=== PATIENT | male | born 1955 | race Caucasian/White ===

== ENCOUNTER → 2020-05-11 09:11 | Outpatient (POV) | payer MEDICARE, SELFPAY | PROVIDERS: PCP Family Medicine; Visit Provider Audiologist | DX: Z00.00 Encounter for general adult medical examination without abnormal findings (principal) ==

== ENCOUNTER → 2020-07-18 10:38 | Outpatient (CLI) | payer MEDICARE, OTHER, SELFPAY ==
--- NOTE | 2020-07-18 10:51 | XR_ITS ---
PROCEDURE: XR SHOULDER LT MIN 2V CLINICAL INDICATION: INJURY OF LT ROTATOR CUFF,TENDONITIS OF LT BICEPS COMPARISON: No exams were available for comparison FINDINGS: No fracture or dislocation. No lytic or blastic change. There is normal mineralization. Moderate osteoarthritic changes of the glenohumeral joint with high-riding humeral head and severe subacromial stenosis suggesting rotator cuff tear which could be confirmed with MRI if clinically warranted. The AC joint is unremarkable. No acute fracture or dislocation. Other findings:None. IMPRESSION: Osteoarthritis with severe subacromial stenosis suggesting rotator cuff tear Dictated by: Estevan Lyons MD 07/18/2020 18:32 Estevan Lyons MD in [facility] 07/18/2020 18:32
== END ==
PROVIDERS: PCP Family Medicine; Visit Provider Family Medicine
DX: S46.002A Unspecified injury of muscle(s) and tendon(s) of the rotator cuff of left shoulder, initial encounter (principal); M75.22 Bicipital tendinitis, left shoulder
CPT/HCPCS: 73030

== ENCOUNTER → 2020-08-11 14:42 | Outpatient (CLI) | payer MEDICARE, OTHER, SELFPAY ==
--- NOTE | 2020-08-11 14:42 | MR_ITS ---
PROCEDURE: MR SHOULDER LT WO CON CLINICAL INDICATION: evaluate for a rotator cuff tear Severe left shoulder pain with subacromial stenosis, abnormal radiograph COMPARISON: CR XR SHOULDER LT MIN 2V from 07/18/2020 TECHNIQUE: Routine multiplanar multi echo sequences are performed without gadolinium enhancement. FINDINGS: The exam is very limited technically due to patient's inability to properly fit inside the MRI unit. There is thickening of the infraspinatus tendon with increased T2 signal of the infraspinatus tendon consistent with tendinopathy/tendinosis. There does appear to be complete tear of the supraspinatus tendon with mild retraction of the musculotendinous fibers. The subscapularis tendon also is thickened with increased T2 signal distally suggesting tear of the subscapularis tendon. The tendon does appear to be retracted. The teres minor tendon is intact. No obvious labral tear. Bicipital tendon is in place. There is increased T2 signal involving the humeral head anteriorly and may be due to subarticular cystic changes. IMPRESSION: Limited study secondary to patient's inability to be properly positioned. Complete tear of the supraspinatus tendon with mild retraction of the musculotendinous fibers with subacromial stenosis and osteoarthritis Complete tear of the subscapularis tendon with retraction of the musculotendinous fibers Dictated by: Estevan Lyons MD 08/13/2020 10:10 Estevan Lyons MD in [facility] 08/13/2020 10:10
== END ==
PROVIDERS: PCP Family Medicine; Visit Provider Orthopaedic Surgery
DX: M25.512 Pain in left shoulder (principal)
CPT/HCPCS: 73221

== ENCOUNTER 2020-09-27 08:00 | Outpatient (RCR) | payer MEDICARE, OTHER, SELFPAY ==
--- NOTE | 2020-08-29 10:43 | HMH.OTOPEV ---
OT Inpatient Evaluation Rehab OT Outpatient Eval Start: 08/29/20 10:32 Freq: Status: Active Protocol: Document 08/29/20 10:33 RMARSHALSuzi (Rec: 08/29/20 10:43 [facility] [id number] Electronically Signed By Ramin Shearer OT 08/29/20 10:33 Outpatient Therapy Subjective History Subjective History Pt is a 65 year old male who reports to therapy for initial evaluation to left shoulder. Pt reports ~May 27 he fell out of his bed and tried to catch himself with LUE resulting in injury. MRI completed and confirmed a complete tear of supraspinatus and subscapularis in L shoulder. Pt has a past medial history of Parkinson's, Diabetes Type 2, HTN, and back issues. Pt does demonstrate with decreased L shoulder AROM and strength. Pt will continue to be seen twice a week in order to address all left shoulder deficits. Chief Complaint Pain,Stiff,Weakness Symptom Type Ache,Throb,Sharp,Dull Symptoms Relieved By Nothing Symptoms Aggravated By Physical Activity,Lifting Prior Functional Limitations None Current Functional Limitations Reaching,Lifting,Housework, Sleeping,Recreation Activity Symptom Description Constant but Variable, Intermittent Level of pain today (0-10) 4 Pain scale - at its best (0-10) 4 Pain scale - at its worst (0-10) 7 Shoulder/Elbow Eval Shoulder Objective Measurements Shoulder ROM Left Shoulder Abduction Active Range of 65 degrees Motion (degrees) Shoulder Flexion Active Range of Motion 125 degrees (degrees) Query Text: Shoulder External Rotation Active Range 55 degrees of Motion (degrees) Shoulder Internal Rotation Active Range 45 degrees of Motion (degrees) pain with active ROM shoulder exam left standard pain with passive ROM shoulder exam left standard decreased ROM shoulder exam standard left Shoulder MMT Shoulder Abduction Strength Grade 3- Fair- Shoulder Extension Strength Grade 4- Good- Shoulder Flexion Strength Grade 4- Good- Shoulder External Rotation Strength 3- Fair- Grade Shoulder Internal Rotation
== END 2020-09-27 08:54 | disposition home or self-care (01) ==
LOC: OT 08:00
PROVIDERS: PCP Family Medicine; Visit Provider Orthopaedic Surgery
DX: M75.122 Complete rotator cuff tear or rupture of left shoulder, not specified as traumatic (principal); M25.512 Pain in left shoulder
CPT/HCPCS: 97014; 97110; 97166; G0283

== ENCOUNTER → 2021-01-23 15:39 | Outpatient (CLI) | payer MEDICARE, OTHER, SELFPAY ==
--- NOTE | 2021-01-23 15:45 | XR_ITS ---
PROCEDURE: XR CHEST 2V CLINICAL HISTORY: SOB COMPARISON: No exams were available for comparison FINDINGS: There is a focal ill-defined density noted in the left suprahilar region. Minor bibasal atelectasis. No lobar consolidation, pleural effusions or pneumothorax. Cardiac size and central pulmonary vasculature within normal limits. Minor degenerative changes of the visualized thoracic spine.. IMPRESSION: Focal ill-defined density in the left suprahilar region. This may represent a nodule versus prominent vasculature. CT scan of the thorax with contrast is recommended for further evaluation. Minor bibasal atelectasis. Dictated by: Alecia Graves 01/23/2021 15:59 Alecia Graves in [facility] 01/23/2021 15:59
== END ==
PROVIDERS: PCP Family Medicine; Visit Provider Family Medicine
DX: R06.02 Shortness of breath (principal)
CPT/HCPCS: 71046

== ENCOUNTER → 2021-07-02 17:08 | Outpatient (CLI) | payer MEDICARE, OTHER, SELFPAY | PROVIDERS: Visit Provider Nurse Practitioner Family | DX: U07.1 COVID-19 (principal) | CPT/HCPCS: U0003 ==

== ENCOUNTER 2021-07-02 17:44 | Emergency (ER) | payer MEDICARE, OTHER, SELFPAY ==
[2021-07-02 17:46] VITALS: BP 149/90; PULSE 115; RESP 42; TEMP 36.7; O2SAT 97; BMI 52.4
--- NOTE | 2021-07-02 17:55 | HMH.EDSOB ---
ED Disposition Clinical Impression: Bronchitis due to 2019 novel coronavirus Disposition: Home, Self-Care Condition on Discharge: Fair Additional Instructions: Please isolate yourself from others to avoid spreading your COVID-19 infection. This includes your . I recommend that your get tested as well. Return to the emergency department if you feel worse in any way and or if your oxygen levels drop and stay below 92% on room air. Referrals: Juan José Cervantes MD [Primary Care Provider] - 3 days - Critical Care Critical Care Time: No Attestation: On , the high probability of a clinically significant, sudden or life threatening deterioration of the following system(s) required my full and direct attention, intervention and personal management. The time I documented below is in addition to time spent performing reported procedures but includes the following listed in this critical care notation. Medical Decision Making - Medical Records Medical records reviewed: Yes: I reviewed the patient's medical records. - Alex Inquiry Pt receiving controlled substance: No Vital Signs: 07/02/21 17:46 Temperature 98.1 F Temperature Source Oral Pulse Rate [Radial] 115 H Respiratory Rate 42 H Blood Pressure [Right Arm] 149/90 H Blood Pressure Mean [Right Arm] 109 Blood Pressure Position [Right Arm] Sitting 02 Sat by Pulse Oximetry 97 Oxygen Delivery Method Room Air - Lab Data Lab results reviewed: Yes: I reviewed the patient's lab results. Lab Results 07/02/21 12:15: SARS-CoV-2 (PCR) Detected A, Influenza A Untype (PCR) Not detected, Influenza Type B (PCR) Not detected 07/02/21 18:10: WBC 6.7, RBC 5.03, Hgb 14.7, Hct 45.0, MCV 89.5, MCH 29.3, MCHC 32.7, RDW 14.5, Plt Count 270, MPV 7.4, Neut % (Auto) 58.2, Lymph % (Auto) 29.7, [place] % (Auto) 8.1, Eos % (Auto) 2.9, Baso % (Auto) 1.2, Neut # (Auto) 3.9, Lymph # (Auto) 2.0, [place] # (Auto) 0.5, Eos # (Auto) 0.2, Baso # (Auto) 0.1 07/02/21 18:10: Sodium 135 L, Potassium 4.2, Chloride 95 L, Carbon Dioxide 28, Anion Gap 16.2 H, BUN 19, Creatinine 1.50 H, Estimated Creat Clear 44, Estimated GFR 47 L, Est GFR ( Amer) 57 L, Glucose 205 H, Calcium 9.1, Total Bilirubin 0.3, AST 27, ALT 30, Alkaline Phosphatase 96, Troponin I < 0.01, NT-Pro-B Natriuret Pep 43.2, Total Protein 7.6, Albumin 3.9, Globulin 3.7 H, Albumin/Globulin Ratio 1.1 Result diagrams: 07/02/21 18:10 07/02/21 18:10 Orders (Tests/Meds): ORDERS Category Date Time Status Troponin I Q3H Lab 07/02/21 21:00 Ordered Troponin I Q3H Lab 07/03/21 00:00 Ordered ECG Request by /Teresa Stat Y 07/02/21 17:59 Ordered - Radiology Data #1 Image(s): Chest Image Reviewed: Yes I reviewed the patient's radiology image Preliminary Findings: Normal/NAD - ECG Data Tracing #1 I reviewed this ECG and interpreted as documented below: The patient's EKG was performed at 1836. It shows a sinus tachycardia with a rate of 112 bpm. Is some artifact present. There is no evidence of ischemia. There is no dysrhythmia. Normal Sinus Rhythm: Yes Arrhythmias present: sinus tach Medical Decision Narrative: Covid PCR test was positive. The patient's oxygen saturations are 100% on room air at this time. The patient does seem somewhat anxious. He is tachycardic. His blood pressure is stable. I reviewed the patient's chest x-ray and I do not see any acute infiltrates. At this point, the patient does not need to be admitted to the hospital for his COVID-19 infection. He will be discharged in stable condition. I advised him to inform his primary care physician of his diagnosis. I also advised him to isolate from other people including his within the house. Patient has expressed understanding. The patient also states that he has a home pulse oximeter. I advised him to use it and check his oxygen level at least 3 times a day. I advised him to return to the emergency department if his oxygen saturations are
--- NOTE | 2021-07-02 17:59 | XR_ITS ---
PROCEDURE INFORMATION: Exam: XR Chest Exam date and time: 07/02/2021 5:59 PM Age: 65 years old Clinical indication: Dyspnea TECHNIQUE: Imaging protocol: XR of the chest. Views: 1 view. COMPARISON: CR XR CHEST 2V 01/23/2021 3:48 PM FINDINGS: Lungs: Mild linear opacities over the left base. Pleural spaces: Unremarkable. No pleural effusion. No pneumothorax. Heart/Mediastinum: Unremarkable. No cardiomegaly. Bones/joints: Unremarkable. IMPRESSION: Mild linear opacities over the left base most compatible with atelectasis
--- NOTE | 2021-07-02 18:15 | PC.NURSE ---
reviewed pt's vital signs with md, no new orders noted
[2021-07-02 18:18] LABS: Basophils # 0.1 K/mm3 (0-0.2); Basophils % 1.2 % (0.1-2.0); Eosinophils # 0.2 K/mm3 (0.0-0.4); Eosinophils % 2.9 % (0.1-12.0); Hemoglobin 14.7 g/dL (14.1-18.0); Lymphocytes % 29.7 % (10-50); Mean Corpuscular HGB Conc 32.7 g/dL (31.8-35.4); Mean Corpuscular Hemoglobin 29.3 pg (27.0-31.2); Mean Corpuscular Volume 89.5 fl (80-94); Mean Platelet Volume 7.4 fl (7.4-10.4); Monocytes # 0.5 K/mm3 (0.1-1.0); Monocytes % 8.1 % (1.7-9.3); Neutrophils # 3.9 K/mm3 (1.8-7.8); Neutrophils % 58.2 % (37.0-80.0); Platelet Count 270 K/mm3 (142-424); Red Blood Count 5.03 M/mm3 (4.60-6.20); Red Cell Distribution Width 14.5 % (11.5-17.5); White Blood Count 6.7 K/mm3 (4.8-10.8)
[2021-07-02 18:23] LABS: Chloride 95 mmol/L (98-107); Potassium 4.2 mmoL/L (3.5-5.1); Sodium 135 mmol/L (136-145)
[2021-07-02 18:25] LABS: Alanine Aminotransferase 30 U/L (12-78); Aspartate Amino Transferase 27 U/L (17-59); Blood Urea Nitrogen 19 mg/dl (9-20); Creatinine Clearance Estimated 44 mL/min (50-200); Estimated Glomerular Filt Rate 47 ml/min (>60); GFR (African American) 57 ML/MIN (>60)
[2021-07-02 18:26] LABS: Albumin Level 3.9 g/dl (3.5-5.0); Albumin/Globulin Ratio 1.1 (1.1-1.8); Alkaline Phosphatase 96 U/L (38-126); Anion Gap 16.2 mEq/L (5-15); Bilirubin,Total 0.3 mg/dl (0.2-1.3); Calcium 9.1 mg/dl (8.4-10.2); Carbon Dioxide 28 mmol/L (22.0-30.0); Globulin 3.7 g/dL (1.3-3.2); Glucose 205 mg/dl (74-100); Total Protein,Serum 7.6 g/dl (6.3-8.2)
[2021-07-02 18:31] LABS: Influenza A, PCR Not Detected (NotDetected); Influenza B, PCR Not Detected (NotDetected)
[2021-07-02 18:32] LABS: Coronavirus 19, PCR Detected (NotDetected)
[2021-07-02 18:35] LABS: NT Pro Brain Natriuretic Pep. 43.2 pg/mL (0-125)
--- NOTE | 2021-07-02 18:36 | ECG_ITS ---
APPROVED REPORT Exam: Resting ECG HR:112 bpm ECG Measurements Heart Rate 112 AXES NC 140 P 23 QRSd 80 QRS 44 QT 334 T 13 QTc 455 Conclusion Sinus tachycardia Cannot rule out Anterior infarct, age undetermined Abnormal ECG Electronically signed by : Juan José Allred MD 07/03/2021 10:44:43
[2021-07-02 18:39] LABS: Troponin I < 0.01 ng/ml (0.00-0.034)
[2021-07-02 18:54] VITALS: BP 127/90; PULSE 114; RESP 40; TEMP 37.1; O2SAT 98
== END 2021-07-02 18:58 | disposition home or self-care (01) ==
PROVIDERS: Emergency Provider Emergency Medicine; PCP Family Medicine
DX: J20.9 Acute bronchitis, unspecified (principal); U07.1 COVID-19; E11.9 Type 2 diabetes mellitus without complications; E78.5 Hyperlipidemia, unspecified; I10 Essential (primary) hypertension; F41.9 Anxiety disorder, unspecified
CPT/HCPCS: 71045; 80053; 83880; 84484; 85025; 93005; 99283; U0003

== ENCOUNTER → 2021-11-14 10:27 | Outpatient (CLI) | payer MEDICARE, OTHER, SELFPAY ==
--- NOTE | 2021-11-14 10:28 | FL_ITS ---
FINAL REPORT CLINICAL HISTORY: dysphagia, prior dx Parkinson disease FINDINGS: MODIFIED BARIUM SWALLOW History: Dysphagia FINDINGS: Fluoroscopy was provided for the speech pathologist to evaluate the swallowing mechanism. The patient was given several different consistencies of barium while the swallow was visualized fluoroscopically. The report of the speech pathologist should be consulted prior to making dietary decisions. FLUOROSCOPY TIME: 1 minute IMPRESSION: Modified barium swallow under fluoroscopic guidance.Please see the report of the speech pathologist for Reviewed, Interpreted and Dictated by Urbano Hudson III, MD Transcribed by JULIUS Romero Authenticated by Urbano Hudson III, MD on 11/14/2021 11:53:08 AM [facility]
--- NOTE | 2021-11-14 12:08 | HMH.SLMBS2 ---
Speech & Language Evaluation Speech/Language Mod Barium Swallow Start: 11/14/21 11:51 Freq: once Status: Complete Protocol: Document 11/14/21 11:51 KODY (Rec: 11/14/21 12:08 KODY [id number]) General Information General Current Food Consistancy Regular,Thin Liquids Dentition Poor Dentition Oxygen Status Room Air Ability to Follow Directions Excellent Communication Ability No Impairment MBS Recommendations Diet Dietary Recommendations Regular,Thin Liquids Treatment/Strategies Strategy/Precaution Recommend Sitting Upright (90 deg),Small Bites and Sips,Alternate Liquids/Solids Referrals/Other Recommended Referrals Dietary Consult Mod Barium Swallow Impressions Summary and Impressions Oral Phase Impression Mild Impairment Oral Phase Summary Tongue pumping noted. Prolonged mastication of solids 2' missing & poor dentition. Pharyngeal Phase Impression Minimal Impairment Pharyngeal Phase Summary Penetration noted x1 with one trial of thin liquids via cup. Penetration was shallow and noted to occur during the swallow. All penetrated material cleared from the lanryngeal vestibule upon completion of the swallow. Speech/Language MBS Assessment/Goals/Plan Assessment Date of Evaluation: 11/14/21 Evaluation Type Initial Certification Assessment/Problems Parkinson's, difficulty swallowing. Does Patient Qualify for Service No Qualify/Failure Comment Based on the results of the modified barium swallow study, patient does not quality for skilled speech therapy services at this time. Recommendations PHYSICIAN CERTIFICATION: The specified therapy services are required, authorized, and reviewed every 30 days. Diet Recommendations Normal Liquid Type Recommendations Normal/Thin SL Swallow Guidelines Alt bite w/sip thru meal, Standard Aspiration Prec.,Eat at slow rate Dysphagia Swallow Precautions/Strategies Sitting Upright (90 deg),Small Bites and Sips,Alternate Liquids/Solids Place Food on Either side of Mouth Plan Pt/Guardian verbally ack understanding Yes of dx/prognosis/goals Pt/Guardian verbally ack understanding Yes of/consent to tx
[2021-11-14 13:11] LABS: Basophils # 0.1 K/mm3 (0-0.2); Basophils % 1.4 % (0.1-2.0); Eosinophils # 0.2 K/mm3 (0.0-0.4); Eosinophils % 2.6 % (0.1-12.0); Hematocrit 41.6 % (42.0-52.0); Hemoglobin 13.5 g/dL (14.1-18.0); Lymphocytes # 2.1 K/mm3 (0.7-4.5); Lymphocytes % 27.9 % (10-50); Mean Corpuscular HGB Conc 32.6 g/dL (31.8-35.4); Mean Corpuscular Hemoglobin 30.1 pg (27.0-31.2); Mean Corpuscular Volume 92.4 fl (80-94); Mean Platelet Volume 7.6 fl (7.4-10.4); Monocytes # 0.5 K/mm3 (0.1-1.0); Monocytes % 6.5 % (1.7-9.3); Neutrophils # 4.7 K/mm3 (1.8-7.8); Neutrophils % 61.6 % (37.0-80.0); Platelet Count 271 K/mm3 (142-424); Red Cell Distribution Width 15.1 % (11.5-17.5); White Blood Count 7.7 K/mm3 (4.8-10.8)
[2021-11-14 14:45] LABS: Alanine Aminotransferase 13 U/L (12-78); Albumin Level 3.6 g/dl (3.5-5.0); Albumin/Globulin Ratio 1.2 (1.1-1.8); Alkaline Phosphatase 76 U/L (38-126); Anion Gap 11.5 mEq/L (5-15); Aspartate Amino Transferase 27 U/L (17-59); Bilirubin,Total 0.3 mg/dl (0.2-1.3); Blood Urea Nitrogen 12 mg/dl (9-20); Carbon Dioxide 25 mmol/L (22.0-30.0); Chloride 106 mmol/L (98-107); Estimated Glomerular Filt Rate 60 ml/min (>60); GFR (African American) 73 ML/MIN (>60); Glucose 94 mg/dl (74-100); Potassium 4.5 mmoL/L (3.5-5.1); Sodium 138 mmol/L (136-145); Total Protein,Serum 6.6 g/dl (6.3-8.2)
[2021-11-14 15:19] LABS: Thyroid Stimulating Hormone 2.02 uIU/mL (0.465-4.68)
[2021-11-14 15:59] LABS: Folate 7.73 ng/mL; Vitamin B12 < 159 pg/mL (239-931)
== END ==
PROVIDERS: PCP Family Medicine; Visit Provider Nurse Practitioner Family
DX: M54.2 Cervicalgia (principal); R13.10 Dysphagia, unspecified; R26.9 Unspecified abnormalities of gait and mobility; R29.2 Abnormal reflex; Z86.69 Personal history of other diseases of the nervous system and sense organs; R51.9 Headache, unspecified; R93.7 Abnormal findings on diagnostic imaging of other parts of musculoskeletal system; E83.10 Disorder of iron metabolism, unspecified
CPT/HCPCS: 36415; 70371; 80053; 82607; 82728; 82746; 84443; 85025; 92611

== ENCOUNTER → 2021-11-15 13:25 | Outpatient (CLI) | payer MEDICARE, OTHER, SELFPAY ==
--- NOTE | 2021-11-15 13:38 | MR_ITS ---
FINAL REPORT CLINICAL HISTORY: gait disturbance, headache, tremor, abnormal reflexes, hx parkinsons FINDINGS: Multiplanar MR imaging of the brain was performed without contrast. There is mild age-appropriate atrophy. There are scattered foci of increased T2 signal in the cerebral white matter that have a nonspecific appearance but likely represent mild chronic ischemic/gliotic changes. There is no evidence of intracranial hemorrhage or mass. No abnormal ventricular dilatation is identified. No abnormal extra-axial fluid collection is seen. No abnormality is seen on the diffusion weighted images. The posterior fossa and brainstem are unremarkable. Normal major vessel vascular flow voids are seen. IMPRESSION: Age-appropriate atrophy and mild chronic ischemic/gliotic changes. No acute intracranial abnormality. Reviewed, Interpreted and Dictated by Urbano Hudson III, MD Transcribed by Roselyn Baker Authenticated by Urbano Hudson III, MD on 11/15/2021 03:17:11 PM [facility]
--- NOTE | 2021-11-15 13:38 | MR_ITS ---
FINAL REPORT CLINICAL HISTORY: brisk reflexes, abn prior cervial spine imaging. hx Parkinson's. gait imbalance. pt had a hard time staying still. sent over best images. FINDINGS: Multiplanar MR imaging of the cervical spine was performed without contrast. Motion artifact is identified on all of the images. On the sagittal T2-weighted images, disc degeneration is seen throughout. There is no evidence of fracture. The vertebral alignment is normal. The cervical spinal cord has an unremarkable appearance without evidence of mass, edema or syrinx. The cervicomedullary junction is normal. There is mild canal stenosis at C1-2 measuring 8 mm. C2-3: Uncovertebral osteophytes are present with mild right neural foraminal narrowing. C3-4: Uncovertebral osteophytes are present with moderate right neural foraminal narrowing. C4-5: An annular bulge is present. There is no significant canal stenosis or neural foraminal narrowing. C5-6: An annular bulge is present. There is a central disc protrusion which indents the thecal sac. There is mild left neural foraminal narrowing. C6-7: An annular bulge is present. There is no significant canal stenosis or neural foraminal narrowing. C7-T1: There is no significant canal stenosis or neural foraminal narrowing. IMPRESSION: Multilevel degenerative disc disease and spondylosis with mild central canal stenosis at C1-2. Central disc protrusion at C5-6 indents the thecal sac. Reviewed, Interpreted and Dictated by Urbano Hudson III, MD Transcribed by Roselyn Baker Authenticated by Urbano Hudson III, MD on 11/15/2021 04:25:12 PM [facility]
== END ==
PROVIDERS: PCP Family Medicine; Visit Provider Nurse Practitioner Family
DX: R26.9 Unspecified abnormalities of gait and mobility (principal); R29.2 Abnormal reflex; R51.9 Headache, unspecified; R93.7 Abnormal findings on diagnostic imaging of other parts of musculoskeletal system
CPT/HCPCS: 70551; 72141; 76376

== ENCOUNTER → 2022-01-17 10:55 | Outpatient (CLI) | payer MEDICARE, OTHER, SELFPAY ==
[2022-01-17 11:38] LABS: Basophils % 0.4 % (0.1-2.0); Eosinophils # 0.1 K/mm3 (0.0-0.4); Eosinophils % 1.7 % (0.1-12.0); Hematocrit 44.7 % (42.0-52.0); Hemoglobin 14.6 g/dL (14.1-18.0); Mean Corpuscular HGB Conc 32.6 g/dL (31.8-35.4); Mean Corpuscular Volume 89.2 fl (80-94); Mean Platelet Volume 7.4 fl (7.4-10.4); Monocytes # 0.6 K/mm3 (0.1-1.0); Monocytes % 7.1 % (1.7-9.3); Neutrophils # 5.3 K/mm3 (1.8-7.8); Neutrophils % 65.8 % (37.0-80.0); Platelet Count 237 K/mm3 (142-424); Red Blood Count 5.01 M/mm3 (4.60-6.20); Red Cell Distribution Width 14.8 % (11.5-17.5); White Blood Count 8.1 K/mm3 (4.8-10.8)
[2022-01-17 13:21] LABS: Erythrocyte Sedimentation Rate 21 mm/hr (0-20)
[2022-01-17 13:31] LABS: Chloride 102 mmol/L (98-107); Potassium 4.4 mmoL/L (3.5-5.1); Sodium 139 mmol/L (136-145)
[2022-01-17 13:34] LABS: Alanine Aminotransferase 12 U/L (12-78); Albumin Level 3.8 g/dl (3.5-5.0); Albumin/Globulin Ratio 1.3 (1.1-1.8); Alkaline Phosphatase 75 U/L (38-126); Anion Gap 12.4 mEq/L (5-15); Aspartate Amino Transferase 25 U/L (17-59); Bilirubin,Total 0.4 mg/dl (0.2-1.3); Blood Urea Nitrogen 19 mg/dl (9-20); Carbon Dioxide 29 mmol/L (22.0-30.0); Estimated Glomerular Filt Rate 60 ml/min (>60); GFR (African American) 73 ML/MIN (>60); Globulin 2.9 g/dL (1.3-3.2); Total Protein,Serum 6.7 g/dl (6.3-8.2)
[2022-01-17 13:35] LABS: Calcium 8.7 mg/dl (8.4-10.2); Glucose 161 mg/dl (74-100)
[2022-01-17 14:04] LABS: C-Reactive Protein 8.2 mg/L (0-4)
== END ==
PROVIDERS: Visit Provider Nurse Practitioner Family
DX: L03.039 Cellulitis of unspecified toe (principal)
CPT/HCPCS: 36415; 80053; 85025; 85651; 86140; 87070; 87077; 87186; 87205

== ENCOUNTER → 2022-02-21 09:08 | Outpatient (CLI) | payer MEDICARE, OTHER, SELFPAY ==
--- NOTE | 2022-02-21 09:08 | US_ITS ---
FINAL REPORT CLINICAL HISTORY: DECREASED SENESATION SIAT,CLAUDICATION,REST PAIN,DM,HTN FINDINGS: Complete ankle brachial indices were obtained. The right BHARGAVI is 1.7. The left BHARGAVI is 1.19. The ABIs are within normal limits bilaterally. IMPRESSION: ABIs within normal limits bilaterally. Reviewed, Interpreted and Dictated by Jose Howard MD Transcribed by Roselyn Baker Authenticated by Jose Howard MD on 02/21/2022 11:20:[address] [facility]
== END ==
PROVIDERS: PCP Family Medicine; Visit Provider Nurse Practitioner Family
DX: E11.42 Type 2 diabetes mellitus with diabetic polyneuropathy (principal); R09.89 Other specified symptoms and signs involving the circulatory and respiratory systems; R20.8 Other disturbances of skin sensation; Z79.4 Long term (current) use of insulin
CPT/HCPCS: 93923

== ENCOUNTER 2022-07-03 10:22 | Outpatient (CLI) | payer MEDICARE, OTHER, SELFPAY ==
[2022-07-03 10:28] VITALS: BP 135/78; PULSE 88; RESP 18; O2SAT 100
== END 2022-07-03 10:36 | disposition home or self-care (01) ==
LOC: INF 10:23
PROVIDERS: PCP Family Medicine; Visit Provider Family Medicine
DX: E53.8 Deficiency of other specified B group vitamins (principal)
CPT/HCPCS: 96372

== ENCOUNTER 2022-08-06 09:22 | Outpatient (CLI) | payer MEDICARE, OTHER, SELFPAY ==
[2022-08-06 09:48] VITALS: BP 124/79; PULSE 87; RESP 18; TEMP 36.4; O2SAT 97
== END 2022-08-06 10:00 | disposition home or self-care (01) ==
LOC: INF 09:25
PROVIDERS: PCP Family Medicine; Visit Provider Family Medicine
DX: E53.8 Deficiency of other specified B group vitamins (principal)
CPT/HCPCS: 96372

== ENCOUNTER → 2022-08-19 15:32 | Outpatient (CLI) | payer MEDICARE, OTHER, SELFPAY ==
[2022-08-19 18:40] LABS: Ferritin 28.8 ng/ml (17.9-464)
[2022-08-20 14:31] LABS: Vitamin B12 > 1000 pg/mL (239-931)
== END ==
PROVIDERS: PCP Family Medicine; Visit Provider Nurse Practitioner Family
DX: E11.9 Type 2 diabetes mellitus without complications (principal); Z79.4 Long term (current) use of insulin
CPT/HCPCS: 36415; 82607; 82728

== ENCOUNTER → 2022-08-20 13:26 | Outpatient (CLI) | payer MEDICARE, OTHER, SELFPAY ==
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
--- NOTE | 2022-08-20 13:30 | CT_ITS ---
FINAL REPORT CLINICAL HISTORY: headache COMPARISON: MRI 11/15/2021 FINDINGS: Axial images of the head were obtained without contrast. Coronal reformatted images were also obtained. This study was performed with techniques to keep radiation doses as low as reasonably achievable (ALARA). Individualized dose reduction techniques using automated exposure control or adjustment of mA and/or kV according to the patient''s size were employed. There is generalized age-appropriate atrophy. Periventricular low-attenuation areas are seen consistent with mild chronic ischemic changes. There is no evidence of hemorrhage. There is an extra-axial mass in the right occipital region measuring 16 mm, not significantly changed since prior and likely represents a meningioma. There is no evidence of acute infarct. There is no evidence of shift of the midline structures. No skull abnormality is seen on the bone window images. IMPRESSION: Atrophy and mild periventricular chronic ischemic changes. No acute intracranial abnormality identified. Stable mass in the right occipital region, likely represents a meningioma. Reviewed, Interpreted and Dictated by Urbano Hudson III, MD Transcribed by Roselyn Baker Authenticated and [facility]
== END ==
PROVIDERS: PCP Family Medicine; Visit Provider Nurse Practitioner Family
DX: M54.2 Cervicalgia (principal); R51.9 Headache, unspecified
CPT/HCPCS: 70450; 72052

== ENCOUNTER 2022-09-03 09:27 | Outpatient (CLI) | payer MEDICARE, OTHER, SELFPAY ==
[2022-09-03 09:38] VITALS: BP 102/62; PULSE 103; RESP 18; O2SAT 97
== END 2022-09-03 09:38 | disposition home or self-care (01) ==
PROVIDERS: PCP Family Medicine; Visit Provider Family Medicine
DX: E53.8 Deficiency of other specified B group vitamins (principal)
CPT/HCPCS: 96372

== ENCOUNTER 2022-10-01 09:25 | Outpatient (CLI) | payer MEDICARE, OTHER, SELFPAY ==
[2022-10-01 09:30] VITALS: BP 110/65; PULSE 100; RESP 20; TEMP 36.9; O2SAT 95
== END 2022-10-01 09:45 | disposition home or self-care (01) ==
LOC: INF 09:27
PROVIDERS: PCP Family Medicine; Visit Provider Family Medicine
DX: E53.8 Deficiency of other specified B group vitamins (principal)
CPT/HCPCS: 96372

== ENCOUNTER 2022-10-25 08:07 | Emergency (ER) | payer MEDICARE, OTHER, SELFPAY ==
[2022-10-25 08:23] VITALS: BP 123/73; PULSE 82; RESP 16; TEMP 36.6; O2SAT 97; BMI 45.8
--- NOTE | 2022-10-25 08:31 | EXP.UTC ---
Discharge Plan Disposition Patient Disposition: Home, Self-Care Condition: Good Prescriptions Prescriptions: New azithromycin [Zithromax Z-Joey] 250 mg tablet See Rx Instructions .ROUTE .COMPLEX 5 Days Qty: 6 0RF Rx Instructions: For 250 mg dose pack: take 500 mg today (day 1), then 250 mg for 4 days (days 2-5) benzonatate 100 mg capsule 100 mg PO TID PRN (Reason: cough) Qty: 30 0RF No Action Lantus Solostar U-100 Insulin 100 unit/mL (3 mL) insulin pen 50 unit SQ DAILY Label Comments: INJECT 50 UNITS SUBCUTANEOUSLY EVERY DAY NEEDED ciclopirox 8 % solution 1 applic TOPICAL HS 28 Days Qty: 6.6 11RF Rx Instructions: Apply to all nails for 7 days. At the end of the 7 day remove nail micronesian with micronesian remover and re- start application. Ozempic 0.25 mg or 0.5 mg(2 mg/1.5 mL) pen injector 0.5 mg SQ WEEKLY furosemide 40 mg tablet 40 mg PO DAILY Slow Release Iron 140 mg (45 mg iron) tablet extended release 280 mg PO DAILY mupirocin 2 % ointment 1 applic TOPICAL BID Qty: 22 0RF carbidopa-levodopa 25-100 mg tablet 1 tab PO TID metformin 1,000 mg tablet 1,000 mg PO DAILY pramipexole 1.5 mg tablet extended release 24 hr 1.5 mg PO DAILY isosorbide mononitrate 60 mg tablet extended release 24 hr 60 mg PO DAILY aspirin 81 mg tablet,delayed release (DR/EC) 81 mg PO DAILY gabapentin 600 mg tablet 600 mg PO TID hydrochlorothiazide 12.5 mg capsule 12.5 mg PO DAILY Label Comments: TAKE 1 CAPSULE BY MOUTH EVERY DAY IN THE MORNING vitamin B complex [B Complex-Vitamin B12] Tablet 1 tab PO DAILY enalapril maleate 5 mg tablet 5 mg PO DAILY cyanocobalamin (vitamin B-12) 1,000 mcg/mL Syringe 1,000 mcg IM MONTHLY Rx Instructions: b12 injection twice weekly Referrals Follow up/Referrals: Juan José Cervantes MD [Primary Care Provider] - See instructions Activity Restrictions/Add. Instructions Additional Instructions/Restrictions: *Monitor Temp, Over the counter Motrin or Tylenol as directed/as needed Tylenol every 4 hours and Motrin every 6 hours (as long as your family doctor has told you that you can take it) for fever or pain. and straight to ER if unable to lower temp less than 101.0 after medication given *Warm salt water gargles may help to soothe the throat *Throat Lozenges? *Warm fluids like tea with honey may help to soothe the throat? *Sleep elevated *Humidifier/Vaporizer *If you did not take Penicillin shot or was unable to, start taking antibiotic immediately and make sure that you take it for the FULL length of time although you should start to feel better in 24-48 hours *change toothbrush and toothpaste 24-48 hours after starting to take antibiotics so you do not reinfect yourself Monitor Temp. Tylenol and/or Ibuprofen as needed. ER if fever is no less than 101 despite alternating Tylenol and Ibuprofen * Encourage fluids, water, Gatorade, powerade, pedialyte if /toddler/or child *Cold fluids, popsicles and ice cream may feel good on his throat Follow up IMMEDIATELY for new or worsening symptoms or no Noticeable improvement over the next 48-72 hours. 911 for difficulty breathing or swallowing Clinical Impressions Clinical Impression: Strep throat Instructions Patient Instructions: Strep Throat, DI for Strep Throat Discharge ED Provider[place]ford [facility] [place] Stated complaint: Congestion,Cough Mode of Arrival: Ambulatory Source of Information: Patient Limitations: No Limitations Time Seen by Provider: 10/25/22 08:31 Description of Symptoms (Recalled from Triage Doc. by RN): pt comes in with c/o productive cough and congestion that began friday. HEENT Symptoms (Recalled from RN notes): Yes Resp Symptoms (Recalled from RN notes): Yes Skin Symptoms (Recalled from RN notes): No MS Symptoms (Recalled from RN notes): No Functional
[2022-10-25 08:36] LABS: UTC Strep Screen (Rapid) Positive (Negative)
[2022-10-25 08:45] VITALS: BP 123/73; PULSE 82; RESP 16; TEMP 36.6
== END 2022-10-25 08:50 | disposition home or self-care (01) ==
PROVIDERS: Emergency Provider Nurse Practitioner; PCP Family Medicine
DX: J02.0 Streptococcal pharyngitis (principal)
CPT/HCPCS: 87880; 99212; G0463

== ENCOUNTER 2022-10-29 09:13 | Outpatient (CLI) | payer MEDICARE, OTHER, SELFPAY ==
[2022-10-29 09:31] VITALS: BP 107/59; PULSE 91; RESP 20; TEMP 36.4; O2SAT 97
== END 2022-10-29 09:50 | disposition home or self-care (01) ==
LOC: INF 09:15
PROVIDERS: PCP Family Medicine; Visit Provider Family Medicine
DX: E53.8 Deficiency of other specified B group vitamins (principal)
CPT/HCPCS: 96372

== ENCOUNTER 2022-11-26 08:48 | Outpatient (CLI) | payer MEDICARE, OTHER, SELFPAY ==
[2022-11-26 08:54] VITALS: BP 123/74; PULSE 95; RESP 20; TEMP 36.4; O2SAT 99
== END 2022-11-26 09:13 | disposition home or self-care (01) ==
LOC: INF 08:49
PROVIDERS: PCP Family Medicine; Visit Provider Family Medicine
DX: R79.9 Abnormal finding of blood chemistry, unspecified (principal)
CPT/HCPCS: 96372

== ENCOUNTER 2022-12-24 08:47 | Outpatient (CLI) | payer MEDICARE, OTHER, SELFPAY ==
[2022-12-24 09:00] VITALS: BP 108/65; PULSE 83; RESP 18; TEMP 36.4; O2SAT 99
== END 2022-12-24 09:05 | disposition home or self-care (01) ==
LOC: INF 08:47
PROVIDERS: PCP Family Medicine; Visit Provider Family Medicine
DX: E53.8 Deficiency of other specified B group vitamins (principal)
CPT/HCPCS: 96372

== ENCOUNTER → 2022-12-26 12:29 | Outpatient (CLI) | payer MEDICARE, OTHER, SELFPAY | PROVIDERS: PCP Family Medicine; Visit Provider Nurse Practitioner Family | DX: G47.33 Obstructive sleep apnea (adult) (pediatric) (principal); G25.81 Restless legs syndrome; G20 Parkinson's disease; E11.42 Type 2 diabetes mellitus with diabetic polyneuropathy; I10 Essential (primary) hypertension; E66.01 Morbid (severe) obesity due to excess calories; Z68.41 Body mass index [BMI] 40.0-44.9, adult; Z79.4 Long term (current) use of insulin | CPT/HCPCS: G0399 ==

== ENCOUNTER → 2023-01-20 09:35 | Outpatient (CLI) | payer MEDICARE, OTHER, SELFPAY | PROVIDERS: PCP Family Medicine; Visit Provider Nurse Practitioner Family | DX: E11.42 Type 2 diabetes mellitus with diabetic polyneuropathy (principal); I10 Essential (primary) hypertension; I49.8 Other specified cardiac arrhythmias; R60.9 Edema, unspecified; R94.31 Abnormal electrocardiogram [ECG] [EKG] | CPT/HCPCS: 93270 ==

== ENCOUNTER 2023-01-21 08:33 | Outpatient (CLI) | payer MEDICARE, OTHER, SELFPAY ==
[2023-01-21 08:42] VITALS: BP 93/61; PULSE 98; RESP 18; TEMP 36.4; O2SAT 98
== END 2023-01-21 08:50 | disposition home or self-care (01) ==
PROVIDERS: PCP Family Medicine; Visit Provider Family Medicine
DX: E53.8 Deficiency of other specified B group vitamins (principal)
CPT/HCPCS: 96372

== ENCOUNTER → 2023-01-27 10:37 | Outpatient (CLI) | payer MEDICARE, OTHER, SELFPAY | PROVIDERS: PCP Family Medicine; Visit Provider Nurse Practitioner Family | DX: E11.42 Type 2 diabetes mellitus with diabetic polyneuropathy (principal); G47.33 Obstructive sleep apnea (adult) (pediatric); I10 Essential (primary) hypertension; I49.8 Other specified cardiac arrhythmias; R94.31 Abnormal electrocardiogram [ECG] [EKG]; Z99.89 Dependence on other enabling machines and devices; Z79.4 Long term (current) use of insulin | CPT/HCPCS: 93306 ==

== ENCOUNTER 2023-02-18 08:46 | Outpatient (CLI) | payer MEDICARE, OTHER, SELFPAY ==
[2023-02-18 08:53] VITALS: BP 108/62; PULSE 68; RESP 18; TEMP 36.7; O2SAT 98
== END 2023-02-18 09:15 | disposition home or self-care (01) ==
LOC: INF 08:47
PROVIDERS: PCP Family Medicine; Visit Provider Family Medicine
DX: E53.8 Deficiency of other specified B group vitamins (principal)
CPT/HCPCS: 96372

== ENCOUNTER 2023-03-18 08:42 | Outpatient (CLI) | payer MEDICARE, OTHER, SELFPAY ==
[2023-03-18 08:53] VITALS: BP 99/65; PULSE 89; RESP 18; TEMP 36.6; O2SAT 99
== END 2023-03-18 09:05 | disposition home or self-care (01) ==
LOC: INF 08:43
PROVIDERS: PCP Family Medicine; Visit Provider Family Medicine
DX: E53.8 Deficiency of other specified B group vitamins (principal)
CPT/HCPCS: 96372

== ENCOUNTER 2023-04-15 08:35 | Outpatient (CLI) | payer MEDICARE, OTHER, SELFPAY ==
[2023-04-15 08:52] VITALS: BP 114/63; PULSE 82; RESP 18; O2SAT 97
== END 2023-04-15 08:52 | disposition home or self-care (01) ==
LOC: INF 08:36
PROVIDERS: PCP Family Medicine; Visit Provider Family Medicine
DX: E53.8 Deficiency of other specified B group vitamins (principal)
CPT/HCPCS: 96372

== ENCOUNTER 2023-04-17 13:22 | Emergency (ER) | payer MEDICARE, OTHER, SELFPAY ==
[2023-04-17 13:25] VITALS: BP 112/70; PULSE 82; RESP 20; TEMP 36.6; O2SAT 96; BMI 45.1
--- NOTE | 2023-04-17 13:40 | EXP.UTC ---
Discharge Plan Disposition Patient Disposition: Home, Self-Care Condition: Good Prescriptions Prescriptions: New methylprednisolone 4 mg Tablets,Dose Pack 4 mg PO DIRECTED Qty: 21 0RF No Action furosemide 40 mg tablet 40 mg PO DAILY Slow Release Iron 140 mg (45 mg iron) tablet extended release 280 mg PO DAILY mupirocin 2 % ointment 1 applic TOPICAL BID Qty: 22 0RF Ozempic 2 mg/dose (8 mg/3 mL) pen injector 2 mg SQ WEEKLY Label Comments: INJECT 2MG UNDER THE SKIN INTO THE APPROPRIATE AREA DIRECTED ONE TIME PER WEEK carbidopa-levodopa 25-100 mg tablet 1 tab PO TID metformin 1,000 mg tablet 1,000 mg PO DAILY isosorbide mononitrate 60 mg tablet extended release 24 hr 60 mg PO DAILY aspirin 81 mg tablet,delayed release (DR/EC) 81 mg PO DAILY pramipexole 1.5 mg tablet extended release 24 hr 1.5 mg PO BID gabapentin 600 mg tablet 600 mg PO TID hydrochlorothiazide 12.5 mg capsule 12.5 mg PO DAILY Label Comments: TAKE 1 CAPSULE BY MOUTH EVERY DAY IN THE MORNING vitamin B complex [B Complex-Vitamin B12] Tablet 1 tab PO DAILY enalapril maleate 5 mg tablet 5 mg PO DAILY cyanocobalamin (vitamin B-12) 1,000 mcg/mL Syringe 1,000 mcg IM MONTHLY Rx Instructions: b12 injection twice weekly Referrals Follow up/Referrals: Juan José Cervantes MD [Primary Care Provider] - See instructions Activity Restrictions/Add. Instructions Additional Instructions/Restrictions: Rest the extremity, Elevate the extremity as tolerated while you are resting. Don't start the oral steroids until tomorrow. Take the medications as directed. Follow up with Dr. Desouza (orthopedics) if you continue to have symptoms. I put in a referral but you need to call his office and schedule an appointment. Follow up with your regular doctor. GO TO THE ER FOR ANY WORSENING SYMPTOMS Clinical Impressions Clinical Impression: Pain in right knee Instructions Patient Instructions: DI for Knee Pain Discharge ED Provider: Sy Warner [facility] General Stated complaint: RT knee pain no known accident Mode of Arrival: Ambulatory Source of Information: Patient Limitations: No Limitations Time Seen by Provider: 04/17/23 13:40 Description of Symptoms (Recalled from Triage Doc. by RN): PATIENT C/O RIGHT KNEE PAIN X 3 DAYS, NO KNOWN INJURY HEENT Symptoms (Recalled from RN notes): No Resp Symptoms (Recalled from RN notes): No Skin Symptoms (Recalled from RN notes): No MS Symptoms (Recalled from RN notes): Yes Functional Status (Recalled from RN notes): WNL History of Present Illness Provider Complaint: He c/o right knee pain for the past 3 days. He denies any injury. Related Data Home Medications Medication Instructions Recorded Confirmed aspirin 81 mg tablet,delayed 81 mg PO DAILY Blood thinner 08/08/20 04/07/23 release carbidopa 25 mg-levodopa 100 mg 1 tab PO TID parkinsons 08/08/20 04/07/23 tablet isosorbide mononitrate 60 mg 60 mg PO DAILY hypertension 08/08/20 04/07/23 tablet,extended release 24 hr metformin 1,000 mg tablet 1,000 mg PO DAILY Diabetes 08/08/20 04/07/23 gabapentin 600 mg tablet 600 mg PO TID pain 04/23/21 04/07/23 hydrochlorothiazide 12.5 mg capsule 12.5 mg PO DAILY High blood 11/26/21 04/07/23 pressure vitamin B complex (B 1 tab PO DAILY Supplement 11/26/21 04/07/23 Complex-Vitamin B12 tablet) enalapril maleate 5 mg tablet 5 mg PO DAILY High blood pressure 01/31/22 04/07/23 ferrous sulfate 140 mg (45 mg 280 mg PO DAILY supplement 02/19/22 04/07/23 iron) tablet,extended release (Slow Release Iron) furosemide 40 mg tablet 40 mg PO DAILY High blood pressure 02/19/22 04/07/23 cyanocobalamin (vitamin B-12) 1,000 mcg IM MONTHLY supplement 07/03/22 04/07/23 1,000 mcg/mL injection syringe pramipexole 1.5 mg tablet,extended 1.5 mg PO BID parkinsons 12/03/22 04/07/23 release 24 hr se
[2023-04-17 13:59] VITALS: BP 112/70; PULSE 82; RESP 20; TEMP 36.6; O2SAT 96
== END 2023-04-17 14:20 | disposition home or self-care (01) ==
PROVIDERS: Emergency Provider Nurse Practitioner Family; PCP Family Medicine
DX: M25.561 Pain in right knee (principal); G20 Parkinson's disease; E11.40 Type 2 diabetes mellitus with diabetic neuropathy, unspecified; I10 Essential (primary) hypertension; E78.5 Hyperlipidemia, unspecified; G47.33 Obstructive sleep apnea (adult) (pediatric); Z79.84 Long term (current) use of oral hypoglycemic drugs
CPT/HCPCS: 96372; 99212; 99214; G0463

== ENCOUNTER 2023-04-28 08:21 | Emergency (ER) | payer MEDICARE, OTHER, SELFPAY ==
[2023-04-28 08:25] VITALS: BP 123/72; PULSE 80; RESP 18; TEMP 36.8; O2SAT 99; BMI 43.5
--- NOTE | 2023-04-28 08:36 | EXP.UTC ---
Discharge Plan Disposition Patient Disposition: Home, Self-Care Condition: Good Prescriptions Prescriptions: New colchicine [Colcrys] 0.6 mg tablet 0.6 mg PO DIRECTED Qty: 3 0RF Rx Instructions: Take 2 tablets (1.2mg) now and wait one hour and take 1 tablet (0.6mg) cephalexin 500 mg tablet 500 mg PO QID 5 Days Qty: 20 0RF No Action furosemide 40 mg tablet 40 mg PO DAILY Slow Release Iron 140 mg (45 mg iron) tablet extended release 280 mg PO DAILY mupirocin 2 % ointment 1 applic TOPICAL BID Qty: 22 0RF Ozempic 2 mg/dose (8 mg/3 mL) pen injector 2 mg SQ WEEKLY Patient Comments: INJECT 2MG UNDER THE SKIN INTO THE APPROPRIATE AREA DIRECTED ONE TIME PER WEEK carbidopa-levodopa 25-100 mg tablet 1 tab PO TID metformin 1,000 mg tablet 1,000 mg PO DAILY isosorbide mononitrate 60 mg tablet extended release 24 hr 60 mg PO DAILY aspirin 81 mg tablet,delayed release (DR/EC) 81 mg PO DAILY pramipexole 1.5 mg tablet extended release 24 hr 1.5 mg PO BID gabapentin 600 mg tablet 600 mg PO TID hydrochlorothiazide 12.5 mg capsule 12.5 mg PO DAILY Patient Comments: TAKE 1 CAPSULE BY MOUTH EVERY DAY IN THE MORNING vitamin B complex [B Complex-Vitamin B12] Tablet 1 tab PO DAILY enalapril maleate 5 mg tablet 5 mg PO DAILY cyanocobalamin (vitamin B-12) 1,000 mcg/mL Syringe 1,000 mcg IM MONTHLY Rx Instructions: b12 injection twice weekly methylprednisolone 4 mg Tablets,Dose Pack 4 mg PO DIRECTED Qty: 21 0RF Referrals Follow up/Referrals: Juan José Cervantes MD [Primary Care Provider] - See instructions Activity Restrictions/Add. Instructions Additional Instructions/Restrictions: Take medication as prescribed Follow up with your Family Doctor if no improvement or any worsening of symptoms Return if needed Straight to ER if any life threatening symptoms Clinical Impressions Clinical Impression: Foot pain, left Instructions Patient Instructions: DI for Cellulitis -- Adult, DI for Pseudogout, Colchicine, Cephalexin Discharge ED Provider: Claudette Langford [facility] General Stated complaint: Foot pain, no known accident Mode of Arrival: Ambulatory Source of Information: Patient Limitations: No Limitations Time Seen by Provider: 04/28/23 08:36 Description of Symptoms (Recalled from Triage Doc. by RN): PATIENT C/O BILATERAL FOOT PAIN AND SWELLING X 2 DAYS HEENT Symptoms (Recalled from RN notes): No Resp Symptoms (Recalled from RN notes): No Skin Symptoms (Recalled from RN notes): No MS Symptoms (Recalled from RN notes): Yes Functional Status (Recalled from RN notes): WNL History of Present Illness Provider Complaint: Patient states that he has been having pain and redness in his left great toe that is painful when he moves, bends or walks States that today he noticed he was starting to have pain in his right little toe States that he thinks he may have gout Related Data Home Medications Medication Instructions Recorded Confirmed aspirin 81 mg tablet,delayed 81 mg PO DAILY Blood thinner 08/08/20 04/07/23 release carbidopa 25 mg-levodopa 100 mg 1 tab PO TID parkinsons 08/08/20 04/07/23 tablet isosorbide mononitrate 60 mg 60 mg PO DAILY hypertension 08/08/20 04/07/23 tablet,extended release 24 hr metformin 1,000 mg tablet 1,000 mg PO DAILY Diabetes 08/08/20 04/07/23 gabapentin 600 mg tablet 600 mg PO TID pain 04/23/21 04/07/23 hydrochlorothiazide 12.5 mg capsule 12.5 mg PO DAILY High blood 11/26/21 04/07/23 pressure vitamin B complex (B 1 tab PO DAILY Supplement 11/26/21 04/07/23 Complex-Vitamin B12 tablet) enalapril maleate 5 mg tablet 5 mg PO DAILY High blood pressure 01/31/22 04/07/23 ferrous sulfate 140 mg (45 mg 280 mg PO DAILY supplement 02/19/22 04/07/23 iron) tablet,extended release (Slow Release Iron) furosemide 40 mg tablet 40 mg PO DAILY High blood pre
[2023-04-28 09:05] LABS: Uric Acid 6.7 mg/dl (3.5-8.5)
--- NOTE | 2023-04-28 09:12 | XR_ITS ---
FINAL REPORT CLINICAL HISTORY: SWELLING/REDNESS FINDINGS: Left FOOT: Three views of the left foot were obtained. There is no acute fracture or dislocation. There is moderate degenerative change. There is chronic calcification adjacent to the proximal fifth metatarsal. There are calcaneal spurs. There is no soft tissue abnormality. IMPRESSION: No acute bony abnormality. Reviewed, Interpreted and Dictated by Urbano Hudson III, MD Transcribed by Sharon Oneal Authenticated and [facility]
[2023-04-28 10:53] VITALS: BP 123/72; PULSE 80; RESP 18; TEMP 36.8; O2SAT 99
== END 2023-04-28 11:01 | disposition home or self-care (01) ==
PROVIDERS: Emergency Provider Nurse Practitioner; PCP Family Medicine
DX: M79.672 Pain in left foot (principal); G20 Parkinson's disease; E11.42 Type 2 diabetes mellitus with diabetic polyneuropathy; I10 Essential (primary) hypertension; E78.5 Hyperlipidemia, unspecified; G47.33 Obstructive sleep apnea (adult) (pediatric); Z79.84 Long term (current) use of oral hypoglycemic drugs; Z79.85 Long-term (current) use of injectable non-insulin antidiabetic drugs
CPT/HCPCS: 73630; 84550; 99212; 99214; G0463

== ENCOUNTER 2023-05-13 08:10 | Outpatient (CLI) | payer MEDICARE, OTHER, SELFPAY ==
[2023-05-13 08:21] VITALS: BP 116/73; PULSE 75; RESP 18; O2SAT 100
== END 2023-05-13 08:21 | disposition home or self-care (01) ==
LOC: INF 08:11
PROVIDERS: PCP Family Medicine; Visit Provider Family Medicine
DX: E53.8 Deficiency of other specified B group vitamins (principal)
CPT/HCPCS: 96372

== ENCOUNTER 2023-06-10 08:09 | Outpatient (CLI) | payer MEDICARE, OTHER, SELFPAY ==
[2023-06-10 08:09] VITALS: BP 117/64; PULSE 68; RESP 18; O2SAT 99
== END 2023-06-10 08:25 | disposition home or self-care (01) ==
LOC: INF 08:10
PROVIDERS: PCP Family Medicine; Visit Provider Family Medicine
DX: R79.89 Other specified abnormal findings of blood chemistry (principal)
CPT/HCPCS: 96372

== ENCOUNTER → 2023-07-09 07:57 | Outpatient (CLI) | payer MEDICARE, OTHER, SELFPAY ==
[2023-07-09 08:11] VITALS: BP 126/77; PULSE 90; RESP 18; TEMP 36.9; O2SAT 98
== END | disposition home or self-care (01) ==
PROVIDERS: PCP Family Medicine; Visit Provider Family Medicine
DX: E53.8 Deficiency of other specified B group vitamins (principal)
CPT/HCPCS: 96372

== ENCOUNTER 2023-07-28 08:04 | Emergency (ER) | payer MEDICARE, OTHER, SELFPAY ==
[2023-07-28 08:05] VITALS: BP 127/80; PULSE 89; RESP 18; TEMP 36.7; O2SAT 95; BMI 45.0
--- NOTE | 2023-07-28 08:18 | EXP.UTC ---
Discharge Plan Disposition Patient Disposition: Home, Self-Care Condition: Good Prescriptions Prescriptions: New prednisone 10 mg tablet 10 mg PO DIRECTED 9 Days Qty: 21 0RF Rx Instructions: Take 4 tablets daily for 3 days, then take 2 tablets daily for 3 days, then take 1 tablet daily for 3 days, then stop. benzonatate [benzonatate] 100 mg capsule 100 mg PO TIDP PRN (Reason: Cough) Qty: 30 0RF polymyxin B sulf-trimethoprim [Polytrim] 10,000 unit- 1 mg/mL drops 1 drp Eye-Left Q3H 7 Days Qty: 10 0RF Rx Instructions: while awake; do not exceed 6 doses in 24 hours amoxicillin-pot clavulanate 875-125 mg Tablet 1 tab PO Q12H Qty: 20 0RF No Action furosemide 40 mg tablet 40 mg PO DAILY Slow Release Iron 140 mg (45 mg iron) tablet extended release 280 mg PO DAILY mupirocin 2 % ointment 1 applic TOPICAL BID Qty: 22 0RF Ozempic 2 mg/dose (8 mg/3 mL) pen injector 2 mg SQ WEEKLY Patient Comments: INJECT 2MG UNDER THE SKIN INTO THE APPROPRIATE AREA DIRECTED ONE TIME PER WEEK carbidopa-levodopa 25-100 mg tablet 1 tab PO TID metformin 1,000 mg tablet 1,000 mg PO DAILY isosorbide mononitrate 60 mg tablet extended release 24 hr 60 mg PO DAILY aspirin 81 mg tablet,delayed release (DR/EC) 81 mg PO DAILY pramipexole 1.5 mg tablet extended release 24 hr 1.5 mg PO BID gabapentin 600 mg tablet 600 mg PO TID hydrochlorothiazide 12.5 mg capsule 12.5 mg PO DAILY Patient Comments: TAKE 1 CAPSULE BY MOUTH EVERY DAY IN THE MORNING vitamin B complex [B Complex-Vitamin B12] Tablet 1 tab PO DAILY enalapril maleate 5 mg tablet 5 mg PO DAILY cyanocobalamin (vitamin B-12) 1,000 mcg/mL Syringe 1,000 mcg IM MONTHLY Rx Instructions: b12 injection twice weekly colchicine (gout) [Colcrys] 0.6 mg tablet 0.6 mg PO DIRECTED Qty: 3 0RF Rx Instructions: Take 2 tablets (1.2mg) now and wait one hour and take 1 tablet (0.6mg) cephalexin 500 mg tablet 500 mg PO QID 5 Days Qty: 20 0RF Referrals Follow up/Referrals: Juan José Cervantes MD [Primary Care Provider] - See instructions Activity Restrictions/Add. Instructions Additional Instructions/Restrictions: Drink plenty of fluids. Take tylenol or ibuprofen for pain or fever. Take the medications as directed. Follow up with your regular doctor. GO TO THE ER FOR ANY WORSENING SYMPTOMS Instill the eye drops as directed. Follow up with your eye doctor. Clinical Impressions Clinical Impression: Sinusitis, Conjunctivitis of left eye Instructions Patient Instructions: Sinusitis, DI for Sinusitis Discharge ED Provider: Sy Warner [facility] [place] HPI General Stated complaint: Lt eye swollen, irritation, sinus pressure Time Seen by Provider: 07/28/23 08:17 Related Data Home Medications Medication Instructions Recorded Confirmed aspirin 81 mg tablet,delayed 81 mg PO DAILY Blood thinner 08/08/20 06/11/23 release carbidopa 25 mg-levodopa 100 mg 1 tab PO TID parkinsons 08/08/20 06/11/23 tablet isosorbide mononitrate 60 mg 60 mg PO DAILY hypertension 08/08/20 06/11/23 tablet,extended release 24 hr metformin 1,000 mg tablet 1,000 mg PO DAILY Diabetes 08/08/20 06/11/23 gabapentin 600 mg tablet 600 mg PO TID pain 04/23/21 06/11/23 hydrochlorothiazide 12.5 mg capsule 12.5 mg PO DAILY High blood 11/26/21 06/11/23 pressure vitamin B complex (B 1 tab PO DAILY Supplement 11/26/21 06/11/23 Complex-Vitamin B12 tablet) enalapril maleate 5 mg tablet 5 mg PO DAILY High blood pressure 01/31/22 06/11/23 ferrous sulfate 140 mg (45 mg 280 mg PO DAILY supplement 02/19/22 06/11/23 iron) tablet,extended release (Slow Release Iron) furosemide 40 mg tablet 40 mg PO DAILY High blood pressure 02/19/22 06/11/23 cyanocobalamin (vitamin B-12) 1,000 mcg IM MONTHLY supplement 07/03/22 06/11/23 1,000 mcg/mL injection syringe
[2023-07-28 08:42] VITALS: BP 127/80; PULSE 89; RESP 20; TEMP 36.7; O2SAT 95
== END 2023-07-28 08:42 | disposition home or self-care (01) ==
PROVIDERS: Emergency Provider Nurse Practitioner Family; PCP Family Medicine
DX: H10.9 Unspecified conjunctivitis (principal); J01.90 Acute sinusitis, unspecified; E11.40 Type 2 diabetes mellitus with diabetic neuropathy, unspecified; G20.A1 Parkinson's disease without dyskinesia, without mention of fluctuations; E78.5 Hyperlipidemia, unspecified; I10 Essential (primary) hypertension; G47.33 Obstructive sleep apnea (adult) (pediatric); Z79.84 Long term (current) use of oral hypoglycemic drugs
CPT/HCPCS: 99212; 99214; G0463

== ENCOUNTER 2023-08-12 08:16 | Outpatient (CLI) | payer MEDICARE, OTHER, SELFPAY ==
[2023-08-12 08:31] VITALS: BP 101/68; PULSE 109; RESP 18; TEMP 36.4; O2SAT 98
== END 2023-08-12 08:49 | disposition home or self-care (01) ==
LOC: INF 08:17
PROVIDERS: PCP Family Medicine; Visit Provider Family Medicine
DX: E53.8 Deficiency of other specified B group vitamins (principal)
CPT/HCPCS: 96372

== ENCOUNTER 2023-09-10 08:12 | Outpatient (CLI) | payer MEDICARE, OTHER, SELFPAY ==
[2023-09-10 08:22] VITALS: BP 127/74; PULSE 106; RESP 18; O2SAT 96
== END 2023-09-10 08:22 | disposition home or self-care (01) ==
LOC: INF 08:13
PROVIDERS: PCP Family Medicine; Visit Provider Family Medicine
DX: E53.8 Deficiency of other specified B group vitamins (principal)
CPT/HCPCS: 96372

== ENCOUNTER 2024-02-09 08:07 | Outpatient (CLI) | payer MEDICARE, OTHER, SELFPAY ==
[2024-02-09 10:30] LABS: Vitamin B12 > 1000 pg/mL (239-931)
== END 2024-02-09 23:59 ==
LOC: LAB 08:08
PROVIDERS: PCP Family Medicine; Visit Provider Family Medicine
DX: E53.8 Deficiency of other specified B group vitamins (principal)
CPT/HCPCS: 36415; 82607

== ENCOUNTER 2024-05-20 11:57 | Emergency (ER) | payer MEDICARE, OTHER, SELFPAY ==
[2024-05-20] VITALS (10 sets, daily range): BP systolic 92–120; BP diastolic 55–76; PULSE 91–108; RESP 16–18; TEMP 36.5; O2SAT 94–97; BMI 48.6
--- NOTE | 2024-05-20 12:24 | CT_ITS ---
FINAL REPORT TECHNIQUE: Noncontrast exam This study was performed with techniques to keep radiation doses as low as reasonably achievable, (ALARA). Individualized dose reduction techniques using automated exposure control or adjustment of mA and/or kV according to the patient''s size were employed. CLINICAL HISTORY: fall, struck back of head COMPARISON: 08/20/2022 FINDINGS: Ventricles are normal. There is a small amount of subarachnoid hemorrhage in the left frontal vertex. There is no evidence of subdural hemorrhage. No significant mass effect is seen. There is a hyperdense mass along the right parafalcine/tentorial region measuring up to 20 mm which is unchanged and most consistent with a meningioma. Bone windows show no evidence of fracture. IMPRESSION: Small amount of subarachnoid hemorrhage left frontal vertex. No mass effect. Consider CT follow-up in 12-24 hours. Reviewed, Interpreted and Dictated by Dipak Rivas MD Transcribed by Isabella Burgess Authenticated and [facility]
--- NOTE | 2024-05-20 12:29 | ED_ITS ---
Discharge Plan Disposition Patient Disposition: Xfer Short-Term Hosp Chief Complaint: Head Injury Prescriptions Prescriptions: No Action furosemide 40 mg tablet 40 mg PO DAILY Slow Release Iron 140 mg (45 mg iron) tablet extended release 280 mg PO DAILY Ozempic 2 mg/dose (8 mg/3 mL) pen injector 2 mg SQ WEEKLY Patient Comments: INJECT 2MG UNDER THE SKIN INTO THE APPROPRIATE AREA DIRECTED ONE TIME PER WEEK carbidopa-levodopa 25-100 mg tablet 1 tab PO TID isosorbide mononitrate 60 mg tablet extended release 24 hr 60 mg PO DAILY aspirin 81 mg tablet,delayed release (DR/EC) 81 mg PO DAILY pramipexole 1.5 mg tablet extended release 24 hr 1.5 mg PO BID metformin 1,000 mg tablet 1,000 mg PO BID gabapentin 600 mg tablet 600 mg PO TID hydrochlorothiazide 12.5 mg capsule 12.5 mg PO DAILY Patient Comments: TAKE 1 CAPSULE BY MOUTH EVERY DAY IN THE MORNING vitamin B complex [B Complex-Vitamin B12] Tablet 1 tab PO DAILY enalapril maleate 5 mg tablet 20 mg PO DAILY terbinafine HCl 250 mg tablet 250 mg PO DAILY insulin glargine-yfgn [Semglee(insulin glarg-yfgn)Pen] 100 unit/mL (3 mL) insulin pen 60 unit SQ Patient Comments: INJECT 60 UNITS UNDER SKIN INTO APPROPRIATE AREA ONCE DAILY DIRECTED colchicine [Colcrys] 0.6 mg tablet 0.6 mg PO DIRECTED Qty: 3 0RF Rx Instructions: Take 2 tablets (1.2mg) now and wait one hour and take 1 tablet (0.6mg) polymyxin B sulf-trimethoprim [Polytrim] 10,000 unit- 1 mg/mL drops 1 drp Eye-Left Q3H 7 Days Qty: 10 0RF Rx Instructions: while awake; do not exceed 6 doses in 24 hours Referrals Follow up/Referrals: Juan José Cervantes MD [Primary Care Provider] - See instructions Clinical Impressions Clinical Impression: Traumatic subarachnoid hemorrhage Stand Alone Forms Stand Alone Forms: Transfer Record - ED Print Language Print Language: French Discharge ED Provider: Phillip Cheatham General Adult HPI General Chief complaint: Head Injury Stated complaint: AO fall at home hit head, memory loss Time Seen by Provider: 05/20/24 12:02 Mode of Arrival: Ambulatory Source of Information: Patient and Significant Other Limitations: No Limitations Description of Symptoms (Recalled from ER Triage Doc. by RN): patient was outside bringing groceries inside when he got dizzy and fell back and hit the back of his head. he states he is unknown if he lost consciuousness. patient has laceration to back of head and reports head and neck pain. History of Present Illness HPI narrative: Please note that above description of symptoms, in this electronic medical record under categorization of recalled from ER triage doctor by RN are reflective of an initial nursing assessment, however, is not reflective of my full history and physical exam that was personally taken and clarified. Consequentially, this preceding description of symptoms, which may include the patient's categorized chief complaint in the EMR, do not reflect my personal clinical impression, and the ultimate description of history of present illness and patient stated complaints should be deferred to this section of the note. Unless stated otherwise or congruent with this section of the note, additional signs, symptoms, or incongruence should be interpreted as inaccurate with my clinical impression. Related Data Home Medications ?Medication ?Instructions ?Recorded ?Confirmed aspirin 81 mg tablet,delayed 81 mg PO DAILY Blood thinner 08/08/20 05/20/24 release carbidopa 25 mg-levodopa 100 mg 1 tab PO TID parkinsons 08/08/20 05/20/24 tablet isosorbide mononitrate 60 mg 60 mg PO DAILY hypertension 08/08/20 05/20/24 tablet,extended release 24 hr gabapentin 600 mg tablet 600 mg PO TID pain 04/23/21 05/20/24 hydrochlorothiazide 12.5 mg capsule 12.5 mg PO DAILY High blood 11/26/21 05/20/24 pressure vitamin B complex (B 1 tab PO DAILY Supplement 11/26/21 05/20/24 Complex-Vitamin B12 tablet) ferrous sulfate 140 mg (45 mg 280 mg PO DAILY supplement 02/19/22 05/20/24 iron) tablet,extended release (Slow Release Iron) furosemide 40 mg tablet 40 mg PO DAILY High blood pressure 02/19/22 05/20/24 pramipexole 1.5 mg tablet,extended 1.5 mg PO BID parkinsons 12/03/22 05/20/24 release 24 hr semaglutide 2 mg/dose (8 mg/3 mL) 2 mg SQ WEEKLY Diabetes 12/03/22 05/20/24 subcutaneous pen injector (Ozempic) enalapril maleate 5 mg tablet 20 mg PO DAILY High blood pressure 02/25/24 05/20/24 insulin glargine-yfgn 100 unit/mL 60 unit SQ 04/12/24 05/20/24 (3 mL) subcutaneous pen (Semglee (insulin glargine-yfgn) Pen) metformin 1,000 mg tablet 1,000 mg PO BID Diabetes 05/20/24 05/20/24 terbinafine HCl 250 mg tablet 250 mg PO DAILY 05/20/24 05/20/24 Previous Rx's ?Medication ?Instructions ?Recorded colchicine 0.6 mg tablet (Colcrys) 0.6 mg PO DIRECTED #3 tabs 04/28/23 polymyxin B sulfate 10,000 1 drp Eye-Left Q3H 7 days #10 mL 07/28/23 unit-trimethoprim 1 mg/mL eye drops (Polytrim) Allergies Allergy/AdvReac Type Severity Reaction Status Date / Time No Known Allergies Allergy Verified 05/20/24 08:[address] [facility] Disclaimer: The information contained in this section may have been updated after the patient was seen, as this information can be updated by other users. Medical History (Updated 05/20/24 @ 14:34 by Phillip Cheatham MD) Meningioma Sleep apnea, obstructive Sleep apnea Hyperlipidemia Hypertension Onychomycosis Onychomycosis Onychodystrophy Hx of Parkinson's disease Neuropathy DM type 2 (diabetes mellitus, type 2) Surgical History (Updated 05/20/24 @ 08:29 by Claudette Long) History of colonoscopy History of corneal transplant Family History Other No significant family history Social History Smoking Status: Never smoker alcohol intake: never substance use type: denies use current occupational status: retired Travel in the last 8 weeks: None household members: spouse housing: house ROS Obtained: Yes All systems reviewed & no additional complaints except as documented Physical Exam General General appearance: alert, in no apparent distress and obese Head Head exam: normocephalic and other (Superficial abrasions) Eye Eye exam: Present normal appearance, PERRL and EOMI Neck Neck exam: Present normal inspection, full ROM and trachea midline Respiratory Respiratory exam: Absent respiratory distress, wheezes, stridor, accessory muscle use or prolonged expiratory phase Cardiovascular Cardiovascular exam: Present other (Pulses equal symmetric in upper and lower extremities) Abdominal Exam Abdominal exam: Present soft; Absent distention, tenderness or pulsatile mass Extremities Exam Extremities exam: Absent edema Neurological Exam Neurological exam: Present alert, oriented X3 and CN II-XII intact; Absent motor sensory deficit Skin Skin exam: Present warm and dry; Absent diaphoresis or erythema Medical Decision Making Medical Records Medical records reviewed: Yes I reviewed the patient's medical records. Alex Inquiry Pt receiving controlled substance: No Alex was queried for this patient: No Vital Signs: 05/20/24 12:04 05/20/24 12:18 05/20/24 12:19 Temperature 97.7 F Temperature Source Oral Pulse Rate 108 H 104 H Pulse Rate [Right Radial] 105 H Respiratory Rate 16 Blood Pressure 92/59 L 99/55 L Blood Pressure [Right Arm] 99/55 L Blood Pressure Mean Blood Pressure Mean [Right Arm] 69 Blood Pressure Source [Right Arm] Automatic Cuff Blood Pressure Position [Right Arm] Sitting 02 Sat by Pulse Oximetry 96 95 94 L Oxygen Delivery Method Room Air Room Air Room Air 05/20/24 12:30 05/20/24 13:01 05/20/24 13:31 Temperature Temperature Source Pulse Rate 102 H 103 H 96 H Pulse Rate [Right Radial] Respiratory Rate Blood Pressure 99/69 L 103/65 L 96/62 L Blood Pressure [Right Arm] Blood Pressure Mean 78 75 Blood Pressure Mean [Right Arm] Blood Pressure Source [Right Arm] Blood Pressure Position [Right Arm] 02 Sat by Pulse Oximetry 95 95 97 Oxygen Delivery Method Room Air Room Air Lab Data Lab Results 05/20/24 12:05: WBC 9.0, RBC 4.46 L, Hgb 13.8 L, Hct 41.9 L, MCV 93.9, MCH 30.9, MCHC 32.9, RDW 16.1, Plt Count 284, MPV 8.0, Neut % (Auto) 63.9, Lymph % (Auto) 25.4, [place] % (Auto) 7.7, Eos % (Auto) 2.3, Baso % (Auto) 0.8, Neut # (Auto) 5.7, Lymph # (Auto) 2.3, [place] # (Auto) 0.7, Eos # (Auto) 0.2, Baso # (Auto) 0.1, PT 10.6, INR 0.94, APTT 26.9 05/20/24 12:05 Orders (Tests/Meds): ORDERS Category Date Time Status CT head/brain wo con Stat Cat Scan 05/20/24 12:24 Completed CBC w/Auto Diff [Complete Blood Count Auto Diff] Stat Lab 05/20/24 12:05 Completed PT INR [Prothrombin Time INR] Stat Lab 05/20/24 12:05 Completed PTT [Activated Partial Thrombo Time] Stat Lab 05/20/24 12:05 Completed Medical Decision Narrative: 68-year-old male history of hypertension, hyperlipidemia, type 2 diabetes, parkinsonian tremor presenting with fall. Patient states that he fell about 45 minutes prior to this visit. Was getting something in his van, tripped, fell backward, struck his head. Loss of consciousness, does not know how long he was unconscious. States he has been having trouble with his shoulders recently, but Dexcom in the room rates in the 90s. Mild superficial headache and pain radiating down paraspinal muscles and lateral neck. No neurologic deficits, radiculopathy, midline neck or back pain. History was obtained via conversation with patient. On arrival, patient hemodynamically stable, alert, oriented x4, appropriate, GCS 15, moving all extremities spontaneously, pupils equal and reactive to light. Full physical exam performed and significant for superficial abrasions on posterior occiput. Neurologically intact and symmetric. No midline neck tenderness. TMs normal bilaterally, no evidence of basilar or depressed skull fracture. Differential includes intracranial hemorrhage, skull fracture, among others. CT head obtained and on independent rotation, patient does have small amount of subarachnoid hemorrhage. On reevaluation, patient still without neurologic deficit, having mild to moderate pain. Toradol acetaminophen given. Blood work was drawn, nonactionable CBC or coags. [facility] was contacted and case was discussed at length, they are agreeable and graciously excepted patient for transfer. Because patient high risk for clinical decompensation if discharged, deemed appropriate for transfer and inpatient admission. Results were relayed to patient who voiced understanding and patient was agreeable to transfer, inpatient admission, and management. Patient was graciously accepted and transferred to for further definitive management, under Dr Donald. Spray Mixer disclaimer Much of this encounter note is an electronic satellite manager spoken language to printed text. Electronic satellite manager of the spoken language may permit errors. Although I have reviewed the note, some errors may still exist. Critical Care Critical Care Time Critical Care Time: Yes (Neuro) Attestation: On 05/20/24, the high probability of a clinically significant, sudden or life threatening deterioration of the following system(s) required my full and direct attention, intervention and personal management. The time I documented below is in addition to time spent performing reported procedures but includes the following listed in this critical care notation. Total Time Total Critical Care Time: 45
--- NOTE | 2024-05-20 12:29 | PC.NURSE ---
nurses aware of pt bp
--- NOTE | 2024-05-20 12:39 | PC.NURSE ---
PT TO CT
--- NOTE | 2024-05-20 12:53 | PC.NURSE ---
PT RETURNED FROM CT
[2024-05-20 13:33] LABS: Basophils # 0.1 K/mm3 (0-0.2); Basophils % 0.8 % (0.1-2.0); Eosinophils # 0.2 K/mm3 (0.0-0.4); Eosinophils % 2.3 % (0.1-12.0); Hematocrit 41.9 % (42.0-52.0); Hemoglobin 13.8 g/dL (14.1-18.0); Lymphocytes # 2.3 K/mm3 (0.7-4.5); Lymphocytes % 25.4 % (10-50); Mean Corpuscular HGB Conc 32.9 g/dL (31.8-35.4); Mean Corpuscular Hemoglobin 30.9 pg (27.0-31.2); Mean Corpuscular Volume 93.9 fl (80-94); Monocytes # 0.7 K/mm3 (0.1-1.0); Monocytes % 7.7 % (1.7-9.3); Neutrophils # 5.7 K/mm3 (1.8-7.8); Neutrophils % 63.9 % (37.0-80.0); Platelet Count 284 K/mm3 (142-424); Red Blood Count 4.46 M/mm3 (4.60-6.20); Red Cell Distribution Width 16.1 % (11.5-17.5)
[2024-05-20 13:41] LABS: Activated Partial Thrombo Time 26.9 seconds (22.8-30.6); INR 0.94 (0.9-1.1); Prothrombin Time 10.6 seconds (10.1-12.5)
--- NOTE | 2024-05-20 13:44 | PC.NURSE ---
calling [facility] for pt transfer
--- NOTE | 2024-05-20 13:45 | PC.NURSE ---
speaking with [facility] stroke nurse practitioner
--- NOTE | 2024-05-20 14:20 | PC.NURSE ---
attempted to call report to [facility]. nurse stated they were unaware of bed assisgnment and stated they would call back.
--- NOTE | 2024-05-20 14:40 | PC.NURSE ---
CALLED EMS LET THEM KNOW PT IS READY TO BE TRANSFERRED TO [facility] ICU.. STEVE CASTELLON WALLBACK STATED ONE OTHER TRUCK RETURNED FROM [facility]F-WAY TRANSFER THEY WOULD BE UP TAKE PT
== END 2024-05-20 15:23 | disposition short-term general hospital (02) ==
PROVIDERS: Emergency Provider Emergency Medicine; PCP Family Medicine
DX: S06.6X1A Traumatic subarachnoid hemorrhage with loss of consciousness of 30 minutes or less, initial encounter (principal); E11.9 Type 2 diabetes mellitus without complications; I10 Essential (primary) hypertension; E78.5 Hyperlipidemia, unspecified; Z79.4 Long term (current) use of insulin; Z79.84 Long term (current) use of oral hypoglycemic drugs; Z79.85 Long-term (current) use of injectable non-insulin antidiabetic drugs; W18.39XA Other fall on same level, initial encounter
CPT/HCPCS: 70450; 85025; 85610; 85730; 99291

== ENCOUNTER 2024-07-19 10:32 | Outpatient (POV) | payer MEDICARE, OTHER, SELFPAY ==
[2024-07-19 10:39] VITALS: BP 104/69; PULSE 100; RESP 20; O2SAT 96; BMI 47.7
--- NOTE | 2024-07-19 11:13 | EXP.PAIN.OV ---
HPI Data of Consult Patient: new to practice Consult date: 07/19/24 Requesting Physician: Blanka Desouza APRN Primary Care Provider: Juan José Cervantes MD Consult Narrative Reason for consult: Bilateral feet neuropathy History of present illness: Mr. Maloney is a 68 year old male who presents today as a new patient. He is a referral from Dr. Cervantes's office. Today he rates his pain a 7 out of 10. Patient states that he has had diabetic neuropathy for years and progressively worsened over time. Patient does also state he has Parkinson's that does also affect his stability when walking. Patient states that he recently had a fall in the past and ended up having to be admitted into the hospital. Patient was taking gabapentin 600 mg 2 tablets 3 times a day and primary care question whether or not if this is partly to blame for the fall or whether or not it was just the combination of neuropathy and Parkinson's. Patient states that his primary care is trying to see other options and to have him come off gabapentin altogether if possible. Patient states he is now just taking it 1 tablet 3 times a day. Patient does describe his pain as a tingling, numbness that does interfere with his ability perform activities of daily living such as cooking and cleaning. He states he has tried conservative methods including heat and ice, topicals the oral medications. Patient states in the past he has had back issues and did get injection therapy back when he was in [place] and this did seem like it really helped. Patient is concerned however due to his diabetes that it would raise his sugar with these injections. His Alex has been reviewed and is appropriate. CC: Blanka Desouza APRN [facility] Disclaimer: The information contained in this section may have been updated after the patient was seen, as this information can be updated by other users. Medical History Meningioma Stable finding on head CT. According to prior neurologist records, similar since at least 2007. Sleep apnea, obstructive Sleep apnea Hyperlipidemia Hypertension Onychomycosis Onychomycosis Onychodystrophy Hx of Parkinson's disease Neuropathy DM type 2 (diabetes mellitus, type 2) Surgical History History of colonoscopy History of corneal transplant Family History Other No significant family history Social History (Updated 07/19/24 @ 11:02 by Rxoy Garibay RN) Smoking Status: Never smoker alcohol intake: never substance use type: denies use current occupational status: retired Travel in the last 8 weeks: None household members: spouse housing: house Review of Systems Review of Systems Review of systems:: pertinent systems reviewed and negative unless documented below Review of systems (narrative): Review of Systems: General: No recent weight changes, no fever, no sleep disturbances Respiratory: No cough, no shortness of air, no recurring pulmonary infections Cardiovascular/peripheral vascular: No chest pain, no palpitations, no edema, no shortness of breath Gastrointestinal: No new onset incontinence, normal bowel movements reported Genitourinary: No new onset incontinence Musculoskeletal: Bilateral feet pain Psychiatric: [Normal mood/affect] Neurological: [Denies weakness in extremities], [denies balance issues] Meds Home Medications and Allergies Home Medications ?Medication ?Instructions ?Recorded ?Confirmed ?Type aspirin 81 mg tablet,delayed 81 mg PO DAILY Blood thinner 08/08/20 07/19/24 History release carbidopa 25 mg-levodopa 100 mg 1 tab PO TID parkinsons 08/08/20 07/19/24 History tablet isosorbide mononitrate 60 mg 60 mg PO DAILY hypertension 08/08/20 07/19/24 History tablet,extended release 24 hr gabapentin 600 mg tablet 600 mg PO TID pain 04/23/21 07/19/24 History hydrochlorothiazide 12.5 mg capsule 12.5 mg PO DAILY High blood 11/26/21 07/19/24 History pressure vitamin B complex (B 1 tab PO DAILY Supplement 11/26/21 07/19/24 History Complex-Vitamin B12 tablet) ferrous sulfate 140 mg (45 mg 280 mg PO DAILY supplement 02/19/22 07/19/24 History iron) tablet,extended release (Slow Release Iron) furosemide 40 mg tablet 40 mg PO DAILY High blood pressure 02/19/22 07/19/24 History pramipexole 1.5 mg tablet,extended 1.5 mg PO BID parkinsons 12/03/22 07/19/24 History release 24 hr semaglutide 2 mg/dose (8 mg/3 mL) 2 mg SQ WEEKLY Diabetes 12/03/22 07/19/24 History subcutaneous pen injector (Ozempic) colchicine 0.6 mg tablet (Colcrys) 0.6 mg PO DIRECTED #3 tabs 04/28/23 07/19/24 Rx polymyxin B sulfate 10,000 1 drp Eye-Left Q3H 7 days #10 mL 07/28/23 07/19/24 Rx unit-trimethoprim 1 mg/mL eye drops (Polytrim) enalapril maleate 5 mg tablet 20 mg PO DAILY High blood pressure 02/25/24 07/19/24 History insulin glargine-yfgn 100 unit/mL 60 unit SQ DIRECTED Diabetes 04/12/24 07/19/24 History (3 mL) subcutaneous pen (Semglee (insulin glargine-yfgn) Pen) metformin 1,000 mg tablet 1,000 mg PO BID Diabetes 05/20/24 07/19/24 History terbinafine HCl 250 mg tablet 250 mg PO DAILY 05/20/24 07/19/24 History New Prescriptions to Start Prescriptions: Allergies Allergy/AdvReac Type Severity Reaction Status Date / Time No Known Allergies Allergy Verified 06/02/24 08:25 Objective Vital signs: Pulse Resp BP Pulse Ox O2 Del Method 100 H 20 104/69 L 96 Room Air 07/19/24 10:39 07/19/24 10:39 07/19/24 10:39 07/19/24 10:39 07/19/24 10:39 Narrative: Physical Exam: General: Alert and oriented x3, no acute distress, pleasant and cooperative Lungs: Respirations even and unlabored, symmetrical chest expansion Eyes: PERRL Musculoskeletal: Flexion and extension of bilateral feet somewhat guarded secondary to pain, [antalgic gait noted] Neurological: Speech clear, no gross sensory deficit Assessment and Plan *Assessment and plan (1) Diabetic peripheral neuropathy: Status: Acute Category: Medical Code(s): E11.42 - Type 2 diabetes mellitus with diabetic polyneuropathy Plan I did discuss with the patient in future that he may benefit from posterior tibial nerve blocks. Patient was counseled regarding his sugar that we would just have him check it on the day of the injection and make sure to take his medication as prescribed. He was counseled that if he is anywhere close to 300 he would be rescheduled. Patient states that he is well-managed and that his sugar is never that high. I also told him that if he ended up doing the injections we would just have him continue to monitor his sugar over the next few days to see how it was affected or elevated. I will order the patient a compounded cream first and see how he does with this and progress from there. Patient acknowledges understanding agrees with plan of care. Patient will be scheduled for 2-week follow-up. Patient has been instructed to contact the clinic with any concerns before the next appointment. Dr. Burk has reviewed this note and agrees with this plan of care. This note was dictated using voice recognition software and make contain errors or omissions. All injections are used with Lidocaine or Bupivacaine and Depo Medrol.
== END 2024-07-19 23:59 | disposition home or self-care (01) ==
LOC: SC.PAIN 10:34
PROVIDERS: PCP Family Medicine; Visit Provider Nurse Practitioner Family
DX: E11.42 Type 2 diabetes mellitus with diabetic polyneuropathy (principal); Z73.89 Other problems related to life management difficulty; Z79.4 Long term (current) use of insulin; Z79.85 Long-term (current) use of injectable non-insulin antidiabetic drugs
CPT/HCPCS: 99202; G0463

== ENCOUNTER 2024-07-20 13:04 | Emergency (ER) | payer MEDICARE, OTHER, SELFPAY ==
--- NOTE | 2024-07-20 13:12 | XR_ITS ---
FINAL REPORT CLINICAL HISTORY: Right knee pain, fall 1 week ago COMPARISON: None FINDINGS: Three views of the right knee were obtained. There is no acute fracture or dislocation. There is mild tricompartmental degenerative change. A small joint effusion is noted. There is no acute soft tissue abnormality. IMPRESSION: Small joint effusion without acute bony abnormality. Reviewed, Interpreted and Dictated by Dipak Rivas MD Transcribed by Isabella Burgess Authenticated and . [facility]
[2024-07-20 13:40] VITALS: BP 121/77; PULSE 112; RESP 16; TEMP 36.9; O2SAT 98; BMI 46.6
--- NOTE | 2024-07-20 14:14 | EXP.UTC ---
Discharge Plan Disposition Patient Disposition: Home, Self-Care Condition: Good Prescriptions Prescriptions: No Action furosemide 40 mg tablet 40 mg PO DAILY Slow Release Iron 140 mg (45 mg iron) tablet extended release 280 mg PO DAILY Ozempic 2 mg/dose (8 mg/3 mL) pen injector 2 mg SQ WEEKLY Patient Comments: INJECT 2MG UNDER THE SKIN INTO THE APPROPRIATE AREA DIRECTED ONE TIME PER WEEK carbidopa-levodopa 25-100 mg tablet 1 tab PO TID isosorbide mononitrate 60 mg tablet extended release 24 hr 60 mg PO DAILY aspirin 81 mg tablet,delayed release (DR/EC) 81 mg PO DAILY pramipexole 1.5 mg tablet extended release 24 hr 1.5 mg PO BID metformin 1,000 mg tablet 1,000 mg PO BID gabapentin 600 mg tablet 600 mg PO TID hydrochlorothiazide 12.5 mg capsule 12.5 mg PO DAILY Patient Comments: TAKE 1 CAPSULE BY MOUTH EVERY DAY IN THE MORNING vitamin B complex [B Complex-Vitamin B12] Tablet 1 tab PO DAILY enalapril maleate 5 mg tablet 20 mg PO DAILY terbinafine HCl 250 mg tablet 250 mg PO DAILY insulin glargine-yfgn [Semglee(insulin glarg-yfgn)Pen] 100 unit/mL (3 mL) insulin pen 60 unit SQ DIRECTED Patient Comments: INJECT 60 UNITS UNDER SKIN INTO APPROPRIATE AREA ONCE DAILY DIRECTED colchicine [Colcrys] 0.6 mg tablet 0.6 mg PO DIRECTED Qty: 3 0RF Rx Instructions: Take 2 tablets (1.2mg) now and wait one hour and take 1 tablet (0.6mg) polymyxin B sulf-trimethoprim [Polytrim] 10,000 unit- 1 mg/mL drops 1 drp Eye-Left Q3H 7 Days Qty: 10 0RF Rx Instructions: while awake; do not exceed 6 doses in 24 hours Referrals Follow up/Referrals: William Desouza DO [Staff Physician] - See instructions (Call office for appointment) Juan José Cervantes MD [Primary Care Provider] - See instructions Activity Restrictions/Add. Instructions Additional Instructions/Restrictions: *weight bearing as tolerated *RICE, Rest the extremity, Ice 15-20 minutes 3-4 times daily, Compress- wear the monique wrap as discussed as much as possible to help reduce swelling and pain, Elevate the extremity when at rest *Continue wearing knee brace is for support and help control swelling, use it except in the shower. Be sure that is not to tight but not to loose either *Elevate when resting? *Ibuprofen 600-800mg every 6-8 hours as needed for pain an inflammation. If need something more can take Tylenol in between doses of Ibuprofen to help Immediately follow up with your family doctor for new or worsening of symptoms, or no noticeable improvement over the next 3-5 days Clinical Impressions Clinical Impression: Effusion of knee joint Instructions Patient Instructions: DI for Knee Effusion, DI for Knee Pain Print Language Print Language: Japanese Discharge ED Provider: Claudette Langford [facility] [place] HPI General Stated complaint: right knee pain Mode of Arrival: Ambulatory Source of Information: Patient Limitations: No Limitations Time Seen by Provider: 07/20/24 13:50 Description of Symptoms (Recalled from Triage Doc. by RN): Reports falling and injuring his right knee. HEENT Symptoms (Recalled from RN notes): No Resp Symptoms (Recalled from RN notes): No Skin Symptoms (Recalled from RN notes): No MS Symptoms (Recalled from RN notes): Yes Functional Status (Recalled from RN notes): wnl History of Present Illness Provider Complaint: Patient states that he was squatted down last week and he slipped and fell onto his right knee States since then he has been having swelling and pain on and off States he has been wearing a knee brace and it has helped some Related Data Home Medications ?Medication ?Instructions ?Recorded ?Confirmed aspirin 81 mg tablet,delayed 81 mg PO DAILY Blood thinner 08/08/20 07/19/24 release carbidopa 25 mg-levodopa 100 mg 1 tab PO TID parkinsons 08/08/20 07/19/24 tablet isosorbide mononitrate 60 mg 60 mg PO DAILY hypertension 08/08/20 07/19/24 tablet,extended release 24 hr gabapentin 600 mg tablet 600 mg PO TID pain 04/23/21 07/19/24 hydrochlorothiazide 12.5 mg capsule 12.5 mg PO DAILY High blood 11/26/21 07/19/24 pressure vitamin B complex (B 1 tab PO DAILY Supplement 11/26/21 07/19/24 Complex-Vitamin B12 tablet) ferrous sulfate 140 mg (45 mg 280 mg PO DAILY supplement 02/19/22 07/19/24 iron) tablet,extended release (Slow Release Iron) furosemide 40 mg tablet 40 mg PO DAILY High blood pressure 02/19/22 07/19/24 pramipexole 1.5 mg tablet,extended 1.5 mg PO BID parkinsons 12/03/22 07/19/24 release 24 hr semaglutide 2 mg/dose (8 mg/3 mL) 2 mg SQ WEEKLY Diabetes 12/03/22 07/19/24 subcutaneous pen injector (Ozempic) enalapril maleate 5 mg tablet 20 mg PO DAILY High blood pressure 02/25/24 07/19/24 insulin glargine-yfgn 100 unit/mL 60 unit SQ DIRECTED Diabetes 04/12/24 07/19/24 (3 mL) subcutaneous pen (Semglee (insulin glargine-yfgn) Pen) metformin 1,000 mg tablet 1,000 mg PO BID Diabetes 05/20/24 07/19/24 terbinafine HCl 250 mg tablet 250 mg PO DAILY 05/20/24 07/19/24 Previous Rx's ?Medication ?Instructions ?Recorded colchicine 0.6 mg tablet (Colcrys) 0.6 mg PO DIRECTED #3 tabs 04/28/23 polymyxin B sulfate 10,000 1 drp Eye-Left Q3H 7 days #10 mL 07/28/23 unit-trimethoprim 1 mg/mL eye drops (Polytrim) Allergies Allergy/AdvReac Type Severity Reaction Status Date / Time No Known Allergies Allergy Verified 06/02/24 08:25 Worker's Comp Is this a Worker's Comp case?: No [facility] Disclaimer: The information contained in this section may have been updated after the patient was seen, as this information can be updated by other users. Medical History Meningioma Stable finding on head CT. According to prior neurologist records, similar since at least 2007. Sleep apnea, obstructive Sleep apnea Hyperlipidemia Hypertension Onychomycosis Onychomycosis Onychodystrophy Hx of Parkinson's disease Neuropathy DM type 2 (diabetes mellitus, type 2) Surgical History History of colonoscopy History of corneal transplant Family History Other No significant family history Social History (Updated 07/19/24 @ 11:02 by Roxy Garibya RN) Smoking Status: Never smoker alcohol intake: never substance use type: denies use current occupational status: retired Travel in the last 8 weeks: None household members: spouse housing: house ROS Obtained: Yes All systems reviewed & no additional complaints except as documented and Yes Systems reviewed as appropriate & no additional complaints except as documented Constitutional Constitutional: Reports system reviewed and no additional complaints, except as documented and Reports as per HPI Cardiovascular Cardiovascular: Reports system reviewed and no additional complaints, except as documented and Reports as per HPI Respiratory Respiratory: Reports system reviewed and no additional complaints, except as documented and Reports as per HPI Musculoskeletal Musculoskeletal: Reports system reviewed and no additional complaints, except as documented, Reports as per HPI and Reports other (pain and swelling in right knee) Physical Exam General General appearance: alert and in no apparent distress ENT ENT exam: Present mucous membranes moist Respiratory Respiratory exam: Present normal lung sounds bilaterally; Absent respiratory distress Cardiovascular Cardiovascular exam: Present regular rate, normal rhythm and normal heart sounds Expanded Lower Extremity Exam Right: Knee exam: Present tenderness and swelling (mild); Absent ecchymosis or erythema Lower leg exam: Present normal inspection Ankle exam: Present normal inspection Foot/toe exam: Present normal inspection Gait: observed and limited by pain (uses a cane) Neurological Exam Neurological exam: Present alert, oriented X3 and normal gait Medical Decision Making Medical Records Screening: Per USPSTF and CDC recommendations, given the prevalence of disease in our region, it is our hospital?s policy to screen for HIV and viral Hepatitis for all patients aged 18 and over and those with ongoing risk factors. Alex Inquiry Pt receiving controlled substance: No Alex was queried for this patient: No Vital Signs: 07/20/24 13:40 Temperature 98.4 F Temperature Source Oral Pulse Rate [Radial] 112 H Respiratory Rate 16 Blood Pressure [Right Arm] 121/77 Blood Pressure Mean [Right Arm] 91 Blood Pressure Source [Right Arm] Automatic Cuff Blood Pressure Position [Right Arm] Sitting 02 Sat by Pulse Oximetry 98 Oxygen Delivery Method Room Air Orders (Tests/Meds): ORDERS Category Date Time Status Knee XR right 3 views [XR knee RT 3V] Stat Exams 07/20/24 13:12 Completed Radiology Data #1: Image(s): Knee Image Reviewed: Yes I have reviewed radiologist's interpretation IMPRESSION: Small joint effusion without acute bony abnormality.
[2024-07-20 14:27] VITALS: BP 121/77; PULSE 112; RESP 16; TEMP 36.9; O2SAT 98
== END 2024-07-20 14:28 | disposition home or self-care (01) ==
PROVIDERS: Emergency Provider Nurse Practitioner; PCP Family Medicine
DX: M25.461 Effusion, right knee (principal); M25.561 Pain in right knee; W18.30XA Fall on same level, unspecified, initial encounter
CPT/HCPCS: 73562; 99212; 99213; G0463

== ENCOUNTER 2024-08-11 10:52 | Outpatient (POV) | payer MEDICARE, OTHER, SELFPAY ==
[2024-08-11 11:10] VITALS: BP 127/73; PULSE 91; RESP 18; O2SAT 98; BMI 48.4
--- NOTE | 2024-08-11 12:13 | A.OFFVIS_ITS ---
[facility] Disclaimer: The information contained in this section may have been updated after the patient was seen, as this information can be updated by other users. Medical History Meningioma Stable finding on head CT. According to prior neurologist records, similar since at least 2007. Sleep apnea, obstructive Sleep apnea Hyperlipidemia Hypertension Onychomycosis Onychomycosis Onychodystrophy Hx of Parkinson's disease Neuropathy DM type 2 (diabetes mellitus, type 2) Surgical History History of colonoscopy History of corneal transplant Family History Other No significant family history Social History (Updated 07/19/24 @ 11:02 by Roxy Garibay RN) Smoking Status: Never smoker alcohol intake: never substance use type: denies use current occupational status: retired Travel in the last 8 weeks: None household members: spouse housing: house PM Subjective & Objective Subjective Subjective:: Patient is a pleasant 69-year-old male who presents today for 1 month follow-up. Today he rates his pain a 4 out of 10. He does state that he ended up getting the compounded cream and states it is working really well. Patient does also state that he has now decreased himself down to gabapentin 600 mg at bedtime. Patient states that he did not notice any additional worsening of his pain as he came down off of the gabapentin and that he is planning on coming off of it completely. Patient denies any other changes. At her last visit we did discuss injection therapy such as the posterior tibial nerve blocks however at this time he would still like to wait. His Alex has been reviewed and is appropriate. Review of Systems: General: No recent weight changes, no fever, no sleep disturbances Respiratory: No cough, no shortness of air, no recurring pulmonary infections Cardiovascular/peripheral vascular: No chest pain, no palpitations, no edema, no shortness of breath Gastrointestinal: No new onset incontinence, normal bowel movements reported Genitourinary: No new onset incontinence Musculoskeletal: Low back pain, bilateral feet pain Psychiatric: [Normal mood/affect] Neurological: [Denies weakness in extremities], [denies balance issues] Pain at rest (0-10 scale): 4 Objective Objective:: Physical Exam: General: Alert and oriented x3, no acute distress, pleasant and cooperative Lungs: Respirations even and unlabored, symmetrical chest expansion Eyes: PERRL Musculoskeletal: Flexion and extension of lumbar [spine] somewhat guarded secondary to pain, [antalgic gait noted] Neurological: Speech clear, no gross sensory deficit Has patient had previous pain injection?: No Conservative treatment options previously tried: Home exercise plan Length of treatment: Longer than 6 weeks Meds Home Medications and Allergies Home Medications ?Medication ?Instructions ?Recorded ?Confirmed ?Type aspirin 81 mg tablet,delayed 81 mg PO DAILY Blood thinner 08/08/20 08/11/24 History release carbidopa 25 mg-levodopa 100 mg 1 tab PO TID parkinsons 08/08/20 08/11/24 Histo ry tablet isosorbide mononitrate 60 mg 60 mg PO DAILY hypertension 08/08/20 08/11/24 History tablet,extended release 24 hr gabapentin 600 mg tablet 600 mg PO TID pain 04/23/21 08/11/24 History hydrochlorothiazide 12.5 mg capsule 12.5 mg PO DAILY High blood 11/26/21 08/11/24 History pressure vitamin B complex (B 1 tab PO DAILY Supplement 11/26/21 08/11/24 History Complex-Vitamin B12 tablet) ferrous sulfate 140 mg (45 mg 280 mg PO DAILY supplement 02/19/22 08/11/24 History iron) tablet,extended release (Slow Release Iron) furosemide 40 mg tablet 40 mg PO DAILY High blood pressure 02/19/22 08/11/24 History pramipexole 1.5 mg tablet,extended 1.5 mg PO BID parkinsons 12/03/22 08/11/24 History release 24 hr semaglutide 2 mg/dose (8 mg/3 mL) 2 mg SQ WEEKLY Diabetes 12/03/22 08/11/24 History subcutaneous pen injector (Ozempic) colchicine 0.6 mg tablet (Colcrys) 0.6 mg PO DIRECTED #3 tabs 04/28/23 08/11/24 Rx polymyxin B sulfate 10,000 1 drp Eye-Left Q3H 7 days #10 mL 07/28/23 08/11/24 Rx unit-trimethoprim 1 mg/mL eye drops (Polytrim) enalapril maleate 5 mg tablet 20 mg PO DAILY High blood pressure 02/25/24 08/11/24 History insulin glargine-yfgn 100 unit/mL 60 unit SQ DIRECTED Diabetes 04/12/24 08/11/24 History (3 mL) subcutaneous pen (Semglee (insulin glargine-yfgn) Pen) metformin 1,000 mg tablet 1,000 mg PO BID Diabetes 05/20/24 08/11/24 History terbinafine HCl 250 mg tablet 250 mg PO DAILY 05/20/24 08/11/24 History New Prescriptions to Start Prescriptions: Allergies Allergy/AdvReac Type Severity Reaction Status Date / Time No Known Allergies Allergy Verified 06/02/24 08:25 Assessment and Plan *Assessment and plan (1) Diabetic peripheral neuropathy: Status: Acute Category: Medical Code(s): E11.42 - Type 2 diabetes mellitus with diabetic polyneuropathy
== END 2024-08-11 23:59 | disposition home or self-care (01) ==
LOC: SC.PAIN 10:52
PROVIDERS: PCP Family Medicine; Visit Provider Nurse Practitioner Family
DX: E11.42 Type 2 diabetes mellitus with diabetic polyneuropathy (principal); Z79.899 Other long term (current) drug therapy
CPT/HCPCS: 99212; G0463

== ENCOUNTER 2024-10-15 08:27 | Emergency (ER) | payer MEDICARE, OTHER, SELFPAY ==
[2024-10-15 08:35] VITALS: BP 109/81; PULSE 109; RESP 19; TEMP 36.7; O2SAT 100; BMI 47.2
[2024-10-15 08:54] LABS: UTC Strep Screen (Rapid) Negative (Negative)
--- NOTE | 2024-10-15 08:55 | EXP.UTC ---
Discharge Plan Disposition Patient Disposition: Home, Self-Care Condition: Good Prescriptions Prescriptions: No Action furosemide 40 mg tablet 40 mg PO DAILY enalapril maleate 10 mg tablet 10 mg PO DAILY Patient Comments: TAKE 1 TABLET BY MOUTH DAILY isosorbide mononitrate 60 mg tablet extended release 24 hr 60 mg PO DAILY Patient Comments: TAKE 1 TABLET BY MOUTH EVERY MORNING metformin 1,000 mg tablet 1,000 mg PO DAILY allopurinol 300 mg tablet 300 mg PO DAILY Patient Comments: TAKE 1 TABLET BY MOUTH DAILY colchicine 0.6 mg tablet 0.6 mg PO DAILY Patient Comments: TAKE 1 TABLET BY MOUTH DAILY carbidopa-levodopa 25-100 mg tablet 1 tab PO TID Patient Comments: TAKE 1 TABLET BY MOUTH THREE TIMES DAILY pramipexole 1.5 mg tablet extended release 24 hr 1.5 mg PO DAILY Patient Comments: TAKE 1 TABLET BY MOUTH TWICE DAILY insulin glargine-yfgn [Semglee(insulin glarg-yfgn)Pen] 100 unit/mL (3 mL) insulin pen 60 unit SQ DAILY Patient Comments: ADMINISTER 60 UNITS UNDER THE SKIN DAILY DIRECTED Ozempic 2 mg/dose (8 mg/3 mL) pen injector 2 mg SQ WEEKLY Patient Comments: ADMINISTER 2MG UNDER THE SKIN INTO THE APPROPRIATE AREA DIRECTED ONCE WEEKLY Referrals Follow up/Referrals: Juan José Cervantes MD [Primary Care Provider] - See instructions Activity Restrictions/Add. Instructions Additional Instructions/Restrictions: *Monitor Temp, Over the counter Motrin or Tylenol as directed/as needed Tylenol every 4 hours and Motrin every 6 hours (as long as your family doctor has told you that you can take it) for fever or pain. and straight to ER if unable to lower temp less than 101.0 after medication given *Warm salt water gargles may help to soothe the throat *Throat Lozenges? *Warm fluids like tea with honey may help to soothe the throat? *Sleep elevated *Humidifier/Vaporizer Your throat swab was sent for culture. Those results are typically sent to your primary care. Be sure to follow up in 2-3 days with your family doctor/primary care physician if no improvement so they can review those result and treat if necessary. If you don?t have a primary care doctor, I recommend you get one but in the mean time, you will have to return to a walk in clinic Follow up IMMEDIATELY for new or worsening symptoms or no Noticeable improvement over the next 48-72 hours. 911 for difficulty breathing or swallowing Clinical Impressions Clinical Impression: Sore throat Instructions Patient Instructions: Sore Throat Print Language Print Language: Uzbek Discharge ED Provider: Claudette Langford [facility] [place] HPI General Stated complaint: sore throat, congestion Mode of Arrival: Ambulatory Source of Information: Patient Limitations: No Limitations Time Seen by Provider: 10/15/24 08:55 Description of Symptoms (Recalled from Triage Doc. by RN): PATIENT C/O SORE THROAT THAT STARTED TODAY HEENT Symptoms (Recalled from RN notes): Yes Resp Symptoms (Recalled from RN notes): No Skin Symptoms (Recalled from RN notes): No MS Symptoms (Recalled from RN notes): No Functional Status (Recalled from RN notes): WNL History of Present Illness Provider Complaint: Patient states that he has been having sore throat for the last couple of days States that he uses a CPAP at home and not sure if he may have strep throat or just throat irritation from the CPAP Related Data Home Medications ?Medication ?Instructions ?Recorded ?Confirmed allopurinol 300 mg tablet 300 mg PO DAILY 10/15/24 10/15/24 carbidopa 25 mg-levodopa 100 mg 1 tab PO TID 10/15/24 10/15/24 tablet colchicine 0.6 mg tablet 0.6 mg PO DAILY 10/15/24 10/15/24 enalapril maleate 10 mg tablet 10 mg PO DAILY 10/15/24 10/15/24 furosemide 40 mg tablet 40 mg PO DAILY 10/15/24 10/15/24 insulin glargine-yfgn 100 unit/mL 60 unit SQ DAILY 10/15/24 10/15/24 (3 mL) subcutaneous pen (Semglee (insulin glargine-yfgn) Pen) isosorbide mononitrate 60 mg 60 mg PO DAILY 10/15/24 10/15/24 tablet,extended release 24 hr metformin 1,000 mg tablet 1,000 mg PO DAILY 10/15/24 10/15/24 pramipexole 1.5 mg tablet,extended 1.5 mg PO DAILY 10/15/24 10/15/24 release 24 hr semaglutide 2 mg/dose (8 mg/3 mL) 2 mg SQ WEEKLY 10/15/24 10/15/24 subcutaneous pen injector (Ozempic) Allergies Allergy/AdvReac Type Severity Reaction Status Date / Time No Known Allergies Allergy Verified 09/02/24 08:34 Worker's Comp Is this a Worker's Comp case?: No [facility] Disclaimer: The information contained in this section may have been updated after the patient was seen, as this information can be updated by other users. Medical History Meningioma Stable finding on head CT. According to prior neurologist records, similar since at least 2007. Sleep apnea, obstructive Sleep apnea Hyperlipidemia Hypertension Onychomycosis Onychomycosis Onychodystrophy Hx of Parkinson's disease Neuropathy DM type 2 (diabetes mellitus, type 2) Surgical History History of colonoscopy History of corneal transplant Family History Other No significant family history Social History Smoking Status: Never smoker alcohol intake: never substance use type: denies use current occupational status: retired Travel in the last 8 weeks: None household members: spouse housing: house Have you lived/traveled outside [place] in past 30 days?: No Contact w/someone who lives/traveled outside [place] past 30 days?: No Exposure to someone with infectious disease in past 14 days?: No Do you have a fever (greater than 100.4 F or 38 C)?: No Have you tested positive for COVID-19: No Exposed to someone with COVID-19 in past 14 days?: No Do you have a sore throat?: Yes Do you have a cough?: Yes Do you have any weakness?: No Do you have any diarrhea?: No Are you experiencing any unusual bleeding?: No Do you have any muscle aches/pain?: No Do you have any abdominal pain?: No Are you experiencing loss of taste or smell?: No ROS Obtained: Yes All systems reviewed & no additional complaints except as documented and Yes Systems reviewed as appropriate & no additional complaints except as documented Constitutional Constitutional: Reports system reviewed and no additional complaints, except as documented and Reports as per HPI ENT Ears, Nose, Mouth, and Throat: Reports system reviewed and no additional complaints, except as documented, Reports as per HPI, Reports nasal congestion, Reports nasal discharge and Reports sore throat Cardiovascular Cardiovascular: Reports system reviewed and no additional complaints, except as documented and Reports as per HPI Respiratory Respiratory: Reports system reviewed and no additional complaints, except as documented and Reports as per HPI Gastrointestinal Gastrointestingal: Reports system reviewed and no additional complaints, except as documented and as per HPI Physical Exam General General appearance: alert and in no apparent distress ENT ENT exam: Present mucous membranes moist Expanded ENT Exam Nose exam: Absent sinus tenderness Throat exam: Present other (Pharyngeal erythema noted with PND) Respiratory Respiratory exam: Present normal lung sounds bilaterally; Absent respiratory distress or wheezes Cardiovascular Cardiovascular exam: Present regular rate, normal rhythm and normal heart sounds Abdominal Exam Abdominal exam: Present soft and normal bowel sounds; Absent distention or tenderness Neurological Exam Neurological exam: Present alert, oriented X3 and normal gait Medical Decision Making Medical Records Screening: Per USPSTF and CDC recommendations, given the prevalence of disease in our region, it is our hospital?s policy to screen for HIV and viral Hepatitis for all patients aged 18 and over and those with ongoing risk factors. Alex Inquiry Pt receiving controlled substance: No Alex was queried for this patient: No Vital Signs: 10/15/24 08:35 Temperature 98.0 F Temperature Source Oral Pulse Rate [Left Brachial] 109 H Respiratory Rate 19 Blood Pressure [Left Arm] 109/81 L Blood Pressure Mean [Left Arm] 90 Blood Pressure Source [Left Arm] Automatic Cuff Blood Pressure Position [Left Arm] Sitting 02 Sat by Pulse Oximetry 100 Oxygen Delivery Method Room Air Lab Data Lab results reviewed: Yes I reviewed the patient's lab results. Lab Results 10/15/24 08:40: Strep Scn Rapid Clinic Negative Orders (Tests/Meds): ORDERS Category Date Time Status Strep Screen Confirmation Stat Micro 10/15/24 08:40 Received
[2024-10-15 09:10] VITALS: BP 109/81; PULSE 109; RESP 19; TEMP 36.7; O2SAT 100
== END 2024-10-15 09:12 | disposition home or self-care (01) ==
PROVIDERS: Emergency Provider Nurse Practitioner; PCP Family Medicine
DX: J02.9 Acute pharyngitis, unspecified (principal); R09.81 Nasal congestion
CPT/HCPCS: 87880; 99212; G0381

== ENCOUNTER 2024-10-29 09:37 | Outpatient (CLI) | payer MEDICARE, OTHER, SELFPAY ==
[2024-10-29 11:35] LABS: Vitamin B12 794 pg/mL (239-931)
== END 2024-10-29 23:59 | disposition home or self-care (01) ==
LOC: LAB 09:38
PROVIDERS: PCP Family Medicine; Visit Provider Family Medicine
DX: E53.8 Deficiency of other specified B group vitamins (principal)
CPT/HCPCS: 36415; 82607

== ENCOUNTER 2024-11-08 08:40 | Outpatient (POV) | payer MEDICARE, OTHER, SELFPAY ==
--- NOTE | 2024-11-08 08:46 | A.OFFVIS_ITS ---
[facility] Disclaimer: The information contained in this section may have been updated after the patient was seen, as this information can be updated by other users. Medical History Meningioma Stable finding on head CT. According to prior neurologist records, similar since at least 2007. Sleep apnea, obstructive Sleep apnea Hyperlipidemia Hypertension Onychomycosis Onychomycosis Onychodystrophy Hx of Parkinson's disease Neuropathy DM type 2 (diabetes mellitus, type 2) Surgical History History of colonoscopy History of corneal transplant Family History Other No significant family history Social History Smoking Status: Never smoker alcohol intake: never substance use type: denies use current occupational status: retired Travel in the last 8 weeks: None household members: spouse housing: house Have you lived/traveled outside US in past 30 days?: No Contact w/someone who lives/traveled outside US past 30 days?: No Exposure to someone with infectious disease in past 14 days?: No Do you have a fever (greater than 100.4 F or 38 C)?: No Have you tested positive for COVID-19: No Exposed to someone with COVID-19 in past 14 days?: No Do you have a sore throat?: No Do you have a cough?: No Do you have any weakness?: No Do you have any diarrhea?: No Are you experiencing any unusual bleeding?: No Do you have any muscle aches/pain?: No Do you have any abdominal pain?: No Are you experiencing loss of taste or smell?: No PM Subjective & Objective Subjective Subjective:: Patient is a pleasant 69-year-old male who presents today for 3 month follow-up. Today he rates his pain a 2 out of 10. He states he is still doing really well with the compounded cream and feels like this is working for his diabetic neuropathy. He was on gabapentin from an outside provider however is now no longer taking this medication. His Alex has been reviewed and is appropriate. Review of Systems: General: No recent weight changes, no fever, no sleep disturbances Respiratory: No cough, no shortness of air, no recurring pulmonary infections Cardiovascular/peripheral vascular: No chest pain, no palpitations, no edema, no shortness of breath Gastrointestinal: No new onset incontinence, normal bowel movements reported Genitourinary: No new onset incontinence Musculoskeletal: Low back pain, bilateral feet pain Psychiatric: [Normal mood/affect] Neurological: [Denies weakness in extremities], [denies balance issues] Pain at rest (0-10 scale): 2 Objective Objective:: Physical Exam: General: Alert and oriented x3, no acute distress, pleasant and cooperative Lungs: Respirations even and unlabored, symmetrical chest expansion Eyes: PERRL Musculoskeletal: Flexion and extension of lumbar [spine] somewhat guarded secondary to pain, [antalgic gait noted] Neurological: Speech clear, no gross sensory deficit Has patient had previous pain injection?: No Conservative treatment options previously tried: Home exercise plan Length of treatment: Longer than 12 weeks Meds Home Medications and Allergies Home Medications ?Medication ?Instructions ?Recorded ?Confirmed ?Type allopurinol 300 mg tablet 300 mg PO DAILY 10/15/24 10/15/24 History carbidopa 25 mg-levodopa 100 mg 1 tab PO TID 10/15/24 10/15/24 History tablet colchicine 0.6 mg tablet 0.6 mg PO DAILY 10/15/24 10/15/24 History enalapril maleate 10 mg tablet 10 mg PO DAILY 10/15/24 10/15/24 History furosemide 40 mg tablet 40 mg PO DAILY 10/15/24 10/15/24 History insulin glargine-yfgn 100 unit/mL 60 unit SQ DAILY 10/15/24 10/15/24 History (3 mL) subcutaneous pen (Semglee (insulin glargine-yfgn) Pen) isosorbide mononitrate 60 mg 60 mg PO DAILY 10/15/24 10/15/24 History tablet,extended release 24 hr metformin 1,000 mg tablet 1,000 mg PO DAILY 10/15/24 10/15/24 History pramipexole 1.5 mg tablet,extended 1.5 mg PO DAILY 10/15/24 10/15/24 History release 24 hr semaglutide 2 mg/dose (8 mg/3 mL) 2 mg SQ WEEKLY 10/15/24 10/15/24 History subcutaneous pen injector (Ozempic) New Prescriptions to Start Prescriptions: Allergies Allergy/AdvReac Type Severity Reaction Status Date / Time No Known Allergies Allergy Verified 09/02/24 08:34 Assessment and Plan *Assessment and plan (1) Diabetic peripheral neuropathy: Status: Acute Category: Medical Code(s): E11.42 - Type 2 diabetes mellitus with diabetic polyneuropathy Plan Patient continues to do well with the compounded cream and does not require any additional interventions at this time. Patient will return to clinic in 6 months for reevaluation of symptoms and plan of care. Patient has been instructed to contact the clinic with any concerns before the next appointment. Dr. Burk has reviewed this note and agrees with this plan of care. This note was dictated using voice recognition software and make contain errors or omissions. All injections are used with Lidocaine, Bupivacaine and Depo Medrol. Occasionally urine drug screen is needed to verify patient's compliance with our office pain contract. This is ordered based off specific treatments related to chronic pain with the potential to abuse certain medications.
[2024-11-08 09:05] VITALS: BP 146/81; PULSE 106; RESP 16; O2SAT 97; BMI 46.5
== END 2024-11-08 23:59 | disposition home or self-care (01) ==
LOC: SC.PAIN 08:41
PROVIDERS: PCP Family Medicine; Visit Provider Nurse Practitioner Family
DX: E11.42 Type 2 diabetes mellitus with diabetic polyneuropathy (principal); Z79.85 Long-term (current) use of injectable non-insulin antidiabetic drugs
CPT/HCPCS: 99212; G0463

== ENCOUNTER 2024-11-12 08:08 | Outpatient (CLI) | payer MEDICARE, OTHER, SELFPAY ==
[2024-11-12 08:19] VITALS: BP 117/72; PULSE 108; RESP 20; TEMP 36.9; O2SAT 96
[2024-11-12] MEDS: VITAMIN B-12 1,000 MCG 1ML VIAL 1000 MCG IM (08:19)
== END 2024-11-12 08:42 | disposition home or self-care (01) ==
LOC: INF 08:09
PROVIDERS: PCP Family Medicine; Visit Provider Family Medicine
DX: D51.9 Vitamin B12 deficiency anemia, unspecified (principal)
CPT/HCPCS: 96372; J3420

== ENCOUNTER 2024-12-09 08:16 | Outpatient (CLI) | payer MEDICARE, OTHER, SELFPAY ==
[2024-12-09 08:25] VITALS: BP 138/72; PULSE 99; RESP 20; TEMP 36.9; O2SAT 99
[2024-12-09] MEDS: VITAMIN B-12 1,000 MCG 1ML VIAL 1000 MCG IM (08:25)
== END 2024-12-09 08:36 | disposition home or self-care (01) ==
LOC: INF 08:17
PROVIDERS: PCP Family Medicine; Visit Provider Family Medicine
DX: D51.9 Vitamin B12 deficiency anemia, unspecified (principal)
CPT/HCPCS: 96372; J3420

== ENCOUNTER 2025-01-06 08:01 | Outpatient (CLI) | payer MEDICARE, OTHER, SELFPAY ==
[2025-01-06] MEDS: VITAMIN B-12 1,000 MCG 1ML VIAL 1000 MCG (08:15)
[2025-01-06 08:20] VITALS: BP 120/71; PULSE 98; RESP 18; TEMP 37.2; O2SAT 97
== END 2025-01-06 08:20 | disposition home or self-care (01) ==
LOC: INF 08:04
PROVIDERS: PCP Family Medicine; Visit Provider Family Medicine
DX: G62.9 Polyneuropathy, unspecified (principal)
CPT/HCPCS: 96372; J3420

== ENCOUNTER 2025-02-03 08:09 | Outpatient (CLI) | payer MEDICARE, OTHER, SELFPAY ==
[2025-02-03 08:17] VITALS: BP 131/74; PULSE 92; RESP 18; TEMP 36.6; O2SAT 98
[2025-02-03] MEDS: VITAMIN B-12 1,000 MCG 1ML VIAL 1000 MCG IM (08:17)
== END 2025-02-03 08:33 | disposition home or self-care (01) ==
LOC: INF 08:09
PROVIDERS: PCP Family Medicine; Visit Provider Family Medicine
DX: E11.40 Type 2 diabetes mellitus with diabetic neuropathy, unspecified (principal)
CPT/HCPCS: 96372; J3420

== ENCOUNTER 2025-02-09 11:03 | Outpatient (CLI) | payer MEDICARE, OTHER, SELFPAY ==
--- NOTE | 2025-02-09 11:05 | CT_ITS ---
FINAL REPORT TECHNIQUE: Thin section axial images are obtained through the abdomen and pelvis after intravenous contrast. Reconstruction images were obtained from the axial data. Exam was performed using dose reduction techniques. This study was performed with techniques to keep radiation doses as low as reasonably achievable (ALARA). Individualized dose reduction techniques using automated exposure control or adjustment of mA and/or kV according to the patient's size were employed. CLINICAL HISTORY: LT LATERAL ABD PAIN COMPARISON: None FINDINGS: LUNG BASES: Lung bases are clear. Heart size is normal. LIVER: There is fatty infiltration of the liver, as well as mild hepatic enlargement. No focal lesion. GALLBLADDER/BILIARY SYSTEM: Gallbladder is present. Gallstones are present in the gallbladder. No biliary dilatation. SPLEEN: Unremarkable. PANCREAS: Unremarkable. ADRENALS: The right adrenal gland is unremarkable. There is a small left adrenal nodule, nonspecific. KIDNEYS/URETERS/BLADDER: No hydronephrosis, renal mass, or renal stone. Unremarkable urinary bladder. GI TRACT: No small bowel obstruction or dilatation. Normal appendix. Diverticulosis of the colon is present without diverticulitis. PELVIC ORGANS: Unremarkable for age. LYMPH NODES/RETROPERITONEUM/MESENTERY: No lymphadenopathy. No abdominal aortic aneurysm. ABDOMINAL WALL: The abdominal wall is intact. FREE FLUID: No ascites. BONES: No acute osseous abnormality. IMPRESSION: No acute abnormality of the abdomen and pelvis. Fatty liver, mildly enlarged. Gallstones are present in the gallbladder without evidence of biliary ductal dilatation. Reviewed, Interpreted and Dictated by Radha Villa MD Transcribed by Janae Tee Authenticated and . [facility]
[2025-02-09 11:26] LABS: Blood Urea Nitrogen 18 mg/dl (9-20); Estimated Glomerular Filt Rate 43 ml/min (>60); GFR (African American) 52 ML/MIN (>60)
[2025-02-09] MEDS: SODIUM CHLORIDE 0.9% 10ML SYR (RAD ONLY) 10 ML IV (12:04)
[2025-02-09] MEDS: IOPAMIDOL-370 (76%);100ML BOTTLE 75 ML IV (12:04)
== END 2025-02-09 23:59 | disposition home or self-care (01) ==
LOC: RAD 11:04
PROVIDERS: PCP Family Medicine; Visit Provider Family Medicine
DX: R10.9 Unspecified abdominal pain (principal); Z87.19 Personal history of other diseases of the digestive system
CPT/HCPCS: 36415; 74177; 82565; 84520; Q9967

== ENCOUNTER 2025-03-03 08:20 | Outpatient (CLI) | payer MEDICARE, OTHER, SELFPAY ==
[2025-03-03 08:25] VITALS: BP 112/58; PULSE 98; RESP 20; TEMP 36.2; O2SAT 98
[2025-03-03] MEDS: VITAMIN B-12 1,000 MCG 1ML VIAL 1000 MCG IM (08:25)
== END 2025-03-03 08:34 | disposition home or self-care (01) ==
LOC: INF 08:21
PROVIDERS: PCP Family Medicine; Visit Provider Family Medicine
DX: D51.0 Vitamin B12 deficiency anemia due to intrinsic factor deficiency (principal)
CPT/HCPCS: 96372; J3420

== ENCOUNTER 2025-03-27 17:58 | Emergency (ER) | payer MEDICARE, OTHER, SELFPAY ==
--- NOTE | 2025-03-27 18:04 | ED_ITS ---
<Statement entered by Agustín Campos MD - 03/27/25 23:24> I was consulted by the NOE, and we discussed the complexity of the problems being addressed. I approved the treatment and management plan for this patient's care in the emergency department, thus performing a substantive portion of the medical decision making. Agustín Campos MD, DYAN, FACEP Discharge Plan Disposition Patient Disposition: Home, Self-Care Condition: Good Prescriptions Prescriptions: No Action furosemide 40 mg tablet 40 mg PO DAILY enalapril maleate 10 mg tablet 10 mg PO DAILY Patient Comments: TAKE 1 TABLET BY MOUTH DAILY isosorbide mononitrate 60 mg tablet extended release 24 hr 60 mg PO DAILY Patient Comments: TAKE 1 TABLET BY MOUTH EVERY MORNING metformin 1,000 mg tablet 1,000 mg PO DAILY allopurinol 300 mg tablet 300 mg PO DAILY Patient Comments: TAKE 1 TABLET BY MOUTH DAILY colchicine 0.6 mg tablet 0.6 mg PO DAILY Patient Comments: TAKE 1 TABLET BY MOUTH DAILY carbidopa-levodopa 25-100 mg tablet 1 tab PO TID Patient Comments: TAKE 1 TABLET BY MOUTH THREE TIMES DAILY pramipexole 1.5 mg tablet extended release 24 hr 1.5 mg PO DAILY Patient Comments: TAKE 1 TABLET BY MOUTH TWICE DAILY insulin glargine-yfgn [Semglee(insulin glarg-yfgn)Pen] 100 unit/mL (3 mL) insulin pen 60 unit SQ DAILY Patient Comments: ADMINISTER 60 UNITS UNDER THE SKIN DAILY DIRECTED Ozempic 2 mg/dose (8 mg/3 mL) pen injector 2 mg SQ WEEKLY Patient Comments: ADMINISTER 2MG UNDER THE SKIN INTO THE APPROPRIATE AREA DIRECTED ONCE WEEKLY Referrals Follow up/Referrals: Provider,Referral, [Referring, Medical] - See instructions Activity Restrictions/Add. Instructions Additional Instructions/Restrictions: As we discussed I recommend having your vision checked as soon as possible. Please follow-up with your PCP as scheduled this week. If you have any persistent new or worsening signs or symptoms please follow-up sooner with your PCP return to the ER as needed. Clinical Impressions Clinical Impression: Blurred vision, bilateral, Weakness Print Language Print Language: Kyrgyz Discharge ED Provider: Agustín Campos General Adult HPI General Chief complaint: Shortness of Breath/Dyspnea Stated complaint: low blood pressure 70/44 weakness Time Seen by Provider: 03/27/25 18:04 History of Present Illness HPI narrative: Patient presents for evaluation of multiple complaints. Patient states that he took his blood pressure at home with a wrist cuff that he and his share and his blood pressure was 70/44. Patient reports that he is been dealing with this for a while with his primary care doctor with multiple medication changes etc. In addition patient reports that he has had about 4 months of intermittent infrequent blurred vision. Patient does have a history of a corneal transplant many years ago in his right eye. Patient has not seen an eye doctor nor had an eye exam in more than a year. Patient also reports that he feels significantly weak but denies chest pain fever chills hemoptysis hematochezia melena nausea vomiting diarrhea. Patient does state that he occasionally gets short of breath when he is trying to do even light activity but goes away with rest. Related Data Home Medications ?Medication ?Instructions ?Recorded ?Confirmed allopurinol 300 mg tablet 300 mg PO DAILY 10/15/2406/20 carbidopa 25 mg-levodopa 100 mg 1 tab PO TID 10/15/24 03/03/25 tablet colchicine 0.6 mg tablet 0.6 mg PO DAILY 10/15/2406/20 enalapril maleate 10 mg tablet 10 mg PO DAILY 10/15/24 03/03/25 furosemide 40 mg tablet 40 mg PO DAILY 10/15/2406/20 insulin glargine-yfgn 100 unit/mL 60 unit SQ DAILY 03/03/25 (3 mL) subcutaneous pen (Semglee (insulin glargine-yfgn) Pen) isosorbide mononitrate 60 mg 60 mg PO DAILY 10/15/24 0 03/03/25 tablet,extended release 24 hr metformin 1,000 mg tablet 1,000 mg PO DAILY 10/15/24 0 03/03/25 pramipexole 1.5 mg tablet,extended 1.5 mg PO DAILY 03/03/25 release 24 hr semaglutide 2 mg/dose (8 mg/3 mL) 2 mg SQ WEEKLY 10/1503/03/25 subcutaneous pen injector (Ozempic) Allergies Allergy/AdvReac Type Severity Reaction Status Date / Time No Known Allergies Allergy Verified 03/03/25 08:33 [facility] Disclaimer: The information contained in this section may have been updated after the patient was seen, as this information can be updated by other users. Medical History Meningioma Stable finding on head CT. According to prior neurologist records, similar since at least 2007. Sleep apnea, obstructive Sleep apnea Hyperlipidemia Hypertension Onychomycosis Onychomycosis Onychodystrophy Hx of Parkinson's disease Neuropathy DM type 2 (diabetes mellitus, type 2) Surgical History History of colonoscopy History of corneal transplant Family History Other No significant family history Social History (Updated 03/03/25 @ 08:32 by Adriel Bob RN) Smoking Status: Smoker, status unknown alcohol intake: never substance use type: denies use current occupational status: other Travel in the last 8 weeks?: None household members: spouse housing: house Have you lived/traveled outside US in past 30 days?: No Contact w/someone who lives/traveled outside US past 30 days?: No Exposure to someone with infectious disease in past 14 days?: No Do you have a fever (greater than 100.4 F or 38 C)?: No Have you tested positive for COVID-19?: No Exposed to someone with COVID-19 in past 14 days?: No Do you have a sore throat?: No Do you have a cough?: No Do you have any weakness?: No Do you have any diarrhea?: No Are you experiencing any unusual bleeding?: No Do you have any muscle aches/pain?: No Do you have any abdominal pain?: No Are you experiencing loss of taste or smell?: No Other Medical History Have you received the Flu Vaccine for this season: Yes Have you received the Pneumonia Vaccine: Yes ROS Obtained: Yes Systems reviewed as appropriate & no additional complaints except as documented Physical Exam General General appearance: alert and in no apparent distress Respiratory Respiratory exam: Present normal lung sounds bilaterally Cardiovascular Cardiovascular exam: Present regular rate; Absent normal heart sounds Extremities Exam Extremities exam: Present normal inspection Neurological Exam Neurological exam: Present alert, oriented X3 and CN II-XII intact Medical Decision Making Medical Records Medical records reviewed: Yes I reviewed the patient's medical records. Screening: Per USPSTF and CDC recommendations, given the prevalence of disease in our region, it is our hospital?s policy to screen for HIV and viral Hepatitis for all patients aged 18 and over and those with ongoing risk factors. Alex Inquiry Pt receiving controlled substance: No Vital Signs: 03/27/25 18:07 03/27/25 18:20 03/27/25 18:30 Temperature 98.2 F 98.7 F Temperature Source Oral Pulse Rate 106 H 104 H Pulse Rate [Left] 103 H Respiratory Rate 14 14 16 Blood Pressure 126/77 115/73 Blood Pressure [Right Arm] 130/73 Blood Pressure Mean 86 83 Blood Pressure Mean [Right Arm] 92 Blood Pressure Source Blood Pressure Source [Right Arm] Automatic Cuff Blood Pressure Position 02 Sat by Pulse Oximetry 97 98 98 Oxygen Delivery Method Room Air 03/27/25 19:00 03/27/25 19:30 03/27/25 19:40 Temperature 98.7 F Temperature Source Oral Pulse Rate 101 H 95 H 98 H Pulse Rate [Left] Respiratory Rate 22 24 20 Blood Pressure 120/71 104/64 L 104/64 L Blood Pressure [Right Arm] Blood Pressure Mean Blood Pressure Mean [Right Arm] Blood Pressure Source Automatic Cuff Blood Pressure Source [Right Arm] Blood Pressure Position Sitting 02 Sat by Pulse Oximetry 94 L 95 Oxygen Delivery Method Lab Data Lab results reviewed: Yes I reviewed the patient's lab results. Lab Results 03/27/25 18:12: WBC 8.6, RBC 4.39 L, Hgb 13.1 L, Hct 38.5 L, MCV 87.7, MCH 29.8, MCHC 34.0, RDW 14.7, Plt Count 233, MPV 9.4, Neut % (Auto) 50.6, Lymph % (Auto) 36.0, [place] % (Auto) 10.8 H, Eos % (Auto) 2.1, Baso % (Auto) 0.3, Neut # (Auto) 4.4, Lymph # (Auto) 3.1, [place] # (Auto) 0.9, Eos # (Auto) 0.2, Baso # (Auto) 0.0, ESR 20, Sodium 137, Potassium 3.5, Chloride 102, Carbon Dioxide 26, Anion Gap 12.5, BUN 27 H, Creatinine 1.60 H, Estimated Creat Clear 39, Estimated GFR 43 L, Est GFR ( Amer) 52 L, Glucose 198 H, Hemoglobin A1c 6.7 H, Calcium 9.2, Magnesium 1.6, Total Bilirubin 0.5, AST 44, ALT 20, Alkaline Phosphatase 70, Troponin I < 0.01 03/27/25 18:12: Troponin I Cancelled, C-Reactive Protein 7.4 H, Total Protein 6.6, Albumin 3.9, Globulin 2.7, Albumin/Globulin Ratio 1.4, TSH 2.15, Free T4 Index 2.6 L, Thyroxine (T4) 5.8, T3 Uptake 45 H 03/27/25 18:43: Urine Color Yellow, Urine Appearance Clear, Urine pH 5.5, Ur Specific [place] 1.020, Urine Protein Negative, Urine Glucose (UA) Negative, Urine Ketones Trace, Urine Blood Negative, Urine Nitrate Negative, Urine Bilirubin Negative, Urine Urobilinogen 0.2, Ur Leukocyte Esterase Negative, Urine RBC 3-5, Urine WBC Occasional, Ur Squamous Epith Cells 10-20, Urine Bacteria 1+, Urine Mucus 3+ 03/27/25 18:12 03/27/25 18:12 Orders (Tests/Meds): ED MEDICATIONS Discontinued Medications Generic Name Dose Route Start Last Admin Trade Name Freq PRN Reason Stop Dose Admin Sodium Chloride 1,000 mls @ 999 mls/hr 03/27/25 18:25 03/27/25 19:06 Sod Chlor 0.9% 1000ml Bag IV 03/27/25 19:25 Not Given .Q1H1M ONE ORDERS Category Date Time Status CT head/brain wo con Stat Cat Scan 03/27/25 18:25 Completed CBC w/Auto Diff [Complete Blood Count Auto Diff] Stat Lab 03/27/25 18:12 Completed CMP [Comprehensive Metabolic Panel] Stat Lab 03/27/25 18:12 Completed CRP [C-Reactive Protein] Stat Lab 03/27/25 18:12 Completed ESR [Erythrocyte Sedimentation Rate] Stat Lab 03/27/25 18:12 Completed Hemoglobin A1C Stat Lab 03/27/25 18:12 Completed Magnesium Stat Lab 03/27/25 18:12 Completed Thyroid Panel Stat Lab 03/27/25 18:12 Completed Trop I [Troponin I] Stat Lab 03/27/25 18:12 Completed UA [Urinalysis and Microscopic] Stat Lab 03/27/25 18:43 Completed Medical Decision Narrative: In summary patient is a 69-year-old male who presents to the emergency department for evaluation of multiple complaints including low home blood pressure reading, weakness and blurred vision. Patient is hemodynamically stable on arrival with a blood pressure of 130/73 pulse 103 with normal sinus rhythm on the bedside monitor breathing 14 times a minute satting at 97% on room air upon arrival, afebrile at 90.2. Physical exam is remarkable for well- nourished well-developed morbidly obese, with a BMI of 49.4, 69-year-old male who otherwise is in no acute distress. Physical exam reveals cranial nerves II through XII are intact grossly to exam pupils equal round reactive to light without icterus. There is no nystagmus. He has no nuchal rigidity or meningeal signs. He has no focal neurologic deficits is awake alert and oriented person place and circumstance and moves all 4 extremities and is amatory in the ER. Breath sounds clear and equal bilaterally to the bases without adventitious sounds abdomen is obese but soft nontender no rebound or guarding or rigidity.. Differential diagnosis includes intracranial lesion or stroke, as patient had a subarachnoid hemorrhage traumatic last summer. Patient also has a known history of a meningioma for many many years. Additional differentials include acute kidney injury electrolyte disturbances infection etc. Initial workup will be conducted with hematologic labs urinalysis CT scan of the head without contrast. Initial interventions include crystalloid bolus For now as patient has no pain or fever or nausea. Initial workup reviewed by me shows that his hematologic labs are nonactionable his hemoglobin A1c is actually 6.7 which is excellent in my informal interpretation of his CT scan of the head without contrast shows no acute intracranial abnormalities and his right sided angioma is stable in comparison to previous imaging. Please see radiology read for formal interpretation.. Upon repeat evaluation patient remains hemodynamically stable with a blood pressure 104/64 heart rate of 98. Given this patient is appropriate for discharge with close follow-up as scheduled with his PCP and strict return precautions. Patient also advised to schedule an eye exam soon as possible. I did have a shared decision-making discussion with the patient that if his blood sugar control is improved since his last eye exam is quite possible that his prescription is changed and may be the cause of his blurred vision. While we have identified no serious or life-threatening condition and there remains diagnostic uncertainty patient is stable for discharge with strict return precautions and close follow-up with his PCP.. Critical Care Critical Care Time Critical Care Time: No
[2025-03-27 18:07] VITALS: BP 130/73; PULSE 103; RESP 14; TEMP 36.8; O2SAT 97; BMI 49.4
--- NOTE | 2025-03-27 18:15 | ECG_ITS ---
APPROVED REPORT Exam: Resting ECG HR:108 bpm ECG Measurements Heart Rate 108 AXES WI 177 P 60 QRSd 102 QRS 51 QT 345 T 63 QTc 408 Conclusion SINUS TACHYCARDIA LOW QRS VOLTAGE IN EXTREMITY LEADS [QRS DEFLECTION < 0.5 mV IN LIMB LEADS] PATTERN CONSISTENT WITH PULMONARY DISEASE ABNORMAL ECG UNCONFIRMED REPORT Electronically signed by : Sy Campos, 03/29/2025 23:14:36
[2025-03-27 18:20] VITALS: BP 126/77; PULSE 106; RESP 14; TEMP 37.1; O2SAT 98
--- NOTE | 2025-03-27 18:25 | CT_ITS ---
PROCEDURE INFORMATION: Exam: CT Head Without Contrast Exam date and time: 03/27/2025 6:42 PM Age: 69 years old Clinical indication: Visual disturbance; Additional info: Intermittent recurrent blurred vision TECHNIQUE: Imaging protocol: Computed tomography of the head without contrast. Radiation optimization: All CT scans at this facility use at least one of these dose optimization techniques: automated exposure control; mA and/or kV adjustment per patient size (includes targeted exams where dose is matched to clinical indication); or iterative reconstruction. COMPARISON: CT HEAD/BRAIN WO CON 05/20/2024 12:38 PM FINDINGS: Brain: There is re-demonstration of a 2 cm hyperdense circumscribed rounded mass situated just above the right tentorial surface near the midline and adjacent to the inferior margin of the right occipital lobe unchanged likely representing a meningioma, unchanged. No other space-occupying masses appear no evidence of intracranial hemorrhage. Cortical sulci are otherwise unremarkable for age. Cerebral ventricles: Unremarkable for age. Paranasal sinuses: Mild mucosal thickening involving a portion of the ethmoid sinus in maxillary sinuses bilaterally. No masses or fluid levels. Mastoid air cells: Visualized mastoid air cells are well aerated. Bones: Unremarkable. No acute fracture. Soft tissues: Unremarkable. IMPRESSION: 1. No acute intracranial abnormalities. 2. Stable 2 cm meningioma situated just above the right tentorial surface.
[2025-03-27 18:30] VITALS: BP 115/73; PULSE 104; RESP 16; O2SAT 98
[2025-03-27 18:32] LABS: Basophils % 0.3 % (0.1-2.0); Eosinophils # 0.2 Kmm3 (0.0-0.4); Eosinophils % 2.1 % (0.1-12.0); Hematocrit 38.5 % (42.0-52.0); Hemoglobin 13.1 g/dL (14.1-18.0); Immature Granulocytes # 0.02 10^3uL; Immature Granulocytes % 0.2 %; Lymphocytes # 3.1 K/mm3 (0.7-4.5); Mean Corpuscular Hemoglobin 29.8 pg (27.0-31.2); Mean Corpuscular Volume 87.7 fl (80-94); Mean Platelet Volume 9.4 fl (7.4-10.4); Monocytes # 0.9 K/mm3 (0.1-1.0); Monocytes % 10.8 % (1.7-9.3); Neutrophils # 4.4 K/mm3 (1.8-7.8); Neutrophils % 50.6 % (37.0-80.0); Nucleated Red Blood Cells # 0 10^3/uL; Nucleated Red Blood Cells % 0 %; Platelet Count 233 K/mm3 (142-424); Red Blood Count 4.39 M/mm3 (4.60-6.20); Red Cell Distribution Width 14.7 % (11.5-17.5); Red Cell Distribution Width-SD 47.7 fL; White Blood Count 8.6 K/mm3 (4.8-10.8)
[2025-03-27 18:36] LABS: Albumin Level 3.9 g/dl (3.5-5.0); Chloride 102 mmol/L (98-107); Potassium 3.5 mmoL/L (3.5-5.1); Sodium 137 mmol/L (136-145)
[2025-03-27 18:38] LABS: Blood Urea Nitrogen 27 mg/dl (9-20)
[2025-03-27 18:39] LABS: Alanine Aminotransferase 20 U/L (12-78); Albumin/Globulin Ratio 1.4 (1.1-1.8); Alkaline Phosphatase 70 U/L (38-126); Anion Gap 12.5 mEq/L (5-15); Aspartate Amino Transferase 44 U/L (17-59); Bilirubin,Total 0.5 mg/dl (0.2-1.3); Calcium 9.2 mg/dl (8.4-10.2); Carbon Dioxide 26 mmol/L (22.0-30.0); Creatinine Clearance Estimated 39 mL/min (50-200); Estimated Glomerular Filt Rate 43 ml/min (>60); GFR (African American) 52 ML/MIN (>60); Globulin 2.7 g/dL (1.3-3.2); Glucose 198 mg/dl (74-100); Total Protein,Serum 6.6 g/dl (6.3-8.2)
[2025-03-27 18:40] LABS: Magnesium 1.6 mg/dl (1.6-2.3)
[2025-03-27 18:44] LABS: C-Reactive Protein 7.4 mg/L (0-4)
[2025-03-27 18:47] LABS: Microscopic, Urine URINE MICROSCOPIC (MICROSCOPIC)
[2025-03-27 18:48] LABS: Appearance,Urine CLEAR (Clear); Bilirubin,Urine Negative (Negative); Blood, Urine Negative (Negative); Color,Urine YELLOW (Yellow); Glucose,Urine (UA) Negative (Negative); Ketones,Urine TRACE (Negative); Leukocyte Esterase,Urine Negative (Negative); Nitrate,Urine Negative (Negative); PH,Urine 5.5 (5.0-8.5); Protein,Urine Negative (Negative); Urobilinogen,Urine 0.2 EU/dl (0.2)
[2025-03-27 18:53] LABS: Troponin I < 0.01 ng/ml (0.00-0.034)
[2025-03-27 18:56] LABS: Triiodothryronine (T3) Uptake 45 % (23.5-40.5)
[2025-03-27 18:57] LABS: Free Thyroxine Index 2.6 ug/dL (5.93-13.13); T4 (Thyroxine) 5.8 ug/dl (5.53-11.0)
[2025-03-27 19:00] VITALS: BP 120/71; PULSE 101; RESP 22; O2SAT 94
[2025-03-27 19:02] LABS: Erythrocyte Sedimentation Rate 20 mm/hr (0-20)
[2025-03-27 19:08] LABS: Bacteria,Urine 1+ /lpf; Mucus,Urine 3+ /lpf; WBC,Urine Occasional #/hpf (0-3)
[2025-03-27 19:11] LABS: Thyroid Stimulating Hormone 2.15 uIU/mL (0.465-4.68)
[2025-03-27 19:14] LABS: Hemoglobin A1C 6.7 % (4.0-6.0)
[2025-03-27 19:30] VITALS: BP 104/64; PULSE 95; RESP 24; O2SAT 95
[2025-03-27 19:40] VITALS: BP 104/64; PULSE 98; RESP 20; TEMP 37.1; O2SAT 96
== END 2025-03-27 19:41 | disposition home or self-care (01) ==
PROVIDERS: Physician Assistant; Emergency Provider Student in an Organized Health Care Education/Training Program; PCP Family Medicine
DX: H53.8 Other visual disturbances (principal); R53.1 Weakness; I10 Essential (primary) hypertension; E78.5 Hyperlipidemia, unspecified; F17.290 Nicotine dependence, other tobacco product, uncomplicated; E11.65 Type 2 diabetes mellitus with hyperglycemia
CPT/HCPCS: 70450; 80053; 81001; 83036; 83735; 84436; 84443; 84479; 84484; 85025; 85651; 86140; 93005; 99284

== ENCOUNTER 2025-04-28 08:12 | Outpatient (CLI) | payer MEDICARE, OTHER, SELFPAY ==
--- OUTSIDE RECORDS SUMMARY | 2012-02-06 13:25 | XMS_ITS | Continuity of Care Document ---
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 [address] [facility], [address], [facility] [address], [place], [id number], [place]. tel:[phone] [facility], [address] [place] [address], [address], [place] [facility] No Information 2 Abdoul Foster. [address] [place] [address], [address], [place], [address], [place]. tel:[phone] Referring Provider: Shakeel Bradley MD S, [address], [place], [address]. tel:[phone] ing Provider: Wing Goff, [address] [place] [address] [address], [place], [address]. 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 [address] [place] [address], Suite [facility], [address], [id number], [place]. tel:[phone] Referring Provider: Shakeel Bradley MD S, [address] , [place], [address]. tel:[phone] [facility], [address] [place] [address], [address], [place] [facility] [place] No Information 1 Kevin Crow. [address] [place] [address], [place] [address], [facility] [address], [place], [id number], [place]. 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 [address] [place] [address], Suite [facility], [facility] [address], [place], [id number], [place]. tel:[phone] Referring Provider: Shakeel Bradley MD S, [address], [place], [address]. 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 [address] [place] [address], [place] [address], [address], [id number], . tel:[phone] Referring Provider: Shakeel Miguel, [address], [place], [address]. tel:[phone] [facility], [address] [place] [address], [facility], [place] CVA Precious Buck No Information Apr-2 1-200 9 Jerrell Nephtali. [address] [place] [address], [place] [address], [address], [facility], . tel:[phone] Referring Provider: Shakeel Miguel, [address], [place], [address]. tel:[phone] Offic/outpt E&m 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 [address] [place] [address], [place] [address], [address], [id number], . tel:[phone] Referring Provider: Shakeel Bradley MD S, [address], [place], [address]. tel:[phone] Offic/outpt E&m 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 [address] [place] [address], Suite [facility], [address], [id number], . tel:[phone] Referring Provider: Shakeel Miguel, [address], [place], [address]. 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 [address] [place] [address], [address], [place] [address], [place], [place], [id number], [place]. tel:[phone] Referring Provider: Shakeel Bradley MD S, [address], [place], [address]. tel:[phone] Offic/outpt E&m [facility], [address] [place] [address], [address], [place] CVA Precious Buck DyspneaCAD - [place] May- 3200 8 Kevin Crow. [address] [place] [address], Suite [facility], [address], [id number], [place]. tel:[phone] Referring Provider: Shakeel Bradley MD S, [address], [place], [address]. tel:[phone] [facility], [address] [place] [address], [address], [place] [facility] Precious Buck No Information Apr-2 9200 8 Abdoul Foster. [address] [place] [address], [address], [place], [address], [place]. tel:[phone] Referring Provider: Shakeel Bradley MD S, [address], [place], [address]. tel:[phone] ing Provider: Tristin Brown, [address] [place] [address] [address], [place] [address], [place], [address]. 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 [facility], [address], [facility] [address], [place], [id number], . tel:[phone] Referring Provider: Shakeel Bradley MD S, [address] [facility], [place], [address]. tel:[phone] [facility], [address] [place] [address], [address], [facility]. No Information No Information Referring Provider: Jon Cornejo MD, [address], [address]. tel:[phone] Subsqt [facility]- E&m Sig [facility], [address] [place] [address], [facility], [facility]. No Information 7 Samantha TRIPATHI Shaquille. [address] , [address], [address], [place]. tel:[phone] Referring Provider: Jon Cornejo MD, [address], [address]. tel:[phone] Init Inpt Cons New/est Mod-md [facility], [address] [place] [address], [address], [facility]. No Information 7 Kevin Crow. [address] [place] [address], [address], [address], [id number], [place]. tel:[phone] Referring Provider: Jon Cornejo MD, [address] [place] [address], [place], [address]. tel:[phone] [facility], [address] [place] [address], [address], [facility]. No Information 7 Jerrell Chand. [address] [place] [address], [address], [facility] [address], [address], . tel:[phone] Referring Provider: Jon Cornejo MD, 15 [facility] [address], [address]. tel:[phone] Family History Family Member Type Diagnosis Age At Onset Father Problem (finding) Brother Problem (finding) Myocardial infarction 5 5 Father Problem (finding) congestive hea rt failure (Cause Of ) Sister Problem (finding) Undefined Heart Disease 56 Payers Payer name Insurance type Covered alliance party ID [id number] Social History Type Description Quantity Date Captured [...]
--- OUTSIDE RECORDS SUMMARY | 2025-04-28 08:17 | XMS_ITS | Clinical Summary ---
Author Organization [facility] Address [address] [place] [address] Care Team Providers Care In Home Sales Consultant Name Role Phone Juan José Cervantes MD Primary Care Provider [phone] Allergies No known active allergies Medications metFORMIN (Glucophage) 1000 MG tablet Take 1 tablet by mouth in the morning and 1 tablet in the evening. Take with meals. Active Allopurinol 200 MG tablet Take 2 tablets by mouth daily. Active rosuvastatin (Crestor) 10 MG tablet Take 1 tablet by mouth 1 (one) time each day. 025 Active BD ULTRA-FINE PEN NEEDLES 29G X 12.7MM daily. use as directed Active insulin glargine-yfgn 100 UNIT/ML injection pen ADMINISTER 60 UNITS UNDER THE SKIN DAILY DIRECTED Active enalapril (Vasotec) 10 MG tablet Take 1 tablet by mouth 1 (one) time each day. Active colchicine (Colcrys) 0.6 MG tablet Take 1 tablet by mouth daily. Active Continuous Glucose Sensor (FreeStyle Amanda 2 Sensor) [facility] USE DIRECTED EVERY 14 DAYS 025 Active isosorbide mononitrate ER (Imdur) 30 MG 24 hr tablet Take 1 tablet by mouth 1 (one) time each day. 024 Active Ozempic, 2 MG/DOSE, 8 MG/3ML solution pen-injector INJECT 2MG UNDER THE SKIN INTO THE APPROPRIATE AREA DIRECTED ONCE A WEEK Active furosemide (Lasix) 40 MG tablet Take 1 tablet by mouth daily. Active cyanocobalamin (Vitamin B-12) 1,000 mcg/mL oral liquid 1 (one) time. Active sildenafil (Viagra) 100 MG tablet Take 1 tablet by mouth daily as needed for erectile dysfunction. Active fexofenadine (Eva) 180 MG tablet Take 1 tablet by mouth daily. Active clotrimazole (Lotrimin) 1 % cream Apply 1 Application topically in the morning and 1 Application before bedtime. Active Ferrous Sulfate Dried ER (Slow Release Iron) 45 MG tablet controlled-release Take 140 mg by mouth. Active b complex vitamins capsule Take 1 capsule by mouth daily. Active NON FORMULARY Apply topically as needed in the morning and as needed at noon and as needed in the evening and as needed before bedtime. Ketamine/gabap entin/ibuprofe n/lidocaine/ba clofen /10/3/4/2%. Active carbidopa-levodopa (Sinemet) 25-100 MG tablet Take 2 tablets by mouth 3 (three) times a day. 180 tablet 5 025 2024 Active Pramipexole Dihydrochloride ER 1.5 MG tablet sustained-release 24 hour Take 1 tablet by mouth daily. 30 tablet 025 2024 Active Pramipexole Dihydrochloride ER 0.75 MG tablet sustained-release 24 hour Take 1 tablet by mouth in the morning and 1 tablet before bedtime. Do all this for 7 days. 14 tablet 025 2024 Discontinued Pramipexole Dihydrochloride ER 0.375 MG tablet sustained-release 24 hour Take 1 tablet by mouth 2 (two) times a day for 7 days, THEN 1 tablet daily for 7 days. 21 tablet 025 2024 Discontinued Encounters Date Type Department Care Team Description 04/11/2025 Orders Only [facility] [address] [place] [address] Dixon Gongora MD 02/22/2025 Telephone [facility] [address] [facility], [address] [place] [address] Jacque Dan, RN from Last 3 Months Immunizations Immunization Administration Dates Next Due Influenza, High-dose, Split Virus, Trivalent, Injectable, preservative free 09/21/2024 Influenza, high-dose, quadrivalent 09/09/2023, PPD Skin Test (TB Skin Test) 08/27/2017 Pneumococcal 20-rianna Conj Vaccine 05/25/2024 Tdap 05/25/2024 Family History Medical History Relation Name Comments Parkinson Disease Father Relation Name Status Comments Father Social History Tobacco Use Types Packs/Day Years Used Date Smoking Tobacco: Never Smokeless Tobacco: Never Tobacco Cessation:Counseling Given: Not Answered Alcohol Use Standard Drinks/Week Comments Never 0 (1 standard drink = 0.6 oz pur e alcohol) Sex and Gender Information Value Date Recorded Sex Assigned at Not on file Legal Sex Male 12:35 PM EDT Gender Identity Not on file Sexual Orientation Not on file Last Filed Vital Signs Vital Sign Reading Time Taken Comments Blood Pressure 109/63 01/20/2025 8:06 AM EDT Pulse 100 01/20/2025 8:06 AM EDT Temperature - - Respiratory Rate - - Oxygen Saturation 95% 01/20/2025 8:06 AM EDT Inhaled Oxygen Concentration - - Weight 132 kg (290 lb 9.1 oz) 01/20/2025 8:06 AM EDT Height 167.6 cm (5' 6 ) 01/20/2025 8:06 AM EDT Body Mass Index 46.9 01/20/2025 8:06 AM EDT Plan of Treatment Health Maintenance Due Date Last Done Comments [facility]-Depression Screening 1954 [facility]-/Child/Adol SDOH Screenings 1954 [facility]- SDOH Screenings 1972 [facility]-Adult SDOH Screenings 1972 CT Colonography 1999 Colonoscopy 1999 FIT 1999 FOBT 1999 Sigmoidoscopy 1999 [facility]-Zoster Vaccines (1 of 2) 2004 [id number] Vaccine ( season) 2024 11/21/2021, 01/24/2021, 12/27/2020 FIT-DNA 06/12/2025 06/12/2022 [facility]-Colorectal Cancer Screening 06/12/2025 [facility]-Influenza Vaccine (#1) 06/27/202509/21, 09/09/2023, 08/22/2022 [facility]-RSV Vaccine: 60+ Years o r (1 - 1-dose 75+ series) 2029 [facility]-DTaP,Tdap,and Td Vaccine s (2 - Td or Tdap) 05/25/2034 05/25/2024 [facility]-Pneumococcal Vaccine: 50 + Years Completed 05/25/2024 [facility]-Diabetes: Hemoglobin A1C Discontinued 01/2025, 05/20/2024 HPV Vaccines Aged Out No longer eligi ble based on patient's age to complete this topic [facility]-HIB Vaccines Aged Out No longer e ligible based on patient's age to complete this topic [facility]-Hepatitis A Vaccines Aged Out No longer eligible based on patient's age to complete this topic [facility]-IPV Vaccines Aged Out No longer e ligible based on patient's age to complete this topic [facility]-Rotavirus Vaccines Aged Out No lo nger eligible based on patient's age to complete this topic Insurance MEDICARE Member Subscriber Plan / Payer (Ef fective 2020-Present) Name:Jon Maloney Member ID:[id number] Relation to Subscriber:Self Name:Jon Maloney Subscriber ID:[id number] Payer ID:MEDICARE Group ID:Not on file Type:Medicare Address: [place] [phone] Care Teams In Home Sales Consultant Relationship Specialty Start Date End Date Juan José Cervantes MD PCP - General 01/20/25
--- OUTSIDE RECORDS SUMMARY | 2025-04-28 08:17 | XMS_ITS | Encounter Summary ---
Author Organization Healthcare Address [address] [place] [address] Care Team Providers Care Design Eng Name Role Phone Juan José Cervantes MD Primary Care Provider [phone] Encounter Details Date Type Department Care Team (Late st Contact Info) Description 04/11/2025 Orders Only [place] [facility] [address], [address] [place] [address] Dixon Gongora MD [address] [place] [address] Social History Tobacco Use Types Packs/Day Years Used Date Smoking Tobacco: Never Smokeless Tobacco: Never Alcohol Use Standard Drinks/Week Comments Never 0 (1 standard drink = 0.6 oz pur e alcohol) Sex and Gender Information Value Date Recorded Sex Assigned at Not on file Legal Sex Male 12:35 PM EDT Gender Identity Not on file Sexual Orientation Not on file documented as of this encounter Plan of Treatment Not on file documented as of this encounter Visit Diagnoses Not on filedocumented in this encounter Additional Health Concerns Assessment Noted Time A fall risk assessment has been complete d for the patient 01/20/2025 8:06 AM EDT A Body Mass Index follow-up plan has been documented for the patient 01/20/2025 10:04 AM EDT documented as of this encounter Care Teams Design Eng Relationship Specialty Start Date End Date Juan José Cervantes MD PCP - General 01/20/25 documented as of this encounter
[2025-04-28 08:18] VITALS: BP 102/63; PULSE 98; RESP 16; O2SAT 95
[2025-04-28] MEDS: VITAMIN B-12 1,000 MCG 1ML VIAL 1000 MCG (08:18)
== END 2025-04-28 08:30 | disposition home or self-care (01) ==
LOC: INF 08:13
PROVIDERS: PCP Family Medicine; Visit Provider Family Medicine
DX: E53.8 Deficiency of other specified B group vitamins (principal)
CPT/HCPCS: 96372; J3420

== ENCOUNTER 2025-05-18 08:38 | Outpatient (POV) | payer MEDICARE, OTHER, SELFPAY ==
--- OUTSIDE RECORDS SUMMARY | 2025-03-31 08:45 | XMS_ITS | Encounter Summary ---
Author Organization [facility] Address [address] [place] [address] Care Team Providers Care Chaplain Name Role Phone Juan José Cervantes MD Primary Care Provider + Reason for Referral * Consultation (Routine) - Authorized Specialty Diagnoses / Procedures Referred By Contac t Referred To Contact Sleep Medicine Diagnoses FABIO on CPAP Procedures AR OFFICE/OUTPATIENT NEW MODERATE MDM 45 MINUTES Juan José Cervantes MD [address] [place] [address] Phone: tel: fax: [facility] SLEEP MEDICINE [address] [address] Phone: tel: fax: Referral ID Status Reason Start Date Expiration Date V isits Requested Visits Authorized [id number] Authorized 03/31/2025 06/30/2026 1 1 Reason for Visit * Reason Comments Follow-up Pt is NOT fasting to day Diabetes Encounter Details Date Type Department Care Team (Late st Contact Info) Description 03/31/2025 8:45 AM EDT Office Visit [facility] FAMILY MEDICINE [address] [facility] [place] [address] Juan José Cervantes MD [address] [facility] [place] [address] Type 2 diabetes mellitus with [...] drink = 0.6 oz pur e alcohol) [facility] [employer] Answer Date Recorded In the past 12 months has th e [employer], gas, oil, or water [employer] threatened to shut off services in your [...] or training? Not on file Preferred Language Cook Islander 05/21/2024 PHQ-2 Answer Date Recorded Patient Health [...] 90 days. He has follow-up with an check out cashier for his visual disturbance. He tells me [...] and would like to begin following with [facility] sleep medicine. The following portions of the [...] 8. FABIO on CPAP Comments: For to [facility] Sleep medicine Orders: - Ambulatory Referral [...] Description 06/30/2025 10:00 AM EDT Office Visit [facility] SLEEP MEDICINE [address] [phone] Tank Dudley MD [facility] [place] [address] 07/19/2025 10:15 AM EDT Office Visit [facility] FAMILY MEDICINE [address] [place] [address] Juan José Cervantes MD [address] [place] [address] Scheduled Referrals Name Type Priority [...] - 04/01/2025 8:11 AM EDT Performed at: [address] [place] [id number] Sewer System Supervisor: Christiano Hoyt MD, Phone: [phone] Patient Fasting: Y us Juan José Cervantes MD LAB BLOOD ORDERABLES Fin al Result [facility] ([facility]BULAT[facility]) [address] [place] [address], [facility] [address] [place] [address], * (ABNORMAL) CBC (No Diff) (03/31/2025 9:32 [...] - 04/01/2025 8:11 AM EDT Performed at: [address] [place] [id number] Sewer System Supervisor: Christiano Hoyt MD, Phone: [phone] Patient Fasting: Y Juan José Cervantes MD LAB BLOOD ORDERABLES Fin al Result Performing Organization Address [facility] Co de Phone Number [facility] ([facility]UL[facility]ORY) [address] [place] [address], [facility] [address] [place] [address], * (ABNORMAL) Cystatin C (03/31/2025 9:32 AM EDT) [facility] Cystatin C 1.81(H) 0.72 - 1.16 mg/L [facility] Blood 03/31/2025 9:32 AM EDT 03/31/2025 Narrative [facility] ([facility]) - 04/01/2025 8:11 AM EDT Performed at: [address] [facility] [address] [place], [place] [id number] Sewer System Supervisor: Enmanuel Akbar PhD, Phone: [phone] Patient Fasting: Y Juan José Cervantes MD LAB BLOOD ORDERABLES Fin al Result Performing Organization Address City/[facility]/ZIP Co de Phone Number [facility] (AMBULATORY) [address] [place] [address], [facility] [address] [place] [address], * (ABNORMAL) Renal Function Panel (03/31/2025 9:32 AM EDT) [facility] Glucose 107(H) 65 - 99 mg/dL [facility] [...] - 04/01/2025 8:11 AM EDT Performed at: [address] [place] [id number] Sewer System Supervisor: Christiano Hoyt MD, Phone: [phone] Patient Fasting: Y Juan José Cervantes MD LAB BLOOD ORDERABLES Fin al Result [facility] (AMBULATORY) [address] [place] [address], [facility] [address] [place] [address], * (ABNORMAL) Lipid Panel (03/31/2025 9:32 AM EDT) [facility] Total Cholesterol 96 0 - 200 mg/dL [...] - 04/01/2025 8:11 AM EDT Performed at: [address] [place] [id number] Sewer System Supervisor: Christiano Hoyt MD, Phone: [phone] Patient Fasting: Y Juan José Cervantes MD LAB BLOOD ORDERABLES Fin al Result [facility] (AMBULATORY) [address] [place] [address], [place] [phone] [facility] [address] [place] [address], [place] [phone] documented in this encounter Visit Diagnoses Diagnosis [...] CPAP documented in this encounter Care Teams Chaplain Relationship Specialty Start Date End Date Juan José Cervantes MD [address] [facility] [place] [address] PCP - General Family Medicine 02/20/22 documented as of this encounter
--- OUTSIDE RECORDS SUMMARY | 2025-04-11 10:00 | XMS_ITS | Encounter Summary ---
Author Organization [facility] Address [address] [place] [address] Care Team Providers Care Litigation Secretary Name Role Phone Juan José Cervantes MD Primary Care Provider + Reason for Visit * Reason Comments Fatigue Fatigue ,irritabilit y, forgetfulness, for a few months and getting worse. Encounter Details Date Type Department Care Team (Late st Contact Info) Description 04/11/2025 10:00 AM EDT Office Visit [facility] FAMILY [facility] [address] [facility] [place] [address] Franklin Conklin PA [address] [place] [address] Vitamin B12 deficiency (Primary Dx); [...] drink = 0.6 oz pur e alcohol) [facility] Utilities Answer Date Recorded In the past 12 months has [employer] electric, gas, oil, or water company threatened [...] or training? Not on file Preferred Language Eritrean 05/21/2024 PHQ-2 Answer Date Recorded Patient Health [...] irritability, and irrational anger, particularly towards his [id number]. He has been under significant stress due [...] a history of Parkinson's disease, diagnosed in [place], and currently experiences a tremor in his [...] sleep apnea. He visited the ER at [facility] 2 weeks ago [address] a CT scan [...] Magnesium - Written Authorization Patient or patient representative phlebotomy services verbalized consent for the use of Ambient Listening during the visit with JULIUS Hernández for chart documentation. 04/24/2025 15:09 EDT documented in this encounter Plan of Treatment Upcoming Encounters Date Type Department Care Team (Late st Contact Info) Description 06/30/2025 10:00 AM EDT Office Visit [facility] SLEEP [facility]ICINE [address] [facility] [address] [place] [address] Tank Dudley MD [address] [place] [address] 07/19/2025 10:15 AM EDT Office Visit [facility] [address] [place], [place] [address] Juan José Cervantes MD [address] [place] [address] documented as of this encounter Procedures [...] 8:11 AM EDT Performed at: 01 - [address] [id number] Teaseler: Enmanuel Akbar PhD, Phone: [phone] Patient Fasting: Y Franklin [facility] BLOOD ORDERABLES Final Res ult Performing Organization Address [facility]/ZIP Co de Phone Number [facility] ([facility]) [address] [place] [address], [place] [phone] [facility] [address] [place] [address], [place] [phone] * Magnesium (04/11/2025 10:55 AM EDT) Magnesium 1.9 1.6 - 2.3 mg/dL [facility] 04/11/2025 10:5 5 AM EDT 04/11/2025 Narrative [facility] ([facility]) - 04/13/2025 8:11 AM EDT Performed at: 01 - [address] [id number] Teaseler: Enmanuel Akbar PhD, Phone: [phone] Patient Fasting: Y Franklin M[facility] LAB BLOOD ORDERABLES Final Res ult Performing Organization Address City/[facility]/ZIP Co de Phone Number [facility] ([facility]) [address] [place] [address], [place] [phone] [facility] [address] [place] [address], [place] [phone] * Vitamin B12 (04/11/2025 10:55 AM EDT) Vitamin B-12 974 232 - 1,245 pg/mL [facility] 04/11/2025 10:5 5 AM EDT 04/11/2025 Narrative [facility] ([facility]) - 04/13/2025 8:11 AM EDT [facility]formed at: - [facility] [address] [place], [place] [id number] Teaseler: Enmanuel Akbar PhD, Phone: [phone] Patient Fasting: Y us Franklin M[facility] BLOOD ORDERABLES Final Res ult Performing Organization Address City/[facility]/ZIP Co de Phone Number [facility] (AMBULATORY) [address] [place] [address], [place] [phone] [facility] [address] [place] [address], [place] [phone] * Ferritin (04/11/2025 10:55 AM EDT) Pathologist [facility] Ferritin 178 30 - 400 ng/mL [facility] 04/11/2025 10:5 5 AM EDT 04/11/2025 Narrative [facility] ([facility]) - 04/13/2025 8:11 AM EDT Performed at: - [facility] [address] [place], [place] [id number] Teaseler: Enmanuel Akbar PhD, Phone: [phone] Patient Fasting: Y us Franklin [facility] BLOOD ORDERABLES Final Res ult [facility] (AMBULATORY) [address] [place] [address], [place] [phone] [facility] [address] [place] [address], * PSA Screen (04/11/2025 10:55 AM EDT) PSA 1.5 0.0 - 4.0 ng/mL [facility] Comment: Jesús ECLIA methodology. According to the [employer] [place] [employer] Association, Serum PSA should decrease and [...] disease. 04/11/2025 10:5 5 AM EDT 04/11/2025 [facility] - 04/13/2025 8:11 AM EDT Performed at: [address] [id number] Teaseler: Enmanuel Akbar PhD, Phone: [phone] Patient Fasting: Y Franklin MADRID LAB BLOOD ORDERABLES Final Res ult [facility] (AMBULATORY) [address] [place] [address], [facility] [address] [place] [address], * Hepatitis C Antibody (04/11/2025 10:55 AM EDT) Pathologist [facility] Hep C Virus Ab Non Reactive Non Reactive [facility] Comment: HCV antibody alone does not differentiate between previously resolved infection and active infection. Equivocal and Reactive HCV antibody results should be followed up with an HCV RNA test to support the diagnosis of active HCV infection. 04/11/2025 10:5 5 AM EDT 04/11/2025 [facility] - 04/13/2025 8:11 AM EDT Performed at: [address] [id number] Teaseler: Enmanuel Akbar PhD, Phone: [phone] Patient Fasting: Y Franklin [facility] LAB BLOOD ORDERABLES Final Res ult Performing Organization Address City/[facility]/ZIP Co de Phone Number [facility] [address] [place] [address], [facility] [address] [place] [address], * Vitamin D,25-Hydroxy (04/11/2025 10:55 AM EDT) [facility] 25 Hydroxy, Vitamin D 36.4 30.0 - 100.0 ng/mL [facility] Comment: Vitamin D deficiency has been defined by the [place] of Medicine and an Endocrine Society practice guideline as a level of serum 25-OH vitamin D less than 20 ng/mL (1,2). The Endocrine Society went on to further define vitamin D insufficiency as a level between 21 and 29 ng/mL (2). 1. IOM ([place] of Medicine). 2010. Dietary reference intakes for calcium and D. [place]: The National Academies Press. 2. Ousmane MF, Celso NC, Mc RONDON, et al. Evaluation, treatment, and prevention of vitamin D deficiency: an Endocrine Society clinical practice guideline. JCEM. 2011 Apr; 96(7):1911-30. 04/11/2025 10:5 5 AM EDT 04/11/2025 Narrative [facility] (AMBULATORY) - 04/13/2025 8:11 AM EDT Performed at: 01 - [facility] [address] [place] [id number] Teaseler: Enmanuel Akbar PhD, Phone: [phone] Patient Fasting: Y Franklin MADRID LAB BLOOD ORDERABLES Final Res ult Performing Organization Address [facility]/ZIP Co de Phone Number [facility] (AMBULATORY) [address] [place] [address], [facility] [address] [place] [address], * Folate (04/11/2025 10:55 AM EDT) Pathologist [facility] Folate >20.0 >3.0 ng/mL [facility] Comment: A serum folate concentration of less than 3.1 ng/mL is considered to represent clinical deficiency. 04/11/2025 10:5 5 AM EDT 04/11/2025 Narrative [facility] ([facility]) - 04/13/2025 8:11 AM EDT Performed at: - [address] [id number] Teaseler: Enmanuel Akbar PhD, Phone: [phone] Patient Fasting: Y Franklin MADR[facility] BLOOD ORDERABLES Final Res ult Performing Organization Address [facility] Co de Phone Number [facility] [address] [place] [address], [facility] [address] [place] [address], [place] [phone] * Iron Profile w/o Ferritin (04/11/2025 10:55 AM EDT) Pathologist [facility] TIBC 279 250 - 450 ug/dL [facility] UIBC 210 111 - 343 ug/dL [facility] Iron 69 38 - 169 ug/dL [facility] Iron Saturation 25 15 - 55 % [facility] 04/11/2025 10:5 5 AM EDT 04/11/2025 Narrative [facility] ([facility]) - 04/13/2025 8:11 AM EDT Performed at: - [facility] [address] [place] [id number] Teaseler: Enmanuel Akbar PhD, Phone: [phone] Patient Fasting: Y Franklin MADRID LAB BLOOD ORDERABLES Final Res ult Performing Organization Address [facility]/ZIP Co de Phone Number [facility] [address] [place] [address], [facility] [address] [place] [address], * (ABNORMAL) Basic Metabolic Panel (04/11/2025 10:55 AM EDT) [facility] Glucose 110(H) 70 - 99 mg/dL [facility] [...] 8:11 AM EDT Performed at: 01 - [address] [id number] Teaseler: Enmanuel Akbar PhD, Phone: [phone] Patient Fasting: Y Franklin MADRID LAB BLOOD ORDERABLES Final Res ult [facility] [address] [place] [address], [facility] [address] [place] [address], * (ABNORMAL) CBC & Differential (04/11/2025 10:55 AM EDT) [facility] WBC 10.0 3.4 - 10.8 x10E3/uL [facility] [...] - 04/13/2025 8:11 AM EDT Performed at: [address] [place] [id number] Teaseler: Enmanuel Akbar PhD, Phone: [phone] Patient Fasting: Y Franklin MADRID LAB BLOOD ORDERABLES Final Res ult [facility] (AMBULATORY) [address] [place] [address], [facility] [address] [place] [address], * Vitamin B1, Whole Blood (04/11/2025 10:55 AM EDT) [facility] Vitamin B1, Whole Blood 189.4 66.5 - 200.0 nmol/L [facility] Blood 04/11/2025 10:5 5 AM EDT 04/11/2025 [facility] - 04/14/2025 2:10 PM EDT Test(s) 348850-Eef. B1, Whole Blood was developed and its performance characteristics determined by [facility]. It has not been cleared or approved by the Food and Drug Administration. Performed at: - [address] [id number] Teaseler: Elgin Sinclair MD, Phone: [phone] Patient Fasting: Y Franklin M[facility] BLOOD ORDERABLES Final Res ult Performing Organization Address [facility] Co de Phone Number [facility]) [address] [place] [address], [facility] [address] [place] [address], * T4, free (04/11/2025 10:55 AM EDT) Pathologist [facility] Free T4 1.24 0.82 - 1.77 ng/dL [facility] Blood 04/11/2025 10:5 5 AM EDT 04/11/2025 [facility] (AMBULATORY) - 04/14/2025 2:10 PM EDT Performed at: - [address] [id number] Teaseler: Enmanuel Akbar PhD, Phone: [phone] Patient Fasting: Y Franklin M[facility] BLOOD ORDERABLES Final Res ult Performing Organization Address [facility]/ZIP Co de Phone Number [facility] (AMBULATORY) [address] [place] [address], [place] [phone] [facility] [address] [place] [address], * TSH (04/11/2025 10:55 AM EDT) TSH 2.190 0.450 - 4.500 uIU/mL [facility] Blood 04/11/2025 10:5 5 AM EDT 04/11/2025 Narrative [facility] ([facility]) - 04/14/2025 2:10 PM EDT Performed at: 01 - [facility] [address] [place] [id number] Teaseler: Enmanuel Akbar PhD, Phone: [phone] Patient Fasting: Y us Franklin MAD[facility] BLOOD ORDERABLES Final Res ult [facility] ([facility]UL[facility]) [address] [place] [address], [place] [phone] [facility] [address] [place] [address], [place] [phone] documented in this encounter Visit Diagnoses Diagnosis [...] prostate documented in this encounter Care Teams Litigation Secretary Relationship Specialty Start Date End Date Juan José Cervantes MD [address] [place] [address] PCP - General Family Medicine 02/20/22 documented as of this encounter
--- OUTSIDE RECORDS SUMMARY | 2025-05-18 08:42 | XMS_ITS | Encounter Summary ---
Author Organization [facility] Address [address] [place] [address] Care Team Providers Care Wood Repatcher Name Role Phone Juan José Cervantes MD Primary Care Provider + Encounter Details Date Type Department Care Team (Latest Contact Info) Description 04/11/2025 Travel Social History Tobacco Use Types Packs/Day Years Used Date Smoking Tobacco: Former Cigarettes 0.3 2 0 10/27/1968 - 10/27/1970 Passive Smoke Exposure: Never Smokeless Tobacco: Never Comments:Only smoked in high school Alcohol Use Standard Drinks/Week Comments Never 0 (1 standard drink = 0.6 oz pur e alcohol) [facility] Utilities Answer Date Recorded In the past 12 months has [employer], gas, oil, or water [employer] threatened to shut off services in your [...] or training? Not on file Preferred Language Senegalese 05/21/2024 PHQ-2 Answer Date Recorded Patient Health Questionnaire-2 Score 0 12/28/2024 Sex and Gender Information Value Date Recorded Sex Assigned at Male 12/28/2024 7:44 AM EST Legal Sex Male 11:15 AM EDT Gender Identity Not on file Sexual Orientation Not on file documented as of this encounter Plan of Treatment Upcoming Encounters Date Type Department Care Team (Late st Contact Info) Description 06/30/2025 10:00 AM EDT Office Visit [facility] SLEEP [facility] [address] [facility] [address] [place] [address] Tank Dudley MD [address] [place] [phone] 07/19/2025 10:15 AM EDT Office Visit [facility] FAMILY MEDICINE [address] [place] [address] Juan José Cervantes MD [address] [place] [address] documented as of this encounter Visit Diagnoses Not on filedocumented in this encounter Care Teams Wood Repatcher Relationship Specialty Start Date End Date Juan José Cervantes MD [address] [place] [address] PCP - General Family Medicine 02/20/22 documented as of this encounter
--- OUTSIDE RECORDS SUMMARY | 2025-05-18 08:42 | XMS_ITS | Encounter Summary ---
Author Organization [facility] Address [address] [place] [id number] Care Team Providers Care Tile Professional Name Role Phone Juan José Cervantes MD Primary Care Provider + Encounter Details Date Type Department Care Team (Late st Contact Info) Description 04/04/2025 Results Follow-Up [facility] FAMILY MEDICINE [address] [facility] [address] Juan José Cervantes MD [address] [facility] [place] [address] Social History Tobacco Use Types Packs/Day Years Used Date Smoking Tobacco: Former Cigarettes 0.3 2 0 10/27/1968 - 10/27/1970 Passive Smoke Exposure: Never Smokeless Tobacco: Never Comments:Only smoked in high school Alcohol Use Standard Drinks/Week Comments Never 0 (1 standard drink = 0.6 oz pur e alcohol) [facility] Utilities Answer Date Recorded In the past 12 months has [employer], gas, oil, or water [employer] threatened to shut off services in your [...] or training? Not on file Preferred Language Moldovan 05/21/2024 PHQ-2 Answer Date Recorded Patient Health [...] Description 06/30/2025 10:00 AM EDT Office Visit [facility] [address] [facility] [address] [place] [address] Tank Dudley MD [address] [place] [address] 07/19/2025 10:15 AM EDT Office Visit [facility] [address] [place] [phone] Juan José Cervantes MD [address] [place] [address] documented as of this encounter Visit Diagnoses Not on filedocumented in this encounter Care Teams Tile Professional Relationship Specialty Start Date End Date Juan José Cervantes MD [address] [place] [address] PCP - General Family Medicine 02/20/22 documented as of this encounter
--- OUTSIDE RECORDS SUMMARY | 2025-05-18 08:42 | XMS_ITS | Encounter Summary ---
Author Organization [facility] Address [address] [place] [id number] Care Team Providers Care Blending Machine Feeder Name Role Phone Juan José Cervantes MD Primary Care Provider + Reason for Visit * Reason Comments Med Refill Encounter Details Date Type Department Care Team (Late st Contact Info) Description 10/26/2024 Refill [facility] [address] [facility] [place] [address] Juan José Cervantes MD [address] [place] [address] Type 2 diabetes mellitus with diabetic neuropathy, with long-term current use of insulin; Long-term insulin use Social History Tobacco Use Types Packs/Day Years Used Date Smoking Tobacco: Former Cigarettes 0.3 2 0 10/27/1968 - 10/27/1970 Passive Smoke Exposure: Never Smokeless Tobacco: Never Comments:Only smoked in high school Alcohol Use Standard Drinks/Week Comments Never 0 (1 standard drink = 0.6 oz pur e alcohol) [facility] Utilities Answer Date Recorded In the past 12 months has [employer] electric, gas, oil, or water company threatened [...] or training? Not on file Preferred Language Cypriot 05/21/2024 PHQ-2 Answer Date Recorded Retired PHQ-9: Brief Depression Severity Measure Score 0 06/21/2024 Sex and Gender Information Value Date Recorded Sex Assigned at Male 12/28/2024 7:44 AM EST Legal Sex Male 11:15 AM EDT Gender Identity Not on file Sexual Orientation Not on file documented as of this encounter Plan of Treatment Upcoming Encounters Date Type Department Care Team (Late st Contact Info) Description 06/30/2025 10:00 AM EDT Office Visit [facility] [address] [facility] [address] [place] [phone] Tank Dudley MD [address] [place] [address] 07/19/2025 10:15 AM EDT Office Visit [facility] [address] [place] [phone] Juan José Cervantes MD [address] [place] [address] documented as of this encounter Visit Diagnoses Diagnosis Type 2 diabetes mellitus with diabetic neuropathy, with long-term current use of insulin Long-term insulin use documented in this encounter Care Teams Blending Machine Feeder Relationship Specialty Start Date End Date Juan José Cervantes MD [address] [place] [address] PCP - General Family Medicine 02/20/22 documented as of this encounter
--- OUTSIDE RECORDS SUMMARY | 2025-05-18 08:42 | XMS_ITS | Encounter Summary ---
Author Organization [facility] Address [address] [place] [id number] Care Team Providers Care Polymer Scientist Name Role Phone Juan José Cervantes MD Primary Care Provider + Encounter Details Date Type Department Care Team (Late st Contact Info) Description 05/06/2025 Telephone [facility] [address] [facility] [place] [address] Juan José Cervantes MD [address] [place] [address] Social History Tobacco Use Types Packs/Day Years Used Date Smoking Tobacco: Former Cigarettes 0.3 2 0 10/27/1968 - 10/27/1970 Passive Smoke Exposure: Never Smokeless Tobacco: Never Comments:Only smoked in high school Alcohol Use Standard Drinks/Week Comments Never 0 (1 standard drink = 0.6 oz pur e alcohol) [facility] Utilities Answer Date Recorded In the past 12 months has [employer], gas, oil, or water [employer] threatened to shut off services in your [...] or training? Not on file Preferred Language Slovenian 05/21/2024 PHQ-2 Answer Date Recorded Patient Health Questionnaire-2 Score 0 12/28/2024 Sex and Gender Information Value Date Recorded Sex Assigned at Male 12/28/2024 7:44 AM EST Legal Sex Male 11:15 AM EDT Gender Identity Not on file Sexual Orientation Not on file documented as of this encounter Miscellaneous Notes * Telephone Encounter - Janae Mcdonough MA - 05/12/2025 12:20 PM EDT Printed note, he signed it and it was faxed today. * Telephone Encounter - Janae Mcdonough MA - 05/06/2025 5:01 PM EDT They have received the note before but it must have a wet signature and refaxed. * Telephone Encounter - Vera Bloom RegSched Rep - 05/06/2025 3:58 PM EDT Caller: Clinic Pharmacy [facility] [address] - [phone] [facility] [phone] FX Relationship: Pharmacy Best call back number: [phone] What is the best time to reach you: ANYTIME Who are you requesting to speak with (clinical staff, provider, specific staff member): CLINICAL STAFF What was the call regarding: CLINIC PHARMACY IS CALLING TO SEE IF THEY CAN GET THE DIABETES MANAGEMENT EXAM NOTE. THEY SAYS THAT THEY DID NOT RECEIVE THIS. Is it okay if the provider responds through MyChart: documented in this encounter Plan of Treatment Upcoming Encounters Date Type Department Care Team (Late st Contact Info) Description 06/30/2025 10:00 AM EDT Office Visit [facility] [address] [facility] 240 [place] [phone] Tank Dudley MD [address] [place] [address] 07/19/2025 10:15 AM EDT Office Visit [facility] [address] [facility] [place] [phone] Juan José Cervantes MD [address] [facility] [place] [address] documented as of this encounter Visit Diagnoses Not on filedocumented in this encounter Care Teams Polymer Scientist Relationship Specialty Start Date End Date Juan José Cervantes MD [address] [place] [address] PCP - General Family Medicine 02/20/22 documented as of this encounter
--- OUTSIDE RECORDS SUMMARY | 2025-05-18 08:42 | XMS_ITS | Encounter Summary ---
Author Organization [facility] Address [address] [place] [address] Care Team Providers Care Switchbox Assembler Name Role Phone Juan José Cervantes MD Primary Care Provider + Reason for Visit * Reason Onset Date Comments Med Management 04/13/2025 Encounter Details Date Type Department Care Team (Late st Contact Info) Description 04/13/2025 Telephone [facility] [address] [place] [address] Franklin Conklin PA 210 [place] [address] Med Management Social History Tobacco Use Types Packs/Day Years Used Date Smoking Tobacco: Former Cigarettes 0.3 2 0 10/27/1968 - 10/27/1970 Passive Smoke Exposure: Never Smokeless Tobacco: Never Comments:Only smoked in high school Alcohol Use Standard Drinks/Week Comments Never 0 (1 standard drink = 0.6 oz pur e alcohol) [facility] Utilities Answer Date Recorded In the past 12 months has [employer] electric, gas, oil, or water company threatened [...] or training? Not on file Preferred Language Hebrew 05/21/2024 PHQ-2 Answer Date Recorded Patient Health Questionnaire-2 Score 0 12/28/2024 Sex and Gender Information Value Date Recorded Sex Assigned at Male 12/28/2024 7:44 AM EST Legal Sex Male 11:15 AM EDT Gender Identity Not on file Sexual Orientation Not on file documented as of this encounter Miscellaneous Notes * Telephone Encounter - Jeanne Banerjee MA - 04/13/2025 8:55 AM EDT Per my chart message After sharing this situation and the fact that had already increased my levodopa I got the following response. Dixon Gongora MD 2:57 PM Ah, got it, thank you for clarifying. 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 This is distinct from the motor and non- motor worsening of Parkinson symptoms you might expect from reduced dopaminergic stimulation related to dose reduction. If this was due to a reduction in dopaminergic stimulation, then it would have responded to the higher dose of Levodopa that my colleague sent in for you. I was really hoping to avoid something like this happening altogether by getting you off this classof medication. The longer you're on it, or the higher the dose, the greater the likelihood of developing DAWS when you try to come off it. As this class of drug has several side effects, with a greater likelihood of them manifesting as the disease progresses, I try to get people off of them as early as I can so we can avoid them. Most of the symptoms you have described are fairly classic. This is something that can persist for a long time (weeks/months/rarely years). Prevention is really the bojorquez treatment. We'll likely haveto reintroduce the Pramipexole. I would suggest a lower dose than you were on previously with the goal of trying to slowly taper the drug over extended periods of time (months). Would you be ok with me sending in a 1mg dose of the Pramipexole. documented in this encounter Plan of Treatment Upcoming Encounters Date Type Department Care Team (Late st Contact Info) Description 06/30/2025 10:00 AM EDT Office Visit [facility] [address] [facility] [address] [place] [address] Tank Dudley MD [address] [place] [address] 07/19/2025 10:15 AM EDT Office Visit [facility] [address] [facility] [place] [address] Juan José Cervantes MD [address] [place] [address] documented as of this encounter Visit Diagnoses Not on filedocumented in this encounter Care Teams Switchbox Assembler Relationship Specialty Start Date End Date Juan José Cervantes MD [address] [place] [address] PCP - General Family Medicine 02/20/22 documented as of this encounter
--- OUTSIDE RECORDS SUMMARY | 2025-05-18 08:42 | XMS_ITS | Encounter Summary ---
Author Organization [facility] Address [address] [place] [address] Care Team Providers Care Cloth Tearer Name Role Phone Juan José Cervantes MD Primary Care Provider + Encounter Details Date Type Department Care Team (Latest Contact Info) Description 03/31/2025 Travel Social History Tobacco Use Types Packs/Day Years Used Date Smoking Tobacco: Former Cigarettes 0.3 2 0 10/27/1968 - 10/27/1970 Passive Smoke Exposure: Never Smokeless Tobacco: Never Comments:Only smoked in high school Alcohol Use Standard Drinks/Week Comments Never 0 (1 standard drink = 0.6 oz pur e alcohol) [facility] Utilities Answer Date Recorded In the past 12 months has [employer], gas, oil, or water [employer] threatened to shut off services in your [...] or training? Not on file Preferred Language Icelandic 05/21/2024 PHQ-2 Answer Date Recorded Patient Health [...] Description 06/30/2025 10:00 AM EDT Office Visit [facility] [address] [facility] [address] [place] [address] Tank Dudley MD [address] [place] [id number] 07/19/2025 10:15 AM EDT Office Visit [facility] [address] [place] [address] Juan José Cervantes MD [address] [place] [address] documented as of this encounter Visit Diagnoses Not on filedocumented in this encounter Care Teams Cloth Tearer Relationship Specialty Start Date End Date Juan José Cervantes MD [address] [place] [address] PCP - General Family Medicine 02/20/22 documented as of this encounter
--- OUTSIDE RECORDS SUMMARY | 2025-05-18 08:42 | XMS_ITS | Encounter Summary ---
Author Organization [facility] Address [address] [place] [address] Care Team Providers Care Specialty Person Name Role Phone Juan José Cervantes MD Primary Care Provider + Encounter Details Date Type Department Care Team (Late st Contact Info) Description 04/13/2025 Results Follow-Up [facility] [address] [facility] [place] [address] Franklin Conklin PA 210 [facility] [place] [address] Social History Tobacco Use Types Packs/Day Years Used Date Smoking Tobacco: Former Cigarettes 0.3 2 0 10/27/1968 - 10/27/1970 Passive Smoke Exposure: Never Smokeless Tobacco: Never Comments:Only smoked in high school Alcohol Use Standard Drinks/Week Comments Never 0 (1 standard drink = 0.6 oz pur e alcohol) [facility] Utilities Answer Date Recorded In the past 12 months has [employer], gas, oil, or water [employer] threatened to shut off services in your [...] or training? Not on file Preferred Language Bahraini 05/21/2024 PHQ-2 Answer Date Recorded Patient Health [...] Description 06/30/2025 10:00 AM EDT Office Visit [facility] [address] [facility] [address] [place] [address] Tank Dudley MD [address] [place] [address] 07/19/2025 10:15 AM EDT Office Visit [facility] 210 [place] [phone] Juan José Cervantes MD [address] [place] [address] documented as of this encounter Visit Diagnoses Not on filedocumented in this encounter Care Teams Specialty Person Relationship Specialty Start Date End Date Juan José Cervantes MD [address] [place] [address] PCP - General Family Medicine 02/20/22 documented as of this encounter
--- OUTSIDE RECORDS SUMMARY | 2025-05-18 08:42 | XMS_ITS | Clinical Summary ---
Author Organization [facility] Address [address] [place] [address] Care Team Providers Care Operating Theatre Technician Name Role Phone Juan José Cervantes MD Primary Care Provider + Allergies No known active allergies Medications ferrous fulfate dried ER (Slow Release Iron) 45 MG tablet controlled-release tablet Take 140 mg by mouth Daily. Active B Complex Vitamins (B COMPLEX 1 PO) Take by mouth 2 (Two) Times a Day. Active clotrimazole (LOTRIMIN) 1 % cream APPLY TOPICALLY TO THE AFFECTED AREA TWICE DAILY FOR 14 DAYS 04/22/20 22 Active fexofenadine (KRISTYN) 180 MG tablet Take 1 tablet by mouth Daily. 90 tablet 3 12/12/19 23 Active sildenafil (Viagra) 100 MG tabletIndications:D rug-induced erectile dysfunction Take 1 tablet by mouth Daily As Needed for Erectile Dysfunction. 6 tablet 11 06/11/20 23 Active cyanocobalamin 1000 MCG/ML injectionIndication s:Vitamin B12 deficiency Inject once monthly at [facility] 1 mL 11 07/07/20 23 Active Ozempic, 2 MG/DOSE, 8 MG/3ML solution pen-injectorIndicat ions:Type 2 diabetes mellitus with diabetic neuropathy, with long-term current use of insulin INJECT 2MG UNDER THE SKIN INTO THE APPROPRIATE AREA DIRECTED ONCE A WEEK 9 mL 3 05/06/20 24 Active Additional Information Patient taking differently: 2 mg Subcutaneous Weekly, friday, Reported on 04/11/2025 Continuous Glucose Sensor (FreeStyle Amanda 2 Sensor) miscIndications:Typ e 2 diabetes mellitus with diabetic neuropathy, with long-term current use of insulin USE DIRECTED EVERY 14 DAYS 6 each 4 08/02/20 24 Active Continuous Glucose Sensor (FreeStyle Amanda 2 Sensor) miscIndications:Typ e 2 diabetes mellitus with diabetic neuropathy, with long-term current use of insulin 1 Units by Subdermal route Every 14 (Fourteen) Days. 6 each 4 08/02/20 24 Active colchicine 0.6 MG tabletIndications:P odagra Take 1 tablet by mouth Daily. 90 tablet 1 09/02/20 24 Active enalapril (VASOTEC) 10 MG tabletIndications:P rimary hypertension Take 1 tablet by mouth Daily. 90 tablet 2 09/08/20 24 Active BD ULTRA-FINE PEN NEEDLES 29G X 12.7MM miscIndications:Typ e 2 diabetes mellitus with diabetic neuropathy, with long-term current use of insulin,Long-term insulin use Use 1 each Daily. 100 each 3 10/26/20 24 Active allopurinol 200 MG tabletIndications:H yperuricemia Take 400 mg by mouth Daily. 180 tablet 12/30/19 25 Active rosuvastatin (Crestor) 10 MG tabletIndications:T ype 2 diabetes mellitus with hyperglycemia, with long-term current use of insulin,Mixed hyperlipidemia Take 1 tablet by mouth Daily. 90 tablet 3 12/30/19 25 Active metFORMIN (GLUCOPHAGE) 1000 MG tablet TAKE 1 TABLET BY MOUTH TWICE DAILY WITH MEALS 180 tablet 3 01/20/20 25 Active HYDROcodone-acetami nophen (NORCO) 5-325 MG per tabletIndications:L eft lateral abdominal pain,History of colonic diverticulitis Take 1 tablet by mouth Every 8 (Eight) Hours As Needed for Severe Pain. 12 tablet 02/09/20 25 Active isosorbide mononitrate (IMDUR) 30 MG 24 hr tabletIndications:P rimary hypertension Take 1 tablet by mouth Every Morning. 30 tablet 3 02/10/20 25 Active carbidopa-levodopa (SINEMET) 25-100 MG per tablet TAKE 1 TABLET BY MOUTH THREE TIMES DAILY 270 tablet 1 02/15/20 25 Active Insulin Glargine, 2 Unit Dial, (TOUJEO) 300 UNIT/ML solution pen-injector injectionIndication s:Type 2 diabetes mellitus with hyperglycemia, with long-term current use of insulin Inject 60 Units under the skin into the appropriate area as directed Daily. 15 mL 11 03/11/20 25 Active empagliflozin (Jardiance) 10 MG tablet tabletIndications:T ype 2 diabetes mellitus with hyperglycemia, with long-term current use of insulin,Stage 3a chronic kidney disease (CKD) Take 1 tablet by mouth Daily. 30 tablet 2 04/04/20 Active NON FORMULARY Apply topically to the appropriate area as directed. Active Pramipexole Dihydrochloride ER 0.75 MG tablet sustained-release 24 hour TAKE 1 TABLET BY MOUTH IN THE MORNING AND 1 TABLET BEFORE BEDTIME FOR 7 DAYS. DISCARD REMAINDER Active furosemide (LASIX) 40 MG tabletIndications:P edal edema TAKE 1 TABLET BY MOUTH DAILY 90 tablet 3 04/13/20 Active Hospital, Clinic, or Other Facility Administered Medication Ordered Dose Route Frequency Start Date End Date Status cyanocobalamin injection 1,000 mcgIndications:Vitamin B12 deficiency 1000 mcg IM Every 28 Days 02/22/2022 Active cyanocobalamin injection 1,000 mcgIndications:Vitamin B12 deficiency 1000 mcg IM Every 28 Days 03/01/2022 Active Active Problems Problem Noted Date Diagnosed Date Type 2 diabetes mellitus wit h hyperglycemia, with long-term current use of insulin 12/28/2024 Assessment & Plan (12/28/2024 8:24 AM EST): Diabetes is stable. A1c today. Continue metformin, glargine, Ozempic. Type 2 diabetes mellitus wit h diabetic microalbuminuria, with long-term current use of insulin 12/28/2024 Subarachnoid hemorrhage 05/20/2024 Parkinson's disease without dyskinesia or fluctuating manifestations 03/11/2024 Primary hypertension 12/11/2023 Assessment & Plan (12/28/2024 8:25 AM EST): Hypertension is stable and controlled Continue current treatment regimen. Blood pressure will be reassessed in 6 months. Assessment & Plan (05/25/2024 1:23 PM EDT): Blood pressure is well-controlled but possibly too tightly. Patient will resume enalapril at dosing of 10 mg daily. Isosorbide mononitrate will be decreased to 30 mg daily. Patient will continue daily blood pressure monitoring and repeat blood pressure monitoring throughout the day should he experience lightheadedness Hyperuricemia 12/11/2023 Assessment & Plan (12/28/2024 8:25 AM EST): Not under ideal control. Assess uric acid. Continue allopurinol and colchicine FABIO on CPAP 09/09/2023 Assessment & Plan (12/28/2024 8:25 AM EST): Stable. Patient continues to benefit from use of CPAP nightly. Benign neoplasm of meningioma (cerebral) 022 Type 2 diabetes mellitus wit h diabetic neuropathy, with long-term current use of insulin 02/21/2022 Assessment & Plan (12/28/2024 8:24 AM EST): Neuropathy is stable. Continue topical ointment and vitamin B12 replacement as needed Assessment & Plan (12/11/2023 2:00 PM EST): Diabetes is improving with treatment. Continue current treatment regimen. Recommended an ADA diet. Regular aerobic exercise. Diabetes will be reassessed in 3 months Patient's focus to improve glycemic control over the next 3 months will be diet and exercise Assessment & Plan (05/09/2023 2:26 PM EDT): Diabetes is well controlled that he is experiencing side effects of treatment with hypoglycemia. Metformin will be reduced to 500 mg twice daily with food. Assessment & Plan (12/12/2022 10:38 AM EST): Diabetes is improving with treatment. Continue current treatment regimen. Diabetes will be reassessed in 3 months. Discussed changing gabapentin to Horizant. I do not think patient would get much benefit due to his higher dose of gabapentin. Patient was okay with this. Regarding his neuropathy we have received documentation of his foot exam from his corporation secretary and a new prescription for diabetic shoes will be faxed to the patient's supplier. Assessment & Plan (05/22/2022 11:41 AM EDT): Diabetes is improving with treatment. Reminded to get yearly retinal exam. Medication changes per orders. Diabetes will be reassessed in 3 months. Stage 3a chronic kidney disease (CKD) 02/21/2022 Assessment & Plan (12/28/2024 8:25 AM EST): Condition is likely stable. Assess UACR and GFR Assessment & Plan (12/12/2022 10:40 AM EST): Renal condition is unchanged. Continue current treatment regimen. Fluid restriction. Weight loss. Continue current medications. Renal condition will be reassessed in 3 months. If GFR remains below 60 patient will be started on Kerendia Restless leg syndrome 02/21/2022 Class 3 severe obesity due t o excess calories with serious comorbidity and body mass index (BMI) of 50.0 to 59.9 in adult 02/20/2022 Assessment & Plan (12/12/2022 10:39 AM EST): Patient's (Body mass index is 45.57 kg/m .) indicates that they are morbidly/severely obese (BMI > 40 or > 35 with obesity - related health condition) with health conditions that include diabetes mellitus . Weight is improving with treatment. BMI is above average; BMI management plan is completed. We discussed portion control, increasing exercise and pharmacologic options including Ozempic. Assessment & Plan (05/22/2022 11:40 AM EDT): Patient's (Body mass index is 51.13 kg/m .) indicates that they are morbidly obese (BMI > 40 or > 35 with obesity - related health condition) with health conditions that include diabetes mellitus . Weight is unchanged. BMI is is above average; BMI management plan is completed. We discussed portion control, increasing exercise and pharmacologic options including Ozempic. Encounters Date Type Department Care Team Description 05/06/2025 Telephone [facility] [address] [place] [address] Juan José Cervantes MD 04/13/2025 Refill [facility] [address] [place] [address] Juan José Cervantes MD Pedal edema 04/13/2025 Telephone [facility] [address] [place], [place] [address] Franklin Conklin PA Med Management 04/13/2025 Results Follow-Up [facility] [address] [place], [place] [address] Franklin Conklin PA 04/11/2025 10:00 AM EDT Office Visit [facility] [address] [place] [address] Franklin Conklin PA Vitamin B12 deficiency (Primary Dx); Iron deficiency; Medication monitoring encounter; Fatigue, unspecified type; Vitamin D insufficiency; FABIO (obstructive sleep apnea); Need for hepatitis C screening test; Forgetfulness; Screening for malignant neoplasm of prostate 04/11/2025 Travel 04/05/2025 Telephone [facility] [address] [place] [address] Juan José Cervantes MD PAPERWORK 04/04/2025 Results Follow-Up [facility] [address] [place] [address] Juan José Cervantes MD 03/31/2025 8:45 AM EDT Office Visit [facility] [address] [place] [address] Juan José Cervantes MD Type 2 diabetes mellitus with hyperglycemia, with long-term current use of insulin (Primary Dx); Stage 3a chronic kidney disease (CKD); Class 3 severe obesity due to excess calories with serious comorbidity and body mass index (BMI) of 50.0 to 59.9 in adult; Primary hypertension; Mixed hyperlipidemia; Hyperuricemia; Allergic sinusitis; FABIO on CPAP 03/31/2025 Travel from Last 3 Months Immunizations Immunization Administration Dates Next Due COVID-19 (MODERNA) 1st,2nd,3rd Dose Monovalent 0 01/24/2021,12/27/2020 COVID-19 (MODERNA) Monovalent Original Booster 0 11/21/2021 Fluzone High-Dose 65+YRS 09/21/2024 Fluzone High-Dose 65+yrs 09/09/2023,08/22/2022 PPD Test 08/27/2017 Pneumococcal Conjugate 20-Valent (PCV20) 024 Tdap 05/25/2024 Family History Medical History Relation Name Comments Diabetes Father Michael Maloney Diabetes Mother Michael Maloney Relation Name Status Comments Father Michael Maloney Alive Mother Michael Maloney Alive Social History Tobacco Use Types Packs/Day Years Used Date Smoking Tobacco: Former Cigarettes 0.3 2 0 10/27/1968 - 10/27/1970 Passive Smoke Exposure: Never Smokeless Tobacco: Never Tobacco Cessation:Counseling Given: Not Answered Comments:Only smoked in highschool Alcohol Use Standard Drinks/Week Comments Never 0 (1 standard drink = 0.6 oz pur e alcohol) [facility] [employer] Answer Date Recorded In the past 12 months has th e [employer], gas, oil, or water company threatened to [...] or training? Not on file Preferred Language Mohawk 05/21/2024 PHQ-2 Answer Date Recorded Patient Health [...] F) 04/11/2025 10:16 AM EDT Respiratory Rate 20 03/31/2025 8:46 AM EDT Oxygen Saturation 96% 04/11/2025 10:16 AM EDT Inhaled Oxygen Concentration - - Weight 124 kg (273 lb) 04/11/2025 10:16 AM EDT Height 165.1 cm (5' 5 ) 04/11/2025 10:16 AM EDT Body Mass Index 45.43 04/11/2025 10:16 AM EDT Plan of Treatment Upcoming Encounters Date Type Department Care Team (Late st Contact Info) Description 06/30/2025 10:00 AM EDT Office Visit [facility] [address] [facility] [address] [place] [address] Tank Dudley MD [address] [place], [place] [id number] 07/19/2025 10:15 AM EDT Office Visit [facility] [address] [place], [place] [address] Juan José Cervantes MD [address] [place] [address] Health Maintenance Due Date Last Done Comments COLON CANCER SCREENING 5 YEA R SIGMOIDOSCOPY [address] COLONOGRAPHY 1999 FECAL OCCULT BLOOD TEST 1999 FIT Testing (1 year) 1999 ZOSTER VACCINE (1 of 2) 2004 COVID-19 Vaccine (2023-2 5 season) 2024 11/21/2021, 01/24/2021, 12/27/2020 COLOGUARD 06/12/2025 06/12/2022 COLORECTAL CANCER SCREENING 06/12/2025 ANNUAL WELLNESS VISIT 06/21/2025 06/21/2024 , 06/21/2024, 06/13/2023, Additional history exists INFLUENZA VACCINE 07/27/2025 09/21/2024, , 08/22/2022, Additional history exists HEMOGLOBIN A1C 10/01/2025 04/01/2025, 03/0 01/2025, 09/21/2024, Additional history exists URINE MICROALBUMIN-CREATININ E RATIO (uACR) 12/28/2025 12/28/2024 DIABETIC EYE EXAM 01/26/2026 01/26/2025, , 03/30/2024, Additional history exists LIPID PANEL 03/31/2026 03/31/2025, 03/0 01/2025, 12/12/2022 DIABETIC FOOT EXAM 04/05/2026 04/05/2025, 0 01/26/2025, 11/25/2024, Additional history exists TDAP/TD VACCINES (2 - Td or Tdap) 05/25/2034 024 Pneumococcal Vaccine 50+ Completed 05/25/2024 AAA SCREEN ONCE Completed 02/09/2025 HEPATITIS C SCREENING Completed 04/11/2025 Procedures Procedure Name Priority Date/Time Associated Diagnosis Comments CBC AND DIFFERENTIAL Routine 04/11/2025 10:55 AM EDT CONV WRITTEN AUTHORIZATION Routine 04/11/2025 10:55 AM EDT MAGNESIUM Routine 04/11/2025 10:55 AM EDT VITAMIN B12 Routine 04/11/2025 10:55 AM EDT FERRITIN Routine 04/11/2025 10:55 AM EDT PSA SCREEN Routine 04/11/2025 10:55 AM EDT HEPATITIS C ANTIBODY Routine 04/11/2025 10:55 AM EDT VITAMIN D,25-HYDROXY Routine 04/11/2025 10:55 AM EDT FOLATE Routine 04/11/2025 10:55 AM EDT IRON PROFILE Routine 04/11/2025 10:55 AM EDT BASIC METABOLIC PANEL Routine 04/11/2025 10:55 AM EDT VITAMIN B1, WHOLE BLOOD Routine 04/11/2025 10:55 AM EDT Vitamin B12 deficiency Forgetfulness T4, FREE Routine 04/11/2025 10:55 AM EDT Forgetfulness TSH Routine 04/11/2025 10:55 AM EDT Forgetfulness SCANNED - FOOT EXAM 04/05/2025 URIC ACID Routine 03/31/2025 9:32 AM EDT Hyperuricemia CBC (NO DIFF) Routine 03/31/2025 9:32 AM EDT Stage 3a chronic kidney disease (CKD) Primary hypertension CYSTATIN C Routine 03/31/2025 9:32 AM EDT Stage 3a chronic kidney disease (CKD) RENAL FUNCTION PANEL Routine 03/31/2025 9:32 AM EDT Stage 3a chronic kidney disease (CKD) LIPID PANEL Routine 03/31/2025 9:32 AM EDT Mixed hyperlipidemia SCANNED EKG 03/27/2025 SCANNED - IMAGING 03/27/2025 CT ABDOMEN PELVIS W CONTRAST STAT 02/09/2025 Left lateral abdominal pain History of colonic diverticulitis SCANNED - EYE EXAM 01/26/2025 POC ALBUMIN/CREATININE RATIO Routine 12/28/2024 8:29 AM EST Type 2 diabetes mellitus with diabetic neuropathy, with long-term current use of insulin Stage 3a chronic kidney disease (CKD) HEMOGLOBIN A1C Routine 12/28/2024 8:27 AM EST Type 2 diabetes mellitus with diabetic neuropathy, with long-term current use of insulin COLOGUARD Routine 06/12/2022 3:00 PM EDT Screen for colon cancer from Last 3 Months or Most Recently Relevant to Health Maintenance Results * PSA Screen (04/11/2025 10:55 AM EDT) PSA 1.5 0.0 - 4.0 ng/mL [facility] Comment: Jesús ECLIA methodology. According to the [place] [employer], Serum PSA should decrease and [...] disease. 04/11/2025 10:5 5 AM EDT 04/11/2025 Narrative [facility] ([facility]) - 04/13/2025 8:11 AM EDT Performed at: [address] [place] [address] [place] [id number] District Wire Chief: Enmanuel Akbar PhD, Phone: [phone] Patient Fasting: Y Franklin [facility] BLOOD ORDERABLES Final Res ult Performing Organization Address [facility] de Phone Number [facility] [address] [place] [address], [facility] [address] [place] [address], [place] [phone] * Written Authorization (04/11/2025 10:55 AM EDT) Written Authorization Comment [facility] Comment: Written Authorization Received. Authorization received from Original Requisition 04-12-2025 Logged by Mirian Riddle 04/11/2025 10:5 5 AM EDT 04/11/2025 [facility] (AM[facility]AT[facility]) - 04/13/2025 8:11 AM EDT Performed at: [address] [id number] District Wire Chief: Enmanuel Akbar PhD, Phone: [phone] Patient Fasting: Y Franklin MADRID [facility] BLOOD ORDERABLES Final Res ult Performing Organization Address [facility] de Phone Number [facility] [address] [place] [address], [place] [phone] [facility] [address] [place] [address], [place] [phone] * Hepatitis C Antibody (04/11/2025 10:55 AM EDT) Hep C Virus Ab Non Reactive Non Reactive [facility] Comment: HCV antibody alone does not differentiate between previously resolved infection and active infection. Equivocal and Reactive HCV antibody results should be followed up with an HCV RNA test to support the diagnosis of active HCV infection. 04/11/2025 10:5 5 AM EDT 04/11/2025 Narrative [facility] ([facility]) - 04/13/2025 8:11 AM EDT Performed at: - [address] [id number] District Wire Chief: Enmanuel Akbar PhD, Phone: [phone] Patient Fasting: Y Franklin MADRID [facility] BLOOD ORDERABLES Final Res ult [facility] ([facility]) [address] [place] [address], [facility] [address] [place] [address], [place] [phone] * Iron Profile w/o Ferritin (04/11/2025 10:55 AM EDT) TIBC 279 250 - 450 ug/dL [facility] UIBC 210 111 - 343 ug/dL [facility] Iron 69 38 - 169 ug/dL [facility] Iron Saturation 25 15 - 55 % [facility] 04/11/2025 10:5 5 AM EDT 04/11/2025 Narrative [facility] ([facility]) - 04/13/2025 8:11 AM EDT Performed at: - [address] [id number] District Wire Chief: Enmanuel Akbar PhD, Phone: [phone] Patient Fasting: Y Franklin MADRID [facility] BLOOD ORDERABLES Final Res ult [facility] (AMBULATORY) [address] [place] [address], [place] [phone] [facility] [address] [place] [address], [place] [phone] * Vitamin B1, Whole Blood (04/11/2025 10:55 AM EDT) Vitamin B1, Whole Blood 189.4 66.5 - 200.0 nmol/L [facility] Blood 04/11/2025 10:5 5 AM EDT 04/11/2025 Narrative [facility] - 04/14/2025 2:10 PM EDT Test(s) [id number]. B1, Whole Blood was developed and its performance characteristics determined by [facility]. It has not been cleared or approved by the Food and Drug Administration. Performed at: 02 - [address] [id number] District Wire Chief: Elgin Sinclair MD, Phone: [phone] Patient Fasting: Y Franklin MADRID [facility] BLOOD ORDERABLES Final Res ult [facility] (AMBULATORY) [address] [place] [address], [facility] [address] [place] [address], * Vitamin D,25-Hydroxy (04/11/2025 10:55 AM EDT) 25 Hydroxy, Vitamin D 36.4 30.0 - 100.0 ng/mL [facility] Comment: Vitamin D deficiency has been defined by the [place] of Medicine and an Endocrine Society practice guideline as a level of serum 25-OH vitamin D less than 20 ng/mL (1,2). The Endocrine Society went on to further define vitamin D insufficiency as a level between 21 and 29 ng/mL (2). 1. IOM ([place] of Medicine). 2010. Dietary reference intakes for calcium and D. [place]: The National Academies Press. 2. Ousmane MF, Celso NC, Mc RONDON, et al. Evaluation, treatment, and prevention of vitamin D deficiency: an Endocrine Society clinical practice guideline. JCEM. 2011 Apr; 96(7):1911-30. 04/11/2025 10:5 5 AM EDT 04/11/2025 [facility] - 04/13/2025 8:11 AM EDT Performed at: 01 - [address], [place], [place] [id number] District Wire Chief: Enmanuel Akbar PhD, Phone: [phone] Patient Fasting: Y Franklin MADRID LAB BLOOD ORDERABLES Final Res ult [facility] ([facility]) [address] [place] [address], [facility] [address] [place] [address], * (ABNORMAL) CBC & Differential (04/11/2025 10:55 AM EDT) WBC 10.0 3.4 - 10.8 x10E3/uL [facility] [...] - 04/13/2025 8:11 AM EDT Performed at: [address] [place] [address] [place] [id number] District Wire Chief: Enmanuel Akbar PhD, Phone: [phone] Patient Fasting: Y Franklin MADRID [facility] BLOOD ORDERABLES Final Res ult Performing Organization Address [facility]/ZIP Co de Phone Number [facility] (AMBULATORY) [address] [place] [address], [facility] [address] [place] [address], * TSH (04/11/2025 10:55 AM EDT) TSH 2.190 0.450 - 4.500 uIU/mL [facility] Blood 04/11/2025 10:5 5 AM EDT 04/11/2025 Narrative [facility]) - 04/14/2025 2:10 PM EDT Performed at: [address] [place] [id number] District Wire Chief: Enmanuel Akbar PhD, Phone: [phone] Patient Fasting: Y Franklin [facility] BLOOD ORDERABLES Final Res ult Performing Organization Address [facility]/ZIP Co de Phone Number [facility] (AMBULATORY) [address] [place] [address], [facility] [address] [place] [address], * T4, free (04/11/2025 10:55 AM EDT) Free T4 1.24 0.82 - 1.77 ng/dL [facility] Blood 04/11/2025 10:5 5 AM EDT 04/11/2025 Narrative [facility] (AMBULATORY) - 04/14/2025 2:10 PM EDT Performed at: - [address] [id number] District Wire Chief: Enmanuel Akbar PhD, Phone: [phone] Patient Fasting: Y Franklin MADR[facility] BLOOD ORDERABLES Final Res ult Performing Organization Address [facility] Co de Phone Number [facility] (AMBULATORY) [address] [place] [address], [facility] [address] [place] [address], * Magnesium (04/11/2025 10:55 AM EDT) Pathologist [facility] Magnesium 1.9 1.6 - 2.3 mg/dL [facility] 04/11/2025 10:5 5 AM EDT 04/11/2025 [facility] (AMBULAT[facility]) - 04/13/2025 8:11 AM EDT Performed at: [address] [id number] District Wire Chief: Enmanuel Akbar PhD, Phone: [phone] Patient Fasting: Y us Franklin [facility] BLOOD ORDERABLES Final Res ult Performing Organization Address [facility] de Phone Number [facility] (AMBULATORY) [address] [place] [address], [facility] [address] [place] [address], * Folate (04/11/2025 10:55 AM EDT) Folate >20.0 >3.0 ng/mL [facility] Comment: A serum folate concentration of less than 3.1 ng/mL is considered to represent clinical deficiency. 04/11/2025 10:5 5 AM EDT 04/11/2025 Narrative [facility] ([facility]) - 04/13/2025 8:11 AM EDT [facility]formed at: - [facility] [address] [place], [place] [id number] District Wire Chief: Enmanuel Akbar PhD, Phone: [phone] Patient Fasting: Y Franklin MADR[facility] BLOOD ORDERABLES Final Res ult Performing Organization Address City/[facility]/ZIP Co de Phone Number [facility] (AMBULATORY) [address] [place] [address], [place] [phone] [facility] [address] [place] [address], * Ferritin (04/11/2025 10:55 AM EDT) Ferritin 178 30 - 400 ng/mL [facility] 04/11/2025 10:5 5 AM EDT 04/11/2025 Narrative [facility] ([facility]) - 04/13/2025 8:11 AM EDT Performed at: - [address] [id number] District Wire Chief: Enmanuel Akbar PhD, Phone: [phone] Patient Fasting: Y Franklin [facility] BLOOD ORDERABLES Final Res ult Performing Organization Address [facility] Co de Phone Number [facility]) [address] [place] [address], [place] [phone] [facility] [address] [place] [address], * Vitamin B12 (04/11/2025 10:55 AM EDT) Vitamin B-12 974 232 - 1,245 pg/mL [facility] 04/11/2025 10:5 5 AM EDT 04/11/2025 Narrative [facility] ([facility]) - 04/13/2025 8:11 AM EDT Performed at: - [facility] [address] [place], [place] [id number] District Wire Chief: Enmanuel Akbar PhD, Phone: [phone] Patient Fasting: Y us Franklin [facility] BLOOD ORDERABLES Final Res ult [facility] ([facility]) [address] [place] [address], [place] [phone] [facility] [address] [place] [address], [place] [phone] * (ABNORMAL) Basic Metabolic Panel (04/11/2025 10:55 AM EDT) [facility] Glucose 110(H) 70 - 99 [...] 8:11 AM EDT Performed at: 01 - [facility] [address] [place], [place] [id number] District Wire Chief: Enmanuel Akbar PhD, Phone: [phone] Patient Fasting: Y us Franklni [facility] LAB BLOOD ORDERABLES Final Res ult [facility] [address] [place] [address], [place] [phone] [facility] [address] [place] [address], [place] [phone] * FOOT EXAM SCANNED (04/05/2025) Juan José Cervantes MD CHART REVIEW TABS Fin al Result * (ABNORMAL) Cystatin C (03/31/2025 9:32 AM EDT) Pathologist [facility] Cystatin C 1.81(H) 0.72 - 1.16 mg/L [facility] Blood 03/31/2025 9:32 AM EDT 03/31/2025 Narrative [facility]) - 04/01/2025 8:11 AM EDT Performed at: 02 - [address] [id number] District Wire Chief: Enmanuel Akbar PhD, Phone: [phone] Patient Fasting: Y Juan José Cervantes MD [facility] BLOOD ORDERABLES Fin al Result [facility] ([facility]) [address] [place] [id number], [facility] [address] [place] [address], * (ABNORMAL) CBC (No Diff) (03/31/2025 9:32 AM EDT) Pathologist [facility] WBC 10.99(H) 3.40 - 10.80 10*3/mm3 [facility] [...] - 04/01/2025 8:11 AM EDT Performed at: [address] [place] [address] [address] [place], [place] [id number] District Wire Chief: [place] Hoyt MD, Phone: [phone] Patient Fasting: Y Juan José Cervantes MD LAB BLOOD ORDERABLES Fin al Result Performing Organization Address [facility] de Phone Number [facility] (AMBULATORY) [address] [place] [address], [facility] [address] [place] [address], * Uric Acid (03/31/2025 9:32 AM EDT) Pathologist [facility] Uric Acid 7.0 3.4 - 7.0 mg/dL [facility] Blood 03/31/2025 9:32 AM EDT 03/31/2025 Narrative [facility]) - 04/01/2025 8:11 AM EDT Performed at: [address] [place] [id number] District Wire Chief: [place] Hoyt MD, Phone: [phone] Patient Fasting: Y Juan José Cervantes MD LAB BLOOD ORDERABLES Fin al Result Performing Organization Address [facility] de Phone Number [facility] (AMBULATORY) [address] [place] [address], [facility] [address] [place] [id number], * (ABNORMAL) Renal Function Panel (03/31/2025 9:32 AM EDT) Glucose 107(H) 65 - 99 mg/dL [facility] [...] - 04/01/2025 8:11 AM EDT Performed at: [address] [place] [id number] District Wire Chief: [place] Hoyt MD, Phone: [phone] Patient Fasting: Y us Juan José Cervantes MD LAB BLOOD ORDERABLES Fin al Result [facility] ([facility]) [address] [place] [address], [facility] [address] [place] [address], * (ABNORMAL) Lipid Panel (03/31/2025 9:32 AM EDT) [facility] Total Cholesterol 96 0 - 200 mg/dL [...] 03/31/2025 9:32 AM EDT 03/31/2025 Narrative [facility] (AMBULATORY) - 04/01/2025 8:11 AM EDT Performed at: [address] [place] [id number] District Wire Chief: [place] Hoyt MD, Phone: [phone] Patient Fasting: Y us Juan José Cervantes MD LAB BLOOD ORDERABLES Fin al Result [facility] ([facility]) [address] [place] [address], [place] [phone] [facility] [address] [place] [address], [place] [phone] * ECG Scan (03/27/2025) us Juan José Cervantes MD ECG ORDERABLES Final Re sult * IMAGING SCANNED (03/27/2025) Anatomical Region Laterality Modality Radiographic Olivia ging us Juan José Cervantes MD IMG DIAGNOSTIC IMAGING O RDERABLES Final Result * CT Abdomen Pelvis With Contrast (02/09/2025) Anatomical Region Laterality Modality Abdomen, Pelvis N/A Computed Tomogra phy Osman Lagos MD IMG CT ORDERABLES Final Result * EYE EXAM SCANNED (01/26/2025) Anatomical Region Laterality Modality Other Juan José Cervantes MD CHART REVIEW TABS Fin al Result * (ABNORMAL) POC Albumin/Creatinine Ratio Urine (12/28/2024 8:29 AM EST) POC ALBUMIN, URINE 80 mg/L POC CREATININE, URINE 300 mg/dL POC Urine Albumin Creatinine Ratio 30-300 <30 mg/g Lot Number [id number] Expiration Date 09/25/2025 Urine 12/28/2024 8:29 AM EST Juan José Cervantes MD POINT OF CARE TEST ORDER BRIANNA Final Result * (ABNORMAL) Hemoglobin A1c (12/28/2024 8:27 AM EST) Hemoglobin A1C 7.40(H) 4.80 - 5.60 % [facility] Comment: Hemoglobin A1C Ranges: Increased Risk for Diabetes 5.7% to 6.4% Diabetes >= 6.5% Diabetic Goal < 7.0% Blood 12/28/2024 8:27 AM EST 12/28/2024 Narrative [facility]) - 12/29/2024 3:07 AM EST Performed at: [address] [place] [id number] District Wire Chief: [place] Hoyt MD, Phone: [phone] Patient Fasting: Y Result [facility] Juan José Cervantes MD LAB BLOOD ORDERABLES Fin al Result [facility]) [address] [place] [address], [place] [phone] [facility] [address] [place] [address], * Cologuard - Stool, Per Rectum (06/12/2022 3:00 PM EDT) Cologuard Negative Negative 06/20/2022 2:02 AM EDT [facility] (CLIA #:[id number]) Comment: NEGATIVE TEST RESULT. A negative Cologuard result indicates a low likelihood that a colorectal cancer (CRC) or advanced adenoma (adenomatous polyps with more advanced pre-malignant features) is present. The chance that a person with a negative Cologuard test has a colorectal cancer is less than 1 in 1500 (negative predictive value >99.9%) or has an advanced adenoma is less than 5.3% (negative predictive value 94.7%). These data are based on a prospective cross-sectional study of 10,000 individuals at average risk for colorectal cancer who were screened with both Cologuard and colonoscopy. (Elyse Koenig al, N Engl J Med 2014;370(14):1956-8566) The normal value (reference range) for this assay is negative. COLOGUARD RE-SCREENING RECOMMENDATION: Periodic colorectal cancer screening is an important part of preventive healthcare for asymptomatic individuals at average risk for colorectal cancer. Following a negative Cologuard result, the [place] Cancer Society and U.S. Multi-Society Task Force screening guidelines recommend a Cologuard re-screening interval of 3 years. References: [place] [employer] Society Guideline for Colorectal Cancer Screening: https://www.cancer.org/cancer/ahruc-mnthpn-plwmtb/xjhaidfbd-zgacnvrwo-ipbutsz/ac s-rec ommendations.html.; Evan DK, Ting CR, Nicholas RandolphK, Colorectal Cancer Screening: Recommendations for Physicians and Patients from the U.S. Multi-Society Task Force on Colorectal Cancer Screening , Am J Gastroenterology 2017; 112:3384-8086. TEST DESCRIPTION: Composite algorithmic analysis of stool DNA-biomarkers with hemoglobin immunoassay. Quantitative values of individual biomarkers are not reportable and are not associated with individual biomarker result reference ranges. Cologuard is intended for colorectal cancer screening of adults of either sex, 45 years or older, who are at average-risk for colorectal cancer (CRC). Cologuard has been approved for use by the U.S. FDA. The performance of Cologuard was established in a cross sectional study of average-risk adults aged 50-84. Cologuard performance in patients ages 45 to 49 years was estimated by sub-group analysis of near-age groups. Colonoscopies performed for a positive result may find as the most clinically significant lesion: colorectal cancer [4.0%], advanced adenoma (including sessile serrated polyps greater than or equal to 1cm diameter) [20%] or non- advanced adenoma [31%]; or no colorectal neoplasia [45%]. These estimates are derived from a prospective cross-sectional screening study of 10,000 individuals at average risk for colorectal cancer who were screened with both Cologuard and colonoscopy. (Elyse Koenig al, N Engl J Med 2014;370(14):9579-2452.) Cologuard may produce a false negative or false positive result (no colorectal cancer or precancerous polyp present at colonoscopy follow up). A negative Cologuard test result does not guarantee the absence of CRC or advanced adenoma (pre-cancer). The current Cologuard screening interval is every 3 years. ([place] [employer] Society and U.S. Multi-Society Task Force). Cologuard performance data in a 10,000 patient pivotal study using colonoscopy as the reference method can be accessed at the following location: www.[employer]/results. Additional description of the Cologuard test process, warnings and precautions can be found at www.[employer].com. Stool specimen (specimen) Specimen from rectum / Unknown 06/12/2022 3:00 PM EDT 06/13/2022 5:26 PM EDT us Juan José Cervantes MD BODY FLUIDS AND STOOLS O RDERABLES Final Result [facility] (CLIA #:[id number]) [address] [place] [address], [place] [phone] from Last 3 Months or Most Recently Relevant to Health Maintenance Insurance MEDICARE A & B [facility] [place] [facility] [place] Directives Documents on File Type Date Recorded Patient Nurse Leader Expl anation LIVING WILL - SCAN 12/16/2023 12:21 PM SEB GAGAN SAWANT, 11/25/2023 * CPR (Attempt to Resuscitate) (Latest Code Status on File) Date Activated Date Inactivated Comments 05/20/2024 6:32 PM 05/22/2024 3:06 PM Question Answer Comments Code Status (Patient has no pulse and is not breathing): CPR (Attempt to Resuscitate) Medical Interventions (Patie nt has pulse or is breathing): Full Support Care Teams Operating Theatre Technician Relationship Specialty Start Date End Date Juan José Cervantes MD [address] [place] [address] [place] [address] PCP - General Family Medicine 02/20/22
--- OUTSIDE RECORDS SUMMARY | 2025-05-18 08:42 | XMS_ITS | Encounter Summary ---
Author Organization [facility] Address [address] [place] [id number] Care Team Providers Care Production Operations Manager Name Role Phone Juan José Bender MD Primary Care Provider + Reason for Visit * Reason Onset Date Comments PAPERWORK 04/05/2025 Encounter Details Date Type Department Care Team (Late st Contact Info) Description 04/05/2025 Telephone [facility] FAMILY MEDICINE [address] [place] [address] Juan José Bender MD [address] [place] [address] PAPERWORK Social History Tobacco Use Types Packs/Day Years Used Date Smoking Tobacco: Former Cigarettes 0.3 2 0 10/27/1968 - 10/27/1970 Passive Smoke Exposure: Never Smokeless Tobacco: Never Comments:Only smoked in high school Alcohol Use Standard Drinks/Week Comments Never 0 (1 standard drink = 0.6 oz pur e alcohol) [facility] Utilities Answer Date Recorded In the past 12 months has [employer] electric, gas, oil, or water company threatened [...] or training? Not on file Preferred Language North Korean 05/21/2024 PHQ-2 Answer Date Recorded Patient Health Questionnaire-2 Score 0 12/28/2024 Sex and Gender Information Value Date Recorded Sex Assigned at Male 12/28/2024 7:44 AM EST Legal Sex Male 11:15 AM EDT Gender Identity Not on file Sexual Orientation Not on file documented as of this encounter Miscellaneous Notes * Telephone Encounter - Aly Talamantes MA - 04/05/2025 11:54 AM EDT Document re-faxed on 04/05/2025 * Telephone Encounter - Jorge Luis Anderson RegSched Rep - 04/05/2025 10:49 AM EDT Caller: [facility] [address] - [phone] PH - [phone] FX Relationship: Pharmacy Best call back number: [phone] What was the call regarding: [facility] IS CALLING AND WOULD LIKE TO CHECK ON THE STATUS OF SOME PAPERWORK FOR DIABETIC SHOES. THE PATIENT STATES DR. BENDER HAS FAXED THIS TO THEM BUT THEY HAVE NOT RECEIVED ANYTHING YET. IF IT NEEDS TO BE RE FAXED PLEASE FAX TO [phone]. documented in this encounter Plan of Treatment Upcoming Encounters Date Type Department Care Team (Late st Contact Info) Description 06/30/2025 10:00 AM EDT Office Visit [facility] [address] [facility] [address] [place] [address] Tank Dudley MD [address] [place] [address] 07/19/2025 10:15 AM EDT Office Visit [facility] [address] [place] [address] Juan José Bender MD [address] [place] [address] documented as of this encounter Visit Diagnoses Not on filedocumented in this encounter Care Teams Production Operations Manager Relationship Specialty Start Date End Date Juan José Bender MD [address] [place] [address] PCP - General Family Medicine 02/20/22 documented as of this encounter
--- OUTSIDE RECORDS SUMMARY | 2025-05-18 08:42 | XMS_ITS | Encounter Summary ---
[facility] Organization [facility] Address [address] [place] [phone] Care Team Providers Care Transformation Consultant Name Role Phone Juan José Cervantes MD Primary Care Provider + Reason for Visit * Reason Comments Med Refill Encounter Details Date Type Department Care Team (Late st Contact Info) Description 04/13/2025 Refill [facility] FAMILY MEDICINE [address] [facility] [place] [address] Juan José Cervantes MD [address] [place] [address] Pedal edema Social History Tobacco Use Types Packs/Day Years Used Date Smoking Tobacco: Former Cigarettes 0.3 2 0 10/27/1968 - 10/27/1970 Passive Smoke Exposure: Never Smokeless Tobacco: Never Comments:Only smoked in high school Alcohol Use Standard Drinks/Week Comments Never 0 (1 standard drink = 0.6 oz pur e alcohol) [facility] Utilities Answer Date Recorded In the past 12 months has [employer], gas, oil, or water [employer] threatened to shut off services in your [...] or training? Not on file Preferred Language Ecuadorean 05/21/2024 PHQ-2 Answer Date Recorded Patient Health [...] 10:00 AM EDT Office Visit [facility] SLEEP [facility]INE [address] [facility] [address] [place] [address] Tank Dudley MD [address] [place] [address] 07/19/2025 10:15 AM EDT Office Visit [facility] FAM[facility] [address] [facility] [place] [phone] Juan José Cervantes MD [address] [place] [address] documented as of this encounter Visit Diagnoses Diagnosis Pedal edema Edema documented in this encounter Care Teams Transformation Consultant Relationship Specialty Start Date End Date Juan José Cervantes MD [address] [place] [address] PCP - General Family Medicine 02/20/22 documented as of this encounter
--- OUTSIDE RECORDS SUMMARY | 2025-05-18 08:42 | XMS_ITS | Encounter Summary ---
Author Organization Healthcare Address [address] [place] [address] Care Team Providers Care Reservoir Engineering Advisor Name Role Phone Juan José Cervantes MD Primary Care Provider [phone] Encounter Details Date Type Department Care Team (Late st Contact Info) Description 04/11/2025 Orders Only [facility] [address] [place] [address] Dixon Gongora MD [address] [place] [address] Social History Tobacco Use Types [...] documented as of this encounter Care Teams Reservoir Engineering Advisor Relationship Specialty Start Date End Date Juan José Cervantes MD PCP - General 01/20/25 documented as of this encounter
--- OUTSIDE RECORDS SUMMARY | 2025-05-18 08:42 | XMS_ITS | Clinical Summary ---
Author Organization [facility] Address [address] [place] [address] Care Team Providers Care Merchant Mariner Name Role Phone Juan José Cervantes MD Primary Care Provider [phone] Allergies No known active allergies Medications metFORMIN (Glucophage) 1000 MG tablet Take 1 tablet by mouth in the morning and 1 tablet in the evening. Take with meals. 01/20/20 25 Active Allopurinol 200 MG tablet Take 2 tablets by mouth daily. Active rosuvastatin (Crestor) 10 MG tablet Take 1 tablet by mouth 1 (one) time each day. 12/30/19 25 Active BD ULTRA-FINE PEN NEEDLES 29G X 12.7MM daily. use as directed 10/26/20 24 Active insulin glargine-yfgn 100 UNIT/ML injection pen ADMINISTER 60 UNITS UNDER THE SKIN DAILY DIRECTED Active enalapril (Vasotec) 10 MG tablet Take 1 tablet by mouth 1 (one) time each day. 09/08/20 24 Active colchicine (Colcrys) 0.6 MG tablet Take 1 tablet by mouth daily. Active Continuous Glucose Sensor (FreeStyle Amanda [address]) [facility] [place] DIRECTED EVERY 14 DAYS 01/04/20 25 Active isosorbide mononitrate ER (Imdur) 30 MG 24 hr tablet Take 1 tablet by mouth 1 (one) time each day. 05/25/20 24 Active Ozempic, 2 MG/DOSE, 8 MG/3ML solution [...] needed before bedtime. Ketamine/gabap entin/ibuprofe n/lidocaine/ba clofen 4/10/3/4/2%. Active carbidopa-levodopa (Sinemet) 25-100 MG tablet Take 2 tablets by mouth 3 (three) times a day. 180 tablet 5 02/15/20 25 025 Active pramipexole (Mirapex) 0.5 MG tablet Take 1 tablet by mouth 2 times a day. 60 tablet 04/29/20 25 025 Active Pramipexole Dihydrochloride ER 1.5 MG tablet sustained-release 24 hour Take 1 tablet by mouth daily. 30 tablet 04/11/20 25 025 Discontin ued(Dose adjustmen t) Encounters Date Type Department Care Team Description 04/29/2025 Telephone [facility] [address]st [place] [address] Dixon Gongora MD 04/11/2025 Orders Only [facility] [address], [address] [place] [address] Dixon Gongora MD 02/22/2025 Telephone [facility] [address] [facility], [address] [place] [address] Jacque Dan RN from Last 3 Months Immunizations Immunization [...] 1999 UKY-Zoster Vaccines (1 of 2) 2004 [id number] Vaccine ( season) 2024 11/21/2021, 01/24/2021, 12/27/2020 [...] age to complete this topic Insurance MEDICARE Care Teams Merchant Mariner Relationship Specialty Start Date End Date Juan José Cervantes MD PCP - General 01/20/25
--- OUTSIDE RECORDS SUMMARY | 2025-05-18 08:42 | XMS_ITS | Encounter Summary ---
Author Organization Healthcare Address [address] [place] [address] Care Team Providers Care Surgical Instrument Maker Name Role Phone Juan José Cervantes MD Primary Care Provider [phone] Encounter Details Date Type Department Care Team (Late st Contact Info) Description 04/29/2025 Telephone [facility] [address] [place] [address] Dixon Gongora MD [address] [place] [address] Social History Tobacco Use Types [...] documented as of this encounter Care Teams Surgical Instrument Maker Relationship Specialty Start Date End Date Juan José Cervantes MD PCP - General 01/20/25 documented as of this encounter
--- OUTSIDE RECORDS SUMMARY | 2025-05-18 08:42 | XMS_ITS | Encounter Summary ---
[facility] Address [address] [place] [address] Care Team Providers Care Box Printing Machine Operator Name Role Phone Juan José Cervantes MD Primary Care Provider + Encounter Details Date Type Department Care Team (Late st Contact Info) Description 02/10/2025 Results Follow-Up [facility] FAMILY MEDICINE [address] [facility] [place] [address] Osman Lagos MD [address] [facility] [place] [address] Social History Tobacco Use Types Packs/Day Years Used Date Smoking Tobacco: Former Cigarettes 0.3 2 0 10/27/1968 - 10/27/1970 Passive Smoke Exposure: Never Smokeless Tobacco: Never Comments:Only smoked in high school Alcohol Use Standard Drinks/Week Comments Never 0 (1 standard drink = 0.6 oz pur e alcohol) [facility] Utilities Answer Date Recorded In the past 12 months has [employer], gas, oil, or water [employer] threatened to shut off services in your [...] or training? Not on file Preferred Language Kinyarwanda 05/21/2024 PHQ-2 Answer Date Recorded Patient Health [...] Description 06/30/2025 10:00 AM EDT Office Visit [facility] SLEEP [facility] [address] [facility] [address] [place] [address] Tank Dudley MD [address] [place] [address] 07/19/2025 10:15 AM EDT Office Visit [facility] FAMILY MEDICINE [address] [place] [phone] Juan José Cervantes MD [address] [place] [address] documented as of this encounter Visit Diagnoses Not on filedocumented in this encounter Care Teams Box Printing Machine Operator Relationship Specialty Start Date End Date Juan José Cervantes MD [address] [place] [address] PCP - General Family Medicine 02/20/22 documented as of this encounter
--- OUTSIDE RECORDS SUMMARY | 2025-05-18 08:43 | XMS_ITS | Encounter Summary ---
Author [facility] Address [address] [place] [phone] Care Team Providers Care [employer]ique Automobiles Repairer Name Role Phone Juan José Cervantes MD Primary Care Provider + Reason for Visit * Reason Onset Date Comments Med Refill 07/30/2023 Encounter Details Date Type Department Care Team (Late st Contact Info) Description 07/30/[address] [facility] FAMILY MEDICINE [address] [place] [address] Juan José Cervantes MD [address] [place] [address] Diabetic peripheral neuropathy Social History Tobacco Use Types Packs/Day Years Used Date Smoking Tobacco: Former Cigarettes 0.3 2 0 10/27/1968 - 10/27/1970 Smokeless Tobacco: Never Comments:Only smoked in high school PHQ-2 Answer Date Recorded Retired PHQ-9: Brief Depression Severity Measure Score 0 06/13/2023 PHQ-2 Answer Date Recorded Retired PHQ-9: Brief Depression Severity Measure Score 0 06/13/2023 Sex and Gender Information Value Date Recorded Sex Assigned at Male 12/28/2024 7:44 AM EST Legal Sex Male 11:15 AM EDT Gender Identity Not on file Sexual Orientation Not on file documented as of this encounter Plan of Treatment Upcoming Encounters Date Type Department Care Team (Late st Contact Info) Description 06/30/2025 10:00 AM EDT Office Visit [facility] SLEEP [facility]INE [address] [facility] 240 [place] [address] Tank Dudley MD [address] [place] [address] 07/19/2025 10:15 AM EDT Office Visit [facility] FAMILY [facility]INE [address] [place] [phone] Juan José Cervantes MD [address] [place] [address] documented as of this encounter Visit Diagnoses Diagnosis Diabetic peripheral neuropathy Type II or unspecified type diabetes mellitus with neurological manifestations, not stated as uncontrolled documented in this encounter Care Teams [employer] Repairer Relationship Specialty Start Date End Date Juan José Cervantes MD [address] [place] [address] PCP - General Family Medicine 02/20/22 documented as of this encounter
--- OUTSIDE RECORDS SUMMARY | 2025-05-18 08:43 | XMS_ITS | Encounter Summary ---
Author Organization [facility] Address [address] [id number] Care Team Providers Care Headrig Sawyer Name Role Phone Juan José Cervantes MD Primary Care Provider + Reason for Visit * Reason Onset Date Comments Med Refill 03/14/2023 Encounter Details Date Type Department Care Team (Late st Contact Info) Description 03/14/2023 Refill [facility]INE [address] [place] [address] Juan José Cervantes MD [address] [place] [address] Social History Tobacco Use Types Packs/Day Years Used Date Smoking Tobacco: Former Cigarettes 0.3 2 1 969 - 1971 Smokeless Tobacco: Never Comments:Only smoked in high school PHQ-2 Answer Date Recorded Retired PHQ-9: Brief Depression Severity Measure Score 0 12/12/2022 Sex and Gender Information Value Date Recorded [...] [facility]EP [facility] [address] [facility] [address] [place] [address] Tank Dudley MD [facility] [place] [address] 07/19/2025 10:15 AM EDT Office Visit [facility] [address] [place] [id number] Juan José Cervantes MD [address] [place] [address] documented as of this encounter Visit Diagnoses Not on filedocumented in this encounter Care Teams Headrig Sawyer Relationship Specialty Start Date End Date Juan José Cervantes MD [address] [place] [address] PCP - General Family Medicine 02/20/22 documented as of this encounter
--- OUTSIDE RECORDS SUMMARY | 2025-05-18 08:43 | XMS_ITS | Encounter Summary ---
Author Organization [facility] Address [address] [place] [id number] Care Team Providers Care Weapons Engineer Name Role Phone Juan José Cervantes MD Primary Care Provider + Reason for Visit * Reason Onset Date Comments Med Refill 03/29/2024 Encounter Details Date Type Department Care Team (Late st Contact Info) Description 03/29/2024 Refill [facility] FAMILY MEDICINE [address] [place] [address] Juan José Cervantes MD [address] [place] [address] Diabetic peripheral neuropathy Social History Tobacco Use Types Packs/Day Years Used Date Smoking Tobacco: Former Cigarettes 0.3 2 0 10/27/1968 - 10/27/1970 Smokeless Tobacco: Never Comments:Only smoked in high school Alcohol Use Standard Drinks/Week Comments Never 0 (1 standard drink = 0.6 oz pur e alcohol) PHQ-2 Answer Date Recorded Retired PHQ-9: Brief Depression Severity Measure Score 0 06/13/2023 Abuse Screen Answer Date Recorded Unsafe at Home or Work/School Not on file Feels Threatened by Someone? Not on file 06/2023 Does Anyone Keep You from Co ntacting Others or Doint Things Outside the Home? Not on file 08/04/2023 Physical Sign of Abuse Present Not on file 1 Housing Stability Answer Date Recorded Current Living Arrangements Not on file 06/2023 Potentially Unsafe Housing Conditions Not on joi e 08/04/2023 Disabilities Answer Date Recorded Concentrating, Remembering, or Making Decisions Difficulty Not on file 08/04/2023 Doing Errands Independently Difficulty Not on fi le 08/04/2023 Education Answer Date Recorded Help with school or training? Not on file Preferred Language Not on file 08/04/2023 PHQ-2 Answer Date Recorded Retired PHQ-9: Brief Depression Severity Measure Score 0 12/11/2023 Sex and Gender Information Value Date Recorded Sex Assigned at Male 12/28/2024 7:44 AM EST Legal Sex Male 11:15 AM EDT Gender Identity Not on file Sexual Orientation Not on file documented as of this encounter Plan of Treatment Upcoming Encounters Date Type Department Care Team (Late st Contact Info) Description 06/30/2025 10:00 AM EDT Office Visit [facility] SLEEP MEDICINE [address] [facility] [address] [place] [address] Tank Dudley MD [facility] [place] [id number] 07/19/2025 10:15 AM EDT Office Visit [facility] FAM[facility]INE [address] [place] [address] Juan José Cervantes MD [address] [place] [address] documented as of this encounter Visit Diagnoses Diagnosis Diabetic peripheral neuropathy Type II or unspecified type diabetes mellitus with neurological manifestations, not stated as uncontrolled documented in this encounter Care Teams Weapons Engineer Relationship Specialty Start Date End Date Juan José Cervantes MD [address] [place] [place] [address] PCP - General Family Medicine 02/20/22 documented as of this encounter
--- NOTE | 2025-05-18 08:55 | EXP.PAIN.SOA ---
[facility] Disclaimer: The information contained in this section may have been updated after the patient was seen, as this information can be updated by other users. Medical History Meningioma Stable finding on head CT. According to prior neurologist records, similar since at least 2007. Sleep apnea, obstructive Sleep apnea Hyperlipidemia Hypertension Onychomycosis Onychomycosis Onychodystrophy Hx of Parkinson's disease Neuropathy DM type 2 (diabetes mellitus, type 2) Surgical History History of colonoscopy History of corneal transplant Family History Other No significant family history Social History Smoking Status: Smoker, status unknown alcohol intake: never substance use type: denies use current occupational status: other Travel in the last 8 weeks?: None household members: spouse housing: house PM Subjective & Objective Subjective Subjective:: Patient is a pleasant 69-year-old male who presents today for 6-month follow-up. Today he rates his pain a 3 out of 10. He denies any new falls or injuries. Patient does state overall he has done really well with just the combination of the compounded cream. His Alex has been reviewed and is appropriate. Review of Systems: General: No recent weight changes, no fever, no sleep disturbances Respiratory: No cough, no shortness of air, no recurring pulmonary infections Cardiovascular/peripheral vascular: No chest pain, no palpitations, no edema, no shortness of breath Gastrointestinal: No new onset incontinence, normal bowel movements reported Genitourinary: No new onset incontinence Musculoskeletal: Bilateral feet pain Psychiatric: [Normal mood/affect] Neurological: [Denies weakness in extremities], [denies balance issues] Pain at rest (0-10 scale): 3 Objective Objective:: Physical Exam: General: Alert and oriented x3, no acute distress, pleasant and cooperative Lungs: Respirations even and unlabored, symmetrical chest expansion Eyes: PERRL Musculoskeletal: Flexion and extension of lumbar [spine] somewhat guarded secondary to pain, [antalgic gait noted] Neurological: Speech clear, no gross sensory deficit Has patient had previous pain injection?: No Conservative treatment options previously tried: Home exercise plan Length of treatment: Longer than 12 weeks Meds Home Medications and Allergies Home Medications ?Medication ?Instructions ?Recorded ?Confirmed ?Type allopurinol 300 mg tablet 300 mg PO DAILY 10/15/24 04/28/25 History carbidopa 25 mg-levodopa 100 mg 1 tab PO TID 10/15/24 04/28/25 History tablet colchicine 0.6 mg tablet 0.6 mg PO DAILY 10/15/24 04/28/25 History enalapril maleate 10 mg tablet 10 mg PO DAILY 10/15/24 04/28/25 History furosemide 40 mg tablet 40 mg PO DAILY 10/15/24 04/28/25 History insulin glargine-yfgn 100 unit/mL 60 unit SQ DAILY 10/15/24 04/28/25 History (3 mL) subcutaneous pen (Semglee (insulin glargine-yfgn) Pen) isosorbide mononitrate 60 mg 60 mg PO DAILY 10/15/24 04/28/25 History tablet,extended release 24 hr metformin 1,000 mg tablet 1,000 mg PO DAILY 10/15/24 04/28/25 History pramipexole 1.5 mg tablet,extended 1.5 mg PO DAILY 10/15/24 04/28/25 History release 24 hr semaglutide 2 mg/dose (8 mg/3 mL) 2 mg SQ WEEKLY 10/15/24 04/28/25 History subcutaneous pen injector (Ozempic) New Prescriptions to Start Prescriptions: Allergies Allergy/AdvReac Type Severity Reaction Status Date / Time No Known Allergies Allergy Verified 04/05/25 10:52 Assessment and Plan *Assessment and plan (1) Diabetic peripheral neuropathy: Status: Acute Category: Medical Code(s): E11.42 - Type 2 diabetes mellitus with diabetic polyneuropathy Plan I did discuss with the patient that I will send refills on his compounded cream and we will follow-up with him in 1 year for reevaluation of symptoms and plan of care. Patient agrees with this. Patient has been instructed to contact the clinic with any concerns before the next appointment. Dr. Burk has reviewed this note and agrees with this plan of care. This note was dictated using voice recognition software and make contain errors or omissions. All injections are used with Lidocaine, Bupivacaine and dexamethasone. Occasionally urine drug screen is needed to verify patient's compliance with our office pain contract. This is ordered based off specific treatments related to chronic pain with the potential to abuse certain medications.
[2025-05-18 09:28] VITALS: BP 89/59; PULSE 103; RESP 18; O2SAT 96; BMI 47.4
== END 2025-05-18 23:59 | disposition home or self-care (01) ==
LOC: SC.PAIN 08:39
PROVIDERS: PCP Family Medicine; Visit Provider Nurse Practitioner Family
DX: E11.42 Type 2 diabetes mellitus with diabetic polyneuropathy (principal)
CPT/HCPCS: 99212; G0463

== ENCOUNTER 2025-05-26 08:10 | Outpatient (CLI) | payer MEDICARE, OTHER, SELFPAY ==
--- OUTSIDE RECORDS SUMMARY | 2012-02-06 13:25 | XMS_ITS | Continuity of Care Document ---
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 [address] [facility], [address], [facility] [address], [place], [id number], [place]. tel:[phone] [facility], [address] [place] [address], [address], [place] [facility] No Information 2 Abdoul Foster. [address] [place] [address], [address], [place], [address], [place]. tel:[phone] Referring Provider: Shakeel Bradley MD S, [address], [place], [address]. tel:[phone] ing Provider: Wing Goff, [address] [place] [address] [address], [place], [address]. tel:[phone] Offic/outpt E&m [facility], [address] [place] [address], [address], [place] [facility] DyspneaCAD - [place] Dilated Constrictive/ Restrictive Cardiomyopath yDyspneaCAD - [place] Dilated Constrictive/ Restrictive Cardiomyopath y Dec-2 3201 2 Kevin Crow. [address] [place] [address], Suite [facility], [address], [id number], [place]. tel:[phone] Referring Provider: Shakeel Bradley MD S, [address] , [place], [address]. tel:[phone] [facility], [address] [place] [address], [address], [place] [facility] [place] No Information 1 Kevin Crow. [address] [place] [address], [place] [address], [facility] [address], [id number], [place]. tel:[phone] Offic/outpt [facility]m [facility], [address] [place] [address], [address], [place] [facility] DyspneaCAD - [place] Dilated Constrictive/ Restrictive Cardiomyopath yDyspneaCAD - [place] Dilated Constrictive/ Restrictive Cardiomyopath y Aug-0 201 0 Kevin Crow. [address] [place] [address], Suite [facility], [facility] [address], [id number], [place]. tel:[phone] Referring Provider: Shakeel Bradley MD S, [address], [place], [address]. tel:[phone] Offic/outpt [facility], [address] [place] [address], [address], [place] [facility] DyspneaCAD - [place] Dilated Constrictive/ Restrictive Cardiomyopath y February- 9-200 9 Tomsergio Crow. [address] [place] [address], [place] [address], [address], [id number], . tel:[phone] Referring Provider: Shakeel Miguel, [address], [place], [address]. tel:[phone] [facility], [address] [place] [address], [facility], [place] [facility]A Prec[facility] No Information Apr-2 1-200 9 Jerrell Nephtali. [address] [place] [address], [place] [address], [address], [facility], . tel:[phone] Referring Provider: Shakeel Miguel, [address], [place], [address]. tel:[phone] Offic/outpt E&m [facility], [address] [place] [address], [facility], CVA Precious Buck DyspneaCAD - [place] Dilated Constrictive/ Restrictive Cardiomyopath y Dec-2 4-200 9 Kevin Crow. [address] [place] [address], [place] [address], [address], [id number], . tel:[phone] Referring Provider: Shakeel Bradley MD S, [address], [place], [address]. tel:[phone] Offic/outpt E&m [facility], [address] [place] [address], [address], [place] [facility] Prec[facility] Buck DyspneaCAD - [place] Dilated Constrictive/ Restrictive Cardiomyopath y Sep-0 2-200 8 Kevin Crow. [address] [place] [address], Suite [facility], [address], [id number], . tel:[phone] Referring Provider: Shakeel Miguel, [address], [place], [address]. tel:[phone] Offic/outpt E&m [facility], [address] [place] [address], [address], [place] [facility] [place] DyspneaCAD - [place] Dilated Constrictive/ Restrictive Cardiomyopath yDyspneaCAD - [place] Dilated Constrictive/ Restrictive Cardiomyopath y Finn- 0-200 8 Kevin Crow. [address] [place] [address], [address], [place] [address], [place], [place], [id number], [place]. tel:[phone] Referring Provider: Shakeel Bradley MD S, [address], [place], [address]. tel:[phone] Offic/outpt E&m [facility], [address] [place] [address], [address], [place] CVA Precious Buck DyspneaCAD - [place] May- 3200 8 Kevin Crow. [address] [place] [address], Suite [facility], [address], [id number], [place]. tel:[phone] Referring Provider: Shakeel Bradley MD S, [address], [place], [address]. tel:[phone] [facility], [address] [place] [address], [address], [place] CVA Prec[facility] No Information Apr-2 9200 8 Abdoul Foster. [address] [place] [address], [address], [place], [address], [place]. tel:[phone] Referring Provider: Shakeel Bradley MD S, [address], [place], [address]. tel:[phone] ing Provider: Tristin Brown, [address] [place] [address] [address], [place] [address], [place], [address]. tel:[phone] Offic/outpt E&m [facility], [address] [place] [address], [address], [place] [facility] Precious Buck DyspneaCAD - [place] Dilated Constrictive/ Restrictive Cardiomyopath yDyspneaCAD - [place] Dilated Constrictive/ Restrictive Cardiomyopath y Apr- 8 Kevin Crow. [facility] [facility], [address], [facility] [address], [place], [id number], . tel:[phone] Referring Provider: Shakeel Bradley MD S, [address] [facility], [place], [address]. tel:[phone] [facility], [address] [place] [address], [address], [facility]. No Information No Information Referring Provider: Jon Cornejo MD, [address], [address]. tel:[phone] [facility], [address] [place] [address], [facility], [facility]. No Information 7 Samantha TRIPATHI Shaquille. [address] [facility], [address], [address], [place]. tel:[phone] Referring Provider: Jon Cornejo MD, [address], [address]. tel:[phone] Init Inpt Cons New/est Mod-nd [facility], [address] [place] [address], [address], [facility]. No Information 7 Kevin Crow. [address] [place] [address], [address], [address], [id number], [place]. tel:[phone] Referring Provider: Jon Cornejo MD, [address] [place] [address], [place], [address]. tel:[phone] [facility], [address] [place] [address], [address], [facility]. No Information 7 Jerrell Chand. [address] [place] [address], [address], [facility] [address], [address], . tel:[phone] Referring Provider: Jon Cornejo MD, [address] [facility] [address], [place], [address]. tel:[phone] Family History Family Member Type Diagnosis Age At Onset Father Problem (finding) Brother Problem (finding) Myocardial infarction 5 5 Father Problem (finding) congestive hea rt failure (Cause Of ) Sister Problem (finding) Undefined Heart Disease 56 Payers Payer name Insurance type Covered constitution party ID [facility]iza [id number] Social History Type Description Quantity Date Captured [...]
--- OUTSIDE RECORDS SUMMARY | 2025-03-31 08:45 | XMS_ITS | Encounter Summary ---
Author Organization [facility] Address [address] [place] [address] Care Team Providers Care Hotel Services Sales Representative Name Role Phone Juan José Cervantes MD Primary Care Provider + Reason for Referral * Consultation (Routine) - Authorized Specialty Diagnoses / Procedures Referred By Contac t Referred To Contact Sleep Medicine Diagnoses FABIO on CPAP Procedures AR OFFICE/OUTPATIENT NEW MODERATE MDM 45 MINUTES Juan José Cervantes MD [address] [place] [address] Phone: tel: fax: [facility] SLEEP MEDICINE [address] [address] Phone: tel: fax: Referral ID Status Reason Start Date Expiration Date V isits Requested Visits Authorized [id number] Authorized 03/31/2025 06/30/2026 1 1 Reason for Visit * Reason Comments Follow-up Pt is NOT fasting to day Diabetes Encounter Details Date Type Department Care Team (Late st Contact Info) Description 03/31/2025 8:45 AM EDT Office Visit [facility] FAMILY [facility] [address] [facility] [place] [address] Juan José Cervantes MD [address] [facility] [address] Type 2 diabetes mellitus with hyperglycemia, with long-term current use of insulin (Primary Dx); Stage 3a chronic kidney disease (CKD); Class 3 severe obesity due to excess calories with serious comorbidity and body mass index (BMI) of 50.0 to 59.9 in adult; Primary hypertension; Mixed hyperlipidemia; Hyperuricemia; Allergic sinusitis; FABIO on CPAP Social History Tobacco Use Types Packs/Day Years Used Date Smoking Tobacco: Former Cigarettes 0.3 2 0 10/27/1968 - 10/27/1970 Passive Smoke Exposure: Never Smokeless Tobacco: Never Tobacco Cessation:Counseling Given: Not Answered Comments:Only smoked in highschool Alcohol Use Standard Drinks/Week Comments Never 0 (1 standard drink = 0.6 oz pur e alcohol) [facility] [employer] Answer Date Recorded In the past 12 months has th e [employer], gas, oil, or water [employer] threatened to shut off services in your home? No 05/21/2024 AUDIT-C Answer Date Recorded Q1: How often do you have a drink containing alcohol? Never 05/20/2024 Q2: How many drinks containi ng alcohol do you have on a typical day when you are drinking? Patient does not drink Q3: How often do you have si x or more drinks on one occasion? Never 05/20/2024 PHQ-2 Answer Date Recorded Retired PHQ-9: Brief Depression Severity Measure Score 0 06/13/2023 Exercise Vital Sign Answer Date Recorde d On average, how many days pe r week do you engage in moderate to strenuous exercise (like a brisk walk)? 0 days 05/21/2024 On average, how many minutes do you engage in exercise at this level? 0 min 05/21/2024 Hunger Vital Sign Answer Date Recorded Within the past 12 months, y ou worried that your food would run out before you got the money to buy more. Never true 05/21/20 24 Within the past 12 months, t he food you bought just didn't last and you didn't have money to get more. Never true 05/21/2024 PRAPARE - Transportation Answer Date Re corded In the past 12 months, has l ack of transportation kept you from medical appointments or from getting medications? No 04/27 In the past 12 months, has l ack of transportation kept you from meetings, work, or from getting things needed for daily living? No 05/21/2024 Abuse Screen Answer Date Recorded Feels Unsafe at Home or Work/School no 05/20/2024 Feels Threatened by Someone no 04/27 Does Anyone Try to Keep You From Having Contact with Others or Doing Things Outside Your Home? no 05/20/2024 Physical Signs of Abuse Present no 05/20/2024 Housing Stability Answer Date Recorded Current Living Arrangements home 04/27 Potentially Unsafe Housing Conditions unable to assess 05/21/2024 Disabilities Answer Date Recorded Difficulty Concentrating, Remembering or Making Decisions no 05/20/2024 Difficulty Managing Errands Independently no 05/20/2024 Education Answer Date Recorded Help with school or training? Not on file Preferred Language Mozambican 05/21/2024 PHQ-2 Answer Date Recorded Patient Health Questionnaire-2 Score 0 12/28/2024 Sex and Gender Information Value Date Recorded Sex Assigned at Male 12/28/2024 7:44 AM EST Legal Sex Male 11:15 AM EDT Gender Identity Not on file Sexual Orientation Not on file documented as of this encounter Last Filed Vital Signs Vital Sign Reading Time Taken Comments Blood Pressure 118/70 03/31/2025 8:46 AM EDT Pulse 104 03/31/2025 8:46 AM EDT Temperature 36.3 C (97.3 F) 03/31/2025 8:46 AM EDT Respiratory Rate 20 03/31/2025 8:46 AM EDT Oxygen Saturation 98% 03/31/2025 8:46 AM EDT Inhaled Oxygen Concentration - - Weight 125 kg (275 lb 3.2 oz) 03/31/2025 8:46 AM EDT Height 167.6 cm (5' 5.98 ) 03/31/2025 8:46 AM ED T Body Mass Index 44.44 03/31/2025 8:46 AM EDT documented in this encounter Progress Notes * Juan José Cervantes MD - 03/31/2025 8:45 AM EDT Chief Complaint Patient presents with Follow-up Pt is NOT fasting today Diabetes Subjective Chetanjaci Archer Nahedderiandorys is a 69 y.o. who presents for chronic care follow-up. Regarding his diabetes blood sugars have been better controlled with majority of numbers less than 180. He feels like the change to [place] seems to have improved his blood sugars. Recent visit to the ER for visual disturbance.A1c was 6% he has had 1 hypoglycemic event in the last 90 days. He has follow-up with an pest control service sales agent for his visual disturbance. He tells me the ER physician theorized that it was due to a decrease in blood sugars and the impact that can have on vision. Weight is noted to be down 25 pounds over thelast 6 months. Patient has also been seen by neurology for his tremors and has been diagnosed with parkinsonism. He was taken off Mirapex. Patient has obstructive sleep apnea and would like to begin following with [facility] sleep medicine. The following portions of the patient's history were reviewed and updated as appropriate: allergies, current medications, past family history, past medical history, past social history, past surgicalhistory, and problem list. Review of Systems Objective Vital Signs: BP 118/70 Pulse 104 Temp 97.3 ??F (36.3 ??C) Resp 20 Ht 167.6 cm (65.98 ) Wt 125 kg (275lb 3.2 oz) SpO2 98% BMI 44.44 kg/m?? Physical Exam Constitutional: Appearance: Normal appearance. HENT: Head: Normocephalic and atraumatic. Right Ear: Tympanic membrane and ear canal normal. Left Ear: Tympanic membrane and ear canal normal. Nose: Nose normal. Mouth/Throat: Mouth: Mucous membranes are moist. Pharynx: Oropharynx is clear. Eyes: Conjunctiva/sclera: Conjunctivae normal. Cardiovascular: Rate and Rhythm: Normal rate and regular rhythm. Heart sounds: Normal heart sounds. No murmur heard. Pulmonary: Effort: Pulmonary effort is normal. No respiratory distress. Breath sounds: Normal breath sounds. Musculoskeletal: Cervical back: Normal range of motion and neck supple. No tenderness. Lymphadenopathy: Cervical: No cervical adenopathy. Skin: General: Skin is warm and dry. Neurological: Mental Status: He is alert. Psychiatric: Mood and Affect: Mood normal. Result Review Assessment and Plan Diagnoses and all orders for this visit: 1. Type 2 diabetes mellitus with hyperglycemia, with long-term current use of insulin (Primary) Comments: Control has improved. Continue current medicines and reassess in 3 months 2. Stage 3a chronic kidney disease (CKD) Comments: Valence labs ordered today. Continue GILMAR inhibitor and GLP-1 agonist Orders: - Renal Function Panel - Cystatin C - CBC (No Diff) 3. Class 3 severe obesity due to excess calories with serious comorbidity and body mass index (BMI)of 50.0 to 59.9 in adult 4. Primary hypertension Comments: Blood pressure is controlled. Continue current medications. Orders: - CBC (No Diff) 5. Mixed hyperlipidemia - Lipid Panel 6. Hyperuricemia Comments: Valence uric acid today. Continue allopurinol 400 mg daily. Monitor renal function. No gout flares in 3 months Orders: - Uric Acid 7. Allergic sinusitis 8. FABIO on CPAP Comments: For to [facility] Sleep medicine Orders: - Ambulatory Referral to Sleep Medicine Follow Up Return in about 3 months (around 07/01/2025) for Medicare Wellness. Patient was given instructions and counseling regarding his condition or for health maintenance advice. Please see specific information pulled into the AVS if appropriate. documented in this encounter Plan of Treatment Upcoming Encounters Date Type Department Care Team (Late st Contact Info) Description 06/30/2025 10:00 AM EDT Office Visit [facility] SLEEP [facility] [address] [phone] Tnak Dudley MD [facility] [place] [address] 07/19/2025 10:15 AM EDT Office Visit [facility] [address] [place] [address] Juan José Cervantes MD [address] [place] [address] Scheduled Referrals Name Type Priority Associated Diagnoses Order Schedule Ambulatory Referral to Sleep Medicine Outpatient Referral Routine FABIO on CPAP Ordered: 03/31/2025 documented as of this encounter Procedures Procedure Name Priority Date/Time Associated Diagnosis Comments CYSTATIN C Routine 03/31/2025 9:32 AM EDT Stage 3a chronic kidney disease (CKD) CBC (NO DIFF) Routine 03/31/2025 9:32 AM EDT Stage 3a chronic kidney disease (CKD) Primary hypertension URIC ACID Routine 03/31/2025 9:32 AM EDT Hyperuricemia RENAL FUNCTION PANEL Routine 03/31/2025 9:32 AM EDT Stage 3a chronic kidney disease (CKD) LIPID PANEL Routine 03/31/2025 9:32 AM EDT Mixed hyperlipidemia documented in this encounter Results * Uric Acid (03/31/2025 9:32 AM EDT) Uric Acid 7.0 3.4 - 7.0 mg/dL [facility] Blood 03/31/2025 9:32 AM EDT 03/31/2025 Narrative [facility] ([facility]) - 04/01/2025 8:11 AM EDT Performed at: [address] [place] [address] [id number] Joint Supervisor: Christiano Hoyt MD, Phone: [phone] Patient Fasting: Y us Juan José Cervantes MD LAB BLOOD ORDERABLES Fin al Result [facility] ([facility]BULATORY) [address] [place] [address], [facility] [address] [place] [address], * (ABNORMAL) CBC (No Diff) (03/31/2025 9:32 AM EDT) WBC 10.99(H) 3.40 - 10.80 10*3/mm3 [facility] RBC 4.58 4.14 - 5.80 10*6/mm3 [facility] Hemoglobin 13.6 13.0 - 17.7 g/dL [facility] Hematocrit 40.9 37.5 - 51.0 % [facility] MCV 89.3 79.0 - 97.0 fL [facility] MCH 29.7 26.6 - 33.0 pg [facility] MCHC 33.3 31.5 - 35.7 g/dL [facility] RDW 14.4 12.3 - 15.4 % [facility] Platelets 251 140 - 450 10*3/mm3 [facility] Blood 03/31/2025 9:32 AM EDT 03/31/2025 Narrative [facility] ([facility]) - 04/01/2025 8:11 AM EDT Performed at: [address] [place] [id number] Joint Supervisor: Christiano Hoyt MD, Phone: [phone] Patient Fasting: Y Juan José Cervantes MD LAB BLOOD ORDERABLES Fin al Result Performing Organization Address [facility] Co de Phone Number [facility] ([facility]UL[facility]) [address] [place] [address], [facility] [address] [place] [address], * (ABNORMAL) Cystatin C (03/31/2025 9:32 AM EDT) [facility] Cystatin C 1.81(H) 0.72 - 1.16 mg/L [facility] Blood 03/31/2025 9:32 AM EDT 03/31/2025 Narrative [facility] ([facility]) - 04/01/2025 8:11 AM EDT Performed at: [address] [facility] [address] [place], [place] [id number] Joint Supervisor: Enmanuel Akbar PhD, Phone: [phone] Patient Fasting: Y Juan José Cervantes MD LAB BLOOD ORDERABLES Fin al Result Performing Organization Address City/[facility]/ZIP Co de Phone Number [facility] (AMBULATORY) [address] [place] [address], [facility] [address] [place] [address], * (ABNORMAL) Renal Function Panel (03/31/2025 9:32 AM EDT) [facility] Glucose 107(H) 65 - 99 mg/dL [facility] BUN 27.0(H) 8.0 - 23.0 mg/dL [facility] Creatinine 1.55(H) 0.76 - 1.27 mg/dL [facility] EGFR Result 47.9(L) >60.0 mL/min/1.7 3 [facility] Comment: GFR Categories in Chronic Kidney Disease (CKD) GFR Category GFR (mL/min/1.73) Interpretation G1 90 or greater Normal or high (1) G2 60-89 Mild decrease (1) G3a 45-59 Mild to moderate decrease G3b 30-44 Moderate to severe decrease G4 15-29 Severe decrease G5 14 or less Kidney failure (1)In the absence of evidence of kidney disease, neither GFR category G1 or G2 fulfill the criteria for CKD. eGFR calculation 2020 CKD-EPI creatinine equation, which does not include race as a factor BUN/Creatinine Ratio 17.4 7.0 - 25.0 [facility] Sodium 141 136 - 145 mmol/L [facility] Potassium 4.0 3.5 - 5.2 mmol/L [facility] Chloride 99 98 - 107 mmol/L [facility] Total CO2 23.2 22.0 - 29.0 mmol/L [facility] Calcium 9.9 8.6 - 10.5 mg/dL [facility] Phosphorus 3.7 2.5 - 4.5 mg/dL [facility] Albumin 4.1 3.5 - 5.2 g/dL [facility] Blood 03/31/2025 9:32 AM EDT 03/31/2025 Narrative [facility] ([facility]) - 04/01/2025 8:11 AM EDT Performed at: [address] [place] [id number] Joint Supervisor: Christiano Hoyt MD, Phone: [phone] Patient Fasting: Y Juan José Cervantes MD LAB BLOOD ORDERABLES Fin al Result [facility] ([facility]) [address] [place] [address], [facility] [address] [place] [address], * (ABNORMAL) Lipid Panel (03/31/2025 9:32 AM EDT) [facility] Total Cholesterol 96 0 - 200 mg/dL [facility] Comment: Cholesterol Reference Ranges (U.S. Department of Health and Human Services ATP III Classifications) Desirable <200 mg/dL Borderline High 200-239 mg/dL High Risk >240 mg/dL Triglyceride Reference Ranges (U.S. Department of Health and Human Services ATP III Classifications) Normal <150 mg/dL Borderline High 150-199 mg/dL High 200-499 mg/dL Very High >500 mg/dL HDL Reference Ranges (U.S. Department of Health and Human Services ATP III Classifications) Low <40 mg/dl (major risk factor for CHD) High >60 mg/dl ('negative' risk factor for CHD) LDL Reference Ranges (U.S. Department of Health and Human Services ATP III Classifications) Optimal <100 mg/dL Near Optimal 100-129 mg/dL Borderline High 130-159 mg/dL High 160-189 mg/dL Very High >189 mg/dL LDL is calculated using the NIH LDL-C calculation. Triglycerides 148 0 - 150 mg/dL [facility] HDL Cholesterol 36(L) 40 - 60 mg/dL [facility] VLDL Cholesterol Charles 25 5 - 40 mg/dL [facility] LDL Chol Calc (NIH) 35 0 - 100 mg/dL [facility] Blood 03/31/2025 9:32 AM EDT 03/31/2025 Narrative [facility] ([facility]) - 04/01/2025 8:11 AM EDT Performed at: [address] [place] [id number] Joint Supervisor: Christiano Hoyt MD, Phone: [phone] Patient Fasting: Y Juan José Cervantes MD LAB BLOOD ORDERABLES Fin al Result [facility] ([facility]) [address] [place] [address], [place] [phone] [facility] [address] [place] [address], [place] [phone] documented in this encounter Visit Diagnoses Diagnosis Type 2 diabetes mellitus with hyperglycemia, with long-term current use of insulin- Primary Stage 3a chronic kidney disease (CKD) Class 3 severe obesity due to excess calories with serious comorbidity and body mass index (BMI) of 50.0 to 59.9 in adult Primary hypertension Unspecified essential hypertension Mixed hyperlipidemia Hyperuricemia Other abnormal blood chemistry Allergic sinusitis FABIO on CPAP documented in this encounter Care Teams Hotel Services Sales Representative Relationship Specialty Start Date End Date Juan José Cervantes MD [address] [facility] [place] [address] PCP - General Family Medicine 02/20/22 documented as of this encounter
--- OUTSIDE RECORDS SUMMARY | 2025-04-11 10:00 | XMS_ITS | Encounter Summary ---
Author Organization [facility] Address [address] [place] [address] Care Team Providers Care Reading Coach Name Role Phone Juan José Cervantes MD Primary Care Provider + Reason for Visit * Reason Comments Fatigue Fatigue ,irritabilit y, forgetfulness, for a few months and getting worse. Encounter Details Date Type Department Care Team (Late st Contact Info) Description 04/11/2025 10:00 AM EDT Office Visit [facility] [address] [facility] [place] [address] Franklin Conklin PA [address] [place] [address] Vitamin B12 deficiency (Primary Dx); Iron deficiency; Medication monitoring encounter; Fatigue, unspecified type; Vitamin D insufficiency; FABIO (obstructive sleep apnea); Need for hepatitis C screening test; Forgetfulness; Screening for malignant neoplasm of prostate Social History Tobacco Use Types Packs/Day Years Used Date Smoking Tobacco: Former Cigarettes 0.3 2 0 10/27/1968 - 10/27/1970 Passive Smoke Exposure: Never Smokeless Tobacco: Never Comments:Only smoked in high school Alcohol Use Standard Drinks/Week Comments Never 0 (1 standard drink = 0.6 oz pur e alcohol) [facility] Utilities Answer Date Recorded In the past 12 months has [employer] electric, gas, oil, or water company threatened to shut off services in your [...] or training? Not on file Preferred Language Citizen Of [place] 05/21/2024 PHQ-2 Answer Date Recorded Patient Health Questionnaire-2 Score 0 12/28/2024 Sex and Gender Information Value Date Recorded Sex Assigned at Male 12/28/2024 7:44 AM EST Legal Sex Male 11:15 AM EDT Gender Identity Not on file Sexual Orientation Not on file documented as of this encounter Last Filed Vital Signs Vital Sign Reading Time Taken Comments Blood Pressure 126/72 04/11/2025 10:16 AM EDT Pulse 76 04/11/2025 10:16 AM EDT Temperature 36.3 C (97.3 F) 04/11/2025 10:16 AM EDT Respiratory Rate - - Oxygen Saturation 96% 04/11/2025 10:16 AM EDT Inhaled Oxygen Concentration - - Weight 124 kg (273 lb) 04/11/2025 10:16 AM EDT Height 165.1 cm (5' 5 ) 04/11/2025 10:16 AM EDT Body Mass Index 45.43 04/11/2025 10:16 AM EDT documented in this encounter Progress Notes * Franklin Conklin PA - 04/11/2025 10:00 AM EDT Subjective Jon Maloney is a 69 y.o. male. Fatigue Symptoms: fatigue History of Present Illness The patient presents for evaluation of fatigue, weight loss, parkinsonian tremor, depression and anxiety, iron deficiency, diabetes mellitus, low blood pressure, forgetfulness, and possible seizure disorder. He reports experiencing extreme fatigue, irritability, and irrational anger, particularly towards his [id number]-bnp. He has been under significant stress due to family issues, which he believes may be contributing to his symptoms. He has also been dealing with recent depression and anxiety since discontinuing pramipexole. He has lost approximately 32 pounds over the past 4 months, a change he attributes to stress-induced reduced appetite. He has struggled with weight issues throughout his life and finds it challengingto consume full meals. He has been on Ozempic for an extended period and believes that the discontinuation of pramipexole may be contributing to his weight loss and other symptoms. He has a history of Parkinson's disease, diagnosed in [place], and currently experiences a tremor in his right hand. He consulted Dr. Gongora at regarding his Parkinson's disease, who confirmed that it is not full-blown Parkinson's but a parkinsonian tremor. He was previously on pramipexole for over10 years, but it was discontinued on 01/25/2025. He underwent a DaTscan 10 to 15 years ago, which revealed low dopamine levels, leading to a diagnosis of Parkinson's disease. However, the disease hasnot progressed. An MRI showed a stable spot in the back of his head, likely from a childhood injury. He was prescribed carbidopa- levodopa and pramipexole but has since discontinued pramipexole. He has been on B12 injections monthly and oral iron supplements due to chronic low iron levels. 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 He is also taking vitaminD supplements. He has had to reduce his nighttime insulin dosage to prevent hypoglycemia. He is also on Jardiance. He has been undergoing physical therapy twice a week since January 2025 for balance issues but was unable to complete his last session due to exhaustion. He is currently on CPAP therapy, which he has been using for 3 to 5 years without any issues. He has an appointment with a local sleep medicine specialist in the fall of 2024. He has been monitoring his blood pressure and blood sugar levels and suspects that his low blood pressure readings may be due to an improperly fitting wrist cuff. He recently switched to an arm cuff and has noticed more consistent readings above 100 systolic. His lowest reading was 84/45 on Friday,04/08/2025, but he did not experience any lightheadedness or dizziness. His blood pressure was checked during therapy and was recorded as 116/60. He frequently experiences forgetfulness and wonders if it could be related to his dopamine levels. He has a history of ADHD and was previously prescribed Ritalin, which he discontinued due to side effects. He has a history of possible seizures, with one episode occurring during childhood. He did not undergo an EEG at that time. There is speculation that his seizures could be related to a previous injury or early-onset sleep apnea. He visited the ER at [facility] 2 weeks ago where a CT scan was performed, which showed no abnormalities. His heart was also evaluated and found to be normal. Dr. Cervantes reviewed these results.He had to get new glasses due to vision changes, which improved his driving ability. He was informed that cataracts could be the cause of the change in vision. He was without glasses for about 3 weeks. SOCIAL HISTORY He does not drink alcohol. FAMILY HISTORY He is not aware of any family history of thyroid disorders. The following portions of the patient's history were reviewed and updated as appropriate: allergies, current medications, past family history, past medical history, past social history, past surgicalhistory, and problem list. Review of Systems Constitutional: Positive for fatigue. As noted per HPI Objective Blood pressure 126/72, pulse 76, temperature 97.3 ??F (36.3 ??C), height 165.1 cm (65 ), weight 124kg (273 lb), SpO2 96%. Body mass index is 45.43 kg/m??. Physical Exam Vitals reviewed. Constitutional: Appearance: Normal appearance. Cardiovascular: Rate and Rhythm: Normal rate and regular rhythm. Pulmonary: Effort: Pulmonary effort is normal. Breath sounds: Normal breath sounds. Neurological: Mental Status: He is alert and oriented to person, place, and time. Comments: Resting tremor of face and hands Results Imaging - MRI of the head: Stable spot in the back of the head from previous injury Diagnostic Testing - DaTscan: Low dopamine levels Assessment & Plan Assessment & Plan 1. Fatigue. - Increased fatigue potentially linked to discontinuation of pramipexole. - CPAP machine is functioning well and has been used consistently. - Comprehensive lab workup ordered to assess overall health status. - Scheduled appointment with sleep medicine specialist in fall 2024. 2. Weight loss. - Significant weight loss of 32 pounds over the last 4 months. - Weight loss potentially related to discontinuation of pramipexole. - Close monitoring of weight and further evaluation based on lab results. - Discussion with neurologist regarding medication adjustments. 3. Parkinsonian tremor. - Presence of tremor in the right hand and face. - Previously on pramipexole, now discontinued by Dr. Gongora. - Evaluation of symptoms post-discontinuation of pramipexole. - Advised to discuss resuming a lower dose of pramipexole with neurologist. 4. Depression and anxiety. - Recent onset of depression and anxiety since discontinuing pramipexole. - Potential link between symptoms and medication change. - Immediate medical attention advised if experiencing suicidal ideations or plans. - Referral to mental health specialist considered if necessary. 5. Iron deficiency. - Currently taking B12 supplements and oral iron. - Monitoring of iron levels and adjustments to supplementation based on lab results. - History of low iron potentially affecting neuropathy in feet. 6. Diabetes mellitus. - Blood sugar levels improving but not yet at goal. - Currently on Jardiance and adjusted insulin dosage to prevent hypoglycemia. - Continued monitoring of blood sugar levels advised. - Recent addition of Jardiance noted. 7. Low blood pressure. - Episodes of low blood pressure, with readings as low as 84/45. - Switched to upper arm cuff for more accurate readings. - Close monitoring of blood pressure and potential adjustment of enalapril dosage. - Significant weight loss noted, which may impact blood pressure readings. 8. Forgetfulness. - Frequent forgetfulness potentially related to dopamine levels. - Further evaluation based on lab results. - Potential treatment options to be discussed with neurologist. 9. Possible seizure disorder. - History of possible seizures complicates use of certain medications. - Further evaluation based on lab results. - Potential treatment options to be discussed with neurologist. Diagnoses and all orders for this visit: 1. Vitamin B12 deficiency (Primary) - CBC w AUTO Differential - Vitamin B12 - Folate - Vitamin B1, Whole Blood 2. Iron deficiency - CBC w AUTO Differential - Iron Profile w/o Ferritin - Ferritin 3. Medication monitoring encounter - Magnesium 4. Fatigue, unspecified type - CBC w AUTO Differential - Iron Profile w/o Ferritin - Ferritin - Vitamin B12 5. Vitamin D insufficiency - Vitamin D 25 hydroxy 6. FABIO (obstructive sleep apnea) 7. Need for hepatitis C screening test - Hepatitis C antibody 8. Forgetfulness - CBC w AUTO Differential - Iron Profile w/o Ferritin - Ferritin - Vitamin B12 - Folate - Magnesium - Basic metabolic panel - TSH - T4, free - Vitamin B1, Whole Blood 9. Screening for malignant neoplasm of prostate - PSA SCREENING Other orders - CBC & Differential - Basic Metabolic Panel - Iron Profile w/o Ferritin - Folate - Vitamin D,25-Hydroxy - Hepatitis C Antibody - PSA Screen - Ferritin - Vitamin B12 - Magnesium - Written Authorization Patient or patient independent sales representative verbalized consent for the use of Ambient Listening during the visit with JULIUS Hernández for chart documentation. 04/24/2025 15:09 EDT documented in this encounter Plan of Treatment Upcoming Encounters Date Type Department Care Team (Late st Contact Info) Description 06/30/2025 10:00 AM EDT Office Visit [facility] [address] [facility] [address] [place] [address] Tank Dudley MD [address] [place] [address] 07/19/2025 10:15 AM EDT Office Visit [facility] [address] [place], [place] [address] Juan José Cervantes MD [address] [place] [address] documented as of this encounter Procedures Procedure Name Priority Date/Time Associated Diagnosis Comments PSA SCREEN Routine 04/11/2025 10:55 AM EDT CONV WRITTEN AUTHORIZATION Routine 04/11/2025 10:55 AM EDT HEPATITIS C ANTIBODY Routine 04/11/2025 10:55 AM EDT IRON PROFILE Routine 04/11/2025 10:55 AM EDT VITAMIN B1, WHOLE BLOOD Routine 04/11/2025 10:55 AM EDT Vitamin B12 deficiency Forgetfulness VITAMIN D,25-HYDROXY Routine 04/11/2025 10:55 AM EDT CBC AND DIFFERENTIAL Routine 04/11/2025 10:55 AM EDT TSH Routine 04/11/2025 10:55 AM EDT Forgetfulness T4, FREE Routine 04/11/2025 10:55 AM EDT Forgetfulness MAGNESIUM Routine 04/11/2025 10:55 AM EDT FOLATE Routine 04/11/2025 10:55 AM EDT FERRITIN Routine 04/11/2025 10:55 AM EDT VITAMIN B12 Routine 04/11/2025 10:55 AM EDT BASIC METABOLIC PANEL Routine 04/11/2025 10:55 AM EDT documented in this encounter Results * Written Authorization (04/11/2025 10:55 AM EDT) Written Authorization Comment [facility] Comment: Written Authorization Received. Authorization received from Original Requisition 04-12-2025 Logged by Mirian Riddle 04/11/2025 10:5 5 AM EDT 04/11/2025 Narrative [facility]) - 04/13/2025 8:11 AM EDT Performed at: 01 - [address] [id number] Town Administrator: Enmanuel Akbar PhD, Phone: [phone] Patient Fasting: Y Franklin [facility] BLOOD ORDERABLES Final Res ult Performing Organization Address [facility]/ZIP Co de Phone Number [facility]) [address] [place] [address], [place] [phone] [facility] [address] [place] [address], [place] [phone] * Magnesium (04/11/2025 10:55 AM EDT) Magnesium 1.9 1.6 - 2.3 mg/dL [facility] 04/11/2025 10:5 5 AM EDT 04/11/2025 Narrative [facility] ([facility]) - 04/13/2025 8:11 AM EDT Performed at: 01 - [address] [id number] Town Administrator: Enmanuel Akbar PhD, Phone: [phone] Patient Fasting: Y Franklin [facility] BLOOD ORDERABLES Final Res ult Performing Organization Address City/[facility]/ZIP Co de Phone Number [facility]) [address] [place] [address], [place] [phone] [facility] [address] [place] [address], [place] [phone] * Vitamin B12 (04/11/2025 10:55 AM EDT) Vitamin B-12 974 232 - 1,245 pg/mL [facility] 04/11/2025 10:5 5 AM EDT 04/11/2025 Narrative [facility]) - 04/13/2025 8:11 AM EDT [facility]formed at: - [facility] [address] [place], [place] [id number] Town Administrator: Enmanuel Akbar PhD, Phone: [phone] Patient Fasting: Y us Franklin [facility] BLOOD ORDERABLES Final Res ult Performing Organization Address City/[facility]/ZIP Co de Phone Number [facility] (AMBULATORY) [address] [place] [address], [place] [phone] [facility] [address] [place] [address], [place] [phone] * Ferritin (04/11/2025 10:55 AM EDT) Pathologist [facility] Ferritin 178 30 - 400 ng/mL [facility] 04/11/2025 10:5 5 AM EDT 04/11/2025 Narrative [facility]) - 04/13/2025 8:11 AM EDT Performed at: - [facility] [address] [place], [place] [id number] Town Administrator: Enmanuel Akbar PhD, Phone: [phone] Patient Fasting: Y us Franklin M[facility] BLOOD ORDERABLES Final Res ult [facility] (AMBULATORY) [address] [place] [address], [place] [phone] [facility] [address] [place] [address], * PSA Screen (04/11/2025 10:55 AM EDT) PSA 1.5 0.0 - 4.0 ng/mL [facility] Comment: Jesús ECLIA methodology. According to the [place] [employer] Association, Serum PSA should decrease and remain at undetectable levels after radical prostatectomy. The AUA defines biochemical recurrence as an initial PSA value 0.2 ng/mL or greater followed by a subsequent confirmatory PSA value 0.2 ng/mL or greater. Values obtained with different assay methods or kits cannot be used interchangeably. Results cannot be interpreted as absolute evidence of the presence or absence of malignant disease. 04/11/2025 10:5 5 AM EDT 04/11/2025 [facility] - 04/13/2025 8:11 AM EDT Performed at: [address] [id number] Town Administrator: Enmanuel Akbar PhD, Phone: [phone] Patient Fasting: Y Franklin MADR[facility] BLOOD ORDERABLES Final Res ult [facility] (AMBULATORY) [address] [place] [address], [facility] [address] [place] [address], * Hepatitis C Antibody (04/11/2025 10:55 AM EDT) Pathologist [facility] Hep C Virus Ab Non Reactive Non Reactive [facility] Comment: HCV antibody alone does not differentiate between previously resolved infection and active infection. Equivocal and Reactive HCV antibody results should be followed up with an HCV RNA test to support the diagnosis of active HCV infection. 04/11/2025 10:5 5 AM EDT 04/11/2025 [facility] - 04/13/2025 8:11 AM EDT Performed at: [address] [id number] Town Administrator: Enmanuel Akbar PhD, Phone: [phone] Patient Fasting: Y Franklin MADR[facility] BLOOD ORDERABLES Final Res ult Performing Organization Address City/[facility]/ZIP Co de Phone Number [facility] [address] [place] [address], [facility] [address] [place] [address], * Vitamin D,25-Hydroxy (04/11/2025 10:55 AM EDT) [facility] 25 Hydroxy, Vitamin D 36.4 30.0 - 100.0 ng/mL [facility] Comment: Vitamin D deficiency has been defined by the [place] of Medicine and an Endocrine Society practice guideline as a level of serum 25-OH vitamin D less than 20 ng/mL (1,2). The Endocrine Society went on to further define vitamin D insufficiency as a level between 21 and 29 ng/mL (2). 1. IOM ([place]ardner of Medicine). 2010. Dietary reference intakes for calcium and D. [place]: The National Academies Press. 2. Ousmane MF, Celso [place], Mc RONDON, et al. Evaluation, treatment, and prevention of vitamin D deficiency: an Endocrine Society clinical practice guideline. JCEM. 2011 Apr; 96(7):1911-30. 04/11/2025 10:5 5 AM EDT 04/11/2025 Narrative [facility] (AMBULATORY) - 04/13/2025 8:11 AM EDT Performed at: 01 - [facility] [address] [place] [id number] Town Administrator: Enmanuel Akbar PhD, Phone: [phone] Patient Fasting: Y Franklin MADRID [facility] BLOOD ORDERABLES Final Res ult Performing Organization Address [facility]/ZIP Co de Phone Number [facility] (AMBULATORY) [address] [place] [address], [facility] [address] [place] [address], * Folate (04/11/2025 10:55 AM EDT) Pathologist [facility] Folate >20.0 >3.0 ng/mL [facility] Comment: A serum folate concentration of less than 3.1 ng/mL is considered to represent clinical deficiency. 04/11/2025 10:5 5 AM EDT 04/11/2025 Narrative [facility]) - 04/13/2025 8:11 AM EDT Performed at: - [address] [id number] Town Administrator: Enmanuel Akbar PhD, Phone: [phone] Patient Fasting: Y Franklin MADRID [facility] BLOOD ORDERABLES Final Res ult Performing Organization Address [facility] Co de Phone Number [facility] [address] [place] [address], [facility] [address] [place] [address], [place] [phone] * Iron Profile w/o Ferritin (04/11/2025 10:55 AM EDT) Pathologist [facility] TIBC 279 250 - 450 ug/dL [facility] UIBC 210 111 - 343 ug/dL [facility] Iron 69 38 - 169 ug/dL [facility] Iron Saturation 25 15 - 55 % [facility] 04/11/2025 10:5 5 AM EDT 04/11/2025 Narrative [facility] ([facility]) - 04/13/2025 8:11 AM EDT Performed at: - [facility] [address] [place] [id number] Town Administrator: Enmanuel Akbar PhD, Phone: [phone] Patient Fasting: Y Franklin M[facility] BLOOD ORDERABLES Final Res ult Performing Organization Address [facility]/ZIP Co de Phone Number [facility] [address] [place] [address], [facility] [address] [place] [address], * (ABNORMAL) Basic Metabolic Panel (04/11/2025 10:55 AM EDT) [facility] Glucose 110(H) 70 - 99 mg/dL [facility] BUN 25 8 - 27 mg/dL [facility] Creatinine 1.36(H) 0.76 - 1.27 mg/dL [facility] EGFR Result 56(L) >59 mL/min/1.7 3 [facility] BUN/Creatinine Ratio 18 10 - 24 [facility] Sodium 139 134 - 144 mmol/L [facility] Potassium 4.3 3.5 - 5.2 mmol/L [facility] Chloride 103 96 - 106 mmol/L [facility] Total CO2 17(L) 20 - 29 mmol/L [facility] Calcium 9.6 8.6 - 10.2 mg/dL [facility] 04/11/2025 10:5 5 AM EDT 04/11/2025 Narrative [facility] - 04/13/2025 8:11 AM EDT Performed at: [address] [id number] Town Administrator: Enmanuel Akbar PhD, Phone: [phone] Patient Fasting: Y Franklin MADR[facility] BLOOD ORDERABLES Final Res ult [facility] [address] [place] [address], [facility] [address] [place] [address], * (ABNORMAL) CBC & Differential (04/11/2025 10:55 AM EDT) [facility] WBC 10.0 3.4 - 10.8 x10E3/uL [facility] RBC 4.52 4.14 - 5.80 x10E6/uL [facility] Hemoglobin 13.1 13.0 - 17.7 g/dL [facility] Hematocrit 41.1 37.5 - 51.0 % [facility] MCV 91 79 - 97 fL [facility] MCH 29.0 26.6 - 33.0 pg [facility] MCHC 31.9 31.5 - 35.7 g/dL [facility] RDW 14.5 11.6 - 15.4 % [facility] Platelets 289 150 - 450 x10E3/uL [facility] Neutrophil Rel % 56 Not Estab. % [facility] Lymphocyte Rel % 32 Not Estab. % [facility] Monocyte Rel % 9 Not Estab. % [facility] Eosinophil Rel % 2 Not Estab. % [facility] Basophil Rel % 1 Not Estab. % [facility] Neutrophils Absolute 5.6 1.4 - 7.0 x10E3/uL [facility] Lymphocytes Absolute 3.2(H) 0.7 - 3.1 x10E3/uL [facility] Monocytes Absolute 0.9 0.1 - 0.9 x10E3/uL [facility] Eosinophils Absolute 0.2 0.0 - 0.4 x10E3/uL [facility] Basophils Absolute 0.1 0.0 - 0.2 x10E3/uL [facility] Immature Granulocyte Rel % 0 Not Estab. % [facility] Immature Grans Absolute 0.0 0.0 - 0.1 x10E3/uL [facility] 04/11/2025 10:5 5 AM EDT 04/11/2025 Narrative [facility]) - 04/13/2025 8:11 AM EDT Performed at: [address] [place] [id number] Town Administrator: Enmanuel Akbar PhD, Phone: [phone] Patient Fasting: Y Franklin [facility] BLOOD ORDERABLES Final Res ult [facility] (AMBULATORY) [address] [place] [address], [facility] [address] [place] [address], * Vitamin B1, Whole Blood (04/11/2025 10:55 AM EDT) [facility] Vitamin B1, Whole Blood 189.4 66.5 - 200.0 nmol/L [facility] Blood 04/11/2025 10:5 5 AM EDT 04/11/2025 [facility] - 04/14/2025 2:10 PM EDT Test(s) 210444-Ijp. B1, Whole Blood was developed and its performance characteristics determined by [facility]. It has not been cleared or approved by the Food and Drug Administration. Performed at: - [address] [id number] Town Administrator: Elgin Sinclair MD, Phone: [phone] Patient Fasting: Y Franklin [facility] BLOOD ORDERABLES Final Res ult Performing Organization Address [facility] Co de Phone Number [facility] ([facility]) [address] [place] [address], [facility] [address] [place] [address], * T4, free (04/11/2025 10:55 AM EDT) Pathologist [facility] Free T4 1.24 0.82 - 1.77 ng/dL [facility] Blood 04/11/2025 10:5 5 AM EDT 04/11/2025 [facility] (AMBULATORY) - 04/14/2025 2:10 PM EDT Performed at: - [address] [id number] Town Administrator: Enmanuel Akbar PhD, Phone: [phone] Patient Fasting: Y Franklin [facility] BLOOD ORDERABLES Final Res ult Performing Organization Address [facility]/ZIP Co de Phone Number [facility] (AMBULATORY) [address] [place] [address], [place] [phone] [facility] [address] [place] [address], * TSH (04/11/2025 10:55 AM EDT) TSH 2.190 0.450 - 4.500 uIU/mL [facility] Blood 04/11/2025 10:5 5 AM EDT 04/11/2025 Narrative [facility] (AM[facility]) - 04/14/2025 2:10 PM EDT Performed at: 01 - [facility] [address] [place] [id number] Town Administrator: Enmanuel Akbar PhD, Phone: [phone] Patient Fasting: Y us Franklin [facility] BLOOD ORDERABLES Final Res ult [facility] (AM[facility]) [address] [place] [address], [place] [phone] [facility] [address] [place] [address], [place] [phone] documented in this encounter Visit Diagnoses Diagnosis Vitamin B12 deficiency- Primary Other B-complex deficiencies Iron deficiency Disorders of iron metabolism Medication monitoring encounter Encounter for therapeutic drug monitoring Fatigue, unspecified type Vitamin D insufficiency FABIO (obstructive sleep apnea) Obstructive sleep apnea (adult) (pediatric) Need for hepatitis C screening test Special screening examination for other specified viral diseases Forgetfulness Other general symptoms Screening for malignant neoplasm of prostate documented in this encounter Care Teams Reading Coach Relationship Specialty Start Date End Date Juan José Cervantes MD [address] [place] [address] PCP - General Family Medicine 02/20/22 documented as of this encounter
--- OUTSIDE RECORDS SUMMARY | 2025-05-26 08:17 | XMS_ITS | Encounter Summary ---
Author Organization Healthcare Address [address] [place] [address] Care Team Providers Care Financial Aid Officer Name Role Phone Juan José Cervantes MD Primary Care Provider [phone] Encounter Details Date Type Department Care Team (Late st Contact Info) Description 04/11/2025 Orders Only [place] [facility] [address] [place] [address] Dixon Gongora MD [address] [place] [address] Social History Tobacco Use Types [...] documented as of this encounter Care Teams Financial Aid Officer Relationship Specialty Start Date End Date Juan José Cervantes MD PCP - General 01/20/25 documented as of this encounter
--- OUTSIDE RECORDS SUMMARY | 2025-05-26 08:18 | XMS_ITS | Clinical Summary ---
Author Organization [facility] Address [address] [place] [address] Care Team Providers Care Professional Nurse Name Role Phone Juan José Cervantes MD [...] deficiency Inject once monthly at [facility] 1 mL 11 07/07/20 23 Active Continuous Glucose Sensor (FreeStyle Amanda 2 [...] by mouth Daily. 30 tablet 2 04/04/20 25 Active NON FORMULARY Apply topically to the appropriate area as directed. Active Pramipexole Dihydrochloride ER 0.75 MG tablet sustained-release 24 hour TAKE 1 TABLET BY MOUTH IN THE MORNING AND 1 TABLET BEFORE BEDTIME FOR 7 DAYS. DISCARD REMAINDER Active furosemide (LASIX) 40 MG tabletIndications:P edal edema TAKE 1 TABLET BY MOUTH DAILY 90 tablet 3 04/13/20 25 Active Semaglutide, 2 MG/DOSE, (Ozempic, 2 MG/DOSE,) 8 MG/3ML solution pen-injectorIndicat ions:Type 2 diabetes mellitus with diabetic neuropathy, with long-term current use of insulin Inject 2 mg under the skin into the appropriate area as directed 1 (One) Time Per Week. friday 3 mL 2 05/25/20 25 Active Ozempic, 2 MG/DOSE, 8 MG/3ML solution pen-injectorIndicat ions:Type 2 diabetes mellitus with diabetic neuropathy, with long-term current use of insulin INJECT 2MG UNDER THE SKIN INTO THE APPROPRIATE AREA DIRECTED ONCE A WEEK 9 mL 3 05/06/20 24 025 Discontin uLTAC, located within [facility], Clinic, or Other Facility Administered Medication Ordered [...] Assess uric acid. 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 and a new prescription for diabetic shoes [...] Encounters Date Type Department Care Team Description 05/24/2025 [facility] MEDICINE [address] [facility] [place] [address] Juan José Cervantes MD Type 2 diabetes mellitus with diabetic neuropathy, with long-term current use of insulin 05/06/2025 Telephone [facility] MEDICINE [address] [place] [address] Juan José Cervantes MD 04/13/2025 Refill [facility] MEDICINE [address] [place] [address] Juan José Cervantes MD Pedal edema 04/13/2025 Telephone [facility] [address] [place] [address] Franklin Conklin PA Med Management 04/13/2025 Results Follow-Up [facility] [address] [place] [address] Franklin Conklin PA 04/11/2025 10:00 AM EDT Office Visit [facility] [address] [place] [address] Franklin Conklin PA Vitamin B12 deficiency (Primary Dx); Iron deficiency; Medication monitoring encounter; Fatigue, unspecified type; Vitamin D insufficiency; FABIO (obstructive sleep apnea); Need for hepatitis C screening test; Forgetfulness; Screening for malignant neoplasm of prostate 04/11/2025 Travel 04/05/2025 Telephone [facility] [address] [place] [address] Juan José Cervantes MD PAPERWORK 04/04/2025 Results Follow-Up [facility] [address] [place] [address] Juan José Cervantes MD 03/31/2025 8:45 AM EDT Office Visit [facility] [address] [place] [address] Juan José Cervantes MD Type 2 diabetes [...] drink = 0.6 oz pur e alcohol) [facility] Answer Date Recorded In the past 12 months has [employer], gas, oil, or water [employer] threatened to shut off services in your [...] Description 06/30/2025 10:00 AM EDT Office Visit [facility] [address] [facility] [address] [place] [phone] Tank Dudley MD [address] [place] [address] 07/19/2025 10:15 AM EDT Office Visit [facility] MED[facility]INE [address] [place] [address] Juan José Cervantes MD [address] [place] [address] Health Maintenance Due Date Last Done [...] URINE MICROALBUMIN-CREATININ E RATIO (uACR) 12/28/2025 12/28/2024 LIPID PANEL 03/31/2026 03/31/2025, 03/0 01/2025, 12/12/2022 DIABETIC FOOT EXAM 04/05/2026 04/05/2025, 0 01/26/2025, 11/25/2024, Additional history exists DIABETIC EYE EXAM 05/02/2026 05/02/2025, , 04/23/2024, Additional history exists TDAP/TD VACCINES (2 - Td or Tdap) 05/25/2034 024 Pneumococcal Vaccine 50+ Completed 05/25/2024 AAA SCREEN ONCE Completed 02/09/2025 HEPATITIS C SCREENING Completed 04/11/2025 Procedures Procedure Name Priority Date/Time Associated Diagnosis Comments SCANNED - EYE EXAM 05/02/2025 CBC AND DIFFERENTIAL Routine 04/11/2025 10:55 AM [...] lateral abdominal pain History of colonic diverticulitis POC ALBUMIN/CREATININE RATIO Routine 12/28/2024 8:29 AM [...] Recently Relevant to Health Maintenance Results * EYE EXAM SCANNED (05/02/2025) Anatomical Region Laterality Modality Other Juan José Cervantes MD CHART REVIEW TABS Fin al Result * PSA Screen (04/11/2025 10:55 AM EDT) PSA 1.5 0.0 - 4.0 ng/mL [facility] Comment: Jesús ECLIA methodology. According to the [place] [employer], Serum PSA should decrease and [...] 10:5 5 AM EDT 04/11/2025 Narrative [facility] (AMBULATORY) - 04/13/2025 8:11 AM EDT Performed at: - [facility] [id number] Blueprint Tracer: Enmanuel Akbar PhD, Phone: [phone] Patient Fasting: Y Franklin [facility] BLOOD ORDERABLES Final Res ult [facility] (AMBULATORY) [address] [place] [address], [facility] [address] [place] [address], * Written Authorization (04/11/2025 10:55 AM EDT) Written Authorization Comment [facility] Comment: Written Authorization Received. Authorization received from Original Requisition 04-12-2025 Logged by Mirian Riddle 04/11/2025 10:5 5 AM EDT 04/11/2025 Narrative [facility] (AMBULATORY) - 04/13/2025 8:11 AM EDT Performed at: [address] [id number] Blueprint Tracer: Enmanuel Akbar PhD, Phone: [phone] Patient Fasting: Y Franklin MADR[facility] BLOOD ORDERABLES Final Res ult Performing Organization Address [facility] Co de Phone Number [facility] [address] [place] [address], [facility] [address] [place] [address], * Hepatitis C Antibody (04/11/2025 10:55 AM [...] 8:11 AM EDT Performed at: 01 - [facility] [address] [place] [id number] Blueprint Tracer: Enmanuel Akbar PhD, Phone: [phone] Patient Fasting: Y Franklin MADRID [facility] BLOOD ORDERABLES Final Res ult Performing Organization Address [facility] Co de Phone Number [facility] [address] [place] [address], [place] [phone] [facility] [address] [place] [address], [place] [phone] * Iron Profile w/o Ferritin (04/11/2025 10:55 AM EDT) TIBC 279 250 - 450 ug/dL [facility] UIBC 210 111 - 343 ug/dL [facility] Iron 69 38 - 169 ug/dL [facility] Iron Saturation 25 15 - 55 % [facility] 04/11/2025 10:5 5 AM EDT 04/11/2025 Narrative [facility] (AMBULATORY) - 04/13/2025 8:11 AM EDT Performed at: - [facility] [address] [place], [place] [id number] Blueprint Tracer: Enmanuel Akbar PhD, Phone: [phone] Patient Fasting: Y Franklin MADRID LAB BLOOD ORDERABLES Final Res ult Performing Organization Address [facility] de Phone Number [facility] [address] [place] [address], [facility] [address] [place] [address], * Vitamin B1, Whole Blood (04/11/2025 10:55 AM EDT) Pathologist [facility] Vitamin B1, Whole Blood 189.4 66.5 - 200.0 nmol/L [facility] Blood 04/11/2025 10:5 5 AM EDT 04/11/2025 Narrative [facility] (AMBULATORY) - 04/14/2025 2:10 PM EDT Test(s) [id number]-[id number]. B1, Whole Blood was developed and its performance characteristics determined by [facility]. It has not been cleared or approved by the Food and Drug Administration. Performed at: - [address] [id number] Blueprint Tracer: Elgin Sinclair MD, Phone: [phone] Patient Fasting: Y Franklin MADR[facility] LAB BLOOD ORDERABLES Final Res ult Performing Organization Address [facility]/ZIP Co de Phone Number [facility] [address] [place] [address], [facility] [address] [place] [address], * Vitamin D,25-Hydroxy (04/11/2025 10:55 AM EDT) 25 Hydroxy, Vitamin D 36.4 30.0 - 100.0 ng/mL [facility] Comment: Vitamin D deficiency has been defined by the [place] of Medicine and an Endocrine Society practice guideline as a level of serum 25-OH vitamin D less than 20 ng/mL (1,2). The Endocrine Society went on to further define vitamin D insufficiency as a level between 21 and 29 ng/mL (2). 1. IOM ([place] of Medicine). 2010. Dietary reference intakes for calcium and D. [place]: The National Academies Press. 2. Ousmane MF, Celso NC, Mc RONDON, et al. Evaluation, treatment, and prevention of vitamin D deficiency: an Endocrine Society clinical practice guideline. JCEM. 2010; 96(7):1911-30. 04/11/2025 10:5 5 AM EDT 04/11/2025 Narrative [facility] (AMBULATORY) - 04/13/2025 8:11 AM EDT Performed at: - [address] [id number] Blueprint Tracer: Enmanuel Akbar PhD, Phone: [phone] Patient Fasting: Y Franklin MADRID LAB BLOOD ORDERABLES Final Res ult [facility] (AMBULATORY) [address] [place] [address], [facility] [address] [place] [address], * (ABNORMAL) CBC & Differential (04/11/2025 10:55 [...] 10:5 5 AM EDT 04/11/2025 Narrative [facility] (AMBULATORY) - 04/13/2025 8:11 AM EDT Performed at: [address] [place] [id number] Blueprint Tracer: Enmanuel Akbar PhD, Phone: [phone] Patient Fasting: Y Franklin MADRID [facility] BLOOD ORDERABLES Final Res ult [facility] ([facility]) [address] [place], [place] [id number], [facility] [address] [place] [address], * TSH (04/11/2025 10:55 AM EDT) [facility] TSH 2.190 0.450 - 4.500 uIU/mL [facility] Blood 04/11/2025 10:5 5 AM EDT 04/11/2025 Narrative [facility] ([facility]) - 04/14/2025 2:10 PM EDT Performed at: - [facility] [address] [place], [place] [id number] Blueprint Tracer: Enmanuel Akbar PhD, Phone: [phone] Patient Fasting: Y Franklin MADRID LAB BLOOD ORDERABLES Final Res ult Performing Organization Address [facility] Co de Phone Number [facility] (AMBULATORY) [address] [place] [address], [facility] [address] [place] [address], * T4, free (04/11/2025 10:55 AM EDT) Free T4 1.24 0.82 - 1.77 ng/dL [facility] Blood 04/11/2025 10:5 5 AM EDT 04/11/2025 Narrative [facility] ([facility]) - 04/14/2025 2:10 PM EDT Performed at: [address] [id number] Blueprint Tracer: Enmanuel Akbar PhD, Phone: [phone] Patient Fasting: Y Franklin MADRID LAB BLOOD ORDERABLES Final Res ult Performing Organization Address [facility] Co de Phone Number [facility] (AMBULATORY) [address] [place] [address], [facility] [address] [place] [address], * Magnesium (04/11/2025 10:55 AM EDT) Magnesium 1.9 1.6 - 2.3 mg/dL [facility] 04/11/2025 10:5 5 AM EDT 04/11/2025 Narrative [facility] ([facility]) - 04/13/2025 8:11 AM EDT Performed at: - [facility] [address] [place] [id number] Blueprint Tracer: Enmanuel Akbar PhD, Phone: [phone] Patient Fasting: Y Franklin MADRID LAB BLOOD ORDERABLES Final Res ult Performing Organization Address [facility] Co de Phone Number [facility] [address] [place] [address], [place] [phone] [facility] [address] [place] [address], [place] [phone] * Folate (04/11/2025 10:55 AM EDT) Pathologist [facility] Folate >20.0 >3.0 ng/mL [facility] Comment: A serum folate concentration of less than 3.1 ng/mL is considered to represent clinical deficiency. 04/11/2025 10:5 5 AM EDT 04/11/2025 Narrative [facility] (AMBULATORY) - 04/13/2025 8:11 AM EDT Performed at: - [address] [id number] Blueprint Tracer: Enmanuel Akbar PhD, Phone: [phone] Patient Fasting: Y us Franklin MADR[facility] LAB BLOOD ORDERABLES Final Res ult Performing Organization Address [facility] Co de Phone Number [facility] [address] [place] [address], [place] [phone] [facility] [address] [place] [address], [place] [phone] * Ferritin (04/11/2025 10:55 AM EDT) [facility] Ferritin 178 30 - 400 ng/mL [facility] 04/11/2025 10:5 5 AM EDT 04/11/2025 Narrative [facility] (AMBULATORY) - 04/13/2025 8:11 AM EDT Performed at: - [facility] [address] [place] [id number] Blueprint Tracer: Enmanuel Akbar PhD, Phone: [phone] Patient Fasting: Y Franklin MADRID LAB BLOOD ORDERABLES Final Res ult [facility] [address] [place] [address], [facility] [address] [place] [address], [place] [phone] * Vitamin B12 (04/11/2025 10:55 AM EDT) [facility] Vitamin B-12 974 232 - 1,245 pg/mL [facility] 04/11/2025 10:5 5 AM EDT 04/11/2025 Narrative [facility] (AMBULATORY) - 04/13/2025 8:11 AM EDT Performed at: 01 - [facility] [address] [place] [id number] Blueprint Tracer: Enmanuel Akbar PhD, Phone: [phone] Patient Fasting: Y Franklin MADRID LAB BLOOD ORDERABLES Final Res ult Performing Organization Address City/[facility]/ZIP Co de Phone Number [facility] (AMBULATORY) [address] [place] [address], [facility] [address] [place] [address], * (ABNORMAL) Basic Metabolic Panel (04/11/2025 10:55 AM EDT) [facility] Glucose 110(H) 70 - 99 mg/dL [facility] [...] 5 AM EDT 04/11/2025 Narrative [facility] (AMBULATORY) - 04/13/2025 8:11 AM EDT Performed at: - [address] [id number] Blueprint Tracer: Enmanuel Akbar PhD, Phone: [phone] Patient Fasting: Y Franklin MADRID LAB BLOOD ORDERABLES Final Res ult Performing Organization Address City/[facility]/ZIP Co de Phone Number [facility] [address] [place] [address], [facility] [address] [place] [address], * FOOT EXAM SCANNED (04/05/2025) Juan José Cervantes MD CHART REVIEW TABS Fin al Result * (ABNORMAL) Cystatin C (03/31/2025 9:32 AM EDT) [facility] Cystatin C 1.81(H) 0.72 - 1.16 mg/L [facility] Blood 03/31/2025 9:32 AM EDT 03/31/2025 Narrative [facility] (AMBULATORY) - 04/01/2025 8:11 AM EDT Performed at: - [address] [id number] Blueprint Tracer: Enmanuel Akbar PhD, Phone: [phone] Patient Fasting: Y Juan José Cervantes MD LAB BLOOD ORDERABLES Fin al Result Performing Organization Address City/[facility]/ZIP Co de Phone Number [facility] [address] [place] [address], [facility] [address] [place] [address], * (ABNORMAL) CBC (No Diff) (03/31/2025 9:32 [...] - 04/01/2025 8:11 AM EDT Performed at: [address] [place] [id number] Blueprint Tracer: Christiano Hoyt MD, Phone: [phone] Patient Fasting: Y Juan José Cervantes MD LAB BLOOD ORDERABLES Fin al Result [facility] ([facility]) [address] [place] [address], [facility] [address] [place] [address], * Uric Acid (03/31/2025 9:32 AM EDT) Uric Acid 7.0 3.4 - 7.0 mg/dL [facility] Blood 03/31/2025 9:32 AM EDT 03/31/2025 Narrative [facility] ([facility]) - 04/01/2025 8:11 AM EDT Performed at: [address] [place] [id number] Blueprint Tracer: Christiano Hoyt MD, Phone: [phone] Patient Fasting: Y us Juan José Cervantes MD LAB BLOOD ORDERABLES Fin al Result [facility] (AMBULATORY) [address] [place] [address], [place] [phone] [facility] [address] [place] [address], [place] [phone] * (ABNORMAL) Renal Function Panel (03/31/2025 9:32 AM EDT) Pathologist [facility] Glucose 107(H) 65 - 99 mg/dL [facility] [...] - 04/01/2025 8:11 AM EDT Performed at: [address] [place] [address] [place], [place] [id number] Blueprint Tracer: Christiano Hoyt MD, Phone: [phone] Patient Fasting: Y Juan José Cervantes MD LAB BLOOD ORDERABLES Fin al Result [facility] (AMBULATORY) [address] [place] [address], [facility] [address] [place] [address], * (ABNORMAL) Lipid Panel (03/31/2025 9:32 AM EDT) [facility] Total Cholesterol 96 0 - 200 mg/dL [...] 03/31/2025 9:32 AM EDT 03/31/2025 Narrative [facility] (AMBULATORY) - 04/01/2025 8:11 AM EDT Performed at: 01 [facility] [address] [place], [place], [place] [id number] Blueprint Tracer: Christiano Hoyt MD, Phone: [phone] Patient Fasting: Y Juan José Cervantes MD LAB BLOOD ORDERABLES Fin al Result [facility] ([facility]) [address] [place] [address], [place] [phone] [facility] [address] [place] [address], [place] [phone] * ECG Scan (03/27/2025) Juan José Cervantes MD ECG ORDERABLES Final Re sult * IMAGING SCANNED (03/27/2025) Anatomical Region Laterality Modality Radiographic Olivia ging Juan José Cervantes MD IMG DIAGNOSTIC IMAGING O RDERABLES Final Result * CT Abdomen Pelvis With Contrast (02/09/2025) Anatomical Region Laterality Modality Abdomen, Pelvis N/A Computed Tomogra phy Osman Lagos MD IMG CT ORDERABLES Final Result * (ABNORMAL) POC Albumin/Creatinine Ratio Urine (12/28/2024 8:29 AM EST) Pathologist [facility] POC ALBUMIN, URINE 80 mg/L POC CREATININE, [...] 12/28/2024 8:27 AM EST 12/28/2024 Narrative [facility] ([facility]) - 12/29/2024 3:07 AM EST Performed at: [address] [place] [address] [place] [id number] Blueprint Tracer: Christiano Hoyt MD, Phone: [phone] Patient Fasting: Y Juan José Cervantes MD LAB BLOOD ORDERABLES Fin al Result [facility] (AM[facility]) [address] [place] [address], [facility] [address] [place] [address], * Cologuard - Stool, Per Rectum (06/12/2022 3:00 PM EDT) Pathologist [facility] Cologuard Negative Negative 06/20/2022 2:02 AM EDT [facility] (CLIA #:[id number]) Comment: NEGATIVE TEST RESULT. A negative Cologuard [...] (Elyse Koenig al, N Engl J Med 2014;370(14):7566-0164) The normal value (reference range) for this assay is negative. COLOGUARD RE-SCREENING RECOMMENDATION: Periodic colorectal cancer screening is an important part of preventive healthcare for asymptomatic individuals at average risk for colorectal cancer. Following a negative Cologuard result, the [place] [employer] Society and U.S. Multi-Society Task Force screening guidelines recommend a Cologuard re-screening interval of 3 years. References: [place] [employer] Guideline for Colorectal Cancer Screening: https://www.cancer.org/cancer/mokdq-rigvar-fwgaab/lysarrffm-jbznhwsmx-pyztikl/ac s-rec ommendations.html.; Evan DK, Ting BOWERS, Nicholas RandolphK, Colorectal Cancer Screening: Recommendations for Physicians and Patients from the U.S. Multi-Society Task Force on Colorectal Cancer Screening , Am J Gastroenterology 2017; 112:3729-0281. TEST DESCRIPTION: Composite algorithmic analysis of stool [...] screened with both Cologuard and colonoscopy. (Elyse Leo et al, N Engl J Med 2014;370(14):8654-4612.) Cologuard may produce a false negative or false positive result (no colorectal cancer or precancerous polyp present at colonoscopy follow up). A negative Cologuard test result does not guarantee the absence of CRC or advanced adenoma (pre-cancer). The current Cologuard screening interval is every 3 years. ([place] [employer] Society and U.S. Multi-Society Task Force). Cologuard performance data in a 10,000 patient pivotal study using colonoscopy as the reference method can be accessed at the following location: www.[employer].[place]/results. Additional description of the Cologuard test process, warnings and precautions can be found at www.[employer].com. Stool specimen (specimen) Specimen from rectum / Unknown 06/12/2022 3:00 PM EDT 06/13/2022 5:26 PM EDT Juan José Cervantes MD BODY FLUIDS AND STOOLS O RDERABLES Final Result [facility] (CLIA #:[id number]) [address] 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
--- OUTSIDE RECORDS SUMMARY | 2025-05-26 08:19 | XMS_ITS | Clinical Summary ---
Author Organization [facility] Address [address] [place] [address] Care Team Providers Care Benefits Officer Name Role Phone Juan José Cervantes MD Primary Care Provider [phone] Allergies No known active allergies Medications metFORMIN [...] Continuous Glucose Sensor (FreeStyle Amanda 2 Sensor) [facility] USE DIRECTED EVERY 14 DAYS 01/04/20 25 [...] 5 02/15/20 25 025 Active pramipexole (Mirapex) 0.75 MG tablet Take 1 tablet by mouth 2 times a day. 120 tablet 05/25/20 25 025 Active Pramipexole Dihydrochloride ER 1.5 MG tablet sustained-release 24 hour Take 1 tablet by mouth daily. 30 tablet 04/11/20 25 025 Discontin ued(Dose adjustmen t) pramipexole (Mirapex) 0.5 MG tablet Take 1 tablet by mouth 2 times a day. 60 tablet 04/29/20 25 025 Discontin ued(Dose adjustmen t) Encounters Date Type Department Care Team Description 05/25/[address], [facility] [place] [phone] Dixon Gongora MD 04/29/[address], [address] [place] [phone] Dixon Gongora MD 04/11/2025 Orders Only [address], [address] [place] [phone] Dixon Gongora MD from Last 3 Months Immunizations Immunization Administration [...] 1999 UKY-Zoster Vaccines (1 of 2) 2004 [id number] Vaccine ( season) 2024 11/21/2021, 01/24/2021, 12/27/2020 [...] complete this topic Insurance MEDICARE Care Teams Benefits Officer Relationship Specialty Start Date End Date Juan José Cervantes MD PCP - General 01/20/25
--- OUTSIDE RECORDS SUMMARY | 2025-05-26 08:19 | XMS_ITS | Encounter Summary ---
[facility] Organization [facility] Address [address] [place] [id number] Care Team Providers Care Library Media Technician Name Role Phone Juan José Cervantes MD Primary Care Provider + Encounter Details Date Type Department Care Team (Late st Contact Info) Description 05/06/2025 Telephone [facility] [address] [facility] [place] [address] Juan José Cervantes MD 210 [place] [address] Social History Tobacco Use Types Packs/Day Years Used Date Smoking Tobacco: Former Cigarettes 0.3 2 0 10/27/1968 - 10/27/1970 Passive Smoke Exposure: Never Smokeless Tobacco: Never Comments:Only smoked in high school Alcohol Use Standard Drinks/Week Comments Never 0 (1 standard drink = 0.6 oz pur e alcohol) [facility] Utilities Answer Date Recorded In the past 12 months has [employer], gas, oil, or water [employer] threatened to shut off services in your [...] or training? Not on file Preferred Language Burkinan 05/21/2024 PHQ-2 Answer Date Recorded Patient Health [...] 05/06/2025 3:58 PM EDT Caller: Clinic Pharmacy [facility] [place] [address] - [phone] [facility] [phone] FX Relationship: Pharmacy Best call back number: [phone] What is the best time to reach [...] Description 06/30/2025 10:00 AM EDT Office Visit [facility] 3000 [facility] 240 [place] [address] Tank Dudley MD [address] [place] [address] 07/19/2025 10:15 AM EDT Office Visit [facility] 210 [facility] [place] [address] Juan José Cervantes MD 210 [facility] [place] [address] documented as of this encounter Visit Diagnoses Not on filedocumented in this encounter Care Teams Library Media Technician Relationship Specialty Start Date End Date Juan José Cervantes MD [address] [place] [address] PCP - General Family Medicine 02/20/22 documented as of this encounter
--- OUTSIDE RECORDS SUMMARY | 2025-05-26 08:19 | XMS_ITS | Encounter Summary ---
[facility] Organization [facility] Address [address] [place] [address] Care Team Providers Care Sky Line Yarder Name Role Phone Juan José Cervantes MD Primary Care Provider + Encounter Details Date Type Department Care Team (Late st Contact Info) Description 02/10/2025 Results Follow-Up [facility] 210 [facility] [address] Osman Lagos MD 210 [facility] [place] [address] Social History Tobacco Use Types Packs/Day Years Used Date Smoking Tobacco: Former Cigarettes 0.3 2 0 10/27/1968 - 10/27/1970 Passive Smoke Exposure: Never Smokeless Tobacco: Never Comments:Only smoked in high school Alcohol Use Standard Drinks/Week Comments Never 0 (1 standard drink = 0.6 oz pur e alcohol) [facility] Utilities Answer Date Recorded In the past 12 months has [employer], gas, oil, or water [employer] threatened to shut off services in your [...] or training? Not on file Preferred Language Spanish 05/21/2024 PHQ-2 Answer Date Recorded Patient Health [...] Description 06/30/2025 10:00 AM EDT Office Visit [facility] 3000 [facility] [address] 240 [place] [address] Tank Dudley MD [address] [place] [address] 07/19/2025 10:15 AM EDT Office Visit [facility] 210 [place] [address] Juan José Cervantes MD [address] [place] [address] documented as of this encounter Visit Diagnoses Not on filedocumented in this encounter Care Teams Sky Line Yarder Relationship Specialty Start Date End Date Juan José Cervantes MD [address] [place] [address] PCP - General Family Medicine 02/20/22 documented as of this encounter
--- OUTSIDE RECORDS SUMMARY | 2025-05-26 08:19 | XMS_ITS | Encounter Summary ---
Author Organization [facility] Address [address] [place] [address] Care Team Providers Care Roll Plugger Name Role Phone Juan José Cervantes MD [...] drink = 0.6 oz pur e alcohol) [facility] Utilities Answer Date Recorded In the past 12 months has [employer], gas, oil, or water [employer] threatened to shut off services in your [...] or training? Not on file Preferred Language Fijian 05/21/2024 PHQ-2 Answer Date Recorded Patient Health [...] 10:00 AM EDT Office Visit [facility] 3000 [facility] 240 [place] [address] Takn Dudley MD [address] [place] [id number] 07/19/2025 10:15 AM EDT Office Visit [facility] [address] [place] [address] Juan José Cervantes MD [address] [place] [address] documented as of this encounter Visit Diagnoses Not on filedocumented in this encounter Care Teams Roll Plugger Relationship Specialty Start Date End Date Juan José Cervantes MD [address] [place] [address] PCP - General Family Medicine 02/20/22 documented as of this encounter
--- OUTSIDE RECORDS SUMMARY | 2025-05-26 08:19 | XMS_ITS | Encounter Summary ---
[facility] Address [address] [place] [id number] Care Team Providers Care Cattle Knocker Name Role Phone Juan José Cervantes MD Primary Care Provider + Reason for Visit * Reason Comments Med Refill Encounter Details Date Type Department Care Team (Late st Contact Info) Description 04/13/2025 Refill [facility] 210 [facility] [address] Juan José Cervantes MD 210 [place] [address] Pedal edema Social History Tobacco Use Types Packs/Day Years Used Date Smoking Tobacco: Former Cigarettes 0.3 2 0 10/27/1968 - 10/27/1970 Passive Smoke Exposure: Never Smokeless Tobacco: Never Comments:Only smoked in high school Alcohol Use Standard Drinks/Week Comments Never 0 (1 standard drink = 0.6 oz pur e alcohol) [facility] Utilities Answer Date Recorded In the past 12 months has [employer], gas, oil, or water [employer] threatened to shut off services in your [...] Description 06/30/2025 10:00 AM EDT Office Visit [facility] 3000 [facility] 240 [place] [address] Tank Dudley MD 2400 [place] [address] 07/19/2025 10:15 AM EDT Office Visit [facility] 210 [facility] [place] [address] Juan José Cervantes MD [address] [place] [address] documented as of this encounter Visit Diagnoses Diagnosis Pedal edema Edema documented in this encounter Care Teams Cattle Knocker Relationship Specialty Start Date End Date Juan José Cervantes MD [address] [place] [address] PCP - General Family Medicine 02/20/22 documented as of this encounter
--- OUTSIDE RECORDS SUMMARY | 2025-05-26 08:19 | XMS_ITS | Encounter Summary ---
[facility] Address [address] [place] [address] Care Team Providers Care Environmental Science Professor Name Role Phone Juan José Cervantes MD Primary Care Provider + Encounter Details Date Type Department Care Team (Late st Contact Info) Description 04/04/2025 Results Follow-Up [facility] 210 [facility] [place] [address] Juan José Cervantes MD 210 [facility] [place] [address] Social History Tobacco Use Types Packs/Day Years Used Date Smoking Tobacco: Former Cigarettes 0.3 2 0 10/27/1968 - 10/27/1970 Passive Smoke Exposure: Never Smokeless Tobacco: Never Comments:Only smoked in high school Alcohol Use Standard Drinks/Week Comments Never 0 (1 standard drink = 0.6 oz pur e alcohol) [facility] Utilities Answer Date Recorded In the past 12 months has [employer], gas, oil, or water [employer] threatened to shut off services in your [...] or training? Not on file Preferred Language Singaporean 05/21/2024 PHQ-2 Answer Date Recorded Patient Health [...] Description 06/30/2025 10:00 AM EDT Office Visit [facility] 3000 [facility] [address] 240 [place] [address] Tank Dudley MD [address]00 [place] [address] 07/19/2025 10:15 AM EDT Office Visit [facility] 210 [place] [phone] Juan José Cervantes MD 210 [place] [address] documented as of this encounter Visit Diagnoses Not on filedocumented in this encounter Care Teams Environmental Science Professor Relationship Specialty Start Date End Date Juan José Cervantes MD [address] [place] [address] PCP - General Family Medicine 02/20/22 documented as of this encounter
--- OUTSIDE RECORDS SUMMARY | 2025-05-26 08:19 | XMS_ITS | Encounter Summary ---
Author Organization [facility] Address [address] [place] [address] Care Team Providers Care Chief Cloth Finishing Range Operator Name Role Phone Juan José Cervantes [...] Recorded In the past 12 months has [employer], gas, oil, or water [employer] threatened to shut off services in your [...] or training? Not on file Preferred Language Monegasque 05/21/2024 PHQ-2 Answer Date Recorded Patient Health [...] Description 06/30/2025 10:00 AM EDT Office [facility] 3000 [facility] 240 [place] [address] Tank Dudley MD [address] [place] [id number] 07/19/2025 10:15 AM EDT Office Visit [facility] [address] [place] [address] Juan José Cervantes MD [address] [place] [address] documented as of this encounter Visit Diagnoses Not on filedocumented in this encounter Care Teams Chief Cloth Finishing Range Operator Relationship Specialty Start Date End Date Juan José Cervantes MD [address] [place] [address] PCP - General Family Medicine 02/20/22 documented as of this encounter
--- OUTSIDE RECORDS SUMMARY | 2025-05-26 08:19 | XMS_ITS | Encounter Summary ---
Author Organization [facility] Address [address] [place] [address] Care Team Providers Care Board Of Education Secretary Name Role Phone Juan José Cervantes MD Primary Care Provider + Reason for Visit * Reason Onset Date Comments Med Management 04/13/2025 Encounter Details Date Type Department Care Team (Late st Contact Info) Description 04/13/2025 Telephone [facility] 210 [place] [address] Franklin Conklin PA 210 [place] [address] Med Management Social History Tobacco Use Types Packs/Day Years Used Date Smoking Tobacco: Former Cigarettes 0.3 2 0 10/27/1968 - 10/27/1970 Passive Smoke Exposure: Never Smokeless Tobacco: Never Comments:Only smoked in high school Alcohol Use Standard Drinks/Week Comments Never 0 (1 standard drink = 0.6 oz pur e alcohol) [facility] Utilities Answer Date Recorded In the past 12 months has [employer], gas, oil, or water company threatened [...] or training? Not on file Preferred Language Korean 05/21/2024 PHQ-2 Answer Date Recorded Patient [...] Description 06/30/2025 10:00 AM EDT Office Visit [facility] 3000 [facility] 240 [place] [address] Tank Dudley MD [address] [place] [address] 07/19/2025 10:15 AM EDT Office Visit [facility] 210 [facility] [place] [address] Juan José Cervantes MD [address] [place] [address] documented as of this encounter Visit Diagnoses Not on filedocumented in this encounter Care Teams Board Of Education Secretary Relationship Specialty Start Date End Date Juan José Cervantes MD [address] [place] [address] PCP - General Family Medicine 02/20/22 documented as of this encounter
--- OUTSIDE RECORDS SUMMARY | 2025-05-26 08:19 | XMS_ITS | Encounter Summary ---
Author Organization [facility] Address [address] [place] [address] Care Team Providers Care Psychologist Name Role Phone Juan José Cervantes MD Primary Care Provider + Encounter Details Date Type Department Care Team (Late st Contact Info) Description 04/13/2025 Results Follow-Up [facility] 210 [facility] [place] [address] Franklin Conklin PA 210 [facility] [place] [address] Social History Tobacco Use Types Packs/Day Years Used Date Smoking Tobacco: Former Cigarettes 0.3 2 0 10/27/1968 - 10/27/1970 Passive Smoke Exposure: Never Smokeless Tobacco: Never Comments:Only smoked in high school Alcohol Use Standard Drinks/Week Comments Never 0 (1 standard drink = 0.6 oz pur e alcohol) [facility] Utilities Answer Date Recorded In the past 12 months has [employer], gas, oil, or water [employer] threatened to shut off services in your [...] or training? Not on file Preferred Language Norwegian 05/21/2024 PHQ-2 Answer Date Recorded Patient Health [...] 06/30/2025 10:00 AM EDT Office Visit [facility] 3000 [facility] [address] 240 [place] [address] Tank Dudley MD 2400 [place] [address] 07/19/2025 10:15 AM EDT Office Visit [facility] MED[facility] [address] [place] [address] Juan José Cervantes MD 210 [place] [address] documented as of this encounter Visit Diagnoses Not on filedocumented in this encounter Care Teams Psychologist Relationship Specialty Start Date End Date Juan José Cervantes MD [address] [place] [address] PCP - General Family Medicine 02/20/22 documented as of this encounter
[2025-05-26 08:20] VITALS: BP 105/52; PULSE 98; RESP 17; O2SAT 95
[2025-05-26] MEDS: VITAMIN B-12 1,000 MCG 1ML VIAL 1000 MCG IM (08:20)
--- OUTSIDE RECORDS SUMMARY | 2025-05-26 08:21 | XMS_ITS | Encounter Summary ---
Author Organization [facility] Address [address] [place] [id number] Care Team Providers Care Dairy Worker Name Role Phone Juan José Cervantes MD Primary Care Provider + Reason for Visit * Reason Onset Date Comments Med Refill 03/14/2023 Encounter Details Date Type Department Care Team (Late st Contact Info) Description 03/14/2023 Refill [facility] 210 [place] [address] Juan José Cervantes MD 210 [place] [address] Social History Tobacco Use Types [...] 10:00 AM EDT Office Visit [facility] 3000 [facility] 240 [place] [address] Tank Dudley MD [facility]0 [place] [address] 07/19/2025 10:15 AM EDT Office Visit [facility] [address] [place] [address] Juan José Cervantes MD [address] [place] [address] documented as of this encounter Visit Diagnoses Not on filedocumented in this encounter Care Teams Dairy Worker Relationship Specialty Start Date End Date Juan José Cervantes MD [address] [place] [address] PCP - General Family Medicine 02/20/22 documented as of this encounter
--- OUTSIDE RECORDS SUMMARY | 2025-05-26 08:21 | XMS_ITS | Encounter Summary ---
Author Organization [facility] Address [address] [place] [phone] Care Team Providers Care Assigner Name Role Phone Juan José Cervantes MD Primary Care Provider + Reason for Visit * Reason Onset Date Comments Med Refill 05/24/2025 Encounter Details Date Type Department Care Team (Late st Contact Info) Description 05/24/2025 Refill [facility] 210 [place] [address] Juan José Cervantes MD 210 [place] [address] Type 2 diabetes mellitus with diabetic neuropathy, with long-term current use of insulin Social History Tobacco Use Types Packs/Day Years Used Date Smoking Tobacco: Former Cigarettes 0.3 2 0 10/27/1968 - 10/27/1970 Passive Smoke Exposure: Never Smokeless Tobacco: Never Comments:Only smoked in high school Alcohol Use Standard Drinks/Week Comments Never 0 (1 standard drink = 0.6 oz pur e alcohol) [facility] Utilities Answer Date Recorded In the past 12 months has [employer], gas, oil, or water company threatened to [...] or training? Not on file Preferred Language Tajik 05/21/2024 PHQ-2 Answer Date Recorded Patient Health [...] Description 06/30/2025 10:00 AM EDT Office Visit [facility] 3000 [facility] 240 [place] [address] Tank Dudley MD 2400 [place] [address] 07/19/2025 10:15 AM EDT Office Visit [facility] [address] [place] [address] Juan José Cervantes MD [address] [place] [address] documented as of this encounter Visit Diagnoses Diagnosis Type 2 diabetes mellitus with diabetic neuropathy, with long-term current use of insulin documented in this encounter Care Teams Assigner Relationship Specialty Start Date End Date Juan José Cervantes MD [address] [place] [address] PCP - General Family Medicine 02/20/22 documented as of this encounter
--- OUTSIDE RECORDS SUMMARY | 2025-05-26 08:21 | XMS_ITS | Encounter Summary ---
Author Organization [facility] Address [address] [place] [id number] Care Team Providers Care Ton Container Filler Name Role Phone Juan José Bender MD Primary Care Provider + Reason for Visit * Reason Onset Date Comments PAPERWORK 04/05/2025 Encounter Details Date Type Department Care Team (Late st Contact Info) Description 04/05/2025 Telephone [facility]IC[facility] 210 [place] [address] Juan José Bender MD 210 [place] [address] PAPERWORK Social History Tobacco Use Types Packs/Day Years Used Date Smoking Tobacco: Former Cigarettes 0.3 2 0 10/27/1968 - 10/27/1970 Passive Smoke Exposure: Never Smokeless Tobacco: Never Comments:Only smoked in high school Alcohol Use Standard Drinks/Week Comments Never 0 (1 standard drink = 0.6 oz pur e alcohol) [facility] Utilities Answer Date Recorded In the past 12 months has [employer], gas, oil, or water company threatened [...] or training? Not on file Preferred Language Syrian 05/21/2024 PHQ-2 Answer Date Recorded Patient Health [...] EDT Caller: [facility] [address] - [phone] PH - [phone] FX Relationship: Pharmacy Best call back number: [phone] What was the call regarding: [facility] IS CALLING AND WOULD LIKE TO CHECK ON THE STATUS OF SOME PAPERWORK FOR DIABETIC SHOES. THE PATIENT STATES DR. BENDER HAS FAXED THIS TO THEM BUT THEY HAVE NOT RECEIVED ANYTHING YET. IF IT NEEDS TO BE RE FAXED PLEASE FAX TO [phone]. documented in this encounter Plan of Treatment Upcoming Encounters Date Type Department Care Team (Late st Contact Info) Description 06/30/2025 10:00 AM EDT Office Visit [facility] SLE[facility] 3000 [facility] 240 [place] [address] Tank Dudley MD [address]00 [place] [address] 07/19/2025 10:15 AM EDT Office Visit [facility] MEDIC[facility] [address] [place] [address] Juan José Bender MD [address] [place] [address] documented as of this encounter Visit Diagnoses Not on filedocumented in this encounter Care Teams Ton Container Filler Relationship Specialty Start Date End Date Juan José Bender MD [address] [place] [address] PCP - General Family Medicine 02/20/22 documented as of this encounter
--- OUTSIDE RECORDS SUMMARY | 2025-05-26 08:21 | XMS_ITS | Encounter Summary ---
Author Organization Healthcare Address [address] [place] [address] Care Team Providers Care Drying Oven Tender Name Role Phone Juan José Cervantes MD Primary Care Provider [phone] Encounter Details Date Type Department Care Team (Late st Contact Info) Description 04/29/2025 Telephone [facility] [address], [address] [place] [address] Dixon Gongora MD [address] [place] [address] Social History Tobacco Use Types [...] documented as of this encounter Care Teams Drying Oven Tender Relationship Specialty Start Date End Date Juan José Cervantes MD PCP - General 01/20/25 documented as of this encounter
--- OUTSIDE RECORDS SUMMARY | 2025-05-26 08:21 | XMS_ITS | Encounter Summary ---
Author Organization [facility] Address [address] [place] [phone] Care Team Providers Care Cloth Doffer Name Role Phone Juan José Cervantes MD Primary Care Provider + Reason for Visit * Reason Onset Date Comments Med Refill 03/29/2024 Encounter Details Date Type Department Care Team (Late st Contact Info) Description 03/29/[address] [facility] FAMILY MEDICINE 210 [place] [address] Juan José Cervantes MD 210 [place] [address] Diabetic peripheral neuropathy Social History [...] 10:00 AM EDT Office Visit [facility] SLEEP MEDICINE 3000 [facility] 240 [place] [address] Tank Dudley MD [facility] [place] [id number] 07/19/2025 10:15 AM EDT Office Visit [facility] FAM[facility] MEDICINE [address] [place] [address] Juan José Cervantes MD [address] [place] [address] documented as of this encounter Visit Diagnoses Diagnosis Diabetic peripheral neuropathy Type II or unspecified type diabetes mellitus with neurological manifestations, not stated as uncontrolled documented in this encounter Care Teams Cloth Doffer Relationship Specialty Start Date End Date Juan José Cervantes MD [address] [place] [address] PCP - General Family Medicine 02/20/22 documented as of this encounter
--- OUTSIDE RECORDS SUMMARY | 2025-05-26 08:21 | XMS_ITS | Encounter Summary ---
Author Organization Healthcare Address [address] [place] [address] Care Team Providers Care Manager Assembly Name Role Phone Juan José Cervantes MD Primary Care Provider [phone] Encounter Details Date Type Department Care Team (Late st Contact Info) Description 05/25/2025 Telephone [place] [facility] [address], [address] [place] [address] Dixon Gongora MD [address] [place] [address] Social History Tobacco Use Types [...] documented as of this encounter Care Teams Manager Assembly Relationship Specialty Start Date End Date Juan José Cervantes MD PCP - General 01/20/25 documented as of this encounter
--- OUTSIDE RECORDS SUMMARY | 2025-05-26 08:21 | XMS_ITS | Encounter Summary ---
Author Organization [facility] Address [address] [place] [id number] Care Team Providers Care Oil Well Fishing Tool Technician Name Role Phone Juan José Cervantes MD Primary Care Provider + Reason for Visit * Reason Comments Med Refill Encounter Details Date Type Department Care Team (Late st Contact Info) Description 10/26/2024 Refill [facility] [address] [facility] [place] [address] Juan José Cervantes MD [address] [place] [address] Type 2 diabetes mellitus with [...] e alcohol) [facility] Utilities Answer Date Recorded In the past 12 months has [employer], gas, oil, or water company threatened [...] Not on file Preferred Language Citizen Of [place] 05/21/2024 PHQ-2 Answer Date Recorded Retired PHQ-9: [...] Description 06/30/2025 10:00 AM EDT Office Visit [facility]EP [facility] [address] [facility] [address] [place] [id number] Tank Dudley MD [address] [place] [address] 07/19/2025 10:15 AM EDT Office Visit [facility] [address] [place] [phone] Juan José Cervantes MD [address] [place] [address] documented as of this encounter Visit Diagnoses Diagnosis Type 2 diabetes mellitus with diabetic neuropathy, with long-term current use of insulin Long-term insulin use documented in this encounter Care Teams Oil Well Fishing Tool Technician Relationship Specialty Start Date End Date Juan José Cervantes MD [address] [place] [address] PCP - General Family Medicine 02/20/22 documented as of this encounter
--- OUTSIDE RECORDS SUMMARY | 2025-05-26 08:21 | XMS_ITS | Encounter Summary ---
Author Organization [facility] Address [address] [place] [id number] Care Team Providers Care After School Program Director Name Role Phone Juan José Cervantes MD Primary Care Provider + Reason for Visit * Reason Onset Date Comments Med Refill 07/30/2023 Encounter Details Date Type Department Care Team (Late st Contact Info) Description 07/30/2023 Refill [facility] FAM[facility]INE [address] [place] [address] Juan José Cervantes MD [address] [place] [address] Diabetic peripheral neuropathy Social History [...] Description 06/30/2025 10:00 AM EDT Office Visit [facility] SLEEP MEDICINE [address] [facility] [address] [place] [address] Tank Dudley MD [address] [place] [address] 07/19/2025 10:15 AM EDT Office Visit [facility] [address] [place] [phone] Juan José Cervantes MD [address] [place] [address] documented as of this encounter Visit Diagnoses Diagnosis Diabetic peripheral neuropathy Type II or unspecified type diabetes mellitus with neurological manifestations, not stated as uncontrolled documented in this encounter Care Teams After School Program Director Relationship Specialty Start Date End Date Juan José Cervantes MD [address] [place] [address] PCP - General Family Medicine 02/20/22 documented as of this encounter
== END 2025-05-26 08:30 | disposition home or self-care (01) ==
LOC: INF 08:11
PROVIDERS: PCP Family Medicine; Visit Provider Family Medicine
DX: E53.8 Deficiency of other specified B group vitamins (principal)
CPT/HCPCS: 96372; J3420

== ENCOUNTER 2025-06-23 08:01 | Outpatient (CLI) | payer MEDICARE, OTHER, SELFPAY ==
--- OUTSIDE RECORDS SUMMARY | 2025-06-23 08:04 | XMS_ITS | Clinical Summary ---
Author Organization [facility] Address [address] [place] [address] Care Team Providers Care Mitering Machine Operator Name Role Phone Juan José [...] AFFECTED AREA TWICE DAILY FOR 14 DAYS 022 Active fexofenadine (KRISTYN) 180 MG tablet Take 1 tablet by mouth Daily. 90 tablet 3 023 Active sildenafil (Viagra) 100 MG tabletIndications: Drug-induced erectile dysfunction Take 1 tablet by mouth Daily As Needed for Erectile Dysfunction. 6 tablet 11 023 Active cyanocobalamin 1000 MCG/ML injectionIndicatio ns:Vitamin B12 deficiency Inject once monthly at [facility] 1 mL 11 023 Active Continuous Glucose Sensor (FreeStyle Amanda 2 Sensor) miscIndications:Ty pe 2 diabetes mellitus with diabetic neuropathy, with long-term current use of insulin USE DIRECTED EVERY 14 DAYS 6 each 4 024 Active Continuous Glucose Sensor (FreeStyle Amanda 2 Sensor) miscIndications:Ty pe 2 diabetes mellitus with diabetic neuropathy, with long-term current use of insulin 1 Units by Subdermal route Every 14 (Fourteen) Days. 6 each 4 024 Active colchicine 0.6 MG tabletIndications: Podagra Take 1 tablet by mouth Daily. 90 tablet 1 024 Active enalapril (VASOTEC) 10 MG tabletIndications: Primary hypertension Take 1 tablet by mouth Daily. 90 tablet 2 024 Active BD ULTRA-FINE PEN NEEDLES 29G X 12.7MM miscIndications:Ty pe 2 diabetes mellitus with diabetic neuropathy, with long-term current use of insulin,Long-term insulin use Use 1 each Daily. 100 each 3 024 Active allopurinol 200 MG tabletIndications: Hyperuricemia Take 400 mg by mouth Daily. 180 tablet 025 Active rosuvastatin (Crestor) 10 MG tabletIndications: Type 2 diabetes mellitus with hyperglycemia, with long-term current use of insulin,Mixed hyperlipidemia Take 1 tablet by mouth Daily. 90 tablet 3 025 Active metFORMIN (GLUCOPHAGE) 1000 MG tablet TAKE 1 TABLET BY MOUTH TWICE DAILY WITH MEALS 180 tablet 3 025 Active HYDROcodone-acetam inophen (NORCO) 5-325 MG per tabletIndications: Left lateral abdominal pain,History of colonic diverticulitis Take 1 tablet by mouth Every 8 (Eight) Hours As Needed for Severe Pain. 12 tablet 025 Active carbidopa-levodopa (SINEMET) 25-100 MG per tablet TAKE 1 TABLET BY MOUTH THREE TIMES DAILY 270 tablet 1 025 Active Insulin Glargine, 2 Unit Dial, (TOUJEO) 300 UNIT/ML solution pen-injector injectionIndicatio ns:Type 2 diabetes mellitus with hyperglycemia, with long-term current use of insulin Inject 60 Units under the skin into the appropriate area as directed Daily. 15 mL 11 025 Active NON FORMULARY Apply topically to the appropriate area as directed. Active Pramipexole Dihydrochloride ER 0.75 MG tablet sustained-release 24 hour TAKE 1 TABLET BY MOUTH IN THE MORNING AND 1 TABLET BEFORE BEDTIME FOR 7 DAYS. DISCARD REMAINDER Active furosemide (LASIX) 40 MG tabletIndications: Pedal edema TAKE 1 TABLET BY MOUTH DAILY 90 tablet 3 025 Active Semaglutide, 2 MG/DOSE, (Ozempic, 2 MG/DOSE,) 8 MG/3ML solution pen-injectorIndica tions:Type 2 diabetes mellitus with diabetic neuropathy, with long-term current use of insulin Inject 2 mg under the skin into the appropriate area as directed 1 (One) Time Per Week. friday 3 mL 2 Active Jardiance 10 MG tablet tabletIndications: Type 2 diabetes mellitus with hyperglycemia, with long-term current use of insulin,Stage 3a chronic kidney disease (CKD) TAKE 1 TABLET BY MOUTH DAILY 30 tablet 2 Active isosorbide mononitrate (IMDUR) 30 MG 24 hr tabletIndications: Primary hypertension TAKE 1 TABLET BY MOUTH EVERY MORNING 30 tablet 3 025 Active isosorbide mononitrate (IMDUR) 30 MG 24 hr tabletIndications: Primary hypertension Take 1 tablet by mouth Every Morning. 30 tablet 3 025 2024 Discontinued empagliflozin (Jardiance) 10 MG tablet tabletIndications: Type 2 diabetes mellitus with hyperglycemia, with long-term current use of insulin,Stage 3a chronic kidney disease (CKD) Take 1 tablet by mouth Daily. 30 tablet 2 025 2024 Discontinued Hospital, Clinic, or Other Facility Administered Medication [...] documentation of his foot exam from his offset press assistant and a new prescription for diabetic shoes [...] Encounters Date Type Department Care Team Description 06/21/2025 Telephone [facility] SLEEP MEDICINE [address] [facility] [address] [phone] Tank Dudley MD SLEEP RECORDS 06/14/2025 Refill [facility] [address] [place] [address] Juan José Cervantes MD Primary hypertension 06/11/2025 Refill [facility] [address] [place] [address] Juan José Cervantes MD Type 2 diabetes mellitus with hyperglycemia, with long-term current use of insulin; Stage 3a chronic kidney disease (CKD) 05/24/2025 Refill [facility] [address] [place] [address] Juan José Cervantes MD Type 2 diabetes mellitus with diabetic neuropathy, with long-term current use of insulin 05/06/2025 Telephone [facility] [address] [place] [address] Juan José Cervantes MD 04/13/2025 Refill [facility] [address] [place] [address] Juan José Cervantes MD Pedal edema 04/13/2025 Telephone [facility] [address] [place] [address] Franklin Conklin PA Med Management 04/13/2025 Results Follow-Up [facility] [address] [place] [address] Franklin Conklin PA 04/11/2025 10:00 AM EDT Office Visit [facility] [address] [place] [address] Franklin Conklin PA Vitamin B12 deficiency (Primary Dx); Iron deficiency; Medication monitoring encounter; Fatigue, unspecified type; Vitamin D insufficiency; FABIO (obstructive sleep apnea); Need for hepatitis C screening test; Forgetfulness; Screening for malignant neoplasm of prostate 04/11/2025 Travel 04/05/2025 Telephone [facility] MEDICINE [address] [place], [place] [address] Juan José Cervantes MD PAPERWORK 04/04/2025 Results Follow-Up [facility] MEDICINE [address] [place] [address] Juan José Cervantes MD 03/31/2025 8:45 AM EDT Office Visit [facility] [address] [place], [place] [address] Juan José Cervantes MD Type 2 [...] drink = 0.6 oz pur e alcohol) [facility] Utilities Answer Date Recorded In the past 12 months has th e electric, gas, oil, or water company threatened [...] or training? Not on file Preferred Language Mosotho 05/21/2024 PHQ-2 Answer Date Recorded Patient Health [...] Description 06/30/2025 10:00 AM EDT Office Visit [facility] SLEEP MEDICINE [address] [phone] Tank Dudley MD [facility] [place] [address] 07/19/2025 10:15 AM EDT Office Visit [facility] FAMILY MEDICINE [address] [place] [address] Juan José Cervantes MD [address] [place] [address] Health Maintenance Due Date Last Done Comments COLON CANCER SCREENING 5 YEA R SIGMOIDOSCOPY [address] COLONOGRAPHY 1999 FECAL OCCULT BLOOD TEST 1999 FIT Testing (1 year) 1999 ZOSTER VACCINE (1 of 2) 2004 COVID-19 Vaccine (4 2023-2 5 season) 2024 11/21/2021, 01/24/2021, 12/27/2020 COLOGUARD [...] Comment: Jesús ECLIA methodology. According to the [place] [employer], Serum PSA should decrease and [...] - 04/13/2025 8:11 AM EDT Performed at: [facility] [id number] Milk Receiver Tank Truck: Enmanuel Akbar PhD, Phone: [phone] Patient Fasting: Y Franklin [facility] LAB BLOOD ORDERABLES Final Res ult [facility] (AMBULATORY) [address] [place] [address], [facility] [address] [place] [address], [place] [phone] * Written Authorization (04/11/2025 10:55 AM EDT) Written Authorization Comment [facility] Comment: Written Authorization Received. Authorization received from Original Requisition 04-12-2025 Logged by Mirian Riddle 04/11/2025 10:5 5 AM EDT 04/11/2025 Narrative [facility] (AMBULATORY) - 04/13/2025 8:11 AM EDT Performed at: [facility] [address] [id number] Milk Re[employer] Truck: Enmanuel Akbar PhD, Phone: [phone] Patient Fasting: Y us Franklin [facility] LAB BLOOD ORDERABLES Final Res ult [facility] (AMBULATORY) [address] [place] [address], [facility] [address] [place] [address], [place] [phone] * Hepatitis C Antibody (04/11/2025 10:55 AM [...] - 04/13/2025 8:11 AM EDT Performed at: [facility] [address] [id number] [employer] Tank Truck: Enmanuel Akbar PhD, Phone: [phone] Patient Fasting: Y us Franklin MADR[facility] LAB BLOOD ORDERABLES Final Res ult Performing Organization Address City/[facility]/ZIP Co de Phone Number [facility] (AMBULATORY) [address] [place] [address], [facility] [address] [place] [address], * Iron Profile w/o Ferritin (04/11/2025 10:55 AM EDT) TIBC 279 250 - 450 ug/dL [facility] UIBC 210 111 - 343 ug/dL [facility] Iron 69 38 - 169 ug/dL [facility] Iron Saturation 25 15 - 55 % [facility] 04/11/2025 10:5 5 AM EDT 04/11/2025 Narrative [facility] (AMBULATORY) - 04/13/2025 8:11 AM EDT Performed at: 01 - [address] [id number] [employer] Tank Truck: Enmanuel Akbar PhD, Phone: [phone] Patient Fasting: Y Franklin MADRID LAB BLOOD ORDERABLES Final Res ult Performing Organization Address City/[facility]/ZIP Co de Phone Number [facility] (AMBULATORY) [address] [place] [address], [place] [phone] [facility] [address] [place] [address], * Vitamin B1, Whole Blood (04/11/2025 10:55 AM EDT) Pathologist [facility] Vitamin B1, Whole Blood 189.4 66.5 - 200.0 nmol/L [facility] Blood 04/11/2025 10:5 5 AM EDT 04/11/2025 [facility] (AMBULATORY) - 04/14/2025 2:10 PM EDT Test(s) 572910-Phg. B1, Whole Blood was developed and its performance characteristics determined by [facility]. It has not been cleared or approved by the Food and Drug Administration. Performed at: 02 - [facility] [address] [place], [place] [id number] Milk Receiver Tank Truck: Elgin Sinclair MD, Phone: [phone] Patient Fasting: Y Franklin MADR[facility] LAB BLOOD ORDERABLES Final Res ult Performing Organization Address City/[facility]/ZIP Co de Phone Number [facility] (AMBULATORY) [address] [place] [address], [facility] [address] [place] [address], * Vitamin D,25-Hydroxy (04/11/2025 10:55 AM EDT) [facility] 25 Hydroxy, Vitamin D 36.4 30.0 - 100.0 ng/mL [facility] Comment: Vitamin D deficiency has been defined by the [place] of Medicine and an Endocrine Society practice guideline as a level of serum 25-OH vitamin D less than 20 ng/mL (1,2). The Endocrine Society went on to further define vitamin D insufficiency as a level between 21 and 29 ng/mL (2). 1. IOM ([place] of Medicine). 2010. Dietary reference intakes for calcium and D. [place]: The National Academies Press. 2. Ousmane MF, Celso [place], Mc RONDON, et al. Evaluation, treatment, and prevention of vitamin D deficiency: an Endocrine Society clinical practice guideline. JCEM. 2010; 96(7):1911-30. 04/11/2025 10:5 5 AM EDT 04/11/2025 Narrative [facility] (AMBULATORY) - 04/13/2025 8:11 AM EDT Performed at: - [facility] [address] [place], [place] [id number] Milk Receiver Tank Truck: Enmanuel Akbar PhD, Phone: [phone] Patient Fasting: Y Franklin MADRID LAB BLOOD ORDERABLES Final Res ult Performing Organization Address [facility]/ZIP Co de Phone Number [facility] (AMBULATORY) [address] [place] [address], [facility] [address] [place] [address], * (ABNORMAL) CBC & Differential (04/11/2025 10:55 AM EDT) [facility] WBC 10.0 3.4 - 10.8 x10E3/uL [facility] [...] 8:11 AM EDT Performed at: 01 - [address], [place], [place] [id number] Milk Re[employer] Tank Truck: Enmanuel Akbar PhD, Phone: [phone] Patient Fasting: Y Franklin MADRID LAB BLOOD ORDERABLES Final Res ult [facility] (AMBULATORY) [address] [place] [address], [facility] [address] [place] [address], [place] [phone] * TSH (04/11/2025 10:55 AM EDT) [facility] TSH 2.190 0.450 - 4.500 uIU/mL [facility] Blood 04/11/2025 10:5 5 AM EDT 04/11/2025 Narrative [facility] (AMBULATORY) - 04/14/2025 2:10 PM EDT Performed at: [address] [place] [id number] Milk Re[employer] Tank Truck: Enmanuel Akbar PhD, Phone: [phone] Patient Fasting: Y Franklin MADRID LAB BLOOD ORDERABLES Final Res ult [facility] [address] [place] [address], [facility] [address] [place] [address], [place] [phone] * T4, free (04/11/2025 10:55 AM EDT) [facility] Free T4 1.24 0.82 - 1.77 ng/dL [facility] Blood 04/11/2025 10:5 5 AM EDT 04/11/2025 Narrative [facility] (AMBULATORY) - 04/14/2025 2:10 PM EDT Performed at: [address] [place] [id number] Milk Receiver Tank Truck: Enmanuel Akbar PhD, Phone: [phone] Patient Fasting: Y Franklin MADRID LAB BLOOD ORDERABLES Final Res ult Performing Organization Address [facility] Co de Phone Number [facility] (AMBULATORY) [address] [place] [address], [facility] [address] [place] [address], * Magnesium (04/11/2025 10:55 AM EDT) Pathologist [facility] Magnesium 1.9 1.6 - 2.3 mg/dL [facility] 04/11/2025 10:5 5 AM EDT 04/11/2025 Narrative [facility] (AMBULATORY) - 04/13/2025 8:11 AM EDT Performed at: [address] [id number] Milk Receiver Tank Truck: Enmanuel Akbar PhD, Phone: [phone] Patient Fasting: Y us Franklin MADRID LAB BLOOD ORDERABLES Final Res ult Performing Organization Address [facility] de Phone Number [facility] [address] [place] [address], [facility] [address] [place] [address], * Folate (04/11/2025 10:55 AM EDT) Pathologist [facility] Folate >20.0 >3.0 ng/mL [facility] Comment: A serum folate concentration of less than 3.1 ng/mL is considered to represent clinical deficiency. 04/11/2025 10:5 5 AM EDT 04/11/2025 Narrative [facility] (AMBULATORY) - 04/13/2025 8:11 AM EDT Performed at: [address] [id number] Milk Re[employer] Tank Truck: Enmanuel Akbar PhD, Phone: [phone] Patient Fasting: Y Franklin MADRID LAB BLOOD ORDERABLES Final Res ult Performing Organization Address [facility]/ZIP Co de Phone Number [facility] (AMBULATORY) [address] [place] [address], [place] [phone] [facility] [address] [place] [address], [place] [phone] * Ferritin (04/11/2025 10:55 AM EDT) Ferritin 178 30 - 400 ng/mL [facility] 04/11/2025 10:5 5 AM EDT 04/11/2025 Narrative [facility] (AMBULATORY) - 04/13/2025 8:11 AM EDT Performed at: - [facility] [address] [place], [place] [id number] Milk Receiver Tank Truck: Enmanuel Akbar PhD, Phone: [phone] Patient Fasting: Y us Franklin MADRID LAB BLOOD ORDERABLES Final Res ult Performing Organization Address [facility] Co de Phone Number [facility] (AMBULATORY) [address] [place] [address], [place] [phone] [facility] [address] [place] [address], [place] [phone] * Vitamin B12 (04/11/2025 10:55 AM EDT) Pathologist [facility] Vitamin B-12 974 232 - 1,245 pg/mL [facility] 04/11/2025 10:5 5 AM EDT 04/11/2025 Narrative [facility] (AMBUL[facility]ORY) - 04/13/2025 8:11 AM EDT Performed at: - [facility] [address] [place], [place] [id number] Milk Receiver Tank Truck: Enmanuel Akbar PhD, Phone: [phone] Patient Fasting: Y Franklin MADRID LAB BLOOD ORDERABLES Final Res ult Performing Organization Address City/[facility]/ZIP Co de Phone Number [facility] (AMBULATORY) [address] [place] [address], [place] [phone] [facility] [address] [place] [address], * (ABNORMAL) Basic Metabolic Panel (04/11/2025 10:55 AM EDT) Glucose 110(H) 70 - 99 mg/dL [facility] [...] 10:5 5 AM EDT 04/11/2025 Narrative [facility] (AMBULATORY) - 04/13/2025 8:11 AM EDT Performed at: 01 - [facility] [address] [place], [place] [id number] Milk Receiver Tank Truck: Enmanuel Akbar PhD, Phone: [phone] Patient Fasting: Y Franklin MADRID LAB BLOOD ORDERABLES Final Res ult [facility] (AMBULATORY) [address] [place] [address], [facility] [address] [place] [id number], * FOOT EXAM SCANNED (04/05/2025) Juan José Cervantes MD CHART REVIEW TABS Fin al Result * (ABNORMAL) Cystatin C (03/31/2025 9:32 AM EDT) Cystatin C 1.81(H) 0.72 - 1.16 mg/L [facility] Blood 03/31/2025 9:32 AM EDT 03/31/2025 Narrative [facility] (AMBULATORY) - 04/01/2025 8:11 AM EDT Performed at: [address] [place] [id number] [employer] Tank Truck: Enmanuel Akbar PhD, Phone: [phone] Patient Fasting: Y Juan José Cervantes MD LAB BLOOD ORDERABLES Fin al Result Performing Organization Address City/[facility] Co de Phone Number [facility] (AMBULATORY) [address] [place] [address], [facility] [address] [place] [address], * (ABNORMAL) CBC (No Diff) (03/31/2025 9:32 AM EDT) [facility] WBC 10.99(H) 3.40 - 10.80 10*3/mm3 [facility] [...] - 04/01/2025 8:11 AM EDT Performed at: [address] [place] [id number] [employer] Tank Truck: Christiano Hoyt MD, Phone: [phone] Patient Fasting: Y Juan José Cervantes MD LAB BLOOD ORDERABLES Fin al Result [facility] ([facility]BULATORY) [address] [place] [address], [facility] [address] [place] [address], * Uric Acid (03/31/2025 9:32 AM EDT) Uric Acid 7.0 3.4 - 7.0 mg/dL [facility] Blood 03/31/2025 9:32 AM EDT 03/31/2025 Narrative [facility] (AMBULATORY) - 04/01/2025 8:11 AM EDT Performed at: [address] [place] [id number] Milk Receiver Tank Truck: Christiano Hoyt MD, Phone: [phone] Patient Fasting: Y Juan José Cervantes MD LAB BLOOD ORDERABLES Fin al Result [facility] (AMBULATORY) [address] [place] [address], [facility] [address] [place] [address], * (ABNORMAL) Renal Function Panel (03/31/2025 9:32 [...] 03/31/2025 9:32 AM EDT 03/31/2025 Narrative [facility] (AMBULATORY) - 04/01/2025 8:11 AM EDT Performed at: [address] [place] [id number] [employer] Truck: Christiano Hoyt MD, Phone: [phone] Patient Fasting: Y Juan José Cervantes MD LAB BLOOD ORDERABLES Fin al Result [facility] [employer] [facility] (AMBULATORY) [address] [place] [address], [facility] [address] [place] [address], [place] [phone] * (ABNORMAL) Lipid Panel (03/31/2025 9:32 AM EDT) [facility] Total Cholesterol 96 0 - [...] 03/31/2025 9:32 AM EDT 03/31/2025 Narrative [facility] (AMBULATORY) - 04/01/2025 8:11 AM EDT Performed at: [address] [place] [id number] Milk Re[employer] Tank Truck: Christiano Hoyt MD, Phone: [phone] Patient Fasting: Y Juan José Cervantes MD LAB BLOOD ORDERABLES Fin al Result [facility] (AMBULATORY) [address] [place] [address], [facility] [address] [place] [address], [place] [phone] * ECG Scan (03/27/2025) Juan José Cervantes [...] 12/28/2024 8:27 AM EST 12/28/2024 Narrative [facility] (AMBULATORY) - 12/29/2024 3:07 AM EST Performed at: [address] [place] [id number] Milk [employer] Tank Truck: Christiano Hoyt MD, Phone: [phone] Patient Fasting: Y Juan José Cervantes MD LAB BLOOD ORDERABLES Fin al Result [facility] (AMBULATORY) [address] [place] [id number], [facility] [address] [place] [address], * Cologuard - Stool, Per Rectum (06/12/2022 3:00 PM EDT) Cologuard Negative Negative 06/20/2022 2:02 AM EDT [employer] (CLIA #:[id number]) Comment: NEGATIVE TEST RESULT. A negative Cologuard [...] (Elyse Koenig al, N Engl J Med 2014;370(14):9765-4361) The normal value (reference range) for this assay is negative. COLOGUARD RE-SCREENING RECOMMENDATION: Periodic colorectal cancer screening is an important part of preventive healthcare for asymptomatic individuals at average risk for colorectal cancer. Following a negative Cologuard result, the [place] [employer] Society and U.S. Multi-Society Task Force screening guidelines recommend a Cologuard re-screening interval of 3 years. References: [place] [employer] Guideline for Colorectal Cancer Screening: https://www.cancer.org/cancer/ivqsw-lvczje-tvragf/nvdagovzq-oveuujgbf-xnwpvqs/ac s-rec ommendations.html.; Evan PETTY, Ting BOWERS, Nicholas RandolphK, Colorectal Cancer Screening: Recommendations for Physicians and Patients from the U.S. Multi-Society Task Force on Colorectal Cancer Screening , Am J Gastroenterology 2017; 112:4479-8619. TEST DESCRIPTION: Composite algorithmic analysis of stool [...] Leo et al, N Engl J Med 2014;370(14):1823-1065.) Cologuard may produce a false negative or false positive result (no colorectal cancer or precancerous polyp present at colonoscopy follow up). A negative Cologuard test result does not guarantee the absence of CRC or advanced adenoma (pre-cancer). The current Cologuard screening interval is every 3 years. ([place] [employer] Society and U.S. Multi-Society Task Force). Cologuard performance data in a 10,000 patient pivotal study using colonoscopy as the reference method can be accessed at the following location: www.[employer]/results. Additional description of the Cologuard test process, warnings and precautions can be found at www.Visual IQogWestward Leaningrd.DesignLine. Stool specimen (specimen) Specimen from rectum / Unknown 06/12/2022 3:00 PM EDT 06/13/2022 5:26 PM EDT Juan José Cervantes MD BODY FLUIDS AND STOOLS O RDERABLES Final Result [employer] (CLIA #:[id number]) [address] [place] [address], from Last 3 Months or Most Recently Relevant to Health Maintenance Insurance MEDICARE A & B Member Subscriber Plan / Payer (Ef fective 2019-Present) Name:Jon Maloney Member ID:[id number] Relation to Subscriber:Self Name:Jon Maloney Subscriber ID:[id number] Payer ID:[id number] Group ID:Not on file Type:Not on file Address: [address] COMMERCIAL Advance Directives Documents on File Type Date Recorded Patient Heart Surgeon Expl anation LIVING WILL - SCAN 12/16/2023 12:21 PM SE[facility] ING WILL, [facility], 11/25/2023 * CPR (Attempt to Resuscitate) (Latest Code Status on File) Date Activated Date Inactivated Comments 05/20/2024 6:32 PM 05/22/2024 3:06 PM Question Answer Comments Code Status (Patient has no pulse and is not breathing): CPR (Attempt to Resuscitate) Medical Interventions (Patie nt has pulse or is breathing): Full Support Care Teams Mitering Machine Operator Relationship Specialty Start Date End Date Juan José Cervantes MD [address] [place] [address] PCP - General Family Medicine 02/20/22
--- OUTSIDE RECORDS SUMMARY | 2025-06-23 08:04 | XMS_ITS | Encounter Summary ---
[facility] Address [address] [place] [id number] Care Team Providers Care Biological Lab Technician Name Role Phone Juan José Cervantes MD Primary Care Provider + Reason for Visit * Reason Comments Med Refill Encounter Details Date Type Department Care Team (Late st Contact Info) Description 06/14/2025 Refill [facility] FAMILY MEDICINE 210 [facility] [place] [address] Juan José Cervantes MD 210 [place] [address] Primary hypertension Social History Tobacco Use Types Packs/Day Years Used Date Smoking Tobacco: Former Cigarettes 0.3 2 0 10/27/1968 - 10/27/1970 Passive Smoke Exposure: Never Smokeless Tobacco: Never Comments:Only smoked in high school Alcohol Use Standard Drinks/Week Comments Never 0 (1 standard drink = 0.6 oz pur e alcohol) [facility] Utilities Answer Date Recorded In the past 12 months has [employer], gas, oil, or water [employer] threatened to shut off services in your [...] or training? Not on file Preferred Language Azerbaijani 05/21/2024 PHQ-2 Answer Date Recorded Patient Health [...] [facility] SLEEP MEDICINE 3000 [facility] 240 [place] [address] Tank Dudley MD [address] [place] [address] 07/19/2025 10:15 AM EDT Office Visit [facility] FAMILY MEDICINE 210 [place] [address] Juan José Cervantes MD 210 [facility] [place] [address] documented as of this encounter Visit Diagnoses Diagnosis Primary hypertension Unspecified essential hypertension documented in this encounter Care Teams Biological Lab Technician Relationship Specialty Start Date End Date Juan José Cervantes MD 210 [place] [address] PCP - General Family Medicine 02/20/22 documented as of this encounter
--- OUTSIDE RECORDS SUMMARY | 2025-06-23 08:04 | XMS_ITS | Encounter Summary ---
Author Organization [facility] Address [address] [place] [id number] Care Team Providers Care Instrumentation Fitter Name Role Phone Juan José Cervantes MD Primary Care Provider + Reason for Visit * Reason Comments Med Refill Encounter Details Date Type Department Care Team (Late st Contact Info) Description 06/11/2025 Refill [facility] FAMILY MEDICINE [address] [place] [address] Juan José Cervantes MD 210 [place] [address] Type 2 diabetes mellitus with hyperglycemia, with long-term current use of insulin; Stage 3a chronic kidney disease (CKD) Social History Tobacco Use Types Packs/Day Years Used Date Smoking Tobacco: Former Cigarettes 0.3 2 0 10/27/1968 - 10/27/1970 Passive Smoke Exposure: Never Smokeless Tobacco: Never Comments:Only smoked in high school Alcohol Use Standard Drinks/Week Comments Never 0 (1 standard drink = 0.6 oz pur e alcohol) [facility] Utilities Answer Date Recorded In the past 12 months has [employer], gas, oil, or water company threatened to [...] Description 06/30/2025 10:00 AM EDT Office Visit [facility] SLEEP MEDICINE 3000 [facility] 240 [place] [address] Tank Dudley MD [address] [place] [address] 07/19/2025 10:15 AM EDT Office Visit [facility] FAMILY MEDICINE [address] [place] [address] Juan José Cervantes MD [address] [place] [address] documented as of this encounter Visit Diagnoses Diagnosis Type 2 diabetes mellitus with hyperglycemia, with long-term current use of insulin Stage 3a chronic kidney disease (CKD) documented in this encounter Care Teams Instrumentation Fitter Relationship Specialty Start Date End Date Juan José Cervantes MD [address] [place] [address] PCP - General Family Medicine 02/20/22 documented as of this encounter
--- OUTSIDE RECORDS SUMMARY | 2025-06-23 08:04 | XMS_ITS | Encounter Summary ---
[facility] Address [address] [place] [id number] Care Team Providers Care Medical Insurance Biller Name Role Phone Juan José Cervantes MD Primary Care Provider + Reason for Visit * Reason Onset Date Comments SLEEP RECORDS 06/21/2025 Encounter Details Date Type Department Care Team (Late st Contact Info) Description 06/21/2025 Telephone [facility] SLEEP MEDICINE [address] [place] [phone] Tank Dudley MD [address] [place] [address] SLEEP RECORDS Social History Tobacco Use Types Packs/Day Years Used Date Smoking Tobacco: Former Cigarettes 0.3 2 0 10/27/1968 - 10/27/1970 Passive Smoke Exposure: Never Smokeless Tobacco: Never Comments:Only smoked in high school Alcohol Use Standard Drinks/Week Comments Never 0 (1 standard drink = 0.6 oz pur e alcohol) [facility] Utilities Answer Date Recorded In the past 12 months has [employer], gas, oil, or water company threatened [...] or training? Not on file Preferred Language Algerian 05/21/2024 PHQ-2 Answer Date Recorded Patient Health Questionnaire-2 Score 0 12/28/2024 Sex and Gender Information Value Date Recorded Sex Assigned at Male 12/28/2024 7:44 AM EST Legal Sex Male 11:15 AM EDT Gender Identity Not on file Sexual Orientation Not on file documented as of this encounter Miscellaneous Notes * Telephone Encounter - Taylor Anderson MA - 06/21/2025 9:26 AM EDT I spoke wit patient who states he has been on his PAP therapy 30-35 years. He is using [employer], Terri will retrieve SS and compliance. documented in this encounter Plan of Treatment Upcoming Encounters Date Type Department Care Team (Late st Contact Info) Description 06/30/2025 10:00 AM EDT Office Visit [facility] SLEEP MEDICINE 3000 [facility] 240 [place] [address] Tank Dudley MD 2400 [place] [address] 07/19/2025 10:15 AM EDT Office Visit [facility] FAMILY MEDICINE [address] [place] [address] Juan José Cervantes MD [address] [place] [address] documented as of this encounter Visit Diagnoses Not on filedocumented in this encounter Care Teams Medical Insurance Biller Relationship Specialty Start Date End Date Juan José Cervantes MD [address] [place] [address] PCP - General Family Medicine 02/20/22 documented as of this encounter
--- OUTSIDE RECORDS SUMMARY | 2025-06-23 08:05 | XMS_ITS | Encounter Summary ---
[facility] [address] [place] [phone] Care Team Providers Care Outside Laborer Name Role Phone Juan José Cervantes MD Primary Care Provider + Reason for Visit * Reason Onset Date Comments Med Refill 03/29/2024 Encounter Details Date Type Department Care Team (Late st Contact Info) Description 03/29/2024 Refill [facility] FAMILY MEDICINE 210 [place] [address] Juan José Cervantes MD 210 [place] [address] Diabetic peripheral neuropathy Social History [...] Description 06/30/2025 10:00 AM EDT Office Visit [facility] SLEEP MEDICINE 3000 [facility] 240 [place] [address] Tank Dudley MD [facility] [place] [id number] 07/19/2025 10:15 AM EDT Office Visit [facility] FAMILY MEDICINE [address] [place] [address] Juan José Cervantes MD [address] [place] [address] documented as of this encounter Visit Diagnoses Diagnosis Diabetic peripheral neuropathy Type II or unspecified type diabetes mellitus with neurological manifestations, not stated as uncontrolled documented in this encounter Care Teams Outside Laborer Relationship Specialty Start Date End Date Juan José Cervantes MD [address] [place] [address] PCP - General Family Medicine 02/20/22 documented as of this encounter
--- OUTSIDE RECORDS SUMMARY | 2025-06-23 08:05 | XMS_ITS | Encounter Summary ---
Author Organization [facility] Address [address] [place] [phone] Care Team Providers Care Magnetic Healer Name Role Phone Juan José Bender MD Primary Care Provider + Reason for Visit * Reason Onset Date Comments PAPERWORK 04/05/2025 Encounter Details Date Type Department Care Team (Late st Contact Info) Description 04/05/2025 Telephone [facility] FAMILY MEDICINE 210 [place] [address] Juan José Bender MD 210 [place] [address] PAPERWORK Social History Tobacco Use Types Packs/Day Years Used Date Smoking Tobacco: Former Cigarettes 0.3 2 0 10/27/1968 - 10/27/1970 Passive Smoke Exposure: Never Smokeless Tobacco: Never Comments:Only smoked in high school Alcohol Use Standard Drinks/Week Comments Never 0 (1 standard drink = 0.6 oz pur e alcohol) [facility] Utilities Answer Date Recorded In the past 12 months has [employer], gas, oil, or water company threatened [...] or training? Not on file Preferred Language Solomon Islander 05/21/2024 PHQ-2 Answer Date Recorded Patient [...] EDT Caller: [facility] [place] [facility] [address] [place] [address] - [phone] PH - [phone] FX Relationship: Pharmacy Best call back number: [phone] What was the call regarding: [facility] IS CALLING AND WOULD LIKE TO CHECK ON THE STATUS OF SOME PAPERWORK FOR DIABETIC SHOES. THE PATIENT STATES DR. BENDER HAS FAXED THIS TO THEM BUT THEY HAVE NOT RECEIVED ANYTHING YET. IF IT NEEDS TO BE RE FAXED PLEASE FAX TO [phone]. documented in this encounter Plan of Treatment Upcoming Encounters Date Type Department Care Team (Late st Contact Info) Description 06/30/2025 10:00 AM EDT Office Visit [facility] SLEEP MEDICINE 3000 [facility] 240 [place] [address] Tank Dudley MD 2400 [place] [address] 07/19/2025 10:15 AM EDT Office Visit [facility] FAMILY MEDICINE [address] [place] [address] Juan José Bender MD [address] [place] [address] documented as of this encounter Visit Diagnoses Not on filedocumented in this encounter Care Teams Magnetic Healer Relationship Specialty Start Date End Date Juan José Bender MD [address] [place] [address] PCP - General Family Medicine 02/20/22 documented as of this encounter
--- OUTSIDE RECORDS SUMMARY | 2025-06-23 08:05 | XMS_ITS | Encounter Summary ---
Author Organization [facility] Address [address] [place] [phone] Care Team Providers Care Director Private Name Role Phone Juan José Cervantes MD Primary Care Provider + Reason for Visit * Reason Onset Date Comments Med Refill 03/14/2023 Encounter Details Date Type Department Care Team (Late st Contact Info) Description 03/14/2023 Refill [facility] FAMILY MEDICINE 210 [place] [address] Juan José Cervantes MD 210 [place] [address] Social History Tobacco Use Types [...] Description 06/30/2025 10:00 AM EDT Office Visit [facility] SLEEP MEDICINE 3000 [facility] 240 [place] [address] Tank Dudley MD [facility]0 [place] [address] 07/19/2025 10:15 AM EDT Office Visit [facility] FAMILY MEDICINE [address] [place] [address] Juan José Cervantes MD [address] [place] [address] documented as of this encounter Visit Diagnoses Not on filedocumented in this encounter Care Teams Director Private Relationship Specialty Start Date End Date Juan José Cervantes MD [address] [place] [address] PCP - General Family Medicine 02/20/22 documented as of this encounter
--- OUTSIDE RECORDS SUMMARY | 2025-06-23 08:05 | XMS_ITS | Encounter Summary ---
Author Organization [facility] [address] [place] [phone] Care Team Providers Care Medical Practice Assistant Name Role Phone Juan José Cervantes MD Primary Care Provider + Encounter Details Date Type Department Care Team (Late st Contact Info) Description 05/06/2025 Telephone [facility] FAMILY MEDICINE 210 [facility] [place] [address] Juan José Cervantes MD 210 [place] [address] Social History Tobacco Use Types Packs/Day Years Used Date Smoking Tobacco: Former Cigarettes 0.3 2 0 10/27/1968 - 10/27/1970 Passive Smoke Exposure: Never Smokeless Tobacco: Never Comments:Only smoked in high school Alcohol Use Standard Drinks/Week Comments Never 0 (1 standard drink = 0.6 oz pur e alcohol) [facility] Utilities Answer Date Recorded In the past 12 months has [employer], gas, oil, or water [employer] threatened to shut off services in your [...] or training? Not on file Preferred Language Portuguese 05/21/2024 PHQ-2 Answer Date Recorded Patient Health [...] 05/06/2025 3:58 PM EDT Caller: [facility] [place] [address] - [phone] [facility] [phone] FX Relationship: Pharmacy Best call back number: [phone] What is the best time to reach [...] Description 06/30/2025 10:00 AM EDT Office Visit [facility] SLEEP MEDICINE 3000 [facility] 240 [place] [address] Tank Dudley MD 2400 [place] [address] 07/19/2025 10:15 AM EDT Office Visit [facility] FAMILY MEDICINE 210 [facility] [place] [address] Juan José Cervantes MD 210 [facility] [place] [address] documented as of this encounter Visit Diagnoses Not on filedocumented in this encounter Care Teams Medical Practice Assistant Relationship Specialty Start Date End Date Juan José Cervantes MD [address] [place] [address] PCP - General Family Medicine 02/20/22 documented as of this encounter
--- OUTSIDE RECORDS SUMMARY | 2025-06-23 08:05 | XMS_ITS | Encounter Summary ---
Author Organization [facility] Address [address] [place] [address] Care Team Providers Care State Farm Agent Team Member Name Role Phone Juan José Cervantes MD Primary Care Provider + Reason for Visit * Reason Onset Date Comments Med Management 04/13/2025 Encounter Details Date Type Department Care Team (Late st Contact Info) Description 04/13/2025 Telephone [facility] FAMILY MEDICINE 210 [place] [address] Franklin Conklin PA 210 [place] [address] Med Management Social History Tobacco [...] Recorded In the past 12 months has [employer] electric, gas, oil, or water company threatened [...] or training? Not on file Preferred Language East Timorese 05/21/2024 PHQ-2 Answer Date Recorded Patient Health [...] 06/30/2025 10:00 AM EDT Office Visit [facility] SLEEP MEDICINE 3000 [facility] 240 [place] [address] Tank Dudley MD [address] [place] [address] 07/19/2025 10:15 AM EDT Office Visit [facility] FAMILY MEDICINE 210 [facility] [place] [address] Juan José Cervantes MD [address] [place] [address] documented as of this encounter Visit Diagnoses Not on filedocumented in this encounter Care Teams State Farm Agent Team Member Relationship Specialty Start Date End Date Juan José Cervantes MD [address] [place] [address] PCP - General Family Medicine 02/20/22 documented as of this encounter
--- OUTSIDE RECORDS SUMMARY | 2025-06-23 08:05 | XMS_ITS | Encounter Summary ---
Author Organization [facility] Address [address] [place] [address] Care Team Providers Care Drill Grinder Name Role Phone Juan José Cervantes MD Primary Care Provider [phone] Encounter Details Date Type Department Care Team (Late st Contact Info) Description 06/09/2025 [facility]ill [place] [facility] [address] [place] [address] Dixon Gongora MD [address] [place] [address] Social History Tobacco Use Types [...] documented as of this encounter Care Teams Drill Grinder Relationship Specialty Start Date End Date Juan José Crevantes MD PCP - General 01/20/25 documented as of this encounter
--- OUTSIDE RECORDS SUMMARY | 2025-06-23 08:05 | XMS_ITS | Encounter Summary ---
Author Organization [facility] Address [address] [place] [phone] Care Team Providers Care Proj Mgr Name Role Phone Juan José Cervantes MD Primary Care Provider + Reason for Visit * Reason Comments Med Refill Encounter Details Date Type Department Care Team (Late st Contact Info) Description 10/26/2024 Refill [facility] FAMILY MEDICINE 210 [facility] [place] [address] Juan José Cervantes MD 210 [place] [address] Type 2 diabetes mellitus with [...] drink = 0.6 oz pur e alcohol) [facility] Utilities Answer Date Recorded In the past 12 months has [employer], gas, oil, or water company threatened [...] or training? Not on file Preferred Language Ivorian 05/21/2024 PHQ-2 Answer Date Recorded Retired PHQ-9: [...] Description 06/30/2025 10:00 AM EDT Office Visit [facility] SLEEP MEDICINE 3000 [facility] 240 [place] [address] Tank Dudley MD 2400 [place] [address] 07/19/2025 10:15 AM EDT Office Visit [facility] FAMILY MEDICINE 210 [place] [address] Juan José Cervantes MD [address] [place] [address] documented as of this encounter Visit Diagnoses Diagnosis Type 2 diabetes mellitus with diabetic neuropathy, with long-term current use of insulin Long-term insulin use documented in this encounter Care Teams Proj Mgr Relationship Specialty Start Date End Date Juan José Cervantes MD [address] [place] [address] PCP - General Family Medicine 02/20/22 documented as of this encounter
--- OUTSIDE RECORDS SUMMARY | 2025-06-23 08:05 | XMS_ITS | Encounter Summary ---
[facility] Address [address] [place] [address] Care Team Providers Care Electronic Engineering Draftsperson Name Role Phone Juan José Cervantes MD Primary Care Provider + Encounter Details Date Type Department Care Team (Late st Contact Info) Description 04/13/2025 Results Follow-Up [facility] FAMILY MEDICINE 210 [facility] [place] [address] Franklin Conklin PA 210 [facility] [place] [address] Social History Tobacco Use Types Packs/Day Years Used Date Smoking Tobacco: Former Cigarettes 0.3 2 0 10/27/1968 - 10/27/1970 Passive Smoke Exposure: Never Smokeless Tobacco: Never Comments:Only smoked in high school Alcohol Use Standard Drinks/Week Comments Never 0 (1 standard drink = 0.6 oz pur e alcohol) [facility] Utilities Answer Date Recorded In the past 12 months has [employer], gas, oil, or water [employer] threatened to shut off services in your [...] or training? Not on file Preferred Language Greenlandic 05/21/2024 PHQ-2 Answer Date Recorded Patient Health [...] Description 06/30/2025 10:00 AM EDT Office Visit [facility] SLEEP MEDICINE 3000 [facility] [place] 240 [place] [address] Tank Dudley MD 2400 [place] [address] 07/19/2025 10:15 AM EDT Office Visit [facility] FAMILY MEDICINE 210 [place] [phone] Juan José Cevrantes MD 210 [place] [address] documented as of this encounter Visit Diagnoses Not on filedocumented in this encounter Care Teams Electronic Engineering Draftsperson Relationship Specialty Start Date End Date Juan José Cervantes MD [address] [place] [address] PCP - General Family Medicine 02/20/22 documented as of this encounter
--- OUTSIDE RECORDS SUMMARY | 2025-06-23 08:05 | XMS_ITS | Encounter Summary ---
[facility] Address [address] [place] [address] Care Team Providers Care Geriatric Nursing Assistant Name Role Phone Juan José Cervantes MD Primary Care Provider + Encounter Details Date Type Department Care Team (Late st Contact Info) Description 02/10/2025 Results Follow-Up [facility] FAMILY MEDICINE 210 [facility] [place] [address] Osman Lagos MD 210 [facility] [place] [address] Social History Tobacco Use Types Packs/Day Years Used Date Smoking Tobacco: Former Cigarettes 0.3 2 0 10/27/1968 - 10/27/1970 Passive Smoke Exposure: Never Smokeless Tobacco: Never Comments:Only smoked in high school Alcohol Use Standard Drinks/Week Comments Never 0 (1 standard drink = 0.6 oz pur e alcohol) [facility] Utilities Answer Date Recorded In the past 12 months has [employer], gas, oil, or water [employer] threatened to shut off services in your [...] or training? Not on file Preferred Language Micronesian 05/21/2024 PHQ-2 Answer Date Recorded Patient Health [...] Description 06/30/2025 10:00 AM EDT Office Visit [facility] SLEEP MEDICINE 3000 [facility] [place] [address] [place] [address] Tank Dudley MD [address] [place] [address] 07/19/2025 10:15 AM EDT Office Visit [facility] FAMILY MEDICINE 210 [place] [phone] Juan José Cervantes MD [address] [place] [address] documented as of this encounter Visit Diagnoses Not on filedocumented in this encounter Care Teams Geriatric Nursing Assistant Relationship Specialty Start Date End Date Juan José Cervantes MD [address] [place] [address] PCP - General Family Medicine 02/20/22 documented as of this encounter
--- OUTSIDE RECORDS SUMMARY | 2025-06-23 08:05 | XMS_ITS | Encounter Summary ---
Author Organization [facility] Address [address] [place] [phone] Care Team Providers Care Transition Manager Name Role Phone Juan José Cervantes MD Primary Care Provider + Reason for Visit * Reason Onset Date Comments Med Refill 05/24/2025 Encounter Details Date Type Department Care Team (Late st Contact Info) Description 05/24/2025 Refill [facility] FAMILY MEDICINE 210 [place] [address] Juan José Cervantes MD 210 [place] [address] Type 2 diabetes mellitus with diabetic neuropathy, with long-term current use of insulin Social History Tobacco Use Types Packs/Day Years Used Date Smoking Tobacco: Former Cigarettes 0.3 2 0 10/27/1968 - 10/27/1970 Passive Smoke Exposure: Never Smokeless Tobacco: Never Comments:Only smoked in high school Alcohol Use Standard Drinks/Week Comments Never 0 (1 standard drink = 0.6 oz pur e alcohol) [facility] Utilities Answer Date Recorded In the past 12 months has [employer], gas, oil, or water company threatened to [...] 10:00 AM EDT Office Visit [facility] SLEEP MEDICINE 3000 [facility] 240 [place] [address] Tank Dudley MD 2400 [place] [address] 07/19/2025 10:15 AM EDT Office Visit [facility] FAMILY MEDICINE [address] [address] Juan José Cervantes MD [address] [place] [address] documented as of this encounter Visit Diagnoses Diagnosis Type 2 diabetes mellitus with diabetic neuropathy, with long-term current use of insulin documented in this encounter Care Teams Transition Manager Relationship Specialty Start Date End Date Juan José Cervantes MD [address] [place] [address] PCP - General Family Medicine 02/20/22 documented as of this encounter
--- OUTSIDE RECORDS SUMMARY | 2025-06-23 08:05 | XMS_ITS | Encounter Summary ---
Author Organization Healthcare Address [address] [place] [address] Care Team Providers Care Transport Pilot Name Role Phone Juan José Cervantes MD Primary Care Provider [phone] Encounter Details Date Type Department Care Team (Late st Contact Info) Description 04/29/2025 Telephone [facility] [address], [address] [place] [address] Dixon Gongora MD [address] [place] [address] Social History Tobacco Use Types [...] documented as of this encounter Care Teams Transport Pilot Relationship Specialty Start Date End Date Juan José Cervantes MD PCP - General 01/20/25 documented as of this encounter
--- OUTSIDE RECORDS SUMMARY | 2025-06-23 08:05 | XMS_ITS | Clinical Summary ---
Author Organization [facility] Address [address] [place] [address] Care Team Providers Care Flatwork Ironer Name Role Phone Juan José Cervantes MD Primary Care Provider [phone] Allergies No known active allergies Medications metFORMIN (Glucophage) 1000 MG tablet Take 1 tablet by mouth in the morning and 1 tablet in the evening. Take with meals. 5 Active Allopurinol 200 MG tablet Take 2 tablets by mouth daily. Active rosuvastatin (Crestor) 10 MG tablet Take 1 tablet by mouth 1 (one) time each day. 5 Active BD ULTRA-FINE PEN NEEDLES 29G X 12.7MM daily. use as directed 4 Active insulin glargine-yfgn 100 UNIT/ML injection pen ADMINISTER 60 UNITS UNDER THE SKIN DAILY DIRECTED Active enalapril (Vasotec) 10 MG tablet Take 1 tablet by mouth 1 (one) time each day. 4 Active colchicine (Colcrys) 0.6 MG tablet Take 1 tablet by mouth daily. Active Continuous Glucose Sensor (FreeStyle Amanda 2 Sensor) [facility] [place] DIRECTED EVERY 14 DAYS 5 Active isosorbide mononitrate ER (Imdur) 30 MG 24 hr tablet Take 1 tablet by mouth 1 (one) time each day. 4 Active Ozempic, 2 MG/DOSE, 8 MG/3ML solution pen-injector INJECT 2MG UNDER THE SKIN INTO THE APPROPRIATE AREA DIRECTED ONCE A WEEK Active furosemide (Lasix) 40 MG tablet Take 1 tablet by mouth daily. Active cyanocobalamin (Vitamin B-12) 1,000 mcg/mL oral liquid 1 (one) time. Acti ve sildenafil (Viagra) 100 MG tablet Take 1 tablet by mouth daily as needed for erectile dysfunction. Active fexofenadine (Eva) 180 MG tablet Take 1 tablet by mouth daily. Active clotrimazole (Lotrimin) 1 % cream Apply 1 Application topically in the morning and 1 Application before bedtime. Active Ferrous Sulfate Dried ER (Slow Release Iron) 45 MG tablet controlled-rele ase Take 140 mg by mouth. Active b complex vitamins capsule Take 1 capsule by mouth daily. Active NON FORMULARY Apply topically as needed in the morning and as needed at noon and as needed in the evening and as needed before bedtime. Ketamine/gabape ntin/ibuprofen/ lidocaine/baclo fen ///4/2%. Active carbidopa-levod opa (Sinemet) 25-100 MG tablet Take 2 tablets by mouth 3 (three) times a day. 180 tablet 5 5 025 Active pramipexole (Mirapex) 0.75 MG tablet Take 1 tablet by mouth 2 times a day. 120 tablet 5 025 Active pramipexole (Mirapex) 0.5 MG tablet Take 1 tablet by mouth 2 times a day. 60 tablet 5 025 Discontin ued(Dose adjustmen t) Encounters Date Type Department Care Team Description 06/09/[address], [facility] [place] [address] Dixon Gongora MD 05/25/[address] [address] Dixon Gongora MD 04/29/2025 Telephone [place] [address], [address] [place] [phone] Dixon Gongora MD 04/11/2025 Orders Only [address], [address] [place] [phone] Dixon Gongora MD from Last 3 Months [...] Date Last Done Comments [facility]-Depression Screening 1954 [facility]-Infant/Child/Adol SDOH Screenings 1954 [facility]- SDOH Screenings 1972 [facility]-Adult SDOH Screenings 1972 CT Colonography 1999 Colonoscopy 1999 FIT 1999 FOBT 1999 Sigmoidoscopy 1999 [facility]-Zoster Vaccines (1 of 2) 2004 [id number] Vaccine ( season) 2024 11/21/2021, 01/24/2021, 12/27/2020 [...] complete this topic Insurance MEDICARE Care Teams Flatwork Ironer Relationship Specialty Start Date End Date Juan José Cervantes MD PCP - General 01/20/25
--- OUTSIDE RECORDS SUMMARY | 2025-06-23 08:05 | XMS_ITS | Encounter Summary ---
[facility] Address [address] [place] [address] Care Team Providers Care Appian Bpm Developer Name Role Phone Juan José Cervantes MD Primary Care Provider + Encounter Details Date Type Department Care Team (Late st Contact Info) Description 04/04/2025 Results Follow-Up [facility] [address] [facility] [place] [address] Juan José Cervantes MD [address] [facility] [place] [address] Social History Tobacco Use Types Packs/Day Years Used Date Smoking Tobacco: Former Cigarettes 0.3 2 0 10/27/1968 - 10/27/1970 Passive Smoke Exposure: Never Smokeless Tobacco: Never Comments:Only smoked in high school Alcohol Use Standard Drinks/Week Comments Never 0 (1 standard drink = 0.6 oz pur e alcohol) [facility] Utilities Answer Date Recorded In the past 12 months has [employer], gas, oil, or water [employer] threatened to shut off services in your [...] Description 06/30/2025 10:00 AM EDT Office Visit [facility] [address] [facility] [address] [place] [address] Tank Dudley MD [address] [place] [address] 07/19/2025 10:15 AM EDT Office Visit [facility] [address] [place] [phone] Juan José Cervantes MD [address] [place] [address] documented as of this encounter Visit Diagnoses Not on filedocumented in this encounter Care Teams Appian Bpm Developer Relationship Specialty Start Date End Date Juan José Cervantes MD [address] [place] [address] PCP - General Family Medicine 02/20/22 documented as of this encounter
--- OUTSIDE RECORDS SUMMARY | 2025-06-23 08:05 | XMS_ITS | Encounter Summary ---
Author Organization Healthcare Address [address] [place] [address] Care Team Providers Care Bias Cutting Machine Operator Vertical Name Role Phone Juan José Cervantes MD Primary Care Provider [phone] Encounter Details Date Type Department Care Team (Late st Contact Info) Description 05/25/2025 Telephone [place] [facility] [address] [place] [address] Dixon Gongora MD [address] [place] [address] Social History Tobacco Use Types [...] documented as of this encounter Care Teams Bias Cutting Machine Operator Vertical Relationship Specialty Start Date End Date Juan José Cervantes MD PCP - General 01/20/25 documented as of this encounter
[2025-06-23] MEDS: VITAMIN B-12 1,000 MCG 1ML VIAL 1000 MCG IM (08:06)
--- OUTSIDE RECORDS SUMMARY | 2025-06-23 08:06 | XMS_ITS | Encounter Summary ---
[facility] [address] [place] [id number] Care Team Providers Care Accounting Supervisor Name Role Phone Juan José Cervantes MD Primary Care Provider + Reason for Visit * Reason Onset Date Comments Med Refill 07/30/2023 Encounter Details Date Type Department Care Team (Late st Contact Info) Description 07/30/2023 Refill [facility] [address] [place] [address] Juan José Cervantes MD [address] [place] [address] Diabetic peripheral neuropathy Social History [...] Description 06/30/2025 10:00 AM EDT Office Visit [facility] [address] [facility] [address] [place] [address] Tank Dudley MD [address] [place] [address] 07/19/2025 10:15 AM EDT Office Visit [facility] [address] [place] [phone] Juan José Cervantes MD [address] [place] [address] documented as of this encounter Visit Diagnoses Diagnosis Diabetic peripheral neuropathy Type II or unspecified type diabetes mellitus with neurological manifestations, not stated as uncontrolled documented in this encounter Care Teams Accounting Supervisor Relationship Specialty Start Date End Date Juan José Cervantes MD [address] [place] [address] PCP - General Family Medicine 02/20/22 documented as of this encounter
[2025-06-23 08:08] VITALS: BP 99/55; PULSE 68; RESP 18; O2SAT 97
== END 2025-06-23 08:08 | disposition home or self-care (01) ==
LOC: INF 08:02
PROVIDERS: PCP Family Medicine; Visit Provider Family Medicine
DX: E53.8 Deficiency of other specified B group vitamins (principal)
CPT/HCPCS: 96372; J3420

== ENCOUNTER 2025-08-04 08:26 | Outpatient (CLI) | payer MEDICARE, OTHER, SELFPAY ==
[2025-08-04 08:30] VITALS: BP 119/72; PULSE 108; RESP 20; TEMP 36.6; O2SAT 98
[2025-08-04] MEDS: VITAMIN B-12 1,000 MCG 1ML VIAL 1000 MCG IM (08:30)
== END 2025-08-04 23:59 | disposition home or self-care (01) ==
LOC: INF 08:27
PROVIDERS: PCP Family Medicine; Visit Provider Family Medicine
DX: E53.8 Deficiency of other specified B group vitamins (principal)
CPT/HCPCS: 96372; J3420

== ENCOUNTER 2025-09-01 08:06 | Outpatient (CLI) | payer MEDICARE, OTHER, SELFPAY ==
--- OUTSIDE RECORDS SUMMARY | 2025-07-19 09:15 | XMS_ITS | Encounter Summary ---
Author Organization [facility] Address [address] [place] [id number] Care Team Providers Care Cafe Assistant Name Role Phone Juan José Cervantes MD Primary Care Provider + Reason for Visit * Reason Comments Medicare Wellness-subsequent Encounter Details Date Type Department Care Team (Late st Contact Info) Description 07/19/2025 10:15 AM EDT Office Visit [facility] [address] [place] [address] Juan José Cervantes MD [address] [place] [address] Medicare annual wellness visit, subsequent (Primary Dx); Type 2 diabetes mellitus with hyperglycemia, with long-term current use of insulin; Colon cancer screening; Primary hypertension; Hyperuricemia Social History Tobacco Use Types Packs/Day Years Used Date Smoking Tobacco: Former Cigarettes 0.3 2.3 0 10/27/1968 - 10/27/1970 Passive Smoke Exposure: Never Smokeless Tobacco: Never Tobacco Cessation:Counseling Given: Not Answered Comments:Only smoked in highschool Alcohol Use Standard Drinks/Week Comments Never 0 (1 standard drink = 0.6 oz pur e alcohol) [facility] Utilities Answer Date Recorded In the past 12 months has e electric, gas, oil, or water company [...] or training? Not on file Preferred Language Palauan 05/21/2024 PHQ-2 Answer Date Recorded Patient Health Questionnaire-2 Score 0 07/19/2025 Sex and Gender Information Value Date Recorded Sex Assigned at Male 12/28/2024 7:44 AM EST Legal Sex Male 11:15 AM EDT Gender Identity Not on file Sexual Orientation Not on file documented as of this encounter Last Filed Vital Signs Vital Sign Reading Time Taken Comments Blood Pressure 128/80 07/19/2025 9:59 AM EDT Pulse 94 07/19/2025 9:59 AM EDT Temperature 36.5 C (97.7 F) 07/19/2025 9:59 AM EDT Respiratory Rate 18 07/19/2025 9:59 AM EDT Oxygen Saturation 97% 07/19/2025 9:59 AM EDT Inhaled Oxygen Concentration - - Weight 122 kg (269 lb 9.6 oz) 07/19/2025 9:59 AM EDT Height 165.1 cm (5' 5 ) 07/19/2025 9:59 AM EDT Body Mass Index 44.86 07/19/2025 9:59 AM EDT documented in this encounter Functional Status documented as of this encounter Progress Notes * Juan José Cervantes MD - 07/19/2025 10:15 AM EDTAssociated Problem(s): Type 2 diabetes mellitus with hyperglycemia, with long-term current use of insulin {Diabetes (Optional):[id number]} Orders: Insulin Glargine, 2 Unit Dial, (TOUJEO) 300 UNIT/ML solution pen-injector injection; Inject 40 Units under the skin into the appropriate area as directed Daily. Hemoglobin A1c * Juan José Cervantes MD - 07/19/2025 10:15 AM EDTAssociated Problem(s): Primary hypertension {Hypertension is (optional):[id number]} Orders: enalapril (VASOTEC) 10 MG tablet; Take 1 tablet by mouth Daily. * Juan José Cervantes MD - 07/19/2025 10:15 AM EDTAssociated Problem(s): Hyperuricemia Orders: allopurinol (ZYLOPRIM) 300 MG tablet; Take 1 tablet by mouth Daily. * Juan José Cervantes MD - 07/19/2025 10:15 AM EDT Subjective The ABCs of the Annual Wellness Visit Medicare Wellness Visit Jon Maloney is a 69 y.o. patient who presents for a Medicare Wellness Visit. The following portions of the patient's history were reviewed and updated as appropriate: allergies, current medications, past family history, past medical history, past social history, past surgical history, and problem list. Compared to one year ago, the patient's physical health is better. Physically patient reports improved balance which has allowed him to be more active and resulted in weight loss of nearly 30 pounds in the last 6 months Compared to one year ago, the patient's mental health is better. Recent Hospitalizations: He was not admitted to the hospital during the last year. Current Medical Providers: Patient Care Team: Juan José Cervantes MD as PCP - General (Family Medicine) Roger Hernandes MD as Consulting Physician (Neurosurgery) Outpatient Medications Prior to Visit Medication Sig Dispense Refill B Complex Vitamins (B COMPLEX 1 PO) Take by mouth 2 (Two) Times a Day. BD ULTRA-FINE PEN NEEDLES 29G X 12.7MM misc Use 1 each Daily. 100 each 3 carbidopa-levodopa (SINEMET) 25-100 MG per tablet TAKE 1 TABLET BY MOUTH THREE TIMES DAILY 270 tablet 1 clotrimazole (LOTRIMIN) 1 % cream APPLY TOPICALLY TO THE AFFECTED AREA TWICE DAILY FOR 14 DAYS colchicine 0.6 MG tablet Take 1 tablet by mouth Daily. 90 tablet 1 Continuous Glucose Sensor (FreeStyle Amanda 2 Sensor) misc USE DIRECTED EVERY 14 DAYS 6 each 4 Continuous Glucose Sensor (FreeStyle Amanda 2 Sensor) misc USE DIRECTED EVERY 14 DAYS 6 each 4 Continuous Glucose Sensor (FreeStyle Amanda 2 Sensor) misc 1 Units by Subdermal route Every 14 (Fourteen) Days. 6 each 4 cyanocobalamin 1000 MCG/ML injection Inject once monthly at [facility] 1 mL 11 ferrous fulfate dried ER (Slow Release Iron) 45 MG tablet controlled-release tablet Take 140 mg by mouth Daily. fexofenadine (KRISTYN) 180 MG tablet Take 1 tablet by mouth Daily. 90 tablet 3 furosemide (LASIX) 40 MG tablet TAKE 1 TABLET BY MOUTH DAILY 90 tablet 3 HYDROcodone-acetaminophen (NORCO) 5-325 MG per tablet Take 1 tablet by mouth Every 8 (Eight) Hours As Needed for Severe Pain. 12 tablet 0 isosorbide mononitrate (IMDUR) 30 MG 24 hr tablet TAKE 1 TABLET BY MOUTH EVERY MORNING 30 tablet 3 Jardiance 10 MG tablet tablet TAKE 1 TABLET BY MOUTH DAILY 30 tablet 2 metFORMIN (GLUCOPHAGE) 1000 MG tablet TAKE 1 TABLET BY MOUTH TWICE DAILY WITH MEALS 180 tablet 3 NON FORMULARY Apply topically to the appropriate area as directed. rosuvastatin (Crestor) 10 MG tablet Take 1 tablet by mouth Daily. 90 tablet 3 Semaglutide, 2 MG/DOSE, (Ozempic, 2 MG/DOSE,) 8 MG/3ML solution pen-injector Inject 2 mg under the skin into the appropriate area as directed 1 (One) Time Per Week. friday 3 mL 2 sildenafil (Viagra) 100 MG tablet Take 1 tablet by mouth Daily As Needed for Erectile Dysfunction. 6 tablet 11 allopurinol 200 MG tablet Take 400 mg by mouth Daily. 180 tablet 0 enalapril (VASOTEC) 10 MG tablet Take 1 tablet by mouth Daily. 90 tablet 2 Insulin Glargine, 2 Unit Dial, (TOUJEO) 300 UNIT/ML solution pen-injector injection Inject 60 Unitsunder the skin into the appropriate area as directed Daily. 15 mL 11 Pramipexole Dihydrochloride ER 0.75 MG tablet sustained-release 24 hour TAKE 1 TABLET BY MOUTH IN THE MORNING AND 1 TABLET BEFORE BEDTIME FOR 7 DAYS. DISCARD REMAINDER pramipexole (MIRAPEX) 0.5 MG tablet Take 1 tablet by mouth Every Morning. pramipexole (MIRAPEX) 0.75 MG tablet Take 1 tablet by mouth Every Evening. Facility-Administered Medications Prior to Visit Medication Dose Route Frequency Provider Last Rate Last Admin cyanocobalamin injection 1,000 mcg 1,000 mcg Intramuscular Q28 Days Juan José Cervantes MD 1,000mcg at 04/22/22 0818 cyanocobalamin injection 1,000 mcg 1,000 mcg Intramuscular Q28 Days Juan José Cervantes MD 1,000mcg at 05/22/22 1059 Opioid medication/s are on active medication list. and I have evaluated his active treatment plan and pain score trends (see table). Vitals: 07/19/25 0959 PainSc: 0-No pain I have reviewed the chart for potential of high risk medication and harmful drug interactions in the elderly. Aspirin is not on active medication list. Aspirin use is not indicated based on review of current medical condition/s. Risk of harm outweighs potential benefits. . Patient Active Problem List Diagnosis Type 2 diabetes mellitus with diabetic neuropathy, with long-term current use of insulin Stage 3a chronic kidney disease (CKD) Restless leg syndrome Benign neoplasm of meningioma (cerebral) FABIO on CPAP Primary hypertension Hyperuricemia Parkinson's disease without dyskinesia or fluctuating manifestations Subarachnoid hemorrhage Type 2 diabetes mellitus with hyperglycemia, with long-term current use of insulin Type 2 diabetes mellitus with diabetic microalbuminuria, with long-term current use of insulin Obesity, morbid, BMI 40.0-49.9 Advance Care Planning Advance Directive is on file. ACP discussion was held with the patient duringthis visit. Patient has an advance directive in EMR which is still valid. Objective Vitals: 07/19/25 0959 BP: 128/80 Pulse: 94 Resp: 18 Temp: 97.7 ??F (36.5 ??C) SpO2: 97% Weight: 122 kg (269 lb 9.6 oz) Height: 165.1 cm (65 ) PainSc: 0-No pain Estimated body mass index is 44.86 kg/m?? as calculated from the following: Height as of this encounter: 165.1 cm (65 ). Weight as of this encounter: 122 kg (269 lb 9.6 oz). Does the patient have evidence of cognitive impairment? No Health Risk Assessment Smoking Status: Social History Tobacco Use Smoking Status Former Current packs/day: 0.00 Average packs/day: 0.3 packs/day for 2.3 years (0.6 ttl pk-yrs) Types: Cigarettes Start date: 10/27/1968 Quit date: 10/27/1970 Years since quittin.7 Passive exposure: Never Smokeless Tobacco Never Tobacco Comments Only smoked in highschool Alcohol Consumption: Social History Substance and Sexual Activity Alcohol Use Never Fall Risk Screen STEADI Fall Risk Assessment was completed, and patient is at LOW risk for falls.Assessment completed on:07/19/2025 Depression Screening Little interest or pleasure in doing things? Not at all Feeling down, depressed, or hopeless? Not at all PHQ-2 Total Score 0 Health Habits and Functional and Cognitive Screenin07/18/2025 5:45 AM Functional & Cognitive Status Do you have difficulty preparing food and eating? No Do you have difficulty bathing yourself, getting dressed or grooming yourself? No Do you have difficulty using the toilet? No Do you have difficulty moving around from place to place? No Do you have trouble with steps or getting out of a bed or a chair? No Current Diet Well Balanced Diet Dental Exam Not up to date Eye Exam Up to date Exercise (times per week) 2 times per week Current Exercises Include Walking Do you need help using the phone? No Are you deaf or do you have serious difficulty hearing? No Do you need help to go to places out of walking distance? No Do you need help shopping? No Do you need help preparing meals? No Do you need help with housework? No Do you need help with laundry? No Do you need help taking your medications? No Do you need help managing money? No Do you ever drive or ride in a car without wearing a seat belt? No Have you felt unusual fatigue (could be tiredness), stress, anger or loneliness in the last month? No Who do you live with? Spouse If you need help, do you have trouble finding someone available to you? No Have you been bothered in the last four weeks by sexual problems? No Do you have difficulty concentrating, remembering or making decisions? No Age-appropriate Screening Schedule: Refer to the list below for future screening recommendations based on patient's age, sex and/or medical conditions. Orders for these recommended tests are listed in the plan section. The patient has been provided with a written plan. Health Maintenance List Health Maintenance Topic Date Due ZOSTER VACCINE (1 of 2) Never done COLORECTAL CANCER SCREENING 06/12/2025 HEMOGLOBIN A1C 10/01/2025 COVID-19 Vaccine ( season) 2025 (Originally 06/27/2025) INFLUENZA VACCINE 08/02/2025 (Originally 05/27/2025) URINE MICROALBUMIN-CREATININE RATIO (uACR) 12/28/2025 LIPID PANEL 03/31/2026 DIABETIC FOOT EXAM 04/05/2026 DIABETIC EYE EXAM 05/02/2026 ANNUAL WELLNESS VISIT 07/19/2026 TDAP/TD VACCINES (2 - Td or Tdap) 05/25/2034 HEPATITIS C SCREENING Completed Pneumococcal Vaccine 50+ Completed AAA SCREEN ONCE Completed [facility] Preventative Services Quick Reference Risk Factors Identified During Encounter Immunizations Discussed/Encouraged: Influenza and COVID19 Vision Screening Recommended Chronic care with PCP every 3 months for surveillance of diabetes Follow-up with [facility] for parkinsonism Follow-up with sleep medicine as scheduled CRC screening ordered via Cologuard The above risks/problems have been discussed with the patient. Pertinent information has been shared with the patient in the After Visit Summary. An After Visit Summary and PPPS were made available to the patient. Follow Up: Next Medicare Wellness visit to be scheduled in 1 year. Assessment & Plan Medicare annual wellness visit, subsequent Type 2 diabetes mellitus with hyperglycemia, with long-term current use of insulin Orders: Insulin Glargine, 2 Unit Dial, (TOUJEO) 300 UNIT/ML solution pen-injector injection; Inject 40 Units under the skin into the appropriate area as directed Daily. Hemoglobin A1c Colon cancer screening Orders: Cologuard - Stool, Per Rectum; Future Primary hypertension Orders: enalapril (VASOTEC) 10 MG tablet; Take 1 tablet by mouth Daily. Hyperuricemia Orders: allopurinol (ZYLOPRIM) 300 MG tablet; Take 1 tablet by mouth Daily. Follow Up: Return in about 3 months (around 10/18/2025). documented in this encounter Plan of Treatment Upcoming Encounters Date Type Department Care Team (Late st Contact Info) Description 10/18/2025 8:00 AM EST Office Visit [facility] [address] [place] [address] Juan José Cervantes MD [address] [place] [address] 06/30/2026 10:00 AM EDT Office Visit [facility] [address] [facility] [address] [place] [address] Manuel Wheatley, FISHING VESSEL [employer]KH[employer] [address] [place] [address] documented as of this encounter Procedures Procedure Name Priority Date/Time Associated Diagnosis Comments HEMOGLOBIN A1C Routine 07/19/2025 10:37 AM EDT Type 2 diabetes mellitus with hyperglycemia, with long-term current use of insulin documented in this encounter Results * Cologuard - Stool, Per Rectum (08/02/2025 1:21 PM EDT) Cologuard Negative Negative 08/08/2025 12:08 PM EDT [employer] (CLIA #:[id number]) Comment: The Cologuard Plus (TM) test was performed on this specimen. NEGATIVE TEST RESULT. A negative (normal) Cologuard Plus result means the patient has a [id number] chance of having colorectal cancer (CRC) or advanced precancer (polyps or lesions that could become cancer). Negative is the normal value (reference range) for this assay. Guidelines recommend screening again 3 years after a negative Cologuard Plus result. Continued screening increases the chance of finding CRC early or preventing it entirely. A clinical validation study showed the Cologuard Plus test is effective at ruling out CRC. Out of every 10,000 patients testing negative, approximately 2 will be falsely reassured that they do not have CRC, and out of every 100 patients testing negative, approximately 7 patients will be falsely reassured they do not have advanced precancer. TEST DESCRIPTION: The Cologuard Plus test is a multi-target stool DNA (mt-sDNA) test that analyzes DNA and hemoglobin biomarkers in stool. It uses a proprietary algorithm to qualitatively detect CRC and advanced precancer. It is FDA-approved and indicated for use in adults 45 years or older at average risk for CRC. A positive (abnormal) result should be followed by a colonoscopy. Patients with a negative (normal) result should screen again in 3 years. False positive and false negative results may occur. The USPSTF recommends the Cologuard test as a CRC screening option. Their modeling estimates that screening with the test every 3 years from ages 45-85 could prevent up to 73% of CRC and avoid up to 85% of CRC deaths. A 18,911-patient clinical trial found the Cologuard Plus test effectively detects CRC and precancer. The study found the test was 95% sensitive for CRC, 43% sensitive for advanced precancer, and had a 91% specificity (Cologuard Plus Clinician Brochure. [employer]. [place], [place] Visit [email or web address].[email or web address]/about/kgbrtvga-eizerdctbzo-srnbgdihyzr for more test information, references, warnings, and precautions. Stool specimen (specimen) Specimen from rectum / Unknown 08/02/2025 1:21 PM EDT 08/03/2025 2:30 PM EDT Juan José Cervantes MD BODY FLUIDS AND STOOLS O RDERABLES Final Result Performing Organization Address City/[facility]/ZIP Co de Phone Number [employer] (CLIA #:[id number]) [address] [place] [address], * (ABNORMAL) Hemoglobin A1c (07/19/2025 10:37 AM EDT) Hemoglobin A1C 6.30(H) 4.80 - 5.60 % [facility] Comment: Hemoglobin A1C Ranges: Increased Risk for Diabetes 5.7% to 6.4% Diabetes >= 6.5% Diabetic Goal < 7.0% Blood 07/19/2025 10:3 7 AM EDT 07/19/2025 Narrative [facility]) - 07/20/2025 3:07 AM EDT Performed at: [address] [place] [id number] Fulfillment Specialist: Christiano Hoyt MD, Phone: [phone] Patient Fasting: N Juan José Cervantes MD LAB BLOOD ORDERABLES Fin al Result Performing Organization Address City/[facility]/ZIP Co de Phone Number [facility]) [address] [place] [address], [place] [phone] [facility] [address] [place] [address], [place] [phone] documented in this encounter Visit Diagnoses Diagnosis Medicare annual wellness visit, subsequent- Primary Type 2 diabetes mellitus with hyperglycemia, with long-term current use of insulin Colon cancer screening Special screening for malignant neoplasms, colon Primary hypertension Unspecified essential hypertension Hyperuricemia Other abnormal blood chemistry documented in this encounter Care Teams Cafe Assistant Relationship Specialty Start Date End Date Juan José Cervantes MD [address] [facility] [place] [address] PCP - General Family Medicine 02/20/22 documented as of this encounter
--- OUTSIDE RECORDS SUMMARY | 2025-08-30 08:30 | XMS_ITS | Encounter Summary ---
[facility] Organization [facility] Address [address] [place] [address] Care Team Providers Care Warehouse Stocker Name Role Phone Juan José Cervantes MD Primary Care Provider + Encounter Details Date Type Department Care Team (Late st Contact Info) Description 08/30/2025 8:30 AM EST Flu Shot [facility] [address] [place] [address] Need for influenza vaccination (Primary Dx) Social History Tobacco Use Types Packs/Day Years Used Date Smoking Tobacco: Former Cigarettes 0.3 2.3 0 10/27/1968 - 10/27/1970 Passive Smoke Exposure: Never Smokeless Tobacco: Never Comments:Only smoked in high school Alcohol Use Standard Drinks/Week Comments Never 0 (1 standard drink = 0.6 oz pur e alcohol) [facility] Utilities Answer Date Recorded In the past 12 months has [employer], gas, oil, or water [employer] threatened to shut off services in your [...] Description 10/18/2025 8:00 AM EST Office Visit [facility] [address] [place] [place] [address] Juan José Cervantes MD [address] [id number] 06/30/2026 10:00 AM EDT Office Visit [facility] [address] [facility] [address] [place] [phone] Manuel Wheatley, DIRECTOR MEDICARE SALES [address] [place] [address] documented as of this encounter Visit Diagnoses Diagnosis Need for influenza vaccination- Primary Need for prophylactic vaccination and inoculation against influenza documented in this encounter Care Teams Warehouse Stocker Relationship Specialty Start Date End Date Juan José Cervantes MD [address] [place] [address] PCP - General Family Medicine 02/20/22 documented as of this encounter
--- OUTSIDE RECORDS SUMMARY | 2025-09-01 08:10 | XMS_ITS | Encounter Summary ---
[facility] Address [address] [place] [id number] Care Team Providers Care Dial Printer Name Role Phone Juan José Cervantes MD Primary Care Provider + Encounter Details Date Type Department Care Team (Late st Contact Info) Description 04/04/2025 Results Follow-Up [facility] [address] [facility] [place] [address] Juan José Cervantes MD [address] [facility] [place] [address] Social History Tobacco Use Types Packs/Day Years Used Date Smoking Tobacco: Former Cigarettes 0.3 2 0 10/27/1968 - 10/27/1970 Passive Smoke Exposure: Never Smokeless Tobacco: Never Comments:Only smoked in high school Alcohol Use Standard Drinks/Week Comments Never 0 (1 standard drink = 0.6 oz pur e alcohol) [facility] Utilities Answer Date Recorded In the past 12 months has [employer], gas, oil, or water [employer] threatened to shut off services in your [...] Not on file Preferred Language Citizen Of [place] 05/21/2024 PHQ-2 Answer Date Recorded Patient Health [...] Description 10/18/2025 8:00 AM EST Office Visit [facility] [address] [address] Juan José Cervantes MD [address] [place] [address] 06/30/2026 10:00 AM EDT Office Visit [facility] [address] [facility] [address] [place] [address] Manuel Wheatley, COUNSELING PSYCHOLOGIST [address] [place] [address] documented as of this encounter Visit Diagnoses Not on filedocumented in this encounter Care Teams Dial Printer Relationship Specialty Start Date End Date Juan José Cervantes MD [address] [place] [address] PCP - General Family Medicine 02/20/22 documented as of this encounter
--- OUTSIDE RECORDS SUMMARY | 2025-09-01 08:10 | XMS_ITS | Clinical Summary ---
Author Organization [facility] Address [address] [place] [address] Care Team Providers Care Tempering Kiln Tender Name Role Phone Juan José Cervantes [...] 12/12/19 23 Active sildenafil (Viagra) 100 MG tabletIndications: Drug-induced erectile dysfunction Take 1 tablet by mouth Daily As Needed for Erectile Dysfunction. 6 tablet 11 06/11/20 23 Active cyanocobalamin 1000 MCG/ML injectionIndicatio ns:Vitamin B12 deficiency Inject once monthly at [facility] 1 mL 11 07/07/20 23 Active Continuous Glucose Sensor (FreeStyle Amanda 2 Sensor) miscIndications:Ty pe 2 diabetes mellitus with diabetic neuropathy, with long-term current use of insulin USE DIRECTED EVERY 14 DAYS 6 each 4 08/02/20 24 Active colchicine 0.6 MG tabletIndications: Podagra Take 1 tablet by mouth Daily. 90 tablet 1 09/02/20 24 Active BD ULTRA-FINE PEN NEEDLES 29G X 12.7MM miscIndications:Ty pe 2 diabetes mellitus with diabetic neuropathy, with long-term current use of insulin,Long-term insulin use Use 1 each Daily. 100 each 3 10/26/20 24 Active rosuvastatin (Crestor) 10 MG tabletIndications: Type 2 diabetes mellitus with hyperglycemia, with long-term current use of insulin,Mixed hyperlipidemia Take 1 tablet by mouth Daily. 90 tablet 3 12/30/19 25 Active metFORMIN (GLUCOPHAGE) 1000 MG tablet TAKE 1 TABLET BY MOUTH TWICE DAILY WITH MEALS 180 tablet 3 01/20/20 25 Active HYDROcodone-acetam inophen (NORCO) 5-325 MG per tabletIndications: Left lateral abdominal pain,History of colonic diverticulitis Take 1 tablet by mouth Every 8 (Eight) Hours As Needed for Severe Pain. 12 tablet 02/09/20 25 Active carbidopa-levodopa (SINEMET) 25-100 MG per tablet TAKE 1 TABLET BY MOUTH THREE TIMES DAILY 270 tablet 1 02/15/20 25 Active NON FORMULARY Apply topically to the appropriate area as directed. Active furosemide (LASIX) 40 MG tabletIndications: Pedal edema TAKE 1 TABLET BY MOUTH DAILY 90 tablet 3 04/13/20 25 Active Jardiance 10 MG tablet tabletIndications: Type 2 diabetes mellitus with hyperglycemia, with long-term current use of insulin,Stage 3a chronic kidney disease (CKD) TAKE 1 TABLET BY MOUTH DAILY 30 tablet 2 06/13/20 25 Active isosorbide mononitrate (IMDUR) 30 MG 24 hr tabletIndications: Primary hypertension TAKE 1 TABLET BY MOUTH EVERY MORNING 30 tablet 3 06/15/20 25 Active Continuous Glucose Sensor (FreeStyle Amanda 2 Sensor) miscIndications:Ty pe 2 diabetes mellitus with diabetic neuropathy, with long-term current use of insulin USE DIRECTED EVERY 14 DAYS 6 each 4 07/18/20 25 Active Continuous Glucose Sensor (FreeStyle Amanda 2 Sensor) miscIndications:Ty pe 2 diabetes mellitus with diabetic neuropathy, with long-term current use of insulin 1 Units by Subdermal route Every 14 (Fourteen) Days. 6 each 07/18/20 25 Active pramipexole (MIRAPEX) 0.5 MG tablet Take 1 tablet by mouth Every Morning. Active pramipexole (MIRAPEX) 0.75 MG tablet Take 1 tablet by mouth Every Evening. Active Insulin Glargine, 2 Unit Dial, (TOUJEO) 300 UNIT/ML solution pen-injector injectionIndicatio ns:Type 2 diabetes mellitus with hyperglycemia, with long-term current use of insulin Inject 40 Units under the skin into the appropriate area as directed Daily. 07/19/20 25 Active enalapril (VASOTEC) 10 MG tabletIndications: Primary hypertension Take 1 tablet by mouth Daily. 90 tablet 2 07/19/20 25 Active allopurinol (ZYLOPRIM) 300 MG tabletIndications: Hyperuricemia Take 1 tablet by mouth Daily. 07/19/20 25 Active Semaglutide, 2 MG/DOSE, (Ozempic, 2 MG/DOSE,) 8 MG/3ML solution pen-injectorIndica tions:Type 2 diabetes mellitus with diabetic neuropathy, with long-term current use of insulin Inject 2 mg under the skin into the appropriate area as directed 1 (One) Time Per Week. friday 3 mL 2 08/31/20 25 Active Semaglutide, 2 MG/DOSE, (Ozempic, 2 MG/DOSE,) 8 MG/3ML solution pen-injectorIndica tions:Type 2 diabetes mellitus with diabetic neuropathy, with long-term current use of insulin Inject 2 mg under the skin into the appropriate area as directed 1 (One) Time Per Week. friday 3 mL 2 05/25/20 025 [facility], or Other Facility Administered Medication Ordered Dose Route Frequency Start Date End Date Status cyanocobalamin injection 1,000 mcgIndications:Vitamin B12 deficiency 1000 mcg IM Every 28 Days 02/22/2022 Active cyanocobalamin injection 1,000 mcgIndications:Vitamin B12 deficiency 1000 mcg IM Every 28 Days 03/01/2022 Active Active Problems Problem Noted Date Diagnosed Date Obesity, morbid, BMI 40.0-49.9 06/30/2025 Type 2 diabetes mellitus wit h hyperglycemia, with long-term current use of insulin 12/28/2024 Assessment & Plan (07/19/2025 10:46 AM EDT): {Diabetes (Optional):7403001996} Orders: Insulin Glargine, 2 Unit Dial, (TOUJEO) 300 UNIT/ML solution pen-injector injection; Inject 40 Units under the skin into the appropriate area as directed Daily. Hemoglobin A1c Assessment & Plan (12/28/2024 8:24 AM EST): Diabetes is stable. A1c today. Continue metformin, glargine, Ozempic. Type 2 diabetes mellitus wit h diabetic microalbuminuria, with long-term current use of insulin 12/28/2024 Subarachnoid hemorrhage 05/20/2024 Parkinson's disease without dyskinesia or fluctuating manifestations 03/11/2024 Primary hypertension 12/11/2023 Assessment & Plan (07/19/2025 10:46 AM EDT): {Hypertension is (optional):[id number]} Orders: enalapril (VASOTEC) 10 MG tablet; Take 1 tablet by mouth Daily. Assessment & Plan (12/28/2024 8:25 AM EST): [...] experience lightheadedness Hyperuricemia 12/11/2023 Assessment & Plan (07/19/2025 10:46 AM EDT): Orders: allopurinol (ZYLOPRIM) 300 MG tablet; Take 1 tablet by mouth Daily. Assessment & Plan (12/28/2024 8:25 AM EST): Not under ideal control. Assess uric acid. Continue allopurinol and colchicine FABIO on CPAP 09/09/2023 Assessment & Plan (12/28/2024 8:25 AM EST): Stable. Patient continues to benefit from use of CPAP nightly. Benign neoplasm of meningioma (cerebral) Type 2 diabetes mellitus wit h diabetic [...] documentation of his foot exam from his side framer and a new prescription for diabetic shoes [...] started on Kerendia Restless leg syndrome 02/21/2022 Encounters Date Type Department Care Team Description 08/31[facility] [address] [place] [address] Juan José Cervantes MD Type 2 diabetes mellitus with diabetic neuropathy, with long-term current use of insulin 08/30/2025 8:30 AM EST Flu Shot [facility] [address] [place] [address] Need for influenza vaccination (Primary Dx) 08/30/2025 Travel 07/20/2025 Results Follow-Up [facility] [address] [place] [address] [address] Juan José Cervantes MD 07/19/2025 10:15 AM EDT Office Visit [facility] [address] [place] [address] Juan José Cervantes MD Medicare annual wellness visit, subsequent (Primary Dx); Type 2 diabetes mellitus with hyperglycemia, with long-term current use of insulin; Colon cancer screening; Primary hypertension; Hyperuricemia 07/19/2025 Travel 07/18/2025 Refill [facility] [address] [place], [place] [address] Juan José Cervantes MD Type 2 diabetes mellitus with diabetic neuropathy, with long-term current use of insulin 07/18/2025 Refill [facility] [address] [place], [place] [address] Juan José Cervantes MD Type 2 diabetes mellitus with diabetic neuropathy, with long-term current use of insulin 06/30/2025 10:00 AM EDT Office Visit [facility] [address] [phone] Tank Dudley MD FABIO on CPAP (Primary Dx); Restless leg syndrome; Obesity, morbid, BMI 40.0-49.9 06/30/2025 Travel 06/21/2025 Telephone [facility] [address] [facility] [address] [place] [address] Tank Dudley MD SLEEP RECORDS 06/14/2025 Refill [facility] [address] [place] [address] Juan José Cervantes MD Primary hypertension 06/11/2025 Refill [facility] [address] [place] [address] Juan José Cervantes MD Type 2 diabetes mellitus with hyperglycemia, with long-term current use of insulin; Stage 3a chronic kidney disease (CKD) from Last 3 Months Immunizations Immunization Administration Dates Next Due COVID-19 (MODERNA) 1st,2nd,3rd Dose Monovalent 0 01/24/2021,12/27/2020 COVID-19 (MODERNA) Monovalent Original Booster 0 11/21/2021 Fluzone High-Dose 65+YRS 08/30/2025,09/21/2024 Fluzone High-Dose 65+yrs 09/09/2023,08/22/2022 PPD Test 08/27/2017 [...] drink = 0.6 oz pur e alcohol) [facility] Utilities Answer Date Recorded In the past [...] or training? Not on file Preferred Language Dutch 05/21/2024 PHQ-2 Answer Date Recorded Patient Health [...] Mass Index 44.86 07/19/2025 9:59 AM EDT Plan of Treatment Upcoming Encounters Date Type Department Care Team (Late st Contact Info) Description 10/18/2025 8:00 AM EST Office Visit [facility] [address] [place] [address] Juan José Cervantes MD [address] [place] [address] 06/30/2026 10:00 AM EDT Office Visit [facility] [address] [facility] [address] [place] [phone] Manuel Wheatley, SCIENTIST ELECTRONICS [address] [place] [address] Health Maintenance Due Date Last Done Comments COLON CANCER SCREENING 5 YEA R SIGMOIDOSCOPY [address] COLONOGRAPHY 1999 FECAL OCCULT BLOOD TEST 1999 FIT Testing (1 year) 1999 ZOSTER VACCINE (1 of 2) 2004 COVID-19 Vaccine (3 - Modern a risk series) 12/19/2021 11/21/2021, 01/24/2021, 12/27/2020 URINE MICROALBUMIN-CREATININ E RATIO (uACR) 12/28/2025 12/28/2024 HEMOGLOBIN A1C 01/16/2026 07/19/2025, 06/0 03/2025, 12/28/2024, Additional history exists LIPID PANEL 03/31/2026 03/31/2025, 03/0 01/2025, 12/12/2022 DIABETIC EYE EXAM 05/02/2026 05/02/2025, , 04/23/2024, Additional history exists ANNUAL WELLNESS VISIT 07/19/2026 07/19/2025 , 07/19/2025, 06/21/2024, Additional history exists DIABETIC FOOT EXAM 07/25/2026 07/25/2025, 0 04/05/2025, 01/26/2025, Additional history exists COLOGUARD 08/02/2028 08/02/2025, 06/12/2022 COLORECTAL CANCER SCREENING 08/02/2028 TDAP/TD VACCINES (2 - Td or Tdap) 05/25/2034 024 Pneumococcal Vaccine 50+ Completed 05/25/2024 AAA SCREEN ONCE Completed 02/09/2025 HEPATITIS C SCREENING Completed 04/11/2025 INFLUENZA VACCINE Completed 08/30/2025, , 09/09/2023, Additional history exists Procedures Procedure Name Priority Date/Time Associated Diagnosis Comments COLOGUARD Routine 08/02/2025 1:21 PM EDT Colon cancer screening SCANNED - FOOT EXAM 07/25/2025 HEMOGLOBIN A1C Routine 07/19/2025 10:37 AM EDT Type 2 diabetes mellitus with hyperglycemia, with long-term current use of insulin SCANNED - EYE EXAM 05/02/2025 HEPATITIS C ANTIBODY Routine 04/11/2025 10:55 AM EDT LIPID PANEL Routine 03/31/2025 9:32 AM EDT Mixed hyperlipidemia CT ABDOMEN PELVIS W CONTRAST STAT 02/09/2025 Left lateral abdominal pain History of colonic diverticulitis POC ALBUMIN/CREATININE RATIO Routine 12/28/2024 8:29 AM EST Type 2 diabetes mellitus with diabetic neuropathy, with long-term current use of insulin Stage 3a chronic kidney disease (CKD) from Last 3 Months or Most Recently Relevant to Health Maintenance Results * Cologuard - Stool, Per Rectum (08/02/2025 1:21 PM EDT) Cologuard Negative Negative 08/08/2025 12:08 PM EDT [employer] (CLIA #:[id number]) Comment: The Cologuard Plus (TM) test was performed on this specimen. NEGATIVE TEST RESULT. A negative (normal) Cologuard Plus result means the patient has a cebh-ozoc-sgaacmt chance of having colorectal cancer (CRC) or [...] a 91% specificity (Cologuard Plus Clinician Brochure. [employer]. [place], [place].). Visit www.5151tuan.com/about/boqzwwcm-xqukfdsogoo-pvewzziehrc for more test information, references, warnings, and precautions. Stool specimen (specimen) Specimen from rectum / Unknown 08/02/2025 1:21 PM EDT 08/03/2025 2:30 PM EDT Juan José Cervantes MD BODY FLUIDS AND STOOLS O RDERABLES Final Result [employer] (CLIA #:[id number]) [address] [place] [address], * FOOT EXAM SCANNED (07/25/2025) Juan José Cervantes MD CHART REVIEW TABS Fin al Result * (ABNORMAL) Hemoglobin A1c (07/19/2025 10:37 AM EDT) Hemoglobin A1C 6.30(H) 4.80 - 5.60 % [facility] Comment: Hemoglobin A1C Ranges: Increased Risk for Diabetes 5.7% to 6.4% Diabetes >= 6.5% Diabetic Goal < 7.0% Blood 07/19/2025 10:3 7 AM EDT 07/19/2025 Narrative [facility] ([facility]ORY) - 07/20/2025 3:07 AM EDT Performed at: [address] [place] [id number] Winding Operator: Christiano Hoyt MD, Phone: [phone] Patient Fasting: N Juan José Cervantes MD LAB BLOOD ORDERABLES Fin al Result Performing Organization Address City/[facility]/ZIP Co de Phone Number [facility] ([facility]BULAT[facility]) [address] [place] [address], [place] [phone] [facility] [address] [place] [address], [place] [phone] * EYE EXAM SCANNED (05/02/2025) Anatomical Region Laterality Modality Other Juan José Cervantes MD CHART REVIEW TABS Fin al Result * Hepatitis C Antibody (04/11/2025 10:55 AM EDT) Hep C Virus Ab Non Reactive Non Reactive [facility] Comment: HCV antibody alone does not differentiate between previously resolved infection and active infection. Equivocal and Reactive HCV antibody results should be followed up with an HCV RNA test to support the diagnosis of active HCV infection. 04/11/2025 10:5 5 AM EDT 04/11/2025 Narrative [facility] (AMBULATORY) - 04/13/2025 8:11 AM EDT Performed at: [address] [id number] Winding Operator: Enmanuel Akbar PhD, Phone: [phone] Patient Fasting: Y Franklin MADRID LAB BLOOD ORDERABLES Final Res ult [facility] (AMBULATORY) [address] [place] [address], [facility] [address] [place] [address], * (ABNORMAL) Lipid Panel (03/31/2025 9:32 AM EDT) Total Cholesterol 96 0 - 200 mg/dL [...] 03/31/2025 9:32 AM EDT 03/31/2025 Narrative [facility] (AMBULATORY) - 04/01/2025 8:11 AM EDT Performed at: [address] [place] [id number] Winding Operator: Christiano Hoyt MD, Phone: [phone] Patient Fasting: Y Juan José Cervantes MD LAB BLOOD ORDERABLES Fin al Result [facility] ([facility]) [address] [place] [id number], [facility] [address] [id number], [place] [phone] * CT Abdomen Pelvis With Contrast (02/09/2025) [...] OF CARE TEST ORDER BRIANNA Final Result from Last 3 Months or Most Recently Relevant to Health Maintenance Insurance MEDICARE A & [facility] Advance Directives Documents on File Type Date Recorded Patient Tele Rn Expl anation LIVING WILL - SCAN 12/16/2023 12:21 PM [facility], 11/25/2023 * CPR (Attempt to Resuscitate) (Latest Code Status on File) Date Activated Date Inactivated Comments 05/20/2024 6:32 PM 05/22/2024 3:06 PM Question Answer Comments Code Status (Patient has no pulse and is not breathing): CPR (Attempt to Resuscitate) Medical Interventions (Patie nt has pulse or is breathing): Full Support Care Teams Tempering Kiln Tender Relationship Specialty Start Date End Date Juan José Cervantes MD [place] [address] PCP - General Family Medicine 02/20/22
--- OUTSIDE RECORDS SUMMARY | 2025-09-01 08:10 | XMS_ITS | Encounter Summary ---
[facility] Organization [facility] Address [address] [place] [address] Care Team Providers Care Straightener And Aligner Name Role Phone Juan José Cervantes MD Primary Care Provider + Encounter Details Date Type Department Care Team (Late st Contact Info) Description 02/10/2025 Results Follow-Up [facility] [address] [facility] [address] Osman Lagos MD [address] [facility] [address] Social History Tobacco Use Types Packs/Day Years Used Date Smoking Tobacco: Former Cigarettes 0.3 2 0 10/27/1968 - 10/27/1970 Passive Smoke Exposure: Never Smokeless Tobacco: Never Comments:Only smoked in high school Alcohol Use Standard Drinks/Week Comments Never 0 (1 standard drink = 0.6 oz pur e alcohol) [facility] Utilities Answer Date Recorded In the past 12 months has [place], gas, oil, or water [employer] threatened to shut off services in your [...] or training? Not on file Preferred Language Filipino 05/21/2024 PHQ-2 Answer Date Recorded Patient Health [...] [facility] [address] [place] [address] Juan José Cervantes MD [address] [place] [address] 06/30/2026 10:00 AM EDT Office Visit [facility] [address] [facility] [address] [place] [address] Manuel Wheatley, OYSTER FLOATER [address] [place] [address] documented as of this encounter Visit Diagnoses Not on filedocumented in this encounter Care Teams Straightener And Aligner Relationship Specialty Start Date End Date Juan José Cervantes MD [address] [place] [address] PCP - General Family Medicine 02/20/22 documented as of this encounter
--- OUTSIDE RECORDS SUMMARY | 2025-09-01 08:10 | XMS_ITS | Clinical Summary ---
Author Organization [facility] Address [address] [place] [address] Care Team Providers Care Childcare Provider Name Role Phone Juan José Cervantes MD Primary Care Provider [phone] Allergies No known active allergies Medications metFORMIN [...] Continuous Glucose Sensor (FreeStyle Amanda 2 Sensor) [facility] USE DIRECTED EVERY 14 DAYS 01/04/20 25 [...] ER (Slow Release Iron) 45 MG tablet controlled-rel ease Take 140 mg by mouth. Active b complex vitamins capsule Take 1 capsule by mouth daily. Active NON FORMULARY Apply topically as needed in the morning and as needed at noon and as needed in the evening and as needed before bedtime. Ketamine/gabap entin/ibuprofe n/lidocaine/ba clofen 4/10/3/4/2%. Active pramipexole (Mirapex) 0.75 MG tablet Take 1 tablet by mouth every evening. 30 tablet 07/12/20 25 Active pramipexole (Mirapex) 0.5 MG tablet Take 1 tablet by mouth 2 times a day. 60 tablet 08/12/20 25 025 Active carbidopa-levo dopa (Sinemet) 25-100 MG tablet Take 2 tablets by mouth 3 times a day. 540 tablet 3 08/12/20 25 026 Active carbidopa-levo dopa (Sinemet) 25-100 MG tablet Take 2 tablets by mouth 3 (three) times a day. 180 tablet 5 02/15/20 25 025 Discontinued(R eorder) pramipexole (Mirapex) 0.5 MG tablet Take 1 tablet by mouth every morning. 30 tablet 07/12/20 25 025 Discontinued Encounters Date Type Department Care Team Description 08/12/2025 Refill [facility] [address] [place] [address] Dixon Gongora MD 08/11/2025 Refill [facility] [address] [place] [address] Dixon Gongora MD 07/12/2025 Orders Only [facility] [address], [address] [place] [address] Dixon Gongora MD 06/09/[address] [facility] [address] [place] [address] Dixon Gongora MD from Last 3 Months [...] 01/20/2025 8:06 AM EDT Plan of Treatment Upcoming Encounters Date Type Department Care Team (Late st Contact Info) Description 04/12/2026 2:00 PM EDT Office Visit [facility] [address] [place] [address] Dixon Gongora MD [address] [place] [address] Health Maintenance Due Date Last Done Comments [facility]-Depression Screening 1954 [facility]-/Child/Adol SDOH Screenings 1954 [facility]- SDOH Screenings 1972 [facility]-Adult SDOH Screenings 1972 CT Colonography 1999 Colonoscopy 1999 FIT 1999 FOBT 1999 Sigmoidoscopy 1999 [facility]-Zoster Vaccines (1 of 2) 2004 FIT-DNA 06/12/2025 06/12/2022 [facility]-Colorectal Cancer Screening 06/12/2025 [id number] Vaccine ( - season) 2025 11/21/2021, 01/24/2021, 12/27/2020 [facility]-Influenza Vaccine (#1) 06/27/202509/21, 09/09/2023, 08/22/2022 [facility]-RSV Vaccine: 60+ Years or (1 - 1-dose 75+ series) 2029 [facility]-DTaP,Tdap,and Td Vaccines (2 - Td or Tdap) 05/25/2034 05/25/2024 [facility]-Pneumococcal Vaccine: 50+ Years Completed 05/25/2024 [facility]-Diabetes: Hemoglobin A1C Discontinued 12/28/2024, 09/21/2024, 05/20/2024, Additional history exists HPV Vaccines Aged Out No longer eligi [...] complete this topic Insurance MEDICARE Care Teams Childcare Provider Relationship Specialty Start Date End Date Juan José Cervantes MD PCP - General 01/20/25
--- OUTSIDE RECORDS SUMMARY | 2025-09-01 08:11 | XMS_ITS | Encounter Summary ---
Author Organization Healthcare Address [address] [place] [address] Care Team Providers Care Scraper Loader Operator Name Role Phone Juan José Cervantse MD Primary Care Provider [phone] Encounter Details Date Type Department Care Team (Late Contact Info) Description 08/12/2025 Refill [facility] [address] [place] [address] Dixon Gongora MD [address] [place] [address] Social History Tobacco Use Types Packs/Day [...] Encounters Date Type Department Care Team (Late Contact Info) Description 04/12/2026 2:00 PM EDT Office Visit [facility] [address] [place] [address] Dixon Gongora MD [address] [place], [place] [id number] [place] [address] documented as of this encounter Visit Diagnoses Not on filedocumented in this encounter Additional Health Concerns Assessment Noted Time A fall risk assessment has been complete d for the patient 01/20/2025 8:06 AM EDT A Body Mass Index follow-up plan has been documented for the patient 01/20/2025 10:04 AM EDT documented as of this encounter Care Teams Scraper Loader Operator Relationship Specialty Start Date End Date Juan José Cervantes MD PCP - General 01/20/25 documented as of this encounter
--- OUTSIDE RECORDS SUMMARY | 2025-09-01 08:11 | XMS_ITS | Encounter Summary ---
Author Organization [facility] Address [address] [place] [id number] Care Team Providers Care Clinical Education Consultant Name Role Phone Juan José Cervantes MD Primary Care Provider + Reason for Visit * Reason Onset Date Comments Med Refill 07/18/2025 Encounter Details Date Type Department Care Team (Late st Contact Info) Description 07/18/2025 Refill [facility] [address] [place] [address] Juan José Cervantes MD [address] [place] [address] Type 2 diabetes mellitus with diabetic neuropathy, with long-term current use of insulin Social History Tobacco Use Types Packs/Day Years Used Date Smoking Tobacco: Former Cigarettes 0.3 2 0 10/27/1968 - 10/27/1970 Passive Smoke Exposure: Never Smokeless Tobacco: Never Comments:Only smoked in high school Alcohol Use Standard Drinks/Week Comments Never 0 (1 standard drink = 0.6 oz pur e alcohol) [facility] Utilities Answer Date Recorded In the past 12 months has [employer], gas, oil, or water company threatened to [...] or training? Not on file Preferred Language Serbian 05/21/2024 PHQ-2 Answer Date Recorded Patient Health [...] [facility] [address] [place] [address] Juan José Cervantes MD [address] [place], [place] [address] 06/30/2026 10:00 AM EDT Office Visit [facility] [address] [facility] [address] [place] [address] Manuel Wheatley, TUG CAPTAIN [address] [place] [address] documented as of this encounter Visit Diagnoses Diagnosis Type 2 diabetes mellitus with diabetic neuropathy, with long-term current use of insulin documented in this encounter Care Teams Clinical Education Consultant Relationship Specialty Start Date End Date Juan José Cervantes MD [address] [place], [place] [id number] PCP - General Family Medicine 02/20/22 documented as of this encounter
--- OUTSIDE RECORDS SUMMARY | 2025-09-01 08:11 | XMS_ITS | Encounter Summary ---
Author Organization Healthcare Address [address] [place] [address] Care Team Providers Care Manager Of Tax Name Role Phone Juan José Cervantes MD Primary Care Provider [phone] Encounter Details Date Type Department Care Team (Late Contact Info) Description 06/09/2025 Refill [facility] [address], 1st [place] [address] Dixon Gongora MD [address] [place] [address] Social History Tobacco Use Types Packs/Day [...] Description 04/12/2026 2:00 PM EDT Office Visit [facility] [address], [address]st [place] [address] Dixon Gongora MD [address] [place], [place] [id number] [place] [address] documented as of this encounter Visit Diagnoses Not on filedocumented in this encounter Additional Health Concerns Assessment Noted Time A fall risk assessment has been complete d for the patient 01/20/2025 8:06 AM EDT A Body Mass Index follow-up plan has been documented for the patient 01/20/2025 10:04 AM EDT documented as of this encounter Care Teams Manager Of Tax Relationship Specialty Start Date End Date Juan José Cervantes MD PCP - General 01/20/25 documented as of this encounter
--- OUTSIDE RECORDS SUMMARY | 2025-09-01 08:11 | XMS_ITS | Encounter Summary ---
Author Organization [facility] Address [address] [place] [address] Care Team Providers Care Direct Of Real Estate Name Role Phone Juan José Cervantes MD Primary Care Provider + Encounter Details Date Type Department Care Team (Latest Contact Info) Description 07/19/2025 Travel Social History Tobacco Use Types Packs/Day Years Used Date Smoking Tobacco: Former Cigarettes 0.3 2.3 0 10/27/1968 - 10/27/1970 Passive Smoke Exposure: Never Smokeless Tobacco: Never Comments:Only smoked in high school Alcohol Use Standard Drinks/Week Comments Never 0 (1 standard drink = 0.6 oz pur e alcohol) [facility] Utilities Answer Date Recorded In the past 12 months has [email or web address] electric, gas, oil, or water company threatened [...] or training? Not on file Preferred Language Canadian 05/21/2024 PHQ-2 Answer Date Recorded Patient Health Questionnaire-2 Score 0 07/19/2025 Sex and Gender Information Value Date Recorded Sex Assigned at Male 12/28/2024 7:44 AM EST Legal Sex Male 11:15 AM EDT Gender Identity Not on file Sexual Orientation Not on file documented as of this encounter Functional Status documented as of this encounter Plan of Treatment Upcoming Encounters Date Type Department Care Team (Late st Contact Info) Description 10/18/2025 8:00 AM EST Office Visit [facility] FAMILY [facility]ICINE [address] [address] Juan José Cervantes MD [address] [address] 06/30/2026 10:00 AM EDT Office Visit [facility] SLEEP MEDICINE 3000 [facility] 240 [place] [address] Manuel [place], INDUSTRIAL HEALTH AND SAFETY PROFESSOR [address] [place] [address] documented as of this encounter Visit Diagnoses Not on filedocumented in this encounter Care Teams Direct Of Real Estate Relationship Specialty Start Date End Date Juan José Cervantes MD [facility] [place] [address] PCP - General Family Medicine 02/20/22 documented as of this encounter
--- OUTSIDE RECORDS SUMMARY | 2025-09-01 08:11 | XMS_ITS | Encounter Summary ---
[facility] Address [address] [place] [address] Care Team Providers Care Mill Tender Warm Up Name Role Phone Juan José Cervantes MD Primary Care Provider + Encounter Details Date Type Department Care Team (Late st Contact Info) Description 04/13/2025 Results Follow-Up [facility] FAMILY MEDICINE [address] [facility] [place] [address] Franklin Conklin PA 210 [facility] [place] [address] Social History Tobacco Use Types Packs/Day Years Used Date Smoking Tobacco: Former Cigarettes 0.3 2 0 10/27/1968 - 10/27/1970 Passive Smoke Exposure: Never Smokeless Tobacco: Never Comments:Only smoked in high school Alcohol Use Standard Drinks/Week Comments Never 0 (1 standard drink = 0.6 oz pur e alcohol) [facility] Utilities Answer Date Recorded In the past 12 months has [employer], gas, oil, or water [employer] threatened to shut off services in your [...] or training? Not on file Preferred Language Cuban 05/21/2024 PHQ-2 Answer Date Recorded Patient Health [...] Description 10/18/2025 8:00 AM EST Office Visit [facility] FAMILY MEDICINE [address] [address] Juan José Cervantes MD [address] [place] [address] 06/30/2026 10:00 AM EDT Office Visit [facility] SLEEP MEDICINE 3000 [facility] 240 [place] [address] Manuel [place]ley, CARPENTRY INSTRUCTOR [address] [place] [address] documented as of this encounter Visit Diagnoses Not on filedocumented in this encounter Care Teams Mill Tender Warm Up Relationship Specialty Start Date End Date Juan José Cervantes MD [address] [place] [address] PCP - General Family Medicine 02/20/22 documented as of this encounter
--- OUTSIDE RECORDS SUMMARY | 2025-09-01 08:12 | XMS_ITS | Encounter Summary ---
[facility] Address [address] [place] [id number] Care Team Providers Care Pulverizer Name Role Phone Juan José Cervantes MD Primary Care Provider + Encounter Details Date Type Department Care Team (Late st Contact Info) Description 07/20/2025 Results Follow-Up [facility] 210 [facility] [place] [address] Juan José Cervantes MD 210 [facility] [place] [address] Social History Tobacco Use Types Packs/Day Years Used Date Smoking Tobacco: Former Cigarettes 0.3 2.3 0 10/27/1968 - 10/27/1970 Passive Smoke Exposure: Never Smokeless Tobacco: Never Comments:Only smoked in high school Alcohol Use Standard Drinks/Week Comments Never 0 (1 standard drink = 0.6 oz pur e alcohol) [facility] Utilities Answer Date Recorded In the past 12 months has [employer], gas, oil, or water [employer] threatened to shut off services in your [...] or training? Not on file Preferred Language American 05/21/2024 PHQ-2 Answer Date Recorded Patient Health [...] Description 10/18/2025 8:00 AM EST Office Visit [facility] FAM[facility]INE [address] [address] Juan José Cervantes MD [address] [place] [address] 06/30/2026 10:00 AM EDT Office Visit [facility]EP MED[facility]INE 3000 [facility] 240 [place] [phone] Manuel Wheatley, GUN BARREL FINISHER [address] [place] [address] documented as of this encounter Visit Diagnoses Not on filedocumented in this encounter Care Teams Pulverizer Relationship Specialty Start Date End Date Juan José Cervantes MD [address] [place] [address] PCP - General Family Medicine 02/20/22 documented as of this encounter
--- OUTSIDE RECORDS SUMMARY | 2025-09-01 08:12 | XMS_ITS | Encounter Summary ---
Author Organization Healthcare Address [address] [place] [address] Care Team Providers Care Transmitter Engineer Name Role Phone Juan José Cervantes MD Primary Care Provider [phone] Encounter Details Date Type Department Care Team (Late Contact Info) Description 07/12/2025 Orders Only [facility] [address], 1st [place] [address] Dixon Gongora MD [address] [place] [address] Social History Tobacco Use Types Packs/Day [...] Description 04/12/2026 2:00 PM EDT Office Visit [facility] [address], [address]st [place] [address] Dixon Gongora MD [address] [place] [address] [address] [place] [address] documented as of this encounter Visit Diagnoses Not on filedocumented in this encounter Additional Health Concerns Assessment Noted Time A fall risk assessment has been complete d for the patient 01/20/2025 8:06 AM EDT A Body Mass Index follow-up plan has been documented for the patient 01/20/2025 10:04 AM EDT documented as of this encounter Care Teams Transmitter Engineer Relationship Specialty Start Date End Date Juan José Cervantes MD PCP - General 01/20/25 documented as of this encounter
--- OUTSIDE RECORDS SUMMARY | 2025-09-01 08:12 | XMS_ITS | Encounter Summary ---
Author Organization [facility] Address [address] [place] [phone] Care Team Providers Care Ramp Service Employee Name Role Phone Juan José Cervantes MD Primary Care Provider + Reason for Visit * Reason Comments Med Refill Encounter Details Date Type Department Care Team (Late st Contact Info) Description 10/26/2024 Refill [facility] FAM[facility]ICINE 210 [facility] [place] [address] Juan José Cervantes MD 210 [place] [address] Type 2 diabetes mellitus with [...] drink = 0.6 oz pur e alcohol) [facility] Utilities Answer Date Recorded In the past 12 months has [employer] electric, gas, oil, or water company threatened [...] or training? Not on file Preferred Language Swiss 05/21/2024 PHQ-2 Answer Date Recorded Retired PHQ-9: [...] Description 10/18/2025 8:00 AM EST Office Visit [facility] FAMILY MEDICINE [address] [place] [address] Juan José Cervantes MD [address] [place] [address] 06/30/2026 10:00 AM EDT Office Visit [facility] SLEEP MEDICINE 3000 [facility] 240 [place] [phone] Manuel [place]ley, DRAFTING LAYOUT MAN [address] [place], [place] [phone] documented as of this encounter Visit Diagnoses Diagnosis Type 2 diabetes mellitus with diabetic neuropathy, with long-term current use of insulin Long-term insulin use documented in this encounter Care Teams Ramp Service Employee Relationship Specialty Start Date End Date Juan José Cervantes MD [address] [place] [address] PCP - General Family Medicine 02/20/22 documented as of this encounter
--- OUTSIDE RECORDS SUMMARY | 2025-09-01 08:12 | XMS_ITS | Encounter Summary ---
Author Organization [facility] Address [address] [place] [address] Care Team Providers Care Business Specialist Name Role Phone Juan José Cervantes MD Primary Care Provider + Encounter Details Date Type Department Care Team (Latest Contact Info) Description 08/30/2025 Travel Social History Tobacco Use Types Packs/Day Years Used Date Smoking Tobacco: Former Cigarettes 0.3 2.3 0 10/27/1968 - 10/27/1970 Passive Smoke Exposure: Never Smokeless Tobacco: Never Comments:Only smoked in high school Alcohol Use Standard Drinks/Week Comments Never 0 (1 standard drink = 0.6 oz pur e alcohol) [facility] Utilities Answer Date Recorded In the past 12 months has [employer] electric, gas, oil, or water company threatened [...] Language Swiss 05/21/2024 PHQ-2 Answer Date Recorded Patient Health [...] Visit [facility]ILY MEDICINE [address] [address] Juan José Cervantes MD [address] [address] 06/30/2026 10:00 AM EDT Office Visit [facility] SLEEP MEDICINE 3000 [facility] 240 [place] [phone] Manuel [place], ACROBATIC DANCER [address] [place] [address] documented as of this encounter Visit Diagnoses Not on filedocumented in this encounter Care Teams Business Specialist Relationship Specialty Start Date End Date Juan José Cervantes MD [address] [place] [address] PCP - General Family Medicine 02/20/22 documented as of this encounter
--- OUTSIDE RECORDS SUMMARY | 2025-09-01 08:13 | XMS_ITS | Encounter Summary ---
Author Organization [facility] Address [address] [place] [phone] Care Team Providers Care Systems Software Developer Name Role Phone Juan José Cervantes MD Primary Care Provider + Reason for Visit * Reason Onset Date Comments Med Refill 08/31/2025 Encounter Details Date Type Department Care Team (Late st Contact Info) Description 08/31/2025 Refill [facility] FAMILY MEDICINE 210 [place] [address] Juan José Cervantes MD 210 [place] [address] Type 2 diabetes mellitus with diabetic neuropathy, with long-term current use of insulin Social History Tobacco Use Types Packs/Day Years Used Date Smoking Tobacco: Former Cigarettes 0.3 2.3 0 10/27/1968 - 10/27/1970 Passive Smoke Exposure: Never Smokeless Tobacco: Never Comments:Only smoked in high school Alcohol Use Standard Drinks/Week Comments Never 0 (1 standard drink = 0.6 oz pur e alcohol) [facility] Utilities Answer Date Recorded In the past 12 months has [employer], gas, oil, or water company threatened to [...] or training? Not on file Preferred Language Colombian 05/21/2024 PHQ-2 Answer Date Recorded Patient Health [...] Description 10/18/2025 8:00 AM EST Office Visit [facility] FAMILY MEDICINE [address] [place] [phone] Juan José Cervantes MD [address] [place], [place] [address] 06/30/2026 10:00 AM EDT Office Visit [facility] SLEEP MEDICINE 3000 [facility] 240 [place] [address] Manuel [place], FOOD SERVICES MANAGER [address] [place], [place] [phone] documented as of this encounter Visit Diagnoses Diagnosis Type 2 diabetes mellitus with diabetic neuropathy, with long-term current use of insulin documented in this encounter Care Teams Systems Software Developer Relationship Specialty Start Date End Date Juan José Cervantes MD [address] [place] [address] PCP - General Family Medicine 02/20/22 documented as of this encounter
--- OUTSIDE RECORDS SUMMARY | 2025-09-01 08:14 | XMS_ITS | Encounter Summary ---
Author Organization Healthcare Address [address] [place] [address] Care Team Providers Care Signal Processing Engineer Name Role Phone Juan José Cervantes MD Primary Care Provider [phone] Reason for Visit * Reason Comments Med Refill Encounter Details Date Type Department Care Team (Late st Contact Info) Description 08/11/2025 [facility]ill [facility] [address], 1st [place] [address] Dixon Gongora MD [address] [place] [address] Social History Tobacco Use Types [...] encounter Miscellaneous Notes * Telephone Encounter - Denisse Thomson, PharmD - 08/12/2025 7:36 AM EDT Refill request does not meet protocol. Sending to clinic for review. Additional info: Clarification required: Per patient message from 07/12, You're correct. I've gone ahead and submitted the new prescription to your pharmacy. In 1 month, we'll aim to do 0.5mg, twice daily. . Please review to adjust dose as necessary and refill if appropriate. Thanks! documented in this encounter Plan of Treatment Upcoming Encounters Date Type Department Care Team (Late st Contact Info) Description 04/12/2026 2:00 PM EDT Office Visit [facility] [address], [address] [place] [address] Dixon Gongora MD [address] [place] [address] documented as of this encounter Visit Diagnoses Not on filedocumented in this encounter Additional Health Concerns Assessment Noted Time A fall risk assessment has been complete d for the patient 01/20/2025 8:06 AM EDT A Body Mass Index follow-up plan has been documented for the patient 01/20/2025 10:04 AM EDT documented as of this encounter Care Teams Signal Processing Engineer Relationship Specialty Start Date End Date Juan José Cervantes MD PCP - General 01/20/25 documented as of this encounter
--- OUTSIDE RECORDS SUMMARY | 2025-09-01 08:14 | XMS_ITS | Encounter Summary ---
[facility] [address] [place] [address] Care Team Providers Care Senior Inspector Name Role Phone Juan José Cervantes MD Primary Care Provider + Reason for Visit * Reason Onset Date Comments Med Refill 03/14/2023 Encounter Details Date Type Department Care Team (Late st Contact Info) Description 03/14/2023 Refill [facility] MED[facility]INE [address] [place] [place] [address] Juan José Cervantes MD 210 [facility] [place] [address] Social History Tobacco Use Types Packs/Day [...] 10/18/2025 8:00 AM EST Office Visit [facility] [address] [place] [address] Juan José Cervantes MD [address] [place] [place] [address] 06/30/2026 10:00 AM EDT Office Visit [facility] 3000 [facility] 240 [place] [address] Manuel [place], BONDING EQUIPMENT OPERATOR [address] [place], [place] [phone] documented as of this encounter Visit Diagnoses Not on filedocumented in this encounter Care Teams Senior Inspector Relationship Specialty Start Date End Date Juan José Cervantes MD [place] [address] PCP - General Family Medicine 02/20/22 documented as of this encounter
--- OUTSIDE RECORDS SUMMARY | 2025-09-01 08:14 | XMS_ITS | Encounter Summary ---
Author Organization [facility] Address [address] [place] [phone] Care Team Providers Care Toddler Teacher Name Role Phone Juan José Cervantes MD Primary Care Provider + Reason for Visit * Reason Comments Med Refill Encounter Details Date Type Department Care Team (Late st Contact Info) Description 07/18/2025 Refill [facility] FAMILY MEDICINE 210 [facility] [place] [address] Juan José Cervantes MD 210 [place] [address] Type 2 diabetes mellitus with [...] Recorded In the past 12 months has [employer] electric, gas, oil, or water company [...] or training? Not on file Preferred Language Australian 05/21/2024 PHQ-2 Answer Date Recorded Patient Health [...] Description 10/18/2025 8:00 AM EST Office Visit [facility] FAMILY MEDICINE [address] [place] [phone] Juan José Cervantes MD [address] [place], [place] [address] 06/30/2026 10:00 AM EDT Office Visit [facility] SLEEP MEDICINE 3000 [facility] 240 [place] [phone] Manuel [place], COST ESTIMATOR [address] [place] [address] documented as of this encounter Visit Diagnoses Diagnosis Type 2 diabetes mellitus with diabetic neuropathy, with long-term current use of insulin documented in this encounter Care Teams Toddler Teacher Relationship Specialty Start Date End Date Juan José Cervantes MD [address] [place] [address] PCP - General Family Medicine 02/20/22 documented as of this encounter
--- OUTSIDE RECORDS SUMMARY | 2025-09-01 08:14 | XMS_ITS | Encounter Summary ---
[facility] Organization [facility] [address] [place] [phone] Care Team Providers Care Supervisor Personnel Clerks Name Role Phone Juan José Cervantes MD Primary Care Provider + Reason for Visit * Reason Onset Date Comments Med Refill 03/29/2024 Encounter Details Date Type Department Care Team (Late st Contact Info) Description 03/29/2024 Refill [facility] FAMILY MEDICINE 210 [place] [address] Juan José Cervantes MD 210 [place] [address] Diabetic peripheral neuropathy Social History [...] Description 10/18/2025 8:00 AM EST Office Visit [facility] FAMILY MEDICINE [address] [place] [address] Juan José Cervantes MD [address] [place] [address] 06/30/2026 10:00 AM EDT Office Visit [facility] SLEEP MEDICINE 3000 [facility] 240 [place] [address] Manuel [place], LASTING ROOM SUPERVISOR [address] [place] [address] documented as of this encounter Visit Diagnoses Diagnosis Diabetic peripheral neuropathy Type II or unspecified type diabetes mellitus with neurological manifestations, not stated as uncontrolled documented in this encounter Care Teams Supervisor Personnel Clerks Relationship Specialty Start Date End Date Juan José Cervantes MD [address] [place] [address] PCP - General Family Medicine 02/20/22 documented as of this encounter
--- OUTSIDE RECORDS SUMMARY | 2025-09-01 08:15 | XMS_ITS | Encounter Summary ---
[facility] Address [address] [place] [address] Care Team Providers Care Faculty Neuropsychologist Name Role Phone Juan José Cervantes MD Primary Care Provider + Reason for Visit * Reason Onset Date Comments Med Refill 07/30/2023 Encounter Details Date Type Department Care Team (Late st Contact Info) Description 07/30/2023 Refill [facility] MEDICINE 210 [facility] [place] [address] Juan José Cervantes MD 210 [facility] [place] [address] Diabetic peripheral neuropathy Social History [...] Description 10/18/2025 8:00 AM EST Office Visit [facility] MEDICINE 210 [facility] [place] [address] Juan José Cervantes MD [address] [place] [address] 06/30/2026 10:00 AM EDT Office Visit [facility] MED[facility]INE 3000 [facility] 240 [place] [address] Manuel [place], MOBILE APPLICATION TESTER [address] [place] [address] documented as of this encounter Visit Diagnoses Diagnosis Diabetic peripheral neuropathy Type II or unspecified type diabetes mellitus with neurological manifestations, not stated as uncontrolled documented in this encounter Care Teams Faculty Neuropsychologist Relationship Specialty Start Date End Date Juan José Cervantes MD [address] [place] [address] PCP - General Family Medicine 02/20/22 documented as of this encounter
[2025-09-01 08:22] VITALS: BP 118/72; PULSE 90; RESP 14; TEMP 36.7; O2SAT 98
[2025-09-01] MEDS: VITAMIN B-12 1,000 MCG 1ML VIAL 1000 MCG IM (08:27)
== END 2025-09-01 23:59 | disposition home or self-care (01) ==
LOC: INF 08:08
PROVIDERS: PCP Family Medicine; Visit Provider Family Medicine
DX: E53.8 Deficiency of other specified B group vitamins (principal)
CPT/HCPCS: 96372; J3420

== ENCOUNTER 2025-10-07 05:55 | Emergency (ER) | payer MEDICARE, OTHER, SELFPAY ==
--- OUTSIDE RECORDS SUMMARY | 2012-02-06 12:25 | XMS_ITS | Continuity of Care Document ---
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 benztropine 1 mg Tab take 1 tablet (1MG) by ORAL route 2 times every day 1 MG - Active Imdur 60 mg 24 hr Tab take 1 tablet (60MG) by ORAL route every day in the morning - Active Paxil CR 12.5 mg 24 hr Tab Take one tablet by mouth every day - Active Adult Aspirin EC Low Strength 81 mg Tab, Delayed Release Take one tablet by mouth every day - Active enalapril maleate 10 mg Tab Take one tablet by mouth every day - Active Lipitor 20 mg Tab Take one tablet by mouth daily - Active metformin 1,000 mg Tab Take one tablet by mouth two times a day - Active Procedures Procedure Date Echo Complete (2D W/ CF & Doppler) Jan- Offic/outpt E&m Estab Offic/outpt E&m Estab Offic/outpt E&m Estab Echo Complete (2D W/ CF & Doppler) Optison (octafluoropropane) Offic/outpt E&m Estab Offic/outpt E&m Estab Offic/outpt E&m Estab Offic/outpt E&m Estab Echo Trnsthorac Real-time; Com 08 Doppler Echo Cont Wave; Complt 08 Dopplr Echo Color Flow Velocit 08 Echocardiography Contrast Ecg-routine 12 Lead; W/intrpt 8 Offic/outpt E&m Estab Ecg-routine 12 Lead; Intrpt & 7 Subsqt Hosp-da E&m Sig Compl Rhythm Ecg; Interpt & Report O 07 Init Inpt Cons New/est Mod-hi 7 Lt Hrt Cath Retro-brach/fem; P 07 Inj Proc-cath; Select Coronry 7 Inj Proc-cath; Lt Vent/atrial 7 Imag Supervs I&r-cath; Pulm An 07 Imag Supervs I&r-cath; Vent/at 07 Advance Directives Directive Yes / No Effective Date File Name No Information Encounters Encounter Description Practice Location Reason(s) For Visit Diagnoses Date Provider Providers Copied on Encounter [facility], [address] [place] [address], [address], [facility] No Information 2 Kevin Crow. [address] [facility], [address], [facility] [address], [place], [id number], [place]. tel:[phone] [facility], [address] [place] [address], [address], [place] [facility] No Information 2 Abdoul Foster. [address] [place] [address], [address], [address], [place]. tel:[phone] Referring Provider: Shakeel Bradley MD S, [address], [place], [address]. tel:[phone] ing Provider: Wing Goff, [address] [place] [address] [address], [place], [address]. 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 [address] [place] [address], Suite [facility], [address], [id number], [place]. tel:[phone] Referring Provider: Shakeel Bradley MD S, [address] , [place], [address]. tel:[phone] [facility], [address] [place] [address], [address], [place] [facility] [place] No Information 1 Kevin Crow. [address] [place] [address], [place] [address], [facility] [address], [place], [id number], [place]. 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 [address] [place] [address], Suite [facility], [facility] [address], [place], [id number], [place]. tel:[phone] Referring Provider: Shakeel Bradley MD S, [address], [place], [address]. 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 [address] [place] [address], [place] [address], [address], [id number], . tel:[phone] Referring Provider: Shakeel Miguel, [address], [place], [address]. tel:[phone] [facility], [address] [place] [address], [facility], [place] [facility] Precious Buck No Information Apr-2 1-200 9 Jerrell Nephtali. [address] [place] [address], [place] [address], [address], [facility], . tel:[phone] Referring Provider: Shakeel Miguel, [address], [place], [address]. 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 [address] [place] [address], [place] [address], [address], [id number], . tel:[phone] Referring Provider: Shakeel Bradley MD S, [address], [place], [address]. 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 [address] [place] [address], [address] [facility], [address], [id number], . tel:[phone] Referring Provider: Shakeel Miguel, [address], [place], [address]. 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 [address] [place] [address], [address], [place] [address], [place], [place], [id number], [place]. tel:[phone] Referring Provider: Shakeel Bradley MD S, [address], [place], [address]. tel:[phone] Offic/outpt E&m [facility], [address] [place] [address], [address], [place] [facility] Precious Buck DyspneaCAD - [place] May- 3200 8 Kevin Crow. [address] [place] [address], [address] [facility], [address], [id number], [place]. tel:[phone] Referring Provider: Shakeel Bradley MD S, [address], [place], [address]. tel:[phone] [facility], [address] [place] [address], [address], [place] [facility] Precious Buck No Information Apr-2 9200 8 Abdoul Foster. [address] [place] [address], [address], [place], [address], [place]. tel:[phone] Referring Provider: Shakeel Bradley MD S, [address], [place], [address]. tel:[phone] ing Provider: Tristin Brown, [address] [place] [address] [address], [place] [address], [place], [address]. 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 [facility], [address], [facility] [address], [place], [id number], . tel:[phone] Referring Provider: Shakeel Bradley MD S, [address] [facility], [place], [address]. tel:[phone] [facility], [address] [place] [address], [address], [facility]. No Information No Information Referring Provider: Jon Cornejo MD, [address], [address]. tel:[phone] [facility]- E&m Sig [facility], [address] [place] [address], [facility], [facility]. No Information 7 Samantha TRIPATHI Shaquille. [address] [facility], [address], [address], [place]. tel:[phone] Referring Provider: Jon Cornejo MD, [address], [address]. tel:[phone] Init Inpt Cons New/est Mod-wi [facility], [address] [place] [address], [address], [facility]. No Information 7 Kevin Crow. [address] [place] [address], [address], [address], [id number], [place]. tel:[phone] Referring Provider: Jon Cornejo MD, [address] [place] [address], [place], [address]. tel:[phone] [facility], [address] [place] [address], [address], [facility]. No Information 7 Jerrell Chand. [address] [place] [address], [address], [facility] [address], [address], . tel:[phone] Referring Provider: Jon Cornejo MD, [address] [facility] [address], [place], [address]. tel:[phone] Family History Family Member Type Diagnosis Age At Onset Father Problem (finding) Brother Problem (finding) Myocardial infarction 5 5 Father Problem (finding) congestive hea rt failure (Cause Of ) Sister Problem (finding) Undefined Heart Disease 56 Payers Payer name Insurance type Covered republican ID [facility]iza [id number] Social History Type Description Quantity Date Captured Comments Sex Male Smoking Status No Information Chief Complaint And Reason For Visit No Information Reason For Referral Reason For Referral No Information History Of Present Illness Encounter Date Complaint History Of Prese nt Illness No Information Functional Status Date Functional Assessmen t No Information Instructions Date Instruction Additional Infor mation No Information Assessments Type Assessment Date No Information Patient Care Teams Name Effective Dates (start - stop) Status Members No Information
--- OUTSIDE RECORDS SUMMARY | 2014-10-18 09:00 | XMS_ITS | Continuity of Care Document ---
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 Name Role Phone Chema PT,DPT,CEAS, Kwadwo Unavailable Margie vailable Procedures Procedure Date THERAPEUTIC EXERCISES MANUAL THERAPY THERAPEUTIC EXERCISES MANUAL THERAPY THERAPEUTIC EXERCISES MANUAL THERAPY THERAPEUTIC EXERCISES MANUAL THERAPY PT RE-EVALUATION THERAPEUTIC EXERCISES MANUAL THERAPY THERAPEUTIC EXERCISES MANUAL THERAPY THERAPEUTIC EXERCISES MANUAL THERAPY THERAPEUTIC EXERCISES MANUAL THERAPY PT EVALUATION THERAPEUTIC EXERCISES Advance Directives Directive Yes / No Effective Date File Name No Information Encounters Encounter Description Practice Location Reason(s) For Visit Diagnoses Date Provider Providers Copied on Encounter [facility], [address], [place], [place], [id number], tel:[phone] [facility] No Information 4 Chema Burkett. [address] [place], [place], [id number] , [place]. tel: [phone] Referring Provider: [address], [place], [address]. [phone] [facility], [address], [place], [place], [id number], tel:[phone] [facility] No Information 4 Chema Burkett. [address] [place], [place], [id number] , [place]. tel: [phone] Referring Provider: [address], [place], [address]. tel:[phone] [facility], [address], [id number], tel:[phone] [facility] No Information Sep-1 7-201 4 Chema Burkett. [address] [place], [place], [id number] , [place]. tel: [phone] Referring Provider: [address], [place], [address]. tel:[phone] [place] [address], [address], [id number], tel:[phone] [facility] No Information Sep-0 9-201 4 Chema Burkett. [address] [place], [place], [id number] , [place]. tel: [phone] Referring Provider: [address], [place], [address]. tel:[phone] [place] [address], [address], [id number], [place] tel:[phone] [facility] No Information Sep-0 1-201 4 Chema Burkett. [address] [place], [place], [id number] , [place]. tel: [phone] Referring Provider: [address], [place], [address]. tel:[phone] [place] [address], [address], [id number], tel:[phone] [facility] No Information Oct-0 3-201 4 Chema Burkett. [address] [place], [place], [id number] , [place]. tel: [phone] Referring Provider: [address], [place], [address]. tel:[phone] [facility], [address], [id number], tel:[phone] [facility] No Information Oct-0 1-201 4 Chema Burkett. [address] [place], [place], [id number] , . tel: [phone] Referring Provider: [address], [place], [address]. [phone] [facility], [address], [id number], tel:[phone] [facility] No Information Sep-2 6-201 4 Chema Burkett. [address] [place], [place], [id number] , . tel:[phone] Referring Provider: [address], [place], [address]. [phone] [facility], [address], [id number], tel:[phone] [facility] Achilles bursitis or tendinitisAbnormal ity of gait Sep-2 2 4 Chema Burkett. [facility] [place], [place], [id number] , . tel: [phone] Referring Provider: [address], [place], [address]. [phone] Family History Family Member Type Diagnosis Age At Onset No Information Payers Payer name Insurance type Covered democrat ID Authoriza timauro(s) [facility] CI [id number] No [employer]/Visit Limit Social History Type Description Quantity Date Captured [...]
--- OUTSIDE RECORDS SUMMARY | 2025-08-30 08:30 | XMS_ITS | Encounter Summary ---
[facility] [address] [place] [address] Care Team Providers Care Employee Counselor Name Role Phone Juan José Cervantes MD Primary Care Provider + Encounter Details Date Type Department Care Team (Late st Contact Info) Description 08/30/2025 8:30 AM EST Flu Shot [facility] [address] [place] [address] Need for influenza vaccination (Primary Dx) Social History Tobacco Use Types Packs/Day Years Used Date Smoking Tobacco: Former Cigarettes 0.3 2.3 0 10/27/1968 - 10/27/1970 Passive Smoke Exposure: Never Smokeless Tobacco: Never Comments:Only smoked in high school Alcohol Use Standard Drinks/Week Comments Never 0 (1 standard drink = 0.6 oz pur e alcohol) [facility] Utilities Answer Date Recorded In the past 12 months has [employer], gas, oil, or water [employer] threatened to shut off services in your [...] or training? Not on file Preferred Language Guamanian 05/21/2024 PHQ-2 Answer Date Recorded Patient Health [...] Description 10/18/2025 8:00 AM EST Office Visit [facility] [address] [place] [address] Juan José Cervantes MD [address] [id number] 06/30/2026 10:00 AM EDT Office Visit [facility] [address] [facility] [address] [place] [phone] Manuel Wheatley, SUPERVISOR QUILTING [address] [place] [address] documented as of this encounter Visit Diagnoses Diagnosis Need for influenza vaccination- Primary Need for prophylactic vaccination and inoculation against influenza documented in this encounter Care Teams Employee Counselor Relationship Specialty Start Date End Date Juan José Cervantes MD [address] [place] [address] PCP - General Family Medicine 02/20/22 documented as of this encounter
[2025-10-07 06:01] VITALS: BP 144/86; PULSE 103; RESP 16; TEMP 36.6; O2SAT 96; BMI 41.1
[2025-10-07 06:03] VITALS: BP 144/86; PULSE 103; RESP 14; TEMP 37; O2SAT 97
--- OUTSIDE RECORDS SUMMARY | 2025-10-07 06:08 | XMS_ITS | Encounter Summary ---
Author Organization [facility] Address [address] [place] [id number] Care Team Providers Care Electronic Semiconductor Processor Name Role Phone Juan José Cervantes MD Primary Care Provider + Reason for Visit * Reason Onset Date Comments Med Refill 08/31/2025 Encounter Details Date Type Department Care Team (Late st Contact Info) Description 08/31/2025 Refill [facility] FAMILY MEDICINE 210 [place] [address] Juan José Cervantes MD 210 [place] [address] Type 2 diabetes mellitus with [...] Recorded In the past 12 months has [employer], gas, oil, or water company threatened to [...] or training? Not on file Preferred Language Ukrainian 05/21/2024 PHQ-2 Answer Date Recorded Patient Health [facility] [address] [place] [phone] Juan José Cervantes MD [address] [place], [place] [id number] 06/30/2026 10:00 AM EDT Office Visit [facility] SLEEP MEDICINE 3000 [facility] 240 [place] [phone] Manuel [place], DAIRY EQUIPMENT SPECIALIST [address] [place], [place] [phone] documented as of this encounter Visit Diagnoses Diagnosis Type 2 diabetes mellitus with diabetic neuropathy, with long-term current use of insulin documented in this encounter Care Teams Electronic Semiconductor Processor Relationship Specialty Start Date End Date Juan José Cervantes MD [address] [place] [address] PCP - General Family Medicine 02/20/22 documented as of this encounter
--- OUTSIDE RECORDS SUMMARY | 2025-10-07 06:08 | XMS_ITS | Encounter Summary ---
Author Organization Healthcare Address [address] [place] [address] Care Team Providers Care Machine Assembler Name Role Phone Juan José Cervantes MD Primary Care Provider [phone] Encounter Details Date Type Department Care Team (Late Contact Info) Description 10/03/2025 Orders Only [facility] [address], 1st [place] [address] Dixon Gongora MD [address] [place] [address] Social History Tobacco Use Types Packs/Day [...] 2:00 PM EDT Office Visit [facility] [address], [address] [place] [address] Dixon Gongora MD [address] [place] [address] [address] [place] [address] documented as of this encounter Visit Diagnoses Not on filedocumented in this encounter Additional Health Concerns Assessment Noted Time A fall risk assessment has been complete d for the patient 01/20/2025 8:06 AM EDT A Body Mass Index follow-up plan has been documented for the patient 01/20/2025 10:04 AM EDT documented as of this encounter Care Teams Machine Assembler Relationship Specialty Start Date End Date Juan José Cervantes MD PCP - General 01/20/25 documented as of this encounter
--- OUTSIDE RECORDS SUMMARY | 2025-10-07 06:08 | XMS_ITS | Encounter Summary ---
Author Organization Healthcare Address [address] [place] [place] [address] Care Team Providers Care Wide Piece Goods Inspector Name Role Phone Juan José Cervantes MD Primary Care Provider [phone] Encounter Details Date Type Department Care Team (Late Contact Info) Description 08/12/2025 Refill [facility] [address], 1st [place] [address] Dixon Gongora MD [address] [place] [address] Social History Tobacco Use Types Packs/Day [...] Description 04/12/2026 2:00 PM EDT Office Visit [facility] [address], [address] [place] [address] Dixon Gongora MD [address] [place], [place] [id number] [place] [address] documented as of this encounter Visit Diagnoses Not on filedocumented in this encounter Additional Health Concerns Assessment Noted Time A fall risk assessment has been complete d for the patient 01/20/2025 8:06 AM EDT A Body Mass Index follow-up plan has been documented for the patient 01/20/2025 10:04 AM EDT documented as of this encounter Care Teams Wide Piece Goods Inspector Relationship Specialty Start Date End Date Juan José Cervantes MD PCP - General 01/20/25 documented as of this encounter
--- OUTSIDE RECORDS SUMMARY | 2025-10-07 06:08 | XMS_ITS | Encounter Summary ---
Author Organization Healthcare Address [address] [place] [address] Care Team Providers Care Demand Planning Manager Name Role Phone Juan José Cervantes MD Primary Care Provider [phone] Reason for Visit * Reason Comments Med Refill Encounter Details Date Type Department Care Team (Late st Contact Info) Description 08/11/2025 [place]ill [place] [facility] [address], [address]st [place] [address] Dixon Gongora MD [address] [place] [address] Social History Tobacco Use [...] Visit [place] [facility] [address], [address] [place] [address] Dixon Gongora MD [address] [place] [address] documented as of this encounter Visit Diagnoses Not on filedocumented in this encounter Additional Health Concerns Assessment Noted Time A fall risk assessment has been complete d for the patient 01/20/2025 8:06 AM EDT A Body Mass Index follow-up plan has been documented for the patient 01/20/2025 10:04 AM EDT documented as of this encounter Care Teams Demand Planning Manager Relationship Specialty Start Date End Date Juan José Cervantes MD PCP - General 01/20/25 documented as of this encounter
--- OUTSIDE RECORDS SUMMARY | 2025-10-07 06:08 | XMS_ITS | Encounter Summary ---
[facility] [address] [place] [id number] Care Team Providers Care Market Consultant Name Role Phone Juan José Cervantes MD Primary Care Provider + Reason for Visit * Reason Comments Med Refill Encounter Details Date Type Department Care Team (Late st Contact Info) Description 10/03/2025 Refill [facility] [address] [place] [address] Juan José Cervantes MD [address] [place] [address] Hyperuricemia Social History Tobacco Use Types Packs/Day Years Used Date Smoking Tobacco: Former Cigarettes 0.3 2.3 0 10/27/1968 - 10/27/1970 Passive Smoke Exposure: Never Smokeless Tobacco: Never Comments:Only smoked in high school Alcohol Use Standard Drinks/Week Comments Never 0 (1 standard drink = 0.6 oz pur e alcohol) [facility] Utilities Answer Date Recorded In the past 12 months has [employer] electric, gas, oil, or water company threatened [...] 8:00 AM EST Office Visit [facility] [address] [facility] [place] [address] Juan José Cervantes MD [address] [place] [address] 06/30/2026 10:00 AM EDT Office Visit [facility] 3000 [facility] 240 [place] [address] Manuel Wheatley, WELDER GUN [address] [place] [address] documented as of this encounter Visit Diagnoses Diagnosis Hyperuricemia Other abnormal blood chemistry documented in this encounter Care Teams Market Consultant Relationship Specialty Start Date End Date Juan José Cervantes MD [address] [place] [address] PCP - General Family Medicine 02/20/22 documented as of this encounter
--- OUTSIDE RECORDS SUMMARY | 2025-10-07 06:08 | XMS_ITS | Encounter Summary ---
Author Organization [facility] Address [address] [place] [id number] Care Team Providers Care Generator Switchboard Operator Name Role Phone Juan José Cervantes MD Primary Care Provider + Reason for Visit * Reason Onset Date Comments Med Refill 10/01/2025 Encounter Details Date Type Department Care Team (Late st Contact Info) Description 10/01/2025 Refill [facility] [address] [place] [address] Juan José Cervantes MD [address] [place] [address] Hyperuricemia Social History Tobacco Use Types Packs/Day Years Used Date Smoking Tobacco: Former Cigarettes 0.3 2.3 0 10/27/1968 - 10/27/1970 Passive Smoke Exposure: Never Smokeless Tobacco: Never Comments:Only smoked in high school Alcohol Use Standard Drinks/Week Comments Never 0 (1 standard drink = 0.6 oz pur e alcohol) [facility] Utilities Answer Date Recorded In the past 12 months has [employer] electric, gas, oil, or water company threatened [...] or training? Not on file Preferred Language Nauruan 05/21/2024 PHQ-2 Answer Date Recorded Patient Health [...] Description 10/18/2025 8:00 AM EST Office Visit [facility] [address] [place] [address] Juan José Cervantes MD [address] [place] [address] 06/30/2026 10:00 AM EDT Office Visit [facility] 3000 [facility] 240 [place] [address] Manuel Wheatley, MARKETING COMMUNICATIONS COORDINATOR [address] [place] [address] documented as of this encounter Visit Diagnoses Diagnosis Hyperuricemia Other abnormal blood chemistry documented in this encounter Care Teams Generator Switchboard Operator Relationship Specialty Start Date End Date Juan José Cervantes MD [address] [place] [address] PCP - General Family Medicine 02/20/22 documented as of this encounter
--- OUTSIDE RECORDS SUMMARY | 2025-10-07 06:08 | XMS_ITS | Encounter Summary ---
[facility] [address] [place] [address] Care Team Providers Care Mixing Machine Operator Name Role Phone Juan José Cervantes MD Primary Care Provider + Encounter Details Date Type Department Care Team (Late st Contact Info) Description 04/04/2025 Results Follow-Up [facility] 210 [facility] [place] [address] Juan José Cervantes MD 210 [facility] [place] [address] Social History Tobacco Use Types Packs/Day Years Used Date Smoking Tobacco: Former Cigarettes 0.3 2 0 10/27/1968 - 10/27/1970 Passive Smoke Exposure: Never Smokeless Tobacco: Never Comments:Only smoked in high school Alcohol Use Standard Drinks/Week Comments Never 0 (1 standard drink = 0.6 oz pur e alcohol) [facility] Utilities Answer Date Recorded In the past 12 months has [employer], gas, oil, or water [employer] threatened to shut off services in your [...] or training? Not on file Preferred Language Swedish 05/21/2024 PHQ-2 Answer Date Recorded Patient Health [...] Description 10/18/2025 8:00 AM EST Office Visit [facility] [address] [place] [address] Juan José Cervantes MD [address] [place] [address] 06/30/2026 10:00 AM EDT Office Visit [facility] 3000 [facility] 240 [place] [address] Manuel Wheatley, APPLICATION SUPPORT CONSULTANT [address] [place] [address] documented as of this encounter Visit Diagnoses Not on filedocumented in this encounter Care Teams Mixing Machine Operator Relationship Specialty Start Date End Date Juan José Cervantes MD [address] [place] [address] PCP - General Family Medicine 02/20/22 documented as of this encounter
--- OUTSIDE RECORDS SUMMARY | 2025-10-07 06:08 | XMS_ITS | Encounter Summary ---
Author [facility] [address] [place] [address] Care Team Providers Care Naval Architect Name Role Phone Juan José Cervantes MD Primary Care Provider + Reason for Visit * Reason Onset Date Comments Med Refill 07/30/2023 Encounter Details Date Type Department Care Team (Late st Contact Info) Description 07/30/2023 Refill [facility] [address] [facility] [place] [address] Juan José Cervantes MD 210 [facility] [place] [address] Diabetic peripheral neuropathy Social History [...] Description 10/18/2025 8:00 AM EST Office Visit [facility] 210 [facility] [place] [address] Juan José Cervantes MD [address] [place] [address] 06/30/2026 10:00 AM EDT Office Visit [facility] 3000 [facility] 240 [place] [address] Manuel Wheatley, EQUAL OPPORTUNITY SPECIALIST [address] [place] [address] documented as of this encounter Visit Diagnoses Diagnosis Diabetic peripheral neuropathy Type II or unspecified type diabetes mellitus with neurological manifestations, not stated as uncontrolled documented in this encounter Care Teams Naval Architect Relationship Specialty Start Date End Date Juan José Cervantes MD [address] [place] [address] PCP - General Family Medicine 02/20/22 documented as of this encounter
--- OUTSIDE RECORDS SUMMARY | 2025-10-07 06:08 | XMS_ITS | Encounter Summary ---
Author Organization [facility] Address [address] [place] [address] Care Team Providers Care Roustabout Hand Name Role Phone Juan José Cervantes MD [...] Recorded In the past 12 months has [employer] electric, gas, oil, or water company threatened [...] or training? Not on file Preferred Language Welsh 05/21/2024 PHQ-2 Answer Date Recorded Patient Health [...] Description 10/18/2025 8:00 AM EST Office Visit [facility] [address] [place] [place] [address] Juan José Cervantes MD [address] [place] [address] 06/30/2026 10:00 AM EDT Office Visit [facility] 3000 [facility] 240 [place] [phone] Manuel Wheatley, ASPHALT TILE FLOOR LAYER [address] [place] [address] documented as of this encounter Visit Diagnoses Not on filedocumented in this encounter Care Teams Roustabout Hand Relationship Specialty Start Date End Date Juan José Cervantes MD [address] [place] [address] PCP - General Family Medicine 02/20/22 documented as of this encounter
--- OUTSIDE RECORDS SUMMARY | 2025-10-07 06:08 | XMS_ITS | Encounter Summary ---
Author Organization [facility] Address [address] [place] [id number] Care Team Providers Care Cut In Station Operator Name Role Phone Juan José Cervantes MD Primary Care Provider + Reason for Visit * Reason Onset Date Comments Med Refill 09/23/2025 Encounter Details Date Type Department Care Team (Late st Contact Info) Description 09/23/2025 Refill [facility] [address] [place] [address] Juan José Cervantes MD [address] [place] [address] Type 2 diabetes mellitus with hyperglycemia, with long-term current use of insulin; Mixed hyperlipidemia Social History Tobacco Use Types Packs/Day Years [...] Recorded In the past 12 months has [employer], gas, oil, or water company threatened to [...] or training? Not on file Preferred Language Paraguayan 05/21/2024 PHQ-2 Answer Date Recorded Patient Health [...] Description 10/18/2025 8:00 AM EST Office Visit [facility] [address] [place] [phone] Juan José Cervantes MD [address] [place], [place] [address] 06/30/2026 10:00 AM EDT Office Visit [facility] 3000 [facility] 240 [place] [phone] Manuel Wheatley, DIRECTOR OCCUPATIONAL [address] [place], [place] [id number] documented as of this encounter Visit Diagnoses Diagnosis Type 2 diabetes mellitus with hyperglycemia, with long-term current use of insulin Mixed hyperlipidemia documented in this encounter Care Teams Cut In Station Operator Relationship Specialty Start Date End Date Juan José Cervantes MD [address] [place] [address] PCP - General Family Medicine 02/20/22 documented as of this encounter
--- OUTSIDE RECORDS SUMMARY | 2025-10-07 06:08 | XMS_ITS | Encounter Summary ---
Author Organization Healthcare Address [address] [place] [address] Care Team Providers Care Nurse General Duty Name Role Phone Juan José Cervantes MD Primary Care Provider [phone] Encounter Details Date Type Department Care Team (Late Contact Info) Description 09/21/2025 Orders Only [facility] [address], 1st [place] [address] Dixon Gongora MD [address] [place] [address] Social History Tobacco Use Types Packs/Day [...] Description 04/12/2026 2:00 PM EDT Office Visit [facility] [address], [address]st [place] [address] Dixon Gongora MD [address] [place] [address] [address] [place] [address] documented as of this encounter Visit Diagnoses Not on filedocumented in this encounter Additional Health Concerns Assessment Noted Time A fall risk assessment has been complete d for the patient 01/20/2025 8:06 AM EDT A Body Mass Index follow-up plan has been documented for the patient 01/20/2025 10:04 AM EDT documented as of this encounter Care Teams Nurse General Duty Relationship Specialty Start Date End Date Juan José Cervantes MD PCP - General 01/20/25 documented as of this encounter
--- OUTSIDE RECORDS SUMMARY | 2025-10-07 06:08 | XMS_ITS | Clinical Summary ---
Author Organization [facility] Address [address] [place] [address] Care Team Providers Care Senior Sas Developer Name Role Phone Juan José Cervantes MD Primary Care Provider + Allergies No known active allergies Medications ferrous fulfate dried ER (Slow Release Iron) 45 MG tablet controlled-releas e tablet Take 140 mg by mouth Daily. Active B Complex Vitamins (B COMPLEX 1 PO) Take by mouth 2 (Two) Times a Day. Active clotrimazole (LOTRIMIN) 1 % cream APPLY TOPICALLY TO THE AFFECTED AREA TWICE DAILY FOR 14 DAYS 022 Active fexofenadine (KRISTYN) 180 MG tablet Take 1 tablet by mouth Daily. 90 tablet 3 023 Active sildenafil (Viagra) 100 MG tabletIndications :Drug-induced erectile dysfunction Take 1 tablet by mouth Daily As Needed for Erectile Dysfunction. 6 tablet 11 023 Active cyanocobalamin 1000 MCG/ML injectionIndicati ons:Vitamin B12 deficiency Inject once monthly at [facility] 1 mL 11 023 Active Continuous Glucose Sensor (FreeStyle Amanda 2 Sensor) miscIndications:T ype 2 diabetes mellitus with diabetic neuropathy, with long-term current use of insulin USE DIRECTED EVERY 14 DAYS 6 each 4 024 Active colchicine 0.6 MG tabletIndications :Podagra Take 1 tablet by mouth Daily. 90 tablet 1 024 Active BD ULTRA-FINE PEN NEEDLES 29G X 12.7MM miscIndications:T ype 2 diabetes mellitus with diabetic neuropathy, with long-term current use of insulin,Long-term insulin use Use 1 each Daily. 100 each 3 024 Active metFORMIN (GLUCOPHAGE) 1000 MG tablet TAKE 1 TABLET BY MOUTH TWICE DAILY WITH MEALS 180 tablet 3 025 Active HYDROcodone-aceta minophen (NORCO) 5-325 MG per tabletIndications :Left lateral abdominal pain,History of colonic diverticulitis Take 1 tablet by mouth Every 8 (Eight) Hours As Needed for Severe Pain. 12 tablet 025 Active carbidopa-levodop a (SINEMET) 25-100 MG per tablet TAKE 1 TABLET BY MOUTH THREE TIMES DAILY 270 tablet 1 025 Active NON FORMULARY Apply topically to the appropriate area as directed. Active furosemide (LASIX) 40 MG tabletIndications :Pedal edema TAKE 1 TABLET BY MOUTH DAILY 90 tablet 3 025 Active Jardiance 10 MG tablet tabletIndications :Type 2 diabetes mellitus with hyperglycemia, with long-term current use of insulin,Stage 3a chronic kidney disease (CKD) TAKE 1 TABLET BY MOUTH DAILY 30 tablet 2 025 Active Continuous Glucose Sensor (FreeStyle Amanda 2 Sensor) miscIndications:T ype 2 diabetes mellitus with diabetic neuropathy, with long-term current use of insulin USE DIRECTED EVERY 14 DAYS 6 each 4 025 Active Continuous Glucose Sensor (FreeStyle Amanda 2 Sensor) miscIndications:T ype 2 diabetes mellitus with diabetic neuropathy, with long-term current use of insulin 1 Units by Subdermal route Every 14 (Fourteen) Days. 6 each 4 025 Active pramipexole (MIRAPEX) 0.5 MG tablet Take 1 tablet by mouth Every Morning. Active pramipexole (MIRAPEX) 0.75 MG tablet Take 1 tablet by mouth Every Evening. Active Insulin Glargine, 2 Unit Dial, (TOUJEO) 300 UNIT/ML solution pen-injector injectionIndicati ons:Type 2 diabetes mellitus with hyperglycemia, with long-term current use of insulin Inject 40 Units under the skin into the appropriate area as directed Daily. 025 Active enalapril (VASOTEC) 10 MG tabletIndications :Primary hypertension Take 1 tablet by mouth Daily. 90 tablet 2 025 Active Semaglutide, 2 MG/DOSE, (Ozempic, 2 MG/DOSE,) 8 MG/3ML solution pen-injectorIndic ations:Type 2 diabetes mellitus with diabetic neuropathy, with long-term current use of insulin Inject 2 mg under the skin into the appropriate area as directed 1 (One) Time Per Week. friday 3 mL 2 Active rosuvastatin (Crestor) 10 MG tabletIndications :Type 2 diabetes mellitus with hyperglycemia, with long-term current use of insulin,Mixed hyperlipidemia Take 1 tablet by mouth Daily. 90 tablet Active allopurinol (ZYLOPRIM) 300 MG tabletIndications :Hyperuricemia TAKE 1 TABLET BY MOUTH DAILY 90 tablet 3 Active isosorbide mononitrate (IMDUR) 30 MG 24 hr tabletIndications :Primary hypertension TAKE 1 TABLET BY MOUTH EVERY MORNING 30 tablet 3 025 Active rosuvastatin (Crestor) 10 MG tabletIndications :Type 2 diabetes mellitus with hyperglycemia, with long-term current use of insulin,Mixed hyperlipidemia Take 1 tablet by mouth Daily. 90 tablet 3 025 2024 Discontinued(R eorder) isosorbide mononitrate (IMDUR) 30 MG 24 hr tabletIndications :Primary hypertension TAKE 1 TABLET BY MOUTH EVERY MORNING 30 tablet 3 025 2024 Discontinued allopurinol (ZYLOPRIM) 300 MG tabletIndications :Hyperuricemia Take 1 tablet by mouth Daily. 025 2024 Discontinued Hospital, Clinic, or Other [...] & Plan (07/19/2025 10:46 AM EDT): {Diabetes (Optional):1304479107} Orders: Insulin Glargine, 2 Unit Dial, (TOUJEO) [...] Plan (07/19/2025 10:46 AM EDT): {Hypertension is (optional):2289261408} Orders: enalapril (VASOTEC) 10 MG tablet; Take [...] documentation of his foot exam from his inspector penetrant and a new prescription for diabetic shoes [...] Encounters Date Type Department Care Team Description 10/06/2025 Refill [facility] [address] [place], [place] [address] Juan José eCrvantes MD Primary hypertension 10/03/2025 Refill [facility] [address] [place], [place] [address] Juan José Cervantes MD Hyperuricemia 10/01/2025 Refill [facility] [address] [place], [place] [address] Juan José Cervantes MD Hyperuricemia 09/23/2025 Refill [facility] [address] [place] [address] Juan José Cervantes MD Type 2 diabetes mellitus with hyperglycemia, with long-term current use of insulin; Mixed hyperlipidemia 08/31/2025 Refill [facility] [address] [place], [place] [address] Juan José Cervantes MD Type 2 diabetes mellitus with diabetic neuropathy, with long-term current use of insulin 08/30/2025 8:30 AM EST Flu Shot [facility] [address] [place], [place] [address] Need for influenza vaccination (Primary Dx) 08/30/2025 Travel 07/20/2025 Results Follow-Up [facility] [address] [place] [address] Juan José Cervantes MD 07/19/2025 10:15 AM EDT Office Visit [facility] [address] [place] [address] Juan José Cervantes MD Medicare annual wellness visit, subsequent (Primary Dx); Type 2 diabetes mellitus with hyperglycemia, with long-term current use of insulin; Colon cancer screening; Primary hypertension; Hyperuricemia 07/19/2025 Travel 07/18/[address] [facility] [address] [place], [place] [address] Juan José Cervantes MD Type 2 diabetes mellitus with diabetic neuropathy, with long-term current use of insulin 07/18/2025 Refill [facility] [address] [place], [place] [address] Juan José Cervantes MD Type 2 diabetes mellitus with diabetic neuropathy, with long-term current use of insulin from Last 3 Months Immunizations Immunization Administration [...] = 0.6 oz pur e alcohol) [facility] Utilities Answer Date Recorded In the past [...] or training? Not on file Preferred Language Thai 05/21/2024 PHQ-2 Answer Date Recorded Patient Health [...] Description 10/18/2025 8:00 AM EST Office Visit [facility] [address] [facility] [place] [address] Juan José Cervantes MD 210 [facility] [place] [address] 06/30/2026 10:00 AM EDT Office Visit [facility] [address] [facility] [address] [place] [phone] Manuel Wheatley, DIGITAL MEDIA DIRECTOR [address] [place] [id number] Health Maintenance Due Date Last Done Comments COLON CANCER SCREENING 5 YEA R SIGMOIDOSCOPY [address] COLONOGRAPHY 1999 FECAL OCCULT BLOOD TEST 1999 FIT Testing (1 year) 1999 ZOSTER VACCINE (1 of 2) 2004 COVID-19 Vaccine (3 - Modern a risk series) 12/19/2021 11/21/2021, 01/24/2021, 12/27/2020 URINE MICROALBUMIN-CREATININ E RATIO (uACR) 12/28/2025 12/28/2024 HEMOGLOBIN A1C 01/16/2026 07/19/2025, 06/0 03/2025, 03/27/2025, Additional history exists LIPID PANEL 03/31/2026 03/31/2025, [...] Cologuard Negative Negative 08/08/2025 12:08 PM EDT [employer] (IA #:[id number]) Comment: The Cologuard Plus (TM) test was performed on this specimen. NEGATIVE TEST RESULT. A negative (normal) Cologuard Plus result means the patient has a oaeg-lnnb-mtyehvl chance of having colorectal cancer (CRC) or [...] a 91% specificity (Cologuard Plus Clinician Brochure. [employer]. [place], [place] Visit [email or web address] for more test information, references, warnings, and precautions. Stool specimen (specimen) Specimen from rectum / Unknown 08/02/2025 1:21 PM EDT 08/03/2025 2:30 PM EDT Juan José Cervantes MD BODY FLUIDS AND STOOLS O RDERABLES Final Result Performing Organization Address City/[facility]/ZIP Co de Phone Number [employer] (CLIA #:[id number]) [address] [place] [address], * FOOT EXAM SCANNED (07/25/2025) Juan José Cervantes MD CHART REVIEW TABS Fin al Result * (ABNORMAL) Hemoglobin A1c (07/19/2025 10:37 AM EDT) [facility] Hemoglobin A1C 6.30(H) 4.80 - 5.60 % [facility] Comment: Hemoglobin A1C Ranges: Increased Risk for Diabetes 5.7% to 6.4% Diabetes >= 6.5% Diabetic Goal < 7.0% Blood 07/19/2025 10:3 7 AM EDT 07/19/2025 Narrative [facility] (AMBULATORY) - 07/20/2025 3:07 AM EDT Performed at: [address] [place] [id number] Paper Baling Machine Operator: Christiano Hoyt MD, Phone: [phone] Patient Fasting: N Juan José Cervantes MD LAB BLOOD ORDERABLES Fin al Result [facility] (AMBULATORY) [address] [place] [address], [place] [phone] [facility] [address] [place] [address], [place] [phone] * EYE EXAM SCANNED (05/02/2025) Anatomical Region [...] 10:5 5 AM EDT 04/11/2025 Narrative [facility] (AMBUL[facility]) - 04/13/2025 8:11 AM EDT Performed at: - [address] [id number] Paper Baling Machine Operator: Enmanuel Akbar PhD, Phone: [phone] Patient Fasting: Y Franklin MADRID LAB BLOOD ORDERABLES Final Res ult [facility] [address] [place] [address], [facility] [address] [place] [address], * (ABNORMAL) Lipid Panel (03/31/2025 9:32 AM EDT) Pathologist [facility] Total Cholesterol 96 0 - 200 mg/dL [...] 03/31/2025 9:32 AM EDT 03/31/2025 Narrative [facility] (AMBULATORY) - 04/01/2025 8:11 AM EDT Performed at: [address] [place] [id number] Paper Baling Machine Operator: Christiano Hoyt MD, Phone: [phone] Patient Fasting: Y Juan José Cervantes MD LAB BLOOD ORDERABLES Fin al Result [facility] (AMBULATORY) [address] [place] [address], [facility] [address] [place] [address], [place] [phone] * CT Abdomen Pelvis With Contrast (02/09/2025) [...] Health Maintenance Insurance MEDICARE A & B [facility] Advance Directives Documents on File Type Date Recorded Patient Internet Marketing Strategist Expl anation LIVING WILL - SCAN 12/16/2023 12:21 PM SEB MANUELA PERRY [facility], 11/25/2023 * CPR (Attempt to Resuscitate) (Latest Code Status on File) Date Activated Date Inactivated Comments 05/20/2024 6:32 PM 05/22/2024 3:06 PM Question Answer Comments Code Status (Patient has no pulse and is not breathing): CPR (Attempt to Resuscitate) Medical Interventions (Patie nt has pulse or is breathing): Full Support Care Teams Senior Sas Developer Relationship Specialty Start Date End Date Juan José Cervantes MD [address] [place] [address] PCP - General Family Medicine 02/20/22
--- OUTSIDE RECORDS SUMMARY | 2025-10-07 06:08 | XMS_ITS | Encounter Summary ---
[facility] Organization [facility] Address [address] [place] [address] Care Team Providers Care Hogshead Opener Name Role Phone Juan José Cervantes MD Primary Care Provider + Encounter Details Date Type Department Care Team (Late st Contact Info) Description 04/13/2025 Results Follow-Up [facility] [address] [facility] [place] [address] Franklin Conklin PA 210 [facility] [place] [address] Social History Tobacco Use Types Packs/Day Years Used Date Smoking Tobacco: Former Cigarettes 0.3 2 0 10/27/1968 - 10/27/1970 Passive Smoke Exposure: Never Smokeless Tobacco: Never Comments:Only smoked in high school Alcohol Use Standard Drinks/Week Comments Never 0 (1 standard drink = 0.6 oz pur e alcohol) [facility] Utilities Answer Date Recorded In the past 12 months has [employer], gas, oil, or water [employer] threatened to shut off services in your [...] or training? Not on file Preferred Language Estonian 05/21/2024 PHQ-2 Answer Date Recorded Patient Health [...] Description 10/18/2025 8:00 AM EST Office Visit [facility] [address] [place] [address] Juan José Cervantes MD [address] [place] [address] 06/30/2026 10:00 AM EDT Office Visit [facility] 3000 [facility] [address] [place] [address] Manuel Wheatley, PIER RUNNER [address] [place] [address] documented as of this encounter Visit Diagnoses Not on filedocumented in this encounter Care Teams Hogshead Opener Relationship Specialty Start Date End Date Juan José Cervantes MD [address] [place] [address] PCP - General Family Medicine 02/20/22 documented as of this encounter
--- OUTSIDE RECORDS SUMMARY | 2025-10-07 06:08 | XMS_ITS | Encounter Summary ---
Author Organization [facility] Address [address] [place] [address] Care Team Providers Care Communications Coordinator Name Role Phone Juan José Cervantes MD Primary Care Provider + Encounter Details Date Type Department Care Team (Late st Contact Info) Description 02/10/2025 Results Follow-Up [facility] [address] [facility] [place] [address] Osman Lagos MD [address] [facility] [place] [address] Social History Tobacco Use Types Packs/Day Years Used Date Smoking Tobacco: Former Cigarettes 0.3 2 0 10/27/1968 - 10/27/1970 Passive Smoke Exposure: Never Smokeless Tobacco: Never Comments:Only smoked in high school Alcohol Use Standard Drinks/Week Comments Never 0 (1 standard drink = 0.6 oz pur e alcohol) [facility] Utilities Answer Date Recorded In the past 12 months has [employer], gas, oil, or water [employer] threatened to shut off services in your [...] or training? Not on file Preferred Language Niuean 05/21/2024 PHQ-2 Answer Date Recorded Patient Health [...] 8:00 AM EST Office Visit [facility] [address] [place] [address] Juan José Cervantes MD [address] [place] [address] 06/30/2026 10:00 AM EDT Office Visit [facility] 3000 [facility] [address] [place] [address] Manuel Wheatley, ABRASIVE GRINDER [address] [place] [address] documented as of this encounter Visit Diagnoses Not on filedocumented in this encounter Care Teams Communications Coordinator Relationship Specialty Start Date End Date Juan José Cervantes MD [address] [place] [address] PCP - General Family Medicine 02/20/22 documented as of this encounter
--- OUTSIDE RECORDS SUMMARY | 2025-10-07 06:08 | XMS_ITS | Encounter Summary ---
[facility] Organization [facility] Address [address] [place] [id number] Care Team Providers Care Note Specialist Name Role Phone Juan José Cervantes MD Primary Care Provider + Reason for Visit * Reason Onset Date Comments Med Refill 03/29/2024 Encounter Details Date Type Department Care Team (Late st Contact Info) Description 03/29/2024 Refill [facility] [address] [place] [address] Juan José Cervantes MD [address] [place] [address] Diabetic peripheral neuropathy Social History [...] Description 10/18/2025 8:00 AM EST Office Visit [facility] [address] [place] [address] Juan José Cervantes MD [address] [place] [address] 06/30/2026 10:00 AM EDT Office Visit [facility] 3000 [facility] [address] [place] [address] Manuel Wheatley, PROFESSOR OF EDUCATION [address] [place] [address] documented as of this encounter Visit Diagnoses Diagnosis Diabetic peripheral neuropathy Type II or unspecified type diabetes mellitus with neurological manifestations, not stated as uncontrolled documented in this encounter Care Teams Note Specialist Relationship Specialty Start Date End Date Juan José Cervantes MD [address] [place] [address] PCP - General Family Medicine 02/20/22 documented as of this encounter
--- OUTSIDE RECORDS SUMMARY | 2025-10-07 06:08 | XMS_ITS | Encounter Summary ---
Author Organization [facility] Address [address] [place] [id number] Care Team Providers Care Crap Game Box Person Name Role Phone Juan José Cervantes MD Primary Care Provider + Reason for Visit * Reason Comments Med Refill Encounter Details Date Type Department Care Team (Late st Contact Info) Description 10/26/2024 Refill [facility] 210 [facility] [place] [address] Juan José Cervantes MD [address] [place] [address] Type 2 diabetes mellitus with [...] drink = 0.6 oz pur e alcohol) [facility] Utilities Answer Date Recorded In the past 12 months has [employer], gas, oil, or water company threatened [...] or training? Not on file Preferred Language Malagasy 05/21/2024 PHQ-2 Answer Date Recorded Retired PHQ-9: [...] [facility] [address] [place] [address] Juan José Cervantes MD [address] [place] [address] 06/30/2026 10:00 AM EDT Office Visit [facility] 3000 [facility] [address] [place] [address] Manuel Wheatley, ADULT NEUROPSYCHOLOGIST [address] [place], [place] [id number] documented as of this encounter Visit Diagnoses Diagnosis Type 2 diabetes mellitus with diabetic neuropathy, with long-term current use of insulin Long-term insulin use documented in this encounter Care Teams Crap Game Box Person Relationship Specialty Start Date End Date Juan José Cervantes MD [address] [place] [address] PCP - General Family Medicine 02/20/22 documented as of this encounter
--- OUTSIDE RECORDS SUMMARY | 2025-10-07 06:08 | XMS_ITS | Encounter Summary ---
Author Organization [facility] Address [address] [place] [id number] Care Team Providers Care Sheet Tester Name Role Phone Juan José Cervantes MD Primary Care Provider + Encounter Details Date Type Department Care Team (Late st Contact Info) Description 07/20/2025 Results Follow-Up [facility] 210 [facility] [place] [address] Juan José Cervantes MD 210 [facility] [place] [address] Social History Tobacco Use Types Packs/Day Years Used Date Smoking Tobacco: Former Cigarettes 0.3 2.3 0 10/27/1968 - 10/27/1970 Passive Smoke Exposure: Never Smokeless Tobacco: Never Comments:Only smoked in high school Alcohol Use Standard Drinks/Week Comments Never 0 (1 standard drink = 0.6 oz pur e alcohol) [facility] Utilities Answer Date Recorded In the past 12 months has [employer], gas, oil, or water [employer] threatened to shut off services in your [...] or training? Not on file Preferred Language Czech 05/21/2024 PHQ-2 Answer Date Recorded Patient Health [...] [facility] [address] [place] [address] Juan José Cervantes MD [address] [place] [address] 06/30/2026 10:00 AM EDT Office Visit [facility] [address] [facility] [address] [place] [address] Manuel Wheatley, WATER RIGHTS SPECIALIST [address] [place] [address] documented as of this encounter Visit Diagnoses Not on filedocumented in this encounter Care Teams Sheet Tester Relationship Specialty Start Date End Date Juan José Cervantes MD [address] [place] [address] PCP - General Family Medicine 02/20/22 documented as of this encounter
--- OUTSIDE RECORDS SUMMARY | 2025-10-07 06:08 | XMS_ITS | Clinical Summary ---
Author Organization [facility] Address [address] [place] [address] Care Team Providers Care Jtac Name Role Phone Juan José Cervantes MD Primary Care Provider Allergies No known active allergies Medications metFORMIN [...] Continuous Glucose Sensor (FreeStyle Amanda 2 Sensor) [facility] USE DIRECTED EVERY 14 DAYS 01/04/20 25 [...] bedtime. Ketamine/gabap entin/ibuprofe n/lidocaine/ba clofen 4/10/3/4/2%. Active carbidopa-levo dopa (Sinemet) 25-100 MG tablet Take 2 tablets by mouth 3 times a day. 540 tablet 3 08/12/20 25 026 Active pramipexole (Mirapex) 0.5 MG tablet Take 1 tablet by mouth 2 times a day. 180 tablet 10/03/20 25 026 Active pramipexole (Mirapex) 0.75 MG tablet Take 1 tablet by mouth every evening. 30 tablet 07/12/20 25 025 Discontinued pramipexole (Mirapex) 0.5 MG tablet Take 1 tablet by mouth 2 times a day. 60 tablet 08/12/20 25 025 Discontinued(R eorder) pramipexole (Mirapex) 0.25 MG tablet Take 1 tablet by mouth 3 times a day. 180 tablet 09/21/20 25 025 Discontinued Encounters Date Type Department Care Team Description 10/03/2025 Orders Only [facility] [address] [place] [address] Dixon Gongora MD 09/21/2025 Orders Only [facility] [address] [place] [address] Dixon Gongora MD 08/12/2025 Refill [facility] [address], [address] [place] [address] Dixon Gongora MD 08/11/2025 Refill [facility] [address], [address] [place] [address] Dixon Gongora MD 07/12/2025 Orders Only [facility] [address] [place] [address] Dixon Gongora MD from Last 3 Months [...] Visit [place] [facility] [address] [place] [address] Dixon Gongora MD [address] [place] [address] Health Maintenance Due Date Last Done Comments [facility]-Depression Screening 1954 [facility]-/Child/Adol SDOH Screenings 1955 [facility]- SDOH Screenings 1972 [facility]-Adult SDOH Screenings 1972 CT Colonography 1999 Colonoscopy 1999 FIT 1999 FOBT 1999 Sigmoidoscopy 1999 [facility]-Zoster Vaccines (1 of 2) 2004 FIT-DNA 06/12/2025 06/12/2022 [facility]-Colorectal Cancer Screening 06/12/2025 [id number] Vaccine ( season) 2025 11/21/2021, 01/24/2021, 12/27/2020 [facility]-Influenza Vaccine (#1) 06/27/202509/21, 09/09/2023, 08/22/2022 [facility]-RSV Vaccine: 60+ Years or (1 - 1-dose 75+ series) 2029 [facility]-DTaP,Tdap,and Td Vaccines (2 - Td or Tdap) 05/25/2034 05/25/2024 [facility]-Pneumococcal Vaccine: 50+ Years Completed 05/25/2024 [facility]-Diabetes: Hemoglobin A1C Discontinued 12/28/2024, 09/21/2024, 05/20/2024, Additional history exists HPV Vaccines (No Doses Required) Completed [facility]-HIB Vaccines Aged Out No longer e [...] complete this topic Insurance MEDICARE Care Teams Jtac Relationship Specialty Start Date End Date Juan José Cervantes MD PCP - General 01/20/25
--- OUTSIDE RECORDS SUMMARY | 2025-10-07 06:08 | XMS_ITS | Encounter Summary ---
[facility] Address [address] [place] [address] Care Team Providers Care Multimedia Coordinator Name Role Phone Juan José Cervantes MD Primary Care Provider + Reason for Visit * Reason Onset Date Comments Med Refill 03/14/2023 Encounter Details Date Type Department Care Team (Late st Contact Info) Description 03/14/2023 Refill [facility] [address] [place] [address] Juan José Cervantes MD [address] [facility] [place] [address] Social History Tobacco Use Types Packs/Day [...] 10/18/2025 8:00 AM EST Office Visit [facility] FAMILY MEDICINE [address] [place] [address] Juan José Cervantes MD [address] [place] [address] 06/30/2026 10:00 AM EDT Office Visit [facility] SLEEP MEDICINE [address] [facility] [address] [place] [address] Manuel Wheatley, ADJUNCT PSYCHOLOGY INSTRUCTOR [address] [place], [place] [id number] documented as of this encounter Visit Diagnoses Not on filedocumented in this encounter Care Teams Multimedia Coordinator Relationship Specialty Start Date End Date Juan José Cervantes MD [address] [place] [address] PCP - General Family Medicine 02/20/22 documented as of this encounter
--- OUTSIDE RECORDS SUMMARY | 2025-10-07 06:08 | XMS_ITS | Encounter Summary ---
[facility] [address] [place] [id number] Care Team Providers Care Interpersonal Communications Professor Name Role Phone Juan José Cervantes MD Primary Care Provider + Reason for Visit * Reason Comments Med Refill Encounter Details Date Type Department Care Team (Late st Contact Info) Description 10/06/2025 Refill [facility] FAMILY MEDICINE [address] [facility] [address] Juan José Cervantes MD [address] [place] [address] Primary hypertension Social History Tobacco Use Types Packs/Day Years Used Date Smoking Tobacco: Former Cigarettes 0.3 2.3 0 10/27/1968 - 10/27/1970 Passive Smoke Exposure: Never Smokeless Tobacco: Never Comments:Only smoked in high school Alcohol Use Standard Drinks/Week Comments Never 0 (1 standard drink = 0.6 oz pur e alcohol) [facility] Utilities Answer Date Recorded In the past 12 months has [employer], gas, oil, or water company threatened to [...] or training? Not on file Preferred Language Lao 05/21/2024 PHQ-2 Answer Date Recorded Patient Health [...] Description 10/18/2025 8:00 AM EST Office Visit [facility] FAMILY MEDICINE [address] [facility] [place] [address] Juan José Cervantes MD [address] [place] [address] 06/30/2026 10:00 AM EDT Office Visit [facility] SLEEP MEDICINE [address] [facility] [address] [place] [address] Manuel Wheatley, CERTIFIED MEETING PROFESSIONAL [address] [place] [address] documented as of this encounter Visit Diagnoses Diagnosis Primary hypertension Unspecified essential hypertension documented in this encounter Care Teams Interpersonal Communications Professor Relationship Specialty Start Date End Date Juan José Cervantes MD [address] [place] [address] PCP - General Family Medicine 02/20/22 documented as of this encounter
--- NOTE | 2025-10-07 06:18 | HMH.EDGENADL ---
Discharge Plan Disposition Patient Disposition: Home, Self-Care Condition: Good Prescriptions Prescriptions: No Action furosemide 40 mg tablet 40 mg PO DAILY enalapril maleate 10 mg tablet 10 mg PO DAILY Patient Comments: TAKE 1 TABLET BY MOUTH DAILY isosorbide mononitrate 60 mg tablet extended release 24 hr 60 mg PO DAILY Patient Comments: TAKE 1 TABLET BY MOUTH EVERY MORNING metformin 1,000 mg tablet 1,000 mg PO DAILY allopurinol 300 mg tablet 300 mg PO DAILY Patient Comments: TAKE 1 TABLET BY MOUTH DAILY colchicine 0.6 mg tablet 0.6 mg PO DAILY Patient Comments: TAKE 1 TABLET BY MOUTH DAILY carbidopa-levodopa 25-100 mg tablet 1 tab PO TID Patient Comments: TAKE 1 TABLET BY MOUTH THREE TIMES DAILY pramipexole 1.5 mg tablet extended release 24 hr 1.5 mg PO DAILY Patient Comments: TAKE 1 TABLET BY MOUTH TWICE DAILY insulin glargine-yfgn [Semglee(insulin glarg-yfgn)Pen] 100 unit/mL (3 mL) insulin pen 60 unit SQ DAILY Patient Comments: ADMINISTER 60 UNITS UNDER THE SKIN DAILY DIRECTED Ozempic 2 mg/dose (8 mg/3 mL) pen injector 2 mg SQ WEEKLY Patient Comments: ADMINISTER 2MG UNDER THE SKIN INTO THE APPROPRIATE AREA DIRECTED ONCE WEEKLY Referrals Follow up/Referrals: Juan José Cervantes MD [Primary Care Provider, Medical] - See instructions Activity Restrictions/Add. Instructions Additional Instructions/Restrictions: You were evaluated in the ER and are believed to be appropriate for discharge at this time. Continue any home medications as prescribed. Follow-up with your primary care doctor for reevaluation. Return to the ER with new, worsening, or otherwise concerning symptoms. Clinical Impressions Clinical Impression: Foreign body in left ear Print Language Print Language: Icelandic Discharge ED Provider: Sadaf Lehman Adult [facility] General Chief complaint: Skin/Abscess/Foreign Body Stated complaint: hearing aid tip stuck in ear Time Seen by Provider: 10/07/25 05:58 Mode of Arrival: Ambulatory Source of Information: Patient Description of Symptoms (Recalled from ER Triage Doc. by RN): Hearing aid stuck in ear History of Present Illness HPI narrative: 70-year-old male with history of previous meningioma, FABIO, Parkinson's, neuropathy, hypertension, diabetes presents to the ER for concern of the tip of his left hearing aid being stuck in the ear. His hearing aids have rubber ear inserts and he states one of them is stuck in the left ear. He states it is uncomfortable but not painful and would just like assistance with removal. He has no other complaints or concerns. He states he has not been ill recently and feels well. Related Data Home Medications ?Medication ?Instructions ?Recorded ?Confirmed allopurinol 300 mg tablet 300 mg PO DAILY 10/15/24 08/04/25 carbidopa 25 mg-levodopa 100 mg 1 tab PO TID 10/15/24 08/04/25 tablet colchicine 0.6 mg tablet 0.6 mg PO DAILY 10/15/24 08/04/25 enalapril maleate 10 mg tablet 10 mg PO DAILY 10/15/24 08/04/25 furosemide 40 mg tablet 40 mg PO DAILY 10/15/24 08/04/25 insulin glargine-yfgn 100 unit/mL 60 unit SQ DAILY 10/15/24 08/04/25 (3 mL) subcutaneous pen (Semglee (insulin glargine-yfgn) Pen) isosorbide mononitrate 60 mg 60 mg PO DAILY 10/15/24 08/04/25 tablet,extended release 24 hr metformin 1,000 mg tablet 1,000 mg PO DAILY 10/15/24 08/04/25 pramipexole 1.5 mg tablet,extended 1.5 mg PO DAILY 10/15/24 08/04/25 release 24 hr semaglutide 2 mg/dose (8 mg/3 mL) 2 mg SQ WEEKLY 10/15/24 08/04/25 subcutaneous pen injector (Ozempic) Allergies Allergy/AdvReac Type Severity Reaction Status Date / Time No Known Allergies Allergy Verified 09/01/25 08:29 [facility] Disclaimer: The information contained in this section may have been updated after the patient was seen, as this information can be updated by other users. Medical History Meningioma Stable finding on head CT. According to prior neurologist records, similar since at least 2007. Sleep apnea, obstructive Sleep apnea Hyperlipidemia Hypertension Onychomycosis Onychomycosis Onychodystrophy Hx of Parkinson's disease Neuropathy DM type 2 (diabetes mellitus, type 2) Surgical History History of colonoscopy History of corneal transplant Family History Other No significant family history Social History (Updated 09/01/25 @ 08:21 by Chasity Cabrera RN) Smoking Status: Never smoker alcohol intake: never substance use type: denies use current occupational status: retired and other Travel in the last 8 weeks?: None household members: spouse housing: house Have you lived/traveled outside [place] in past 30 days?: No Contact w/someone who lives/traveled outside US past 30 days?: No Exposure to someone with infectious disease in past 14 days?: No Do you have a fever (greater than 100.4 F or 38 C)?: No Have you tested positive for COVID-19?: No Exposed to someone with COVID-19 in past 14 days?: No Do you have a sore throat?: No Do you have a cough?: No Do you have any weakness?: No Do you have any diarrhea?: No Are you experiencing any unusual bleeding?: No Do you have any muscle aches/pain?: No Do you have any abdominal pain?: No Are you experiencing loss of taste or smell?: No Other Medical History Have you received the Flu Vaccine for this season: Yes Have you received the Pneumonia Vaccine: No ROS Obtained: Yes Systems reviewed as appropriate & no additional complaints except as documented Per HPI Physical Exam General General appearance: alert and in no apparent distress Head Head exam: atraumatic and normocephalic Eye Eye exam: Present PERRL and EOMI ENT ENT exam: Present mucous membranes moist; Absent normal external ear exam (On visual examination of the ear patient has a rubber hearing aid tip stuck in the left ear canal, it is stuck superficially but I cannot quite grasp it with my fingers. No other abnormality) Neck Neck exam: Present normal inspection and full ROM Chest Chest inspection: Present symmetric chest wall rise Respiratory Respiratory exam: Absent respiratory distress or stridor Cardiovascular Cardiovascular exam: Present regular rate and normal rhythm Extremities Exam Extremities exam: Present full ROM Neurological Exam Neurological exam: Present alert, oriented X3 and normal gait Psychiatric Psychiatric exam: Present normal affect and normal mood Skin Skin exam: Present warm and dry Medical Decision Making Medical Records Medical records reviewed: Yes I reviewed the patient's medical records. Screening: Per USPSTF and CDC recommendations, given the prevalence of disease in our region, it is our hospital?s policy to screen for HIV and viral Hepatitis for all patients aged 18 and over and those with ongoing risk factors. Alex Inquiry Pt receiving controlled substance: No Vital Signs: 10/07/25 06:01 10/07/25 06:03 Temperature 98 F 98.6 F Temperature Source Oral Oral Pulse Rate 103 H Pulse Rate [Right Radial] 103 H Respiratory Rate 16 14 Blood Pressure 144/86 H Blood Pressure [Right Arm] 144/86 H Blood Pressure Mean [Right Arm] 105 Blood Pressure Source Automatic Cuff Blood Pressure Source [Right Arm] Automatic Cuff Blood Pressure Position Sitting 02 Sat by Pulse Oximetry 96 Oxygen Delivery Method Room Air Room Air Medical Decision Narrative: In summary, 70-year-old male presents to the ER concerned that the rubber tip of his left hearing aid is stuck in the left ear canal. He states it is mildly uncomfortable but he is not able to get it out at home so he came to the ER for removal. On evaluation patient is hemodynamically stable, afebrile, GCS 15, independently ambulatory into the ER. Overall well-appearing. Examination reveals rubber hearing aid tip in the left ear canal. It is superficial but not quite able to be removed by hand. Hemostats were used for removal, see procedure note for details. Patient tolerated procedure well with no complications. I examined the ear and ear canal thoroughly after removal and there appears to be no injury or other abnormality. No further management is indicated. Patient was given instructions on symptomatic management, follow up instructions, and return precautions for the emergency department. Patient indicated understanding and was discharged in stable condition. Procedures Foreign Body Removal Time Out Performed: Yes Site: left and ear Description of foreign body: other (Rubber hearing aid tip) Sedation/Analgesia: none Technique: manual removal (With hemostat) Confirmed by:: direct visualization Complications: none Post-procedure exam: awake, alert, normal BP, normal HR and normal O2 sat Neurovascular: no change from pre-procedure Critical Care Critical Care Time Critical Care Time: No
== END 2025-10-07 06:17 | disposition home or self-care (01) ==
LOC: ER 06:06
PROVIDERS: Emergency Provider Emergency Medicine; PCP Family Medicine
DX: T16.2XXA Foreign body in left ear, initial encounter (principal); W44.G1XA Audio device entering into or through a natural orifice, initial encounter
CPT/HCPCS: 69200; 99283